=== PATIENT | male | born 1950 | race Caucasian/White ===

== ENCOUNTER 2016-09-29 12:23 | Emergency (ER) | payer MEDICARE, MEDICAID ==
[~2016-09-29 12:23] MED LIST: /ADVA50050 IN; /ESCI20TA OR; /FENO48TA OR; /FENO48TA PO; /IPRAINH INH; /MESA40TAB PO; BABY81CH OR; CARA1TAB2 PO; CLON1TAB PO; FLUT50SP; HYDR25TA8 OR; INSULANT SC; LIPI20TA OR; LISI5TAB OR; LOPR50TA OR; LORA2TAB OR; METF500T PO; NABU500T OR; OMEP20TA7 OR; PROVENTIL INH; TRAM50TA2 OR; TRAZ100T OR; lialda OR; senokot s OR
[2016-09-29] MEDS ORDERED: KETOROLAC 30 MG/ML VIAL (J1885) As Ordered ONE (13:35)
[2016-09-29] MEDS ORDERED: METHOCARBAMOL 1,000 MG/10 ML VIAL (J2800) As Ordered ONE (13:35)
--- NOTE | 2016-09-29 14:46 | EDDOCDS ---
Nurse's Notes [facility] Name: Yayo Rodriguez Age: 66 yrs Sex: Male : 1950 Arrival Date: 09/29/2016 Time: 12:23 Bed TR8 Private MD: Unknown, Family Dr Diagnosis: Low back pain Presentation: 09/29 12:26 Presenting complaint: Patient states: c/o back pain since yesterday. "I twisted my back ead bending over and something snapped.". Acute neurological deficits are not present. Mechanism of Injury: No Mechanism of Injury. Adult Sepsis Screening: The patient does not have new or worsening altered mentation. Patient's respiratory rate is less than 22. Systolic blood pressure is greater than 100. Patient has a qSOFA score of 0- Negative Sepsis Screen. Suicide/Homicide risk assessment- the patient denies having any suicidal and/or homicidal ideations and does not present with any other emotional, behavioral or mental health complaints. 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 Transition of care: patient was not received from another setting of care. 12:26 Acuity: ANGELICA Level 4 ead 12:26 Method Of Arrival: Walkin/Carried/Asstd ead Triage Assessment: 12:30 General: Appears in no apparent distress, uncomfortable, Behavior is appropriate for ead age, cooperative. Pain: Location: back and left leg Pain currently is 10 out of 10 on a pain scale. Respiratory: Airway is patent Respiratory effort is even, unlabored. Derm: Skin is pink, warm & dry. Musculoskeletal: Reports pain in back and left leg. Historical: - Allergies: Albuterol; Nasonex; Sertraline; Paxil; SULFA (SULFONAMIDES) (Rash); Zoloft; - Home Meds: 1. clonazepam 1 mg oral TbDL 2 times per day 2. gabapentin 100 mg Oral cap 3 times per day 3. hydroxyzine HCl 25 mg Oral tab twice a day 4. Lantus Sub-Q 45 u in the am 37 u in the pm 5. mag64 64 mg twice a day 6. meclizine 25 mg Oral tab 2 times per day 7. metformin 1,000 mg Oral tab 2 times per day - PMHx: Colitis; Chronic Back pain; Hypertension; Depression; Chronic kidney problems; Diabetes - IDDM: uncontrolled; Anxiety; COPD; CAD; - PSHx: CABG; Hernia repair- Umbilical; Cholecystectomy; - Social history: Smoking status: Chewing Tobacco No barriers to communication noted, The patient speaks fluent Luxembourgish, Speaks appropriately for age. - Family history: Not pertinent. - : The pt / caregiver states he / she is not on anticoagulants. Home medication list is obtained from the patient, family members, [employer] import data. - Exposure Risk Screening:: None identified. Screenin:50 Screening information is obtained from the patient. Fall risk: No risks identified. ck1 Assistance ADL's: requires no assistance with activities of daily living. Abuse/DV Screen: The patient / caregiver reports he/she is: not in a situation that causes fear, pain or injury. Nutritional screening: No deficits noted. Advance Directives: Currently, there is no health care proxy. home support is adequate. Assessment: 13:51 General: Appears in no apparent distress, comfortable, Behavior is appropriate for age, ck1 cooperative. Pain: Location: low back area Pain currently is 8 out of 10 on a pain scale. Neurological: Level of Consciousness is awake, alert, obeys commands, Oriented to person, place, time. Respiratory: Respiratory effort is unlabored, Respiratory pattern is regular, symmetrical. GI: No deficits noted. Derm: Skin is intact, is healthy with good turgor, Skin is pink, warm & dry. 14:45 General: Appears in no apparent distress, comfortable, Behavior is appropriate for age, ead cooperative. Neurological: Level of Consciousness is awake, alert, Oriented to person, place, time. Respiratory: Airway is patent Respiratory effort is even, unlabored. Derm: Skin is pink, warm & dry. Vital Signs: 12:24 BP 165 / 76; Pulse 87; Resp 16; Temp 97.8(T); Pulse Ox 99% on R/A; [place] 108.86 kg[place] [facility] [place] 5 ft. 11 in. (180.34 cm); Pain 10/10; 14:30 BP 156 / 80; Pulse 80; Resp 16; Temp 99.3(TE); Pulse Ox 97% ; Pain 6/10; jrd 12:24 Body Mass Index 33.47 (108.86 kg, 180.34 cm) [facility] [place] Vitals: 12:24 Log In Time: September 29, 2016 at 12:23. sew ED Course: 12:24 Patient visited by Crista Saucedo. sew 12:24 Unknown, Family is Private Physician. sew 12:24 Patient moved to Waiting sew 12:25 Patient visited by Crista Saucedo. sew 12:25 Patient moved to Pre RCE sew 12:28 Triage Initiated ead 13:16 Patient moved to Triage 2 jrd 13:17 Patient visited by Kisha Vergara,RN. ead 13:18 Po Garces PA is PHCP. btw 13:18 Crista Torres MD is Attending Physician. btw 13:18 Patient visited by Po Garces PA. btw 13:34 Patient moved to PD ead 13:49 Patient visited by Puja Whyte,SHEKHAR. ck1 13:51 The patient / caregiver is instructed regarding the plan of care and ED course. ck1 14:27 Unknown, Family is Referral Physician. btw 14:31 Patient visited by Antione Dominguez PCA. jrd 14:44 Patient moved to TR8 ead 14:45 No IV's were initiated during this patient's visit. No procedures done that require ead assistance. Administered Medications: 13:50 Drug: ketorolac 30 mg [ketorolac 30 mg/mL (1 mL) injection solution (1 mL)] Route: IM; ck1 Site: left gluteus; 13:50 Drug: Robaxin 250 mg [Robaxin 100 mg/mL injection solution (2.5 mL)] Route: IM; Site: ck1 right gluteus; Order Results: There are currently no results for this order. Outcome: 14:27 Discharge ordered by Provider. btw 14:45 Discharge Assessment: Patient awake and alert. obeys commands, Oriented to person, ead place and time. patient administered narcotics - no. The following High Risk Discharge criteria are identified: None. Discharged to home ambulatory, with significant other. Condition: improved. Discharge instructions given to patient, significant other, Instructed on discharge instructions, follow up and referral plans. medication usage, no driving heavy equipment, no drinking with medication, Demonstrated understanding of instructions, medications, Pt was receptive of discharge instructions/ teaching. Prescriptions given X 2. No special radiology studies were completed. Property sent home with patient. 14:46 Patient left the ED. ead Signatures: Puja Whyte,RN RN ck1 Po Garces PA PA btw Wallace, Kisha Trinh,RN RN ead Antinoe Dominguez, ROSI CIRCULAR HEAD SAW OPERATOR jrd MTDD
--- NOTE | 2016-09-29 14:46 | EDDOCDS ---
Physician Documentation [facility] Name: Yayo Rodriguez Age: 66 yrs Sex: Male : 1950 Arrival Date: 09/29/2016 Time: 12:23 Bed TR8 Private MD: Pia, Family De [place] Disposition: 09/29/16 14:27 Discharged to Home/Self Care. Impression: Low back pain. - Condition is Stable. - Discharge Instructions: Back Injury Prevention, [id number], Back Pain, Adult, Dkgm-pi-Iinz. - Prescriptions for Ultram 50 mg Oral Tablet - take 1 tablet by ORAL route every 6 hours As needed MDD: 4 tabs; 20 tablet. Robaxin- 750 750 mg Oral Tablet - take 1 tablet by ORAL route every 6 hours As needed; 40 tablet. - Medication Reconciliation, Local Pharmacy Hours form. - Follow up: Unknown, Family [place]; When: Call to arrange an appointment; Reason: Further diagnostic work-up, Recheck today's complaints, Continuance of care. - Problem is new. - Symptoms are unchanged. Historical: - Allergies: Albuterol; Nasonex; Sertraline; Paxil; SULFA (SULFONAMIDES) (Rash); Zoloft; - Home Meds: 1. clonazepam 1 mg oral TbDL 2 times per day 2. gabapentin 100 mg Oral cap 3 times per day 3. hydroxyzine HCl 25 mg Oral tab twice a day 4. Lantus Sub-Q 45 u in the am 37 u in the pm 5. mag64 64 mg twice a day 6. meclizine 25 mg Oral tab 2 times per day 7. metformin 1,000 mg Oral tab 2 times per day - PMHx: Colitis; Chronic Back pain; Hypertension; Depression; Chronic kidney problems; Diabetes - IDDM: uncontrolled; Anxiety; COPD; CAD; - PSHx: CABG; Hernia repair- Umbilical; Cholecystectomy; - Social history: Smoking status: Chewing Tobacco No barriers to communication noted, The patient speaks fluent Upper Sorbian, Speaks appropriately for age. - Family history: Not pertinent. - : The pt / caregiver states he / she is not on anticoagulants. Home medication list is obtained from the patient, family members, [employer] import data. - Exposure Risk Screening:: None identified. Vital Signs: 09/29 12:24 BP 165 / 76; Pulse 87; Resp 16; Temp 97.8(T); Pulse Ox 99% on R/A; Weight 108.86 kg / sew 240 lbs; Height 5 ft. 11 in. (180.34 cm); Pain 10/10; 14:30 BP 156 / 80; Pulse 80; Resp 16; Temp 99.3(TE); Pulse Ox 97% ; Pain 6/10; jrd 12:24 Body Mass Index 33.47 (108.86 kg, 180.34 cm) sew MDM: 13:32 ketorolac 30 mg IM once ordered. btw 13:32 Robaxin 250 mg IM once ordered. btw Administered Medications: 13:50 Drug: ketorolac 30 mg [ketorolac 30 mg/mL (1 mL) injection solution (1 mL)] Route: IM; ck1 Site: left gluteus; 13:50 Drug: Robaxin 250 mg [Robaxin 100 mg/mL injection solution (2.5 mL)] Route: IM; Site: ck1 right gluteus; Signatures: Puja Whyte RN RN ck1 Po Garces PA PA btw Kisha Vergara,RN RN orlyd MTDD
--- NOTE | 2016-10-01 15:46 | EDDOCDS ---
Physician Documentation [facility] Name: Yayo Rodriguez Age: 66 yrs Sex: Male : 1950 Arrival Date: 09/29/2016 Time: 12:23 Bed TR8 Private MD: Pia, Family De [place] Disposition: 09/29/16 14:27 Discharged to Home/Self Care. Impression: Low back pain. - Condition is Stable. - Discharge Instructions: Back Injury Prevention, Gzpi-zd-Mimo, Back Pain, Adult, Qcdc-jz-Igkl. - Prescriptions for Ultram 50 mg Oral Tablet - take 1 tablet by ORAL route every 6 hours As needed MDD: 4 tabs; 20 tablet. Robaxin- 750 750 mg Oral Tablet - take 1 tablet by ORAL route every 6 hours As needed; 40 tablet. - Medication Reconciliation, Local Pharmacy Hours form. - Follow up: Unknown, Family [place]; When: Call to arrange an appointment; Reason: Further diagnostic work-up, Recheck today's complaints, Continuance of care. - Problem is new. - Symptoms are unchanged. Historical: - Allergies: Albuterol; Nasonex; Sertraline; Paxil; SULFA (SULFONAMIDES) (Rash); Zoloft; - Home Meds: 1. clonazepam 1 mg oral TbDL 2 times per day 2. gabapentin 100 mg Oral cap 3 times per day 3. hydroxyzine HCl 25 mg Oral tab twice a day 4. Lantus Sub-Q 45 u in the am 37 u in the pm 5. mag64 64 mg twice a day 6. meclizine 25 mg Oral tab 2 times per day 7. metformin 1,000 mg Oral tab 2 times per day - PMHx: Colitis; Chronic Back pain; Hypertension; Depression; Chronic kidney problems; Diabetes - IDDM: uncontrolled; Anxiety; COPD; CAD; - PSHx: CABG; Hernia repair- Umbilical; Cholecystectomy; - Social history: Smoking status: Chewing Tobacco No barriers to communication noted, The patient speaks fluent Sami, Speaks appropriately for age. - Family history: Not pertinent. - : The pt / caregiver states he / she is not on anticoagulants. Home medication list is obtained from the patient, family members, [employer] import data. - Exposure Risk Screening:: None identified. Vital Signs: 09/29 12:24 BP 165 / 76; Pulse 87; Resp 16; Temp 97.8(T); Pulse Ox 99% on R/A; Weight 108.86 kg / sew 240 lbs; Height 5 ft. 11 in. (180.34 cm); Pain 10/10; 14:30 BP 156 / 80; Pulse 80; Resp 16; Temp 99.3(TE); Pulse Ox 97% ; Pain 6/10; jrd 12:24 Body Mass Index 33.47 (108.86 kg, 180.34 cm) sew MDM: 13:32 ketorolac 30 mg IM once ordered. btw 13:32 Robaxin 250 mg IM once ordered. btw 15:15 T-Sheet-- Draft Copy was scanned into [employer] and attached to record. gb Administered Medications: 13:50 Drug: ketorolac 30 mg [ketorolac 30 mg/mL (1 mL) injection solution (1 mL)] Route: IM; ck1 Site: left gluteus; 13:50 Drug: Robaxin 250 mg [Robaxin 100 mg/mL injection solution (2.5 mL)] Route: IM; Site: ck1 right gluteus; Signatures: Elaine Mcghee, Reg Reg gb Puja Whyte RN RN ck1 Po Garces PA PA btw Kisha Vergara,RN RN ead The chart was reviewed and I authenticate all verbal orders and agree with the evaluation and treatment provided.Attachments: 15:15 T-Sheet-- Draft Copy gb Chart Complete MTDD
--- NOTE | 2016-10-01 15:46 | EDDOCDS ---
Physician Documentation [facility] Name: Yayo Rodriguez Age: 66 yrs Sex: Male : 1950 Arrival Date: 09/29/2016 Time: 12:23 Bed TR8 Private MD: Pia, Family De Los Santos Disposition: 09/29/16 14:27 Discharged to Home/Self Care. Impression: Low back pain. - Condition is Stable. - Discharge Instructions: Back Injury Prevention, Rgvh-tm-Zzqw, Back Pain, Adult, Tdms-hw-Wute. - Prescriptions for Ultram 50 mg Oral Tablet - take 1 tablet by ORAL route every 6 hours As needed MDD: 4 tabs; 20 tablet. Robaxin- 750 750 mg Oral Tablet - take 1 tablet by ORAL route every 6 hours As needed; 40 tablet. - Medication Reconciliation, Local Pharmacy Hours form. - Follow up: Unknown, Family [place]; When: Call to arrange an appointment; Reason: Further diagnostic work-up, Recheck today's complaints, Continuance of care. - Problem is new. - Symptoms are unchanged. Historical: - Allergies: Albuterol; Nasonex; Sertraline; Paxil; SULFA (SULFONAMIDES) (Rash); Zoloft; - Home Meds: 1. clonazepam 1 mg oral TbDL 2 times per day 2. gabapentin 100 mg Oral cap 3 times per day 3. hydroxyzine HCl 25 mg Oral tab twice a day 4. Lantus Sub-Q 45 u in the am 37 u in the pm 5. mag64 64 mg twice a day 6. meclizine 25 mg Oral tab 2 times per day 7. metformin 1,000 mg Oral tab 2 times per day - PMHx: Colitis; Chronic Back pain; Hypertension; Depression; Chronic kidney problems; Diabetes - IDDM: uncontrolled; Anxiety; COPD; CAD; - PSHx: CABG; Hernia repair- Umbilical; Cholecystectomy; - Social history: Smoking status: Chewing Tobacco No barriers to communication noted, The patient speaks fluent Faroese, Speaks appropriately for age. - Family history: Not pertinent. - : The pt / caregiver states he / she is not on anticoagulants. Home medication list is obtained from the patient, family members, [employer] import data. - Exposure Risk Screening:: None identified. Vital Signs: 09/29 12:24 BP 165 / 76; Pulse 87; Resp 16; Temp 97.8(T); Pulse Ox 99% on R/A; Weight 108.86 kg / sew 240 lbs; Height 5 ft. 11 in. (180.34 cm); Pain 10/10; 14:30 BP 156 / 80; Pulse 80; Resp 16; Temp 99.3(TE); Pulse Ox 97% ; Pain 6/10; jrd 12:24 Body Mass Index 33.47 (108.86 kg, 180.34 cm) sew MDM: 13:32 ketorolac 30 mg IM once ordered. btw 13:32 Robaxin 250 mg IM once ordered. btw 15:15 T-Sheet-- Draft Copy was scanned into [employer] and attached to record. gb Administered Medications: 13:50 Drug: ketorolac 30 mg [ketorolac 30 mg/mL (1 mL) injection solution (1 mL)] Route: IM; ck1 Site: left gluteus; 13:50 Drug: Robaxin 250 mg [Robaxin 100 mg/mL injection solution (2.5 mL)] Route: IM; Site: ck1 right gluteus; Signatures: Elaine Mcghee, Reg Reg gb Puja Whyte RN RN ck1 Po Garces PA PA btw Kisha Vergara,RN RN ead The chart was reviewed and I authenticate all verbal orders and agree with the evaluation and treatment provided.Attachments: 15:15 T-Sheet-- Draft Copy gb Chart Complete MTDD
--- NOTE | 2016-10-01 15:46 | EDDOCDS ---
Nurse's Notes [facility] Name: Yayo Rodriguez Age: 66 yrs Sex: Male : 1950 Arrival Date: 09/29/2016 Time: 12:23 Bed TR8 Private MD: Unknown, Family Dr Diagnosis: Low back pain Presentation: 09/29 12:26 Presenting complaint: Patient states: c/o back pain since yesterday. "I twisted my back ead bending over and something snapped.". Acute neurological deficits are not present. Mechanism of Injury: No Mechanism of Injury. Adult Sepsis Screening: The patient does not have new or worsening altered mentation. Patient's respiratory rate is less than 22. Systolic blood pressure is greater than 100. Patient has a qSOFA score of 0- Negative Sepsis Screen. Suicide/Homicide risk assessment- the patient denies having any suicidal and/or homicidal ideations and does not present with any other emotional, behavioral or mental health complaints. 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 Transition of care: patient was not received from another setting of care. 12:26 Acuity: ANGELICA Level 4 ead 12:26 Method Of Arrival: Walkin/Carried/Asstd ead Triage Assessment: 12:30 General: Appears in no apparent distress, uncomfortable, Behavior is appropriate for ead age, cooperative. Pain: Location: back and left leg Pain currently is 10 out of 10 on a pain scale. Respiratory: Airway is patent Respiratory effort is even, unlabored. Derm: Skin is pink, warm & dry. Musculoskeletal: Reports pain in back and left leg. Historical: - Allergies: Albuterol; Nasonex; Sertraline; Paxil; SULFA (SULFONAMIDES) (Rash); Zoloft; - Home Meds: 1. clonazepam 1 mg oral TbDL 2 times per day 2. gabapentin 100 mg Oral cap 3 times per day 3. hydroxyzine HCl 25 mg Oral tab twice a day 4. Lantus Sub-Q 45 u in the am 37 u in the pm 5. mag64 64 mg twice a day 6. meclizine 25 mg Oral tab 2 times per day 7. metformin 1,000 mg Oral tab 2 times per day - PMHx: Colitis; Chronic Back pain; Hypertension; Depression; Chronic kidney problems; Diabetes - IDDM: uncontrolled; Anxiety; COPD; CAD; - PSHx: CABG; Hernia repair- Umbilical; Cholecystectomy; - Social history: Smoking status: Chewing Tobacco No barriers to communication noted, The patient speaks fluent Occitan, Speaks appropriately for age. - Family history: Not pertinent. - : The pt / caregiver states he / she is not on anticoagulants. Home medication list is obtained from the patient, family members, [employer] import data. - Exposure Risk Screening:: None identified. Screenin:50 Screening information is obtained from the patient. Fall risk: No risks identified. ck1 Assistance ADL's: requires no assistance with activities of daily living. Abuse/DV Screen: The patient / caregiver reports he/she is: not in a situation that causes fear, pain or injury. Nutritional screening: No deficits noted. Advance Directives: Currently, there is no health care proxy. home support is adequate. Assessment: 13:51 General: Appears in no apparent distress, comfortable, Behavior is appropriate for age, ck1 cooperative. Pain: Location: low back area Pain currently is 8 out of 10 on a pain scale. Neurological: Level of Consciousness is awake, alert, obeys commands, Oriented to person, place, time. Respiratory: Respiratory effort is unlabored, Respiratory pattern is regular, symmetrical. GI: No deficits noted. Derm: Skin is intact, is healthy with good turgor, Skin is pink, warm & dry. 14:45 General: Appears in no apparent distress, comfortable, Behavior is appropriate for age, ead cooperative. Neurological: Level of Consciousness is awake, alert, Oriented to person, place, time. Respiratory: Airway is patent Respiratory effort is even, unlabored. Derm: Skin is pink, warm & dry. Vital Signs: 12:24 BP 165 / 76; Pulse 87; Resp 16; Temp 97.8(T); Pulse Ox 99% on R/A; Weight 108.86 kg; [facility] [place] 5 ft. 11 in. (180.34 cm); Pain 10/10; 14:30 BP 156 / 80; Pulse 80; Resp 16; Temp 99.3(TE); Pulse Ox 97% ; Pain 6/10; jrd 12:24 Body Mass Index 33.47 (108.86 kg, 180.34 cm) [facility] [place] Vitals: 12:24 Log In Time: September 29, 2016 at 12:23. sew ED Course: 12:24 Patient visited by Crista Saucedo. sew 12:24 Unknown, Family is Private Physician. sew 12:24 Patient moved to Waiting sew 12:25 Patient visited by Crista Saucedo. sew 12:25 Patient moved to Pre RCE sew 12:28 Triage Initiated ead 13:16 Patient moved to Triage 2 jrd 13:17 Patient visited by Kisha Vergara,RN. ead 13:18 Po Garces PA is PHCP. btw 13:18 Crista Torres MD is Attending Physician. btw 13:18 Patient visited by Po Garces PA. btw 13:34 Patient moved to PD2 ead 13:49 Patient visited by Puja Whyte,SHEKHAR. ck1 13:51 The patient / caregiver is instructed regarding the plan of care and ED course. ck1 14:27 Unknown, Family is Referral Physician. btw 14:31 Patient visited by Antione Dominguez PCA. jrd 14:44 Patient moved to TR8 ead 14:45 No IV's were initiated during this patient's visit. No procedures done that require ead assistance. 15:15 T-Sheet-- Draft Copy was scanned into [employer] and attached to record. gb Administered Medications: 13:50 Drug: ketorolac 30 mg [ketorolac 30 mg/mL (1 mL) injection solution (1 mL)] Route: IM; ck1 Site: left gluteus; 13:50 Drug: Robaxin 250 mg [Robaxin 100 mg/mL injection solution (2.5 mL)] Route: IM; Site: ck1 right gluteus; Order Results: There are currently no results for this order. Outcome: 14:27 Discharge ordered by Provider. btw 14:45 Discharge Assessment: Patient awake and alert. obeys commands, Oriented to person, ead place and time. patient administered narcotics - no. The following High Risk Discharge criteria are identified: None. Discharged to home ambulatory, with significant other. Condition: improved. Discharge instructions given to patient, significant other, Instructed on discharge instructions, follow up and referral plans. medication usage, no driving heavy equipment, no drinking with medication, Demonstrated understanding of instructions, medications, Pt was receptive of discharge instructions/ teaching. Prescriptions given X 2. No special radiology studies were completed. Property sent home with patient. 14:46 Patient left the ED. ead Signatures: Elaine Mcghee, Reg Reg Puja Orosco,RN RN ck1 Po Garces PA PA btw Wallace, Sarah sew Dunaway, Emily,SHEKHAR RN ead Antione Dominguez PCA HAND II BLOCKER jrd Chart Complete MTDD
== END 2016-09-29 14:46 | disposition home or self-care (01) ==
LOC: M ED 12:23
DX: M54.5 Low back pain (principal); K58.9 Irritable bowel syndrome, unspecified; I12.9 Hypertensive chronic kidney disease with stage 1 through stage 4 chronic kidney disease, or unspecified chronic kidney disease; F32.9 Major depressive disorder, single episode, unspecified; N18.9 Chronic kidney disease, unspecified; E11.65 Type 2 diabetes mellitus with hyperglycemia; F41.9 Anxiety disorder, unspecified; J44.9 Chronic obstructive pulmonary disease, unspecified; I25.10 Atherosclerotic heart disease of native coronary artery without angina pectoris; Z95.5 Presence of coronary angioplasty implant and graft; F17.220 Nicotine dependence, chewing tobacco, uncomplicated; Z79.4 Long term (current) use of insulin; Z79.899 Other long term (current) drug therapy; Z79.84 Long term (current) use of oral hypoglycemic drugs; Z88.8 Allergy status to other drugs, medicaments and biological substances; Z88.2 Allergy status to sulfonamides
CPT/HCPCS: 96372; 99283; J1885; J2800

== ENCOUNTER → 2016-10-03 | Outpatient (REF) | payer MEDICARE, MEDICAID | LOC: M SFHCPLAZ 12:30 | PROVIDERS: ATTEND Family Medicine | DX: R30.0 Dysuria (principal) | CPT/HCPCS: 81002; 87088; 87186; G0463 ==

== ENCOUNTER → 2016-12-21 | Day surgery (SDC) | payer MEDICARE ==
[~2016-12-21] VITALS: Ht 180.3 cm; Wt 113.9 kg
[~2016-12-21] MED LIST changes: +ACETAMINOPHEN 325 MG TAB PO PRN; +ACETYLCHOLINE OPHTH SOLN 1% 2ML As Ordered ONE; +ATOR1TAB18 PO; +BACL10TA2 PO; +BALANCED SALT IRRIGATION SOLUTION 500ML BAG (FOR OR EYE MACHINE) As Ordered ONE; +CEFUROXIME 1MG/0.1ML INTRACAMERAL INJ As Ordered ONE; +CYCLOPENTOLATE 2% OPHTH SOLN OS ONE; +HEALON DUET (HEALON 10MG/ML 0.55ML & HEALON ENDOCOAT 30MG/ML 0.85ML) As Ordered ONE; +HYDR25T PO; +INSULADS INJ; +KETOROLAC 0.5% OPHTH SOLN OS ONE; +LIDOCAINE 1% SDV 5 ML VIAL As Ordered ONE; +LIDOCAINE 4% INJ 5 ML AMP OU ONE; +MAGN30TA2 PO; +METF1000 PO; +MIDAZOLAM INJ 2 MG/2 ML VIAL (J2250) As Ordered ONE; +OFLOXACIN 0.3 % (OCUFLOX) OPTH SOL 5ML OS ONE; +PHENYLEPHRINE 2.5% OPHTH SOL 2ML OS ONE; +POVIDONE-IODINE 5% OPHTH PREP SOL 30ML As Ordered ONE; +PROPARACAINE 0.5% OPHTH SOL 15ML OS PRN; +TRIMETHOBENZAMIDE 300 MG CAP PO PRN; +TROPICAMIDE 1% OPHTH SOLN 2 ML OS ONE; +fentaNYL 100 MCG/2 ML INJECTION (J3010) As Ordered ONE
--- NOTE | 2016-12-21 11:03 | RO ---
DATE OF PROCEDURE: 12/21/2016 PREPROCEDURE DIAGNOSIS: Age related nuclear cataract left eye. POSTPROCEDURE DIAGNOSIS: Age related nuclear cataract left eye. PROCEDURE: Phacoemulsification and posterior chamber intraocular lens implantation. The lens used was AU00T0, 17.5 diopter. SURGEON: Cathleen Ramon MD SENSORY SCIENTIST: ANESTHESIA: Topical with sedation. DESCRIPTION OF PROCEDURE: The patient was prepped and draped in the usual fashion. A lid speculum was placed between the lids. The eye was fixated. A stab incision was made to the anterior chamber, and 1% non-preserved lidocaine was instilled. Then, viscoelastic was instilled. The eye was re-fixated. A 2.75 mm sapphire keratome was used to make a clear corneal temporal limbal incision. Capsulorrhexis was begun with a 30-gauge bent needle and then carried out in a circular fashion with capsulorrhexis forceps. The lens was hydrodissected, and then the phacoemulsification unit was used to make a groove in the nucleus in two meridians. The nucleus was then cracked into four quadrants. Each quadrant was removed with the phacoemulsification unit. Any remaining cortex was removed with the irrigation and aspiration (I and A) unit. Capsular bag was refilled with viscoelastic. A posterior chamber intraocular lens was placed in the capsular bag without difficulty. Any remaining viscoelastic was removed with the I and A unit. The wound was hydrated, and Miochol and cefuroxime were instilled into the anterior chamber. The patient tolerated the procedure well and went to the recovery room in stable condition.
[2016-12-21 11:40] VITALS: BP 121/60
== END | disposition home or self-care (01) ==
LOC: M SDC 07:54
PROVIDERS: ATTEND Ophthalmology
DX: H25.12 Age-related nuclear cataract, left eye (principal); E11.9 Type 2 diabetes mellitus without complications; Z79.4 Long term (current) use of insulin; I25.10 Atherosclerotic heart disease of native coronary artery without angina pectoris; Z98.61 Coronary angioplasty status; E78.5 Hyperlipidemia, unspecified; R06.02 Shortness of breath; G47.30 Sleep apnea, unspecified; F17.220 Nicotine dependence, chewing tobacco, uncomplicated; Z88.2 Allergy status to sulfonamides; Z79.899 Other long term (current) drug therapy; Z88.8 Allergy status to other drugs, medicaments and biological substances
CPT/HCPCS: 66984; J2250; J3010; V2632

== ENCOUNTER → 2016-12-28 | Day surgery (SDC) | payer MEDICARE ==
[~2016-12-28] VITALS: Ht 180.3 cm; Wt 113.9 kg
[~2016-12-28] MED LIST changes: +ACUL0.5S OD; +CYCLOPENTOLATE 2% OPHTH SOLN OD ONE; -CYCLOPENTOLATE 2% OPHTH SOLN OS ONE; +D5W/0.2% SODIUM CHLORIDE 250 ML IV SCH; +KETOROLAC 0.5% OPHTH SOLN OD ONE; -KETOROLAC 0.5% OPHTH SOLN OS ONE; +OFLO0.3D57 OD; +OFLOXACIN 0.3 % (OCUFLOX) OPTH SOL 5ML OD ONE; -OFLOXACIN 0.3 % (OCUFLOX) OPTH SOL 5ML OS ONE; +PHENYLEPHRINE 2.5% OPHTH SOL 2ML OD ONE; -PHENYLEPHRINE 2.5% OPHTH SOL 2ML OS ONE; +PRED1SUS OD; +PROPARACAINE 0.5% OPHTH SOL 15ML OD PRN; -PROPARACAINE 0.5% OPHTH SOL 15ML OS PRN; +TROPICAMIDE 1% OPHTH SOLN 2 ML OD ONE; -TROPICAMIDE 1% OPHTH SOLN 2 ML OS ONE
--- NOTE | 2016-12-28 12:57 | RO ---
DATE OF PROCEDURE: 12/28/2016 PREPROCEDURE DIAGNOSIS: Age related nuclear cataract right eye. POSTPROCEDURE DIAGNOSIS: Age related nuclear cataract right eye. PROCEDURE: Phacoemulsification and posterior chamber intraocular lens implantation. The lens used was [id number], 17.0 diopter. SURGEON: Cathleen Ramon MD PILLAR MAN: ANESTHESIA: Topical with sedation. DESCRIPTION OF PROCEDURE: The patient was prepped and draped in the usual fashion. A lid speculum was placed between the lids. The eye was fixated. A stab incision was made to the anterior chamber, and 1% non-preserved lidocaine was instilled. Then, viscoelastic was instilled. The eye was re-fixated. A 2.75 mm sapphire keratome was used to make a clear corneal temporal limbal incision. Capsulorrhexis was begun with a 30-gauge bent needle and then carried out in a circular fashion with capsulorrhexis forceps. The lens was hydrodissected, and then the phacoemulsification unit was used to make a groove in the nucleus in two meridians. The nucleus was then cracked into four quadrants. Each quadrant was removed with the phacoemulsification unit. Any remaining cortex was removed with the irrigation and aspiration (I and A) unit. Capsular bag was refilled with viscoelastic. A posterior chamber intraocular lens was placed in the capsular bag without difficulty. Any remaining viscoelastic was removed with the I and A unit. The wound was hydrated, and Miochol and cefuroxime were instilled into the anterior chamber. The patient tolerated the procedure well and went to the recovery room in stable condition.
[2016-12-28 13:40] VITALS: BP 153/83
== END | disposition home or self-care (01) ==
LOC: M SDC 09:01
PROVIDERS: ATTEND Ophthalmology
DX: H25.11 Age-related nuclear cataract, right eye (principal); I25.10 Atherosclerotic heart disease of native coronary artery without angina pectoris; E78.00 Pure hypercholesterolemia, unspecified; E10.9 Type 1 diabetes mellitus without complications; R29.898 Other symptoms and signs involving the musculoskeletal system; G43.909 Migraine, unspecified, not intractable, without status migrainosus; R06.83 Snoring; R06.02 Shortness of breath; G47.9 Sleep disorder, unspecified; N28.1 Cyst of kidney, acquired; J44.9 Chronic obstructive pulmonary disease, unspecified; K25.9 Gastric ulcer, unspecified as acute or chronic, without hemorrhage or perforation; Z88.2 Allergy status to sulfonamides; Z88.8 Allergy status to other drugs, medicaments and biological substances; Z79.899 Other long term (current) drug therapy; Z95.5 Presence of coronary angioplasty implant and graft
CPT/HCPCS: 66984; J2250; J3010; V2632

== ENCOUNTER 2016-12-31 11:00 | Day surgery (SDC) | payer MEDICARE ==
[~2016-12-31 11:00] MED LIST changes: -ACETYLCHOLINE OPHTH SOLN 1% 2ML As Ordered ONE; -ACUL0.5S OD; -BALANCED SALT IRRIGATION SOLUTION 500ML BAG (FOR OR EYE MACHINE) As Ordered ONE; -CEFUROXIME 1MG/0.1ML INTRACAMERAL INJ As Ordered ONE; -CYCLOPENTOLATE 2% OPHTH SOLN OD ONE; +CYCLOPENTOLATE 2% OPHTH SOLN XX ONE; -D5W/0.2% SODIUM CHLORIDE 250 ML IV SCH; -HEALON DUET (HEALON 10MG/ML 0.55ML & HEALON ENDOCOAT 30MG/ML 0.85ML) As Ordered ONE; -KETOROLAC 0.5% OPHTH SOLN OD ONE; -LIDOCAINE 1% SDV 5 ML VIAL As Ordered ONE; -MIDAZOLAM INJ 2 MG/2 ML VIAL (J2250) As Ordered ONE; -OFLO0.3D57 OD; -OFLOXACIN 0.3 % (OCUFLOX) OPTH SOL 5ML OD ONE; +OFLOXACIN 0.3 % (OCUFLOX) OPTH SOL 5ML XX ONE; -PHENYLEPHRINE 2.5% OPHTH SOL 2ML OD ONE; +PHENYLEPHRINE 2.5% OPHTH SOL 2ML XX ONE; -POVIDONE-IODINE 5% OPHTH PREP SOL 30ML As Ordered ONE; -PRED1SUS OD; -PROPARACAINE 0.5% OPHTH SOL 15ML OD PRN; +PROPARACAINE 0.5% OPHTH SOL 15ML XX PRN; -TRIMETHOBENZAMIDE 300 MG CAP PO PRN; -TROPICAMIDE 1% OPHTH SOLN 2 ML OD ONE; +TROPICAMIDE 1% OPHTH SOLN 2 ML XX ONE; -fentaNYL 100 MCG/2 ML INJECTION (J3010) As Ordered ONE
[2016-12-31] MEDS ORDERED: PHENYLEPHRINE 2.5% OPHTH SOL 2ML ONE (11:01)
[2016-12-31] MEDS ORDERED: LIDOCAINE 4% INJ 5 ML AMP ONE (11:01)
[2016-12-31] MEDS ORDERED: fentaNYL 100 MCG/2 ML INJECTION (J3010) ONE (11:01)
[2016-12-31] MEDS ORDERED: BALANCED SALT IRRIGATION SOL 500ML GLASS BOTTLE (FOR OR EYE COMPOUND) ONE (11:01)
[2016-12-31] MEDS ORDERED: CEFUROXIME 1MG/0.1ML INTRACAMERAL INJ ONE (11:01)
[2016-12-31] MEDS ORDERED: POVIDONE-IODINE 5% OPHTH PREP SOL 30ML ONE (11:01)
[2016-12-31] MEDS ORDERED: TROPICAMIDE 1% OPHTH SOLN 2 ML ONE (11:01)
[2016-12-31] MEDS ORDERED: CYCLOPENTOLATE 2% OPHTH SOLN ONE (11:01)
[2016-12-31] MEDS ORDERED: OFLOXACIN 0.3 % (OCUFLOX) OPTH SOL 5ML ONE (11:01)
[2016-12-31] MEDS ORDERED: MIDAZOLAM INJ 2 MG/2 ML VIAL (J2250) ONE (11:01)
[2016-12-31] MEDS ORDERED: TRIMETHOBENZAMIDE 300 MG CAP PO PRN (11:45)
[2016-12-31] MEDS ORDERED: KETOROLAC 0.5% OPHTH SOLN XX ONE (11:45)
[2016-12-31] MEDS ORDERED: PROPOFOL 200 MG/20 ML VIAL As Ordered ONE (13:32)
[2016-12-31] MEDS ORDERED: PROPARACAINE 0.5% OPHTH SOL 15ML As Ordered ONE (13:52)
[2016-12-31] MEDS ORDERED: KETOROLAC 0.5% OPHTH SOLN As Ordered ONE (13:52)
[2016-12-31] MEDS ORDERED: fentaNYL 100 MCG/2 ML INJECTION (J3010) IV PRN (14:15)
[2016-12-31] MEDS ORDERED: D5W/0.45% SODIUM CHLORIDE 1,000 ML IV SCH (14:15)
--- NOTE | 2016-12-31 14:31 | RO ---
DATE OF PROCEDURE: 12/31/2016 PREPROCEDURE DIAGNOSIS: Retained cortical lens material, right eye. POSTPROCEDURE DIAGNOSIS: Retained cortical lens material, right eye. PROCEDURE: Anterior chamber washout and aspiration of cortex. SURGEON: Dr. Cathleen Ramon APPLICATION DEVELOPMENT TEAM LEAD: ANESTHESIA: Topical sedation. DESCRIPTION OF PROCEDURE: The patient was brought to the operating room (OR), prepped and draped in the usual fashion. Lid speculum was placed in the lids. An irrigation and aspiration (I and A) probe was introduced into the eye through the original incision. It was easily opened. The remaining cortical material was aspirated with no difficulty and the anterior chamber was continued to be washed out for about 10-20 seconds. The I and A probe was removed, the wound was hydrated, the chamber reformed with balanced salt solution and cefuroxime instilled. The patient tolerated the procedure well and went to the recovery room in stable condition.
[2016-12-31 14:45] VITALS: BP 165/84
[2016-12-31] MEDS ORDERED: PRED1SUS OD (14:59)
[2016-12-31] MEDS ORDERED: OFLO0.3D57 OD (14:59)
[2016-12-31] MEDS ORDERED: ACUL0.5S OD (14:59)
== END 2016-12-31 15:15 | disposition home or self-care (01) ==
LOC: M SDC 11:00 → M OPCLI5PR 11:00 → M MS5PR 11:21 → M OR 12:47 → M MS5PR 14:22 → M OPCLI5PR 15:15
PROVIDERS: ATTEND Ophthalmology
DX: H59.021 Cataract (lens) fragments in eye following cataract surgery, right eye (principal); I25.10 Atherosclerotic heart disease of native coronary artery without angina pectoris; E78.5 Hyperlipidemia, unspecified; F17.220 Nicotine dependence, chewing tobacco, uncomplicated; E10.9 Type 1 diabetes mellitus without complications; G47.30 Sleep apnea, unspecified; R51 Headache; I10 Essential (primary) hypertension; J44.9 Chronic obstructive pulmonary disease, unspecified; K25.9 Gastric ulcer, unspecified as acute or chronic, without hemorrhage or perforation; Z88.1 Allergy status to other antibiotic agents; Z88.2 Allergy status to sulfonamides; Z88.8 Allergy status to other drugs, medicaments and biological substances; Z79.899 Other long term (current) drug therapy; Z79.4 Long term (current) use of insulin; Z95.5 Presence of coronary angioplasty implant and graft
CPT/HCPCS: 65235; J2250; J3010

== ENCOUNTER → 2018-03-28 | Outpatient (REF) | payer MEDICARE, MEDICAID ==
[2018-03-28 12:33] LABS: ANION GAP 12 MEQ/L (8-16); BLOOD UREA NITROGEN 15 MG/DL (7-18); CALCIUM LEVEL 10.3 MG/DL (8.8-10.2); CARBON DIOXIDE LEVEL 21 MEQ/L (21-32); CHLORIDE LEVEL 108 MEQ/L (98-107); CHOLESTEROL LEVEL 177 MG/DL (<200); CHOLESTEROL RISK RATIO 3.933 (<5); CREATININE FOR GFR 0.85 MG/DL (0.70-1.30); GLOMERULAR FILTRATION RATE > 60.0 (>49); GLUCOSE, FASTING 147 MG/DL (70-100); HDL CHOLESTEROL 45 MG/DL (>40); LDL CHOLESTEROL 83.2 MG/DL (<100); NON-HDL-C 132 MG/DL; POTASSIUM SERUM 5.1 MEQ/L (3.5-5.1); SODIUM LEVEL 141 MEQ/L (136-145); TRIGLYCERIDES LEVEL 244 MG/DL (<150)
[2018-03-28 12:39] LABS: CREATININE, URINE 77.1 MG/DL; MALB URINE SIEMENS 27.6 MG/L; MAU/CREAT RATIO 35.7 MCG/MG (0.0-30.0)
[2018-03-28 14:32] LABS: ESTIMATED AVERAGE GLUCOSE 163 MG/DL (60-110); HEMOGLOBIN A1c 7.3 %
== END ==
LOC: M SFHCPLAZ 09:47
DX: E11.8 Type 2 diabetes mellitus with unspecified complications (principal); I10 Essential (primary) hypertension; Z23 Encounter for immunization
CPT/HCPCS: 83036

== ENCOUNTER 2018-06-20 19:18 | Emergency (ER) | payer MEDICARE, MEDICAID ==
[2018-06-20 21:31] LABS: INFLUENZA A AMPLIFICATION NEGATIVE (NEGATIVE); INFLUENZA B AMPLIFICATION NEGATIVE (NEGATIVE)
[2018-06-20] MEDS: AZITHROMYCIN 250 MG TAB PO (21:40)
== END 2018-06-20 21:45 | disposition home or self-care (01) ==
LOC: M ED 19:18
DX: J45.901 Unspecified asthma with (acute) exacerbation (principal); J20.9 Acute bronchitis, unspecified; I10 Essential (primary) hypertension; J44.0 Chronic obstructive pulmonary disease with (acute) lower respiratory infection; E11.9 Type 2 diabetes mellitus without complications; I25.10 Atherosclerotic heart disease of native coronary artery without angina pectoris; N19 Unspecified kidney failure; Z95.5 Presence of coronary angioplasty implant and graft
CPT/HCPCS: 87502

== ENCOUNTER → 2018-11-29 | Outpatient (CLI) | payer MEDICARE, MEDICAID ==
[~2018-11-29] MED LIST changes: -ACETAMINOPHEN 325 MG TAB PO PRN; +ACUL0.5S OD; -ATOR1TAB18 PO; +ATOR80TA59 PO; +CLON1TAB8 PO; -CYCLOPENTOLATE 2% OPHTH SOLN XX ONE; +HYDR-3363 PO; -HYDR25T PO; -LIDOCAINE 4% INJ 5 ML AMP OU ONE; -METF1000 PO; +METF10004 PO; +OFLO0.3D57 OD; -OFLOXACIN 0.3 % (OCUFLOX) OPTH SOL 5ML XX ONE; -PHENYLEPHRINE 2.5% OPHTH SOL 2ML XX ONE; +PRED1SUS2 OD; -PROPARACAINE 0.5% OPHTH SOL 15ML XX PRN; -TROPICAMIDE 1% OPHTH SOLN 2 ML XX ONE; +ZITHTAB PO
[2018-11-29 11:09] LABS: BLOOD UREA NITROGEN 15 MG/DL (7-18); CALCIUM LEVEL 10.9 MG/DL (8.8-10.2); CARBON DIOXIDE LEVEL 26 MEQ/L (21-32); CHLORIDE LEVEL 104 MEQ/L (98-107); CHOLESTEROL LEVEL 183 MG/DL (<200); CHOLESTEROL RISK RATIO 4.357 (<5); CK-MB VALUE MASS < 1.0 NG/ML (<3.6); CPK CREATINE PHOSPHOKINASE 108 U/L (39-308); CREATININE FOR GFR 0.87 MG/DL (0.70-1.30); GLOMERULAR FILTRATION RATE > 60.0 (>49); GLUCOSE, FASTING 189 MG/DL (70-100); HDL CHOLESTEROL 42 MG/DL (>40); LDL CHOLESTEROL 98 MG/DL (<100); MB/CK RELATIVE INDEX 0.93 (< OR =4); NON-HDL-C 141 MG/DL; NT-PRO BNP 25 PG/ML (<125); POTASSIUM SERUM 4.7 MEQ/L (3.5-5.1); SODIUM LEVEL 138 MEQ/L (136-145); TRIGLYCERIDES LEVEL 215 MG/DL (<150)
[2018-11-29 11:19] LABS: HEMOGLOBIN A1c 7.5 %
[2018-11-29 11:29] LABS: CREATININE, URINE 61.9 MG/DL; MALB URINE SIEMENS 19.6 MG/L; MAU/CREAT RATIO 31.6 MCG/MG (0.0-30.0)
--- NOTE | 2018-11-30 17:57 | REP ---
Clinical: History of coronary artery disease. Technique: PA and lateral. Comparison: 11/04/2015. Findings: Mediastinum and cardiac silhouette are within normal limits and stable. Lung shah demonstrate chronic bibasilar changes including chronic linear scarring in the medial right lower lobe. No obvious acute consolidation, effusion, or pneumothorax. Skeletal structures intact. Impression: Chronic stable changes. No acute cardiopulmonary process appreciated. Electronically Signed by Chad Villarreal MD 11/30/2018 05:49 P
--- NOTE | 2018-11-30 19:04 | REP ---
Clinical: Abdominal wall pain. Possible ventral hernia. Technique: Real time sepulveda scale ultrasound examination using linear high frequency transducer. Findings: Directed ultrasound examination left inferior to the umbilicus demonstrates a small fat containing hernia measuring 2.2 x 1.2 x 2.0 cm with the peritoneal defect measuring 2.6 mm diameter. Impression: Small left ventral infraumbilical fat-containing hernia Electronically Signed by Chad Villarreal MD 11/30/2018 06:56 P
== END ==
LOC: M RAD 09:30
PROVIDERS: ATTEND Obstetrics & Gynecology
DX: K43.9 Ventral hernia without obstruction or gangrene (principal); I25.10 Atherosclerotic heart disease of native coronary artery without angina pectoris; E78.5 Hyperlipidemia, unspecified; E11.8 Type 2 diabetes mellitus with unspecified complications

== ENCOUNTER → 2019-01-01 | Outpatient (CLI) | payer MEDICARE, MEDICAID ==
[~2019-01-01] MED LIST changes: -/ADVA50050 IN; -/ESCI20TA OR; -/FENO48TA OR; -/FENO48TA PO; -/IPRAINH INH; +ADVA1AER2 IN; +ATRO0.063 INH; +GASTROGRAFIN SOLUTION 30ML (Q9963) As Ordered ONE; +ISOVUE-370 76% 100ML VIAL (Q9967) As Ordered ONE; +LEXA1TAB2 OR; +TRIC1TAB OR; +TRIC1TAB PO
--- NOTE | 2019-01-01 16:47 | REP ---
REASON: Left lower quadrant pain. COMPARISON: Multiple, the latest 02/11/2011. CONTRAST: 100 mL Isovue-370. There is no change in the appearance of the lung bases. Fibrotic and or subsegmental changes are present status quo. There are no pleural or pericardial effusions. There is evidence of mild basilar cylindrical bronchiectasis. The precontrast enhanced portion of the examination shows diffuse low density throughout the hepatic parenchyma. Surgical clips are seen in the gallbladder fossa from previous cholecystectomy which has taken place since the last exam. There is a cyst arising from the inferior pole of the right kidney which is unchanged. A smaller cyst is seen in the interpolar region of the right kidney anteriorly which is also unchanged. Small left renal parapelvic cysts are noted status quo. The contrast enhanced portion of the examination shows no evidence of an enhancing hepatic lesion. The spleen pancreas, right adrenal gland, and kidneys are unchanged. No enhancing renal abnormalities have developed. Bilateral renal cysts are noted. There is a small nodule arising from the left adrenal gland which measures 1.2 cm. This has consistently low noncontrast Hounsfield unit readings consistent with benignity. The abdominal aorta and paraaortic regions are within normal limits. There is no free fluid or free air in the abdomen. There is no intraabdominal mass or adenopathy. The anterior abdominal wall post-op changes status quo. The bowel loops and their mesenteries are within normal limits. There is no free fluid or free air. CT PELVIS: There is no mass or adenopathy. There is no free fluid or free air. There is corpora amylacea. The bowel loops and their mesenteries are within normal limits. Bone window technique throughout the examination shows no change in the osseous structures. Spinal, hip, sacroiliac joint degenerative changes status quo. IMPRESSION: 1. Stable bilateral renal cysts. 2. Fatty infiltration of the liver. 3. Benign left adrenal gland nodule. 4. Chronic osseous changes as described above. 5. Other findings as described above. Electronically Signed by Silvio Mina DO 01/02/2019 11:54 A
== END ==
LOC: M RAD 12:45
PROVIDERS: ATTEND Surgery
DX: R10.32 Left lower quadrant pain (principal); N28.1 Cyst of kidney, acquired; K76.0 Fatty (change of) liver, not elsewhere classified; D35.00 Benign neoplasm of unspecified adrenal gland
CPT/HCPCS: 74178; Q9963; Q9967

== ENCOUNTER → 2019-09-25 | Outpatient (CLI) | payer MEDICARE, MEDICAID ==
[~2019-09-25] MED LIST changes: -GASTROGRAFIN SOLUTION 30ML (Q9963) As Ordered ONE; -ISOVUE-370 76% 100ML VIAL (Q9967) As Ordered ONE
[2019-09-25 12:54] LABS: HEMATOCRIT 46.7 % (42.0-52.0); HEMOGLOBIN 15.9 g/dl (13.5-17.5); MEAN CORPUSCULAR HEMOGLOBIN 32.2 pg (27.0-33.0); MEAN CORPUSCULAR VOLUME 94.5 fl (80.0-96.0); PLATELET COUNT, AUTOMATED 269 10^3/uL (150-450); RED BLOOD COUNT 4.94 10^6/uL (4.30-6.10); WHITE BLOOD COUNT 9.3 10^3/uL (4.0-10.0)
[2019-09-25 13:31] LABS: ALBUMIN 4.5 GM/DL (3.2-5.2); ALT/SGPT 78 U/L (12-78); BILIRUBIN,TOTAL 0.5 MG/DL (0.2-1.0); BLOOD UREA NITROGEN 16 MG/DL (7-18); CALCIUM LEVEL 11.4 MG/DL (8.8-10.2); CARBON DIOXIDE LEVEL 25 MEQ/L (21-32); CHLORIDE LEVEL 106 MEQ/L (98-107); CHOLESTEROL LEVEL 205 MG/DL (<200); CHOLESTEROL RISK RATIO 3.942 (<5); CREATININE FOR GFR 0.87 MG/DL (0.70-1.30); FREE THYROXINE INDEX 2.7 % (1.4-3.8); GLOMERULAR FILTRATION RATE > 60.0 (>49); GLUCOSE, FASTING 149 MG/DL (70-100); HDL CHOLESTEROL 52 MG/DL (>40); LDL CHOLESTEROL 110 MG/DL (<100); NON-HDL-C 153 MG/DL; POTASSIUM SERUM 4.6 MEQ/L (3.5-5.1); SODIUM LEVEL 137 MEQ/L (136-145); T UPTAKE 30 % (33-40); THYROXINE (T4) 8.9 UG/DL (4.5-12.0); TOTAL PROTEIN 7.6 GM/DL (6.4-8.2); TRIGLYCERIDES LEVEL 215 MG/DL (<150)
[2019-09-25 13:49] LABS: TOTAL 25(OH) VITAMIN D 29.1 NG/ML (30.0-100.0)
[2019-09-25 15:01] LABS: HEMOGLOBIN A1c 7.4 %
== END ==
LOC: M LAB 12:23
PROVIDERS: ATTEND Nurse Practitioner Psychiatric/Mental Health
DX: F33.9 Major depressive disorder, recurrent, unspecified (principal)

== ENCOUNTER → 2019-11-12 | Outpatient (CLI) | payer MEDICARE ==
[2019-11-12 13:27] LABS: BLOOD UREA NITROGEN 14 MG/DL (7-18); CALCIUM LEVEL 11.1 MG/DL (8.8-10.2); CARBON DIOXIDE LEVEL 27 MEQ/L (21-32); CHLORIDE LEVEL 104 MEQ/L (98-107); CHOLESTEROL LEVEL 198 MG/DL (<200); CHOLESTEROL RISK RATIO 4.714 (<5); CREATININE FOR GFR 0.77 MG/DL (0.70-1.30); GLOMERULAR FILTRATION RATE > 60.0 (>49); GLUCOSE, FASTING 121 MG/DL (70-100); HDL CHOLESTEROL 42 MG/DL (>40); NON-HDL-C 156 MG/DL; NT-PRO BNP 31 PG/ML (<125); POTASSIUM SERUM 4.7 MEQ/L (3.5-5.1); SODIUM LEVEL 136 MEQ/L (136-145); TRIGLYCERIDES LEVEL 418 MG/DL (<150)
[2019-11-12 16:40] LABS: HEMOGLOBIN A1c 7.9 %
== END ==
LOC: M LAB 11:38
PROVIDERS: ATTEND Obstetrics & Gynecology
DX: E11.40 Type 2 diabetes mellitus with diabetic neuropathy, unspecified (principal); E78.5 Hyperlipidemia, unspecified; I25.10 Atherosclerotic heart disease of native coronary artery without angina pectoris; I10 Essential (primary) hypertension

== ENCOUNTER 2019-12-14 10:56 | Emergency (ER) | payer MEDICARE, MEDICAID ==
[~2019-12-14] VITALS: Ht 180.3 cm; Wt 113.8 kg
[2019-12-14] MEDS ORDERED: NITR0.4S14 (11:08)
[2019-12-14] MEDS ORDERED: HYDR50TA70 (11:08)
[2019-12-14] MEDS ORDERED: METO1TAB32 (11:08)
[2019-12-14] MEDS ORDERED: JARD1TAB3 (11:08)
[2019-12-14 11:56] LABS: HEMATOCRIT 43.1 % (42.0-52.0); HEMOGLOBIN 14.8 g/dl (13.5-17.5); MEAN CORPUSCULAR HEMOGLOBIN 31.9 pg (27.0-33.0); MEAN CORPUSCULAR HGB CONC 34.3 g/dl (32.0-36.5); MEAN CORPUSCULAR VOLUME 92.9 fl (80.0-96.0); PLATELET COUNT, AUTOMATED 311 10^3/uL (150-450); RED BLOOD COUNT 4.64 10^6/uL (4.30-6.10); WHITE BLOOD COUNT 9.5 10^3/uL (4.0-10.0)
[2019-12-14] MEDS ORDERED: KLON0.5T PO (11:56)
[2019-12-14 12:15] LABS: BLOOD UREA NITROGEN 20 MG/DL (7-18); CALCIUM LEVEL 11.4 MG/DL (8.8-10.2); CARBON DIOXIDE LEVEL 24 MEQ/L (21-32); CHLORIDE LEVEL 105 MEQ/L (98-107); CREATININE FOR GFR 0.93 MG/DL (0.70-1.30); GLOMERULAR FILTRATION RATE > 60.0 (>49); GLUCOSE, FASTING 258 MG/DL (70-100); POTASSIUM SERUM 4.6 MEQ/L (3.5-5.1); SODIUM LEVEL 134 MEQ/L (136-145)
[2019-12-14 12:35] VITALS: BP 175/83
--- NOTE | 2019-12-14 18:35 | ECGEPIP ---
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
== END 2019-12-14 12:45 | disposition home or self-care (01) ==
LOC: M ED 10:56
DX: F41.9 Anxiety disorder, unspecified (principal); E83.52 Hypercalcemia; F43.0 Acute stress reaction; G47.00 Insomnia, unspecified; I25.10 Atherosclerotic heart disease of native coronary artery without angina pectoris; E11.9 Type 2 diabetes mellitus without complications; I10 Essential (primary) hypertension; F32.9 Major depressive disorder, single episode, unspecified; G47.33 Obstructive sleep apnea (adult) (pediatric); K52.9 Noninfective gastroenteritis and colitis, unspecified; K25.9 Gastric ulcer, unspecified as acute or chronic, without hemorrhage or perforation; Z87.891 Personal history of nicotine dependence; Z79.4 Long term (current) use of insulin; Z79.899 Other long term (current) drug therapy; Z88.2 Allergy status to sulfonamides; Z88.8 Allergy status to other drugs, medicaments and biological substances

== ENCOUNTER 2020-02-28 15:05 | Emergency (ER) | payer MEDICARE, MEDICAID ==
[~2020-02-28] VITALS: Ht 180.3 cm; Wt 112.8 kg
[~2020-02-28 15:05] MED LIST changes: +HYDR50TA70; +JARD1TAB3; +KLON0.5T PO; +METO1TAB32; +NITR0.4S14
[2020-02-28 15:06] VITALS: BP 154/73
== END 2020-02-28 16:31 | disposition home or self-care (01) ==
LOC: M ED 15:05
DX: T16.1XXA Foreign body in right ear, initial encounter (principal); Y92.9 Unspecified place or not applicable

== ENCOUNTER 2021-03-03 15:33 | Emergency (ER) | payer MEDICARE, MEDICAID ==
[~2021-03-03] VITALS: Ht 182.9 cm; Wt 112.8 kg
[~2021-03-03 15:33] MED LIST changes: -METO1TAB32; +METO1TAB32 PO
--- NOTE | 2021-03-03 16:11 | REP ---
INDICATION: severe headache/blurred vision. COMPARISON: Comparison CT study of the brain February 20, 2015.. TECHNIQUE: Helical scanning is acquired. 5 mm axial images were reformatted. Coronal MPR images were generated. FINDINGS: Bone window settings demonstrate an intact bony calvarium. There is no evidence of skull fracture or incidental bony calvarial lesion. The visualized paranasal sinuses appear clear. No intraorbital abnormality is seen. On soft tissue window setting images; the lateral, third, and fourth ventricles are normal in size and position. Lopez-white differentiation pattern is normal above and below the tentorium. There are is no evidence of intracranial hemorrhage. No mass, edema, infarction, or midline shift is seen. No extra-axial fluid collection is appreciated. There is mild vascular calcification in the distal internal carotid arteries. The previously noted tiny radiolucency in the right inferolateral thalamus is again seen unchanged consistent with a small old lacunar infarct. IMPRESSION: Vascular calcification and tiny old lacunar infarct in the right basal ganglia unchanged. No acute intracranial abnormality.. <Electronically signed by Elio Randall > 03/03/21 0454
[2021-03-03] MEDS ORDERED: MULT1TAB8 PO (16:37)
[2021-03-03] MEDS ORDERED: CLON1TAB8 PO (16:37)
[2021-03-03] MEDS ORDERED: PROA1AER2 INH (16:37)
[2021-03-03] MEDS ORDERED: INCR1INH INH (16:37)
[2021-03-03] MEDS ORDERED: HYDR-3363 PO (16:37)
[2021-03-03] MEDS ORDERED: MAGN64TASA PO (16:37)
[2021-03-03] MEDS ORDERED: METOPROLOL TART 25 MG TABLET PO ONE (16:40)
[2021-03-03 16:48] LABS: BASO # 0.1 10^3/uL (0.0-0.2); BASO % 0.8 % (0.0-1.0); EOS # 0.4 10^3/uL (0.0-0.5); HEMATOCRIT 47.5 % (42.0-52.0); HEMOGLOBIN 16.1 g/dl (13.5-17.5); LYMPH # 2.8 10^3/uL (1.5-5.0); LYMPH % 27.2 % (24.0-44.0); MEAN CORPUSCULAR HEMOGLOBIN 31.8 pg (27.0-33.0); MEAN CORPUSCULAR HGB CONC 33.9 g/dl (32.0-36.5); MEAN CORPUSCULAR VOLUME 93.9 fl (80.0-96.0); MONO # 0.8 10^3/uL (0.0-0.8); MONO % 7.7 % (2.0-8.0); NEUTROPHILS # 6.1 10^3/uL (1.5-8.5); NEUTROPHILS % 59.6 % (36.0-66.0); PLATELET COUNT, AUTOMATED 290 10^3/uL (150-450); RED BLOOD COUNT 5.06 10^6/uL (4.30-6.10); WHITE BLOOD COUNT 10.2 10^3/uL (4.0-10.0)
[2021-03-03] MEDS ORDERED: clonazePAM 0.5 MG TAB PO ONE (16:50)
[2021-03-03 16:54] VITALS: BP 201/91
[2021-03-03 18:15] VITALS: BP 170/87
[2021-03-03] MEDS ORDERED: ACETAMINOPHEN 325 MG TAB PO ONE (18:15)
[2021-03-03] MEDS ORDERED: METO1TAB7 PO (18:43)
--- NOTE | 2021-03-04 07:22 | ECGEPIP ---
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
== END 2021-03-03 19:14 | disposition home or self-care (01) ==
LOC: M ED 15:33
DX: I10 Essential (primary) hypertension (principal); E11.9 Type 2 diabetes mellitus without complications; J44.9 Chronic obstructive pulmonary disease, unspecified; M61.9 Calcification and ossification of muscle, unspecified; Z79.4 Long term (current) use of insulin; Z88.2 Allergy status to sulfonamides; Z88.8 Allergy status to other drugs, medicaments and biological substances

== ENCOUNTER → 2021-05-31 | Outpatient (REF) | payer MEDICARE, MEDICAID ==
[~2021-05-31] MED LIST changes: +ASPI81TA26 PO; +ATOR40TA75 PO; +CEFP200T PO; +CYCL5TAB PO; +INCR1INH INH; +INSUHUMDS; +INSULANT; +JARD1TAB PO; +MAGN64TASA PO; +METO1TAB7 PO; +MULT1TAB8 PO; +PROA1AER2 INH
== END ==
LOC: M SFHCPLAZ 14:10
PROVIDERS: ATTEND Family Medicine
DX: Z53.21 Procedure and treatment not carried out due to patient leaving prior to being seen by health care provider (principal)

== ENCOUNTER → 2021-05-31 | Outpatient (CLI) | payer MEDICARE, MEDICAID ==
[2021-05-31 18:19] LABS: HEMOGLOBIN A1c 9.7 %
[2021-05-31 18:34] LABS: BLOOD UREA NITROGEN 13 MG/DL (7-18); CALCIUM LEVEL 11.1 MG/DL (8.8-10.2); CARBON DIOXIDE LEVEL 29 MEQ/L (21-32); CHLORIDE LEVEL 101 MEQ/L (98-107); CHOLESTEROL LEVEL 195 MG/DL (<200); CHOLESTEROL RISK RATIO 4.431 (<5); CREATININE FOR GFR 0.98 MG/DL (0.70-1.30); GLOMERULAR FILTRATION RATE > 60.0 (>42); GLUCOSE, FASTING 374 MG/DL (70-100); HDL CHOLESTEROL 44 MG/DL (>40); LDL CHOLESTEROL 95 MG/DL (<100); NON-HDL-C 151 MG/DL; POTASSIUM SERUM 5.6 MEQ/L (3.5-5.1); SODIUM LEVEL 135 MEQ/L (136-145); TRIGLYCERIDES LEVEL 278 MG/DL (<150)
[2021-05-31 18:36] LABS: CREATININE, URINE 64.3 MG/DL; MALB URINE SIEMENS 7.3 MG/L; MAU/CREAT RATIO 11.3 MCG/MG (0.0-30.0)
== END ==
LOC: M PLALAB 14:23
PROVIDERS: ATTEND Student in an Organized Health Care Education/Training Program
DX: E11.65 Type 2 diabetes mellitus with hyperglycemia (principal); I10 Essential (primary) hypertension

== ENCOUNTER → 2021-07-09 | Outpatient (CLI) | payer MEDICARE, MEDICAID ==
[~2021-07-09] MED LIST changes: -ASPI81TA26 PO; -ATOR40TA75 PO; -CEFP200T PO; -CYCL5TAB PO; -INSUHUMDS; -INSULANT; -JARD1TAB PO
--- NOTE | 2021-07-09 18:14 | REPVR ---
PROCEDURE INFORMATION: Exam: MR Lumbar Spine Without Contrast Exam date and time: 07/09/2021 3:36 PM Age: 70 years old Clinical indication: Pain; Lumbago; Additional info: Spondyls w/o myelopathy or radiculopathy TECHNIQUE: Imaging protocol: Multiplanar magnetic resonance images of the lumbar spine without intravenous contrast. COMPARISON: CT ABD PELVIS W/O FOL BY WIT 01/01/2019 2:23 PM FINDINGS: Vertebral body heights are maintained. No abnormal marrow signal. No cord compression. No abnormal cord signal. Conus medullaris terminates at the L1 level. Paravertebral soft tissues are unremarkable. L1-L2: No significant canal or foraminal narrowing. L2-L3: No significant canal or foraminal narrowing. L3-L4: Left paracentral disc extrusion superimposed over broad-based disc bulge effacing the left lateral recess and compressing the traversing left L4 nerve root. Along with facet hypertrophy there is mild bilateral foraminal narrowing. L4-L5: Broad-based disc bulge and facet hypertrophy cause moderate canal narrowing with slight crowding of the cauda equina. Mild bilateral foraminal narrowing. L5-S1: Facet hypertrophy causes mild bilateral foraminal narrowing. No significant canal narrowing. IMPRESSION: 1. Left paracentral disc extrusion at L3-L4 compressing the traversing left L4 nerve root. Recommend surgical consultation. 2. Additional spondylotic changes of the lumbar spine, as detailed above. Electronically signed by: Antione Luna On 07/09/2021 18:14:12 PM
== END ==
LOC: M RAD 14:31
PROVIDERS: ATTEND Pain Medicine Interventional Pain Medicine
DX: M47.817 Spondylosis without myelopathy or radiculopathy, lumbosacral region (principal); M54.16 Radiculopathy, lumbar region

== ENCOUNTER → 2021-07-19 | Outpatient (CLI) | payer MEDICARE, MEDICAID ==
[2021-07-19 13:28] LABS: ALBUMIN 4.3 GM/DL (3.2-5.2); ALT/SGPT 95 U/L (12-78); BILIRUBIN,TOTAL 0.4 MG/DL (0.2-1.0); BLOOD UREA NITROGEN 23 MG/DL (7-18); CARBON DIOXIDE LEVEL 28 MEQ/L (21-32); CHLORIDE LEVEL 101 MEQ/L (98-107); CREATININE FOR GFR 1.24 MG/DL (0.70-1.30); GLOMERULAR FILTRATION RATE > 60.0 (>42); GLUCOSE, FASTING 440 MG/DL (70-100); PHOSPHORUS LEVEL 3.7 MG/DL (2.5-4.9); POTASSIUM SERUM 5.8 MEQ/L (3.5-5.1); PTH INTACT 34.6 PG/ML (18.5-88.0); SODIUM LEVEL 133 MEQ/L (136-145); TOTAL PROTEIN 7.8 GM/DL (6.4-8.2)
== END ==
LOC: M LAB 12:13
PROVIDERS: ATTEND Student in an Organized Health Care Education/Training Program
DX: E83.52 Hypercalcemia (principal); Z79.4 Long term (current) use of insulin; M54.2 Cervicalgia

== ENCOUNTER 2021-08-01 02:51 | Emergency (ER) | payer MEDICARE, MEDICAID ==
[~2021-08-01] VITALS: Ht 182.9 cm; Wt 113.2 kg
--- OUTSIDE RECORDS SUMMARY | 2021-08-01 03:00 | CCD ---
Author Author [facility] Organization [facility] Address Unknown Phone Unavailable Care Team Providers Care Graphotype Operator Name Role Phone Sanchez Yanes Unavailable PROBLEMS Type Condition ICD9-CM Code [id number] Code Onset Dates Condition S tatus W/U Status Risk SNOMED Code Notes Problem Coronary artery disease I25.10 Active confirmed 88142981 Problem BPPV (benign paroxysmal positional vertigo) H81.10 Active confirmed 408299386 Problem intermediate current use of insulin Z79.4 Active conf irmed 214631083 Problem ALESSANDRO (obstructive sleep apnea) G47.33 Active confirm ed 63603726 Problem Other chronic pain G89.29 Active confirmed 8 6549051 Problem Essential hypertension I10 Active confirmed 62886620 Problem Type 2 diabetes mellitus with diabetic neuropathy, uns pecified E11.40 Active confirmed 59302267 Problem GERD (gastroesophageal reflux disease) K21.9 A ctive confirmed 047847250 Problem Migraine with aura and without status migrainosu s, not intractable G43.109 Active confirmed 0155435 Problem Angina at rest I20.8 Active confirmed 26628 8000 Problem Hypercalcemia E83.52 Active confirmed 437946 09 Problem Bipolar 1 disorder, manic, moderate F31.12 Acti ve confirmed 62156037 Problem Presence of coronary angioplasty implant and graft Z95.5 Active confirmed 818281630 Problem Stable angina I20.8 Active confirmed 500349 005 Problem Obesity E66.9 Active confirmed 282612712 Problem Atherosclerotic heart diseas e of [place] coronary artery without angina pectoris I25.10 Active confirmed 192945310 Problem Coarse tremors G25.2 Active confirmed 95227 002 Problem COPD (chronic obstructive pulmonary disease) J44.9 Active confirmed 06013141 Problem Dyslipidemia E78.5 Active confirmed 5515818 07 Problem Type 2 diabetes mellitus with hyperglycemia E11.65 Active confirmed 056128549 Problem termination clerk (current) use of insulin Z79.4 Activ e confirmed 187258031 Problem Coronary artery disease of n ative artery of [place] heart with stable angina pectoris I25.118 Active confirmed 487113804 Problem Poorly controlled diabetes mellitus E11.65 Acti ve confirmed 959618540 ALLERGIES Allergen (clinical drug ingredient) Drug/Non Drug Allergy do cumented on EMR Reaction Allergy Type Onset Date Status Sulfasalazine Sulfa Antibiotics hives Drug Allergy Ac tive mometasone Nasonex(ND Code:[address]-38) headache,bloody nose Drug Allergy Active sertraline Zoloft(ND Code:[address]-71) hallucinations Drug Allergy Active paroxetine Paxil(ND Code:[address]-81) nausea, hives Drug Allergy Active sertraline Sertraline HCl(ND Code:[address]-12) hives,nausea Drug A llergy Active albuterol Albuterol Nausea/Vomiting Drug Allergy Active ENCOUNTERS from 1950 to 2021-07-29 Encounter Location Date Provider Diagnosis [address] [phone] [place] [address] Jul, Sanchez Yanes Lumbar radiculopathy M54.16 IMMUNIZATIONS Vaccine Route Administration Date Status Influenza (High Dose 65 & up) IM Intramuscular Jun 20, 2017 A dministered Influenza (High Dose 65 & up) IM Intramuscular Jul 12, 2016 A dministered Pneumococcal Adult 0.5mL Pneumovax 23 IM Intramuscular Aug 26 015 Administered Influenza 6mo & up Fluzone IM Intramuscular Jun 30, 2015 Admi nistered Influenza 6mo & up Fluzone IM Intramuscular Sep 15, 2014 Admi nistered Influenza 6mo & up Fluzone IM Intramuscular Aug 14, 2013 Admi nistered Influenza 6mo & up Fluzone IM Intramuscular May 28, 2012 Admi nistered Influenza 6mo & up Fluzone IM Intramuscular Jul 22, 2011 Admi nistered Hepatitis B Adult 1.0mL Engerix-B IM Intramuscular March 28, 2018 Administered SOCIAL HISTORY Tobacco Use: Social History Observation Description Date Details (start date - stop date) Former Smoker Sex Assigned At : Social History Observation Description Sex Assigned At Unknown Education: Question Answer Notes Level of Education: Finished College Audit Question Answer Notes Total Score: 0 Interpretation: Alcohol Education Language: Question Answer Notes Languages spoken: Kinyarwanda Anabaptist: Question Answer Notes Anabaptist 03 [employer] Sexual Hx: Question Answer Notes Had sex in the last 12 months (vaginal, oral, or anal)? No Have you ever had an STD? No Drug and Alcohol Question Answer Notes Total Score: 0 Interpretation: No problems reported Alcohol Screening: Question Answer Notes Did you have a drink containing alcohol in the past year? Ye s Points 1 Interpretation Negative How often did you have six or more drinks on one occas ion in the past year? Never (0 points) How many drinks did you have on a typica l day when you were drinking in the past year? 1 or 2 (0 points) How often did you have a drink containing alcohol in t he past year? Monthly or less (1 point) BMI Care Goal Follow-Up Question Answer Notes Above Normal BMI Follow-Up Giving encouragement to exercise Tobacco Use: Question Answer Notes Are you a: former smoker How long has it been since you last smoked? > 10 years REASON FOR REFERRAL from 1950 to 2021-07-29 Reason 70yo male w/ L-spine radicul opathy Diagnosis 1 Lumbar radiculopathy (M54.16 ) Referral Organization [facility] GME Resident Referring Provider First Name Sanchez Referring Provider Last Name Joaquín Referring Provider Specialty Internal Medicine Referred Provider Tyler Jean Baptiste Referred Provider Specialty Neurological Surgery Referral Priority Urgent General Notes Sanchez Yanes 07/21/2021 4:42:35 PM > Thank you Anita for your help with this pt's [facility] referral to neurosurgery.Sanchez Yanes 07/21/2021 4:42:57 PM > Tyler Jean Baptiste NPI [id number] [place], [place] [address]fz code: M54.16fax:[phone] hannah it urgent and put Attn: Jeniphone: [phone],Chelsea 07/29/2021 9:19:58 AM > faxed Clinical Notes Sanchez Yanes 07/21/2021 4:48:12 PM > Pt is currently following w/ Pain Mgmt in [place], [place] who are recommending urgent referral to Neurosurgery for eval of Lumbar radiculopathy. Pt has [facility] so as pt's PCP, I am placing this referral.Thank you for your time and efforts in the care of Ya.Attn: Yang Jean Baptiste NPI [id number] [place]rius [address] [place], [place] [address]zf code: M54.16fax:[phone] hannah it urgentphone: [phone] VITAL SIGNS No information MEDICATIONS Medication SIG (Take, Route, Frequency, Duration) Notes Start Da te End Date Status Lancets _ lancets ICD:E11.9 DDM FSBS twice daily for 30 days Active Blood Pressure Cuff _ use blood pressure cuff once daily for home monitoring daily for 99 months Jul, Active Jardiance 10 MG 1 tablet Orally Once a day for 30 day(s) 0 5 Jul, 2021 Active Insulin Syringe 28G X 1/2 short needle: sure comfort 1 ml syringe DX: E11.9 twice daily for 90 days Dec, Active Centrum Silver 1 tab Orally Daily Ac tive Tens Unit Electro Pads - as directed topically Dx: 89 .29 RHAE# [id number] for 30 Days Feb, Active Insulin Lispro 100 UNIT/ML as directed Subcutaneous ti d as needed based on sliding scale from measured blood sugar pre-meal for 30 days Jul, Active Blood Glucose Test - one touch ultra ICD:E11.9 FSBS twice daily for 30 day(s) Jul, Active Tens Unit Electro Pads 715.96 as directed for right knee daily Apr, Active Atorvastatin Calcium 40 MG 1 tablet Orally Once a day for 30 day (s) Jul, Active Glucometer (Verio IQ) as directed for 30 day(s) Nov, Active Aspirin Adult Low Dose 81 MG 1 tablet Orally Once a day Active Albuterol Sulfate 108 (90 Base) MCG/ACT 1 puff as need ed Inhalation every 4 hours as needed for 30 Active One Touch Delica 33 gauge as directed externally tid E11.65 for 30 days Jul, Active metFORMIN HCl ER 500 MG take one tablet by mouth jim ry morning and evening with food Orally bid for 30 days Acti ve Nitroglycerin 0.4 MG as directed Sublingual every 5 minutes as needed for 30 Days Nov, Active Tens Unit - as directed to affected knee and back as needed daily DX: M17.9; M54.5 for 99 days Sep, Active Glucose strip (Verio IQ) as directed externally tid E11.65 for 3 0 day(s) Jul, Active Lantus 100 UNIT/ML 45 units in am and 40 units in the pm Subcutaneous Twice a day, MDD 82 units for 30 days Ac tive clonazePAM 1 MG 1 tablet Orally bid for 28 day(s) NOT TO BE FILLED UNTIL 28 DAYS AFTER LAST SCRIPT Jul, Active UltiCare Insulin Syringe 28G X 1/2" 1 ML DIRECTED TWO TIMES A DA Y for 30 Active Incruse Ellipta 62.5 MCG/INH 1 puff Inhalation Once a day for 90 days January, Active hydrOXYzine HCl 25 MG TAKE ONE TABLET BY MOUTH TWICE A DAY for 30 Active Metoprolol Succinate ER 50 MG TAKE ONE TABLET BY MOUTH EVERY DAY Active Mag64 64 MG TAKE ONE TABLET BY MOUTH Orally Twice a day for 90 days Active PROCEDURES No Information RESULTS No Results REASON FOR VISIT [facility] referral MEDICAL (GENERAL) HISTORY Type Description Date Medical History HTN, goal BP < 140/< 90 Medical History T2DM, on insulin, goal A1c < 8 Medical History chronic back pain Medical History renal cysts (03/2010) Medical History gastric ulcer Medical History colitis Medical History Course bilateral tremors Medical History depression/anxiety, Bipolar D/O Medical History R abdominal hernia Medical History dyslipidemia Medical History echocardiogram (09/2010) with preserved systolic fxn, no valvular disease Medical History obstructive sleep apnea Medical History 10 year cardiovascular risk 21% (calcula mariza 01/2013) Medical History 3 vessel CAD -- status post balloon angioplasty and stenting (2014) Medical History carotid US with minimal placque bilat () Medical History PFTs 11/2015 "suspect some de gree of underlying air trapping" but not truly COPD per pulm Medical History Migraines Surgical History cholecystectomy ([place]) 10/2012 Surgical History umbilical hernia repair ([place]) 0 Surgical History Cardiac cath: severe lesions in distal RCA and mid left circumflex; s/p stenting x2 and balloon 12/11/2014 Hospitalization History atypical chest pain 07/2010 Hospitalization History colitis (ulcerative colitis or Crohn 's?) 07/2006 Hospitalization History depression 12/2003 Hospitalization History depression 11/2003 Hospitalization History depression and SI 12/1999 Hospitalization History per hospital records, to [facility], following attempted overdose 1980 Goals Section No Information Health Concerns No Information MEDICAL EQUIPMENT No Information MENTAL STATUS No Information FUNCTIONAL STATUS No Information ASSESSMENTS Encounter Date Diagnosis Assessment Notes Treatment Notes Treatm ent Clinical Notes Jul, Lumbar radiculopathy (ICD-10 - M54.16) PLAN OF TREATMENT Medication Medication Name Sig Start Date Stop Date Metoprolol Succinate ER 50 MG TAKE ONE TABLET BY MOUTH EVERY DAY Mag64 64 MG TAKE ONE TABLET BY MOUTH Orally Twice a day for 90 days One Touch Delica 33 gauge as directed externally tid E11.65 for 30 days Jul, Glucose strip (Verio IQ) as directed externally tid E11.65 f or 30 day(s) Jul, Insulin Lispro 100 UNIT/ML as directed Subcutaneous ti d as needed based on sliding scale from measured blood sugar pre-meal for 30 days Jul, Jardiance 10 MG 1 tablet Orally Once a day for 30 day(s) Jul, Atorvastatin Calcium 40 MG 1 tablet Orally Once a day for 30 day(s) Jul, clonazePAM 1 MG 1 tablet Orally bid for 28 day(s) Jul, Lantus 100 UNIT/ML 45 units in am and 40 units in the pm Subcutaneous Twice a day, MDD 82 units for 30 days metFORMIN HCl ER 500 MG take one tablet by mouth jim ry morning and evening with food Orally bid for 30 days Referrals Referral Date Details 70yo male w/ L-spine radicul Tyler meredith Insurance Providers Payer Name Payer Address Payer Phone Insured Name Patient Relati onship to Insured Coverage Start Date Coverage End Date [facility] [address] [facility] [id number] YA RODRIGUEZ MEDICAID [id number] [address] [facility] [id number] YA RODRIGUEZ
--- OUTSIDE RECORDS SUMMARY | 2021-08-01 03:00 | CCD ---
Author Author [facility] Organization [facility] Address Unknown Phone Unavailable Care Team Providers Care Mixing And Dispensing Supervisor Name Role Phone JoaquínFranklinSanchez Unavailable PROBLEMS ALLERGIES ENCOUNTERS from 1950 to 2021-07-23 IMMUNIZATIONS SOCIAL HISTORY REASON FOR REFERRAL No Information VITAL SIGNS MEDICATIONS PROCEDURES No Information RESULTS No Results REASON FOR VISIT MEDICAL (GENERAL) HISTORY Goals Section Health Concerns MEDICAL EQUIPMENT No Information MENTAL STATUS FUNCTIONAL STATUS ASSESSMENTS No Information PLAN OF TREATMENT Insurance Providers
--- OUTSIDE RECORDS SUMMARY | 2021-08-01 03:00 | CCD ---
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 Active conf irmed 695963012 Problem ALESSANDRO (obstructive sleep apnea) G47.33 Active confirm ed 79969397 Problem Other chronic pain G89.29 Active confirmed 8 3719188 Problem Essential hypertension I10 Active confirmed 26977455 Problem Type 2 diabetes mellitus with diabetic neuropathy, uns pecified E11.40 Active confirmed 15366237 Problem GERD (gastroesophageal reflux disease) K21.9 A ctive confirmed 670163203 Problem Migraine with aura and without status migrainosu s, not intractable G43.109 Active confirmed 3761130 Problem Angina at rest I20.8 Active confirmed 72641 8000 Problem Hypercalcemia E83.52 Active confirmed 531986 09 Problem Bipolar 1 disorder, manic, moderate F31.12 Acti ve confirmed 32548097 Problem Presence of coronary angioplasty implant and graft Z95.5 Active confirmed 225357504 Problem Stable angina I20.8 Active confirmed 292169 005 Problem Obesity E66.9 Active confirmed 790320034 Problem Atherosclerotic heart diseas e of [place] coronary artery without angina pectoris I25.10 Active confirmed 370903595 Problem Coarse tremors G25.2 Active confirmed 09938 002 Problem COPD (chronic obstructive pulmonary disease) J44.9 Active confirmed 29119679 Problem Dyslipidemia E78.5 Active confirmed 9988894 07 Problem Type 2 diabetes mellitus with hyperglycemia E11.65 Active confirmed 993931782 Problem USP (current) use of insulin Z79.4 Activ e confirmed 517299237 Problem Coronary artery disease of n ative artery of [place] heart with stable angina pectoris I25.118 Active confirmed 098752061 Problem Poorly controlled diabetes mellitus E11.65 Acti ve confirmed 746389559 ALLERGIES Allergen (clinical drug ingredient) Drug/Non Drug Allergy do cumented on EMR Reaction Allergy Type Onset Date Status Sulfasalazine Sulfa Antibiotics hives Drug Allergy Ac tive mometasone Nasonex(ND Code:[address]-21) headache,bloody nose Drug Allergy Active sertraline Zoloft(ND Code:[address]-17) hallucinations Drug Allergy Active paroxetine Paxil(ND Code:[address]-69) nausea, hives Drug Allergy Active sertraline Sertraline HCl(ND Code:[address]-74) hives,nausea Drug A llergy Active albuterol Albuterol Nausea/Vomiting Drug Allergy Active ENCOUNTERS from 1950 to 2021-07-29 Encounter Location Date Provider Diagnosis [address] [facility] [phone] [place] [address] Jul, Sanchez Yanes IMMUNIZATIONS Vaccine Route Administration Date Status Influenza [...] Education Language: Question Answer Notes Languages spoken: Latvian Moravian: Question Answer Notes Moravian 03 Gnosticist Sexual Hx: Question Answer Notes Had sex [...] smoked? > 10 years REASON FOR REFERRAL No Information VITAL SIGNS No information MEDICATIONS Medication SIG [...] - as directed topically Dx: 89 .29 RHEA# [id number] for 30 Days Feb, Active Insulin Lispro [...] IQ) as directed for 30 day(s) Nov, 20 20 Active Aspirin Adult Low Dose 81 MG [...] Information RESULTS No Results REASON FOR VISIT [facility] MEDICAL (GENERAL) HISTORY Type Description Date Medical [...] pulm Medical History Migraines Surgical History cholecystectomy ([place]) 10/2012 Surgical History umbilical hernia repair ([place]) 0 Surgical History Cardiac cath: severe lesions in distal RCA and mid left circumflex; s/p stenting x2 and balloon 12/11/2014 Hospitalization History atypical chest pain 07/2010 Hospitalization History colitis (ulcerative colitis or Crohn 's?) 07/2006 Hospitalization History depression 12/2003 Hospitalization History depression 11/2003 Hospitalization History depression and SI 12/1999 Hospitalization History per hospital records, to [facility], following attempted overdose 1980 Goals Section No Information Health Concerns No Information MEDICAL EQUIPMENT No Information MENTAL STATUS No Information FUNCTIONAL STATUS No Information ASSESSMENTS No Information PLAN OF TREATMENT Medication Medication Name Sig [...] with food Orally bid for 30 days Insurance Providers Payer Name Payer Address Payer Phone Insured Name Patient Relati onship to Insured Coverage Start Date Coverage End Date [facility] [address] [facility] [phone] [id number] [address] [facility] [id number] [place]
--- OUTSIDE RECORDS SUMMARY | 2021-08-01 03:00 | CCD ---
Author Organization Unknown Address [address] [place] [address] Phone [phone] Care Team Providers Care Home Assessment Nurse Name Role Phone [facility] 3 [phone] Allergies Code Code System Name Reaction Severity Status Onset 435 RxNorm Albuterol Active 02/15/2013 381597 RxNorm Nasonex Active 02/15/2013 217549 RxNorm Paxil Active 02/15/2013 Sertraline Hcl Active 02/15/2013 Sulfa (Sulfonamide Antibiotics) Active 02/16/20 13 87059 RxNorm Zoloft Active 02/18/2014 Medications Name Status Start Date Stop Date amoxicillin 500 mg capsule Completed 06/25 aspirin 81 mg tablet,delayed release Take 1 tablet every day by oral route. Active Not available atorvastatin 40 mg tablet Active Not av ailable azithromycin 250 mg tabs Completed 018 baclofen 10 mg tablet Active Not availa ble baclofen 10 mg tabs Completed 08/21/2018 Bydureon BCise 2 mg/0.85 mL subcutaneous auto-injector INJECT 2 MG UNDER THE SKIN EVERY WEEK Active N ot available carisoprodol 350 mg tablet TAKE 1 TABLET BY MOUTH 3 TIMES A DAY NEEDED FOR 5 DAYS MAX DAILY DOSE 3 TABLETS Active Not available clonazepam 0.5 mg tablet TAKE ONE TABLET BY MOUTH TWICE A DAY NEEDED FOR ANXIETY MAXIMUM DAILY DOSE TWO TABLETS Completed 06/25/2020 clonazepam 1 mg tablet Active Not avail able clonazepam 1 mg tabs Completed 12/07/2018 Humalog U-100 Insulin 100 unit/mL subcutaneous solution Active Not available hydroxyzine HCl 25 mg tablet TAKE ONE TABLET BY MOUTH TWICE A DAY Active No t available hydroxyzine hcl 25 mg tabs Completed 12/07 hydroxyzine HCl 50 mg tablet TAKE ONE TABLET BY MOUTH TWICE A DAY NEEDED Completed 06/25/2020 Incruse Ellipta 62.5 mcg/actuation powde r for inhalation INHALE ONE PUFF BY MOUTH EVERY DAY Active Not available insulin syrg mis 1ml/28g Active Not blanca ilable insulin syringe U-100 with needle 1 mL 2 8 gauge x 1/2" DIRECTED TWO TIMES A DAY Active Not availab le Jardiance 10 mg tablet Active Not avail able Jardiance 25 mg tablet TAKE ONE TABLET BY MOUTH EVERY DAY Completed 06/12 lantus 100 unit/ml soln Completed 12/08/19 Lantus U-100 Insulin 100 unit/mL subcutaneous solution Active Not available lisinopril 10 mg tablet TAKE ONE TABLET BY MOUTH EVERY DAY Active Not available Mag 64 64 mg tablet,delayed release TAKE ONE TABLET BY MOUTH TWICE A DAY Active No t available meloxicam 15 mg tabs Completed 08/21/2018 metformin 500 mg tablet Completed 06/25/20 metformin ER 500 mg tablet,extended release 24 hr Active Not available metformin hydrochloride 500 mg tabs Completed 12/07/2018 metoprolol succinate ER 25 mg tablet,ext ended release 24 hr TAKE ONE TABLET BY MOUTH EVERY DAY Active Not available metoprolol succinate er 25 mg tb24 Completed 08/21/2018 metoprolol succinate ER 50 mg tablet,extended release 24 hr Acti ve Not available nitroglycerin 0.[address] 1TAB.UNDER TONGUE DIRECTED EVERY 5 MINUTES NEEDED UP TO 3 DOSES Active Not available onetouch shayne ultra bl Active Not av ailable OneTouch Delica Plus Lancet 33 gauge DIRECTED THREE TIMES A DAY Active Not avail able OneTouch Verio Flex Meter USE DIRECTED Active Not available OneTouch Verio test strips DIRECTED THREE TIMES A DAY Active Not avail able ProAir RespiClick 90 mcg/actuation breat h activated INHALE 1 PUFF BY MOUTH EVERY 4 HOURS NEEDED Active Not available propranolol hcl 40 mg tabs Completed 12/07 quetiapine 25 mg tablet TAKE ONE TABLET BY MOUTH EVERY DAY AT BEDTIME Completed 07/06/2021 rizatriptan benzoate odt 10 mg tbdp Completed 08/21/2018 Trulicity 0.75 mg/0.5 mL subcutaneous pe n injector DIRECTED UNDER SKIN WEEKLY Completed Trulicity 1.5 mg/0.5 mL subcutaneous pen injector USE DIRECTED UNDER THE SKIN WEEKLY Completed Problems Name Status Onset Date Source Hypertensive Disorder Active 03/27/2013 History Spondylosis without Myelopathy Active 03/27/2013 H istory Low Back Pain Unknown 03/27/2013 History Displacement of Lumbar Intervertebral Disc without Myelopath y Unknown 04/30/2013 History Prolapsed Lumbar Intervertebral Disc Active 04/30/2013 History Intervertebral Disc Prolapse Active 04/30/2013 His tory Degeneration of Lumbosacral Intervertebral Disc Unknown 04/30/2013 History Degeneration of Lumbar Intervertebral Disc Active 04/30 History Spinal Stenosis of Lumbar Region Active 04/30/2013 History Pain in Thoracic Spine Active 12/04/2013 History Fibromyalgia Unknown 12/04/2013 History Muscle Pain Active 12/04/2013 History Prolapsed Thoracic Intervertebral Disc Active 4 History Degeneration of Thoracic Intervertebral Disc Active History Sciatic Neuropathy Active 02/23/2016 History Inflammation of Sacroiliac Joint Active 02/27/2018 History Lumbosacral Spondylosis without Myelopathy Active 12/07 Displacement of Lumbar Intervertebral Disc without Myelopathy Ac tive 12/07/2018 Degeneration of Lumbosacral Intervertebral Disc Active 12/07/2018 Intervertebral Disc Disorder Active 12/07/2018 Lumbar Radiculopathy Active 12/07/2018 Procedures Date Name Performed by 07/06/2021 MRI, Lumbar Spine, W/o Contrast [facility] - Radiology [address] [place], [place] [id number] (Work Place) Notes: cholecystectomy in 2012, umbilica l hernia repair 2006, and dental work, eye surgery january, february, march 2017 | cholecystectomy in 2012, umbilical hernia repair 2006, and dental work, eye surgery january, february, march 2017 06/27/2017 Results Lab Results Date Name Specimen Result Interpretation Description Value Range Status Address 07/12/2021 [facility] Pdf Report NOS No observation recorded. [facility]: [address] [facility], [place] 07/12/2021 SARS CoV 2 RNA (COVID-19), QL, photostat operator helper-PCR, Respirat ory Specimen NOS Normal Sars-cov-2 negative negative Final [facility]: [address] [facility] [place] 07/06/2020 [facility] Pdf Report NOS No observation recorded. [facility]: [address] [facility] [place] 07/06/2020 SARS CoV 2 RNA (COVID-19), QL, photostat operator helper-PCR, Respirat ory Specimen NOS Normal Sars-cov-2 negative negative Final [facility]: [address] [facility] [address], [place] 06/22/2020 [facility] Pdf Report NOS No observation recorded. [facility]: [address], [place] 06/22/2020 SARS CoV 2 RNA (COVID-19), QL, photostat operator helper-PCR, Respirat ory Specimen NOS Normal Sars-cov-2 negative negative Final [facility]: [address], [place] Past Encounters 07/30/2021 Degeneration of Lumbar Intervertebral Disc; Degeneration of Lumbosacral Intervertebral Disc; Displacement of Lumbar Intervertebral Disc without Myelopathy; Intervertebral Disc Disorder; Spondylosis without Myelopathy; Lumbosacral Spondylosis without Myelopathy; Lumbar Radiculopathy; Inflammation of Sacroiliac Joint; Muscle Pain Anastasia Worrell, DRY HEAT ROOM ATTENDANT: [id number] [address], [facility] [place] [address], Ph. 07/15/2021 Inflammation of Sacroiliac Joint; Degeneration of Lumbar Intervertebral Disc; Degeneration of Lumbosacral Intervertebral Disc; Displacement of Lumbar Intervertebral Disc without Myelopathy; Intervertebral Disc Disorder; Spondylosis without Myelopathy; Lumbosacral Spondylosis without Myelopathy; Lumbar Radiculopathy; Muscle Pain Henry Shipley MD: [id number] [address], [facility] [place] [address], Ph. 07/12/2021 Pre-surgery Testing; Viral Screening Henry Shipley MD: [id number] [address], [facility] [place] [address], Ph. [phone] 07/06/2021 Degeneration of Lumbar Intervertebral Disc; Degeneration of Lumbosacral Intervertebral Disc; Displacement of Lumbar Intervertebral Disc without Myelopathy; Intervertebral Disc Disorder; Spondylosis without Myelopathy; Lumbosacral Spondylosis without Myelopathy; Lumbar Radiculopathy; Inflammation of Sacroiliac Joint; Muscle Pain Anastasia Worrell, DRY HEAT ROOM ATTENDANT: [id number] [facility] [address], [facility] [place] [address], Ph. 07/09/2020 Lumbosacral Spondylosis without Myelopathy; Spondylosis without Myelopathy; Degeneration of Lumbar Intervertebral Disc; Degeneration of Lumbosacral Intervertebral Disc; Displacement of Lumbar Intervertebral Disc without Myelopathy; Intervertebral Disc Disorder; Lumbar Radiculopathy; Inflammation of Sacroiliac Joint; Muscle Pain Henry Shipley MD: [id number] [address], [place] [address], Ph. 07/06/2020 Pre-surgery Testing; Viral Screening Henry Shipley MD: [id number] [address], Ph. [phone] 06/25/2020 Lumbosacral Spondylosis without Myelopathy; Spondylosis without Myelopathy; Degeneration of Lumbar Intervertebral Disc; Degeneration of Lumbosacral Intervertebral Disc; Displacement of Lumbar Intervertebral Disc without Myelopathy; Intervertebral Disc Disorder; Lumbar Radiculopathy; Inflammation of Sacroiliac Joint; Muscle Pain Henry Shipley MD: [id number] [address], [place] [address], Ph. 06/22/2020 Pre-surgery Testing; Viral Screening Henry Shipley MD: [id number] [address], [place] [address], Ph. [phone] 11/12/2019 Degeneration of Lumbar Intervertebral Disc; Degeneration of Lumbosacral Intervertebral Disc; Displacement of Lumbar Intervertebral Disc without Myelopathy; Intervertebral Disc Disorder; Spondylosis without Myelopathy; Lumbosacral Spondylosis without Myelopathy; Lumbar Radiculopathy; Inflammation of Sacroiliac Joint; Muscle Pain Anastasia Worrell NP: [id number] [address], [place] [address], Ph. 10/24/2019 Lumbosacral Spondylosis without Myelopathy; Spondylosis without Myelopathy; Degeneration of Lumbar Intervertebral Disc; Degeneration of Lumbosacral Intervertebral Disc; Displacement of Lumbar Intervertebral Disc without Myelopathy; Intervertebral Disc Disorder; Lumbar Radiculopathy; Inflammation of Sacroiliac Joint; Muscle Pain Henry Shipley MD: [id number] [address], [place] [address], Ph. 09/30/2019 Degeneration of Lumbar Intervertebral Disc; Degeneration of Lumbosacral Intervertebral Disc; Displacement of Lumbar Intervertebral Disc without Myelopathy; Intervertebral Disc Disorder; Spondylosis without Myelopathy; Lumbosacral Spondylosis without Myelopathy; Lumbar Radiculopathy; Inflammation of Sacroiliac Joint; Muscle Pain Anastasia Worrell DRY HEAT ROOM ATTENDANT: [address] [address], [place] [address], Ph. 06/12/2019 Degeneration of Lumbar Intervertebral Disc; Degeneration of Lumbosacral Intervertebral Disc; Displacement of Lumbar Intervertebral Disc without Myelopathy; Intervertebral Disc Disorder; Spondylosis without Myelopathy; Lumbosacral Spondylosis without Myelopathy; Lumbar Radiculopathy; Inflammation of Sacroiliac Joint; Muscle Pain Anastasia Worrell DRY HEAT ROOM ATTENDANT: [address] [address], Ph. 03/11/2019 Degeneration of Lumbar Intervertebral Disc; Degeneration of Lumbosacral Intervertebral Disc; Displacement of Lumbar Intervertebral Disc without Myelopathy; Intervertebral Disc Disorder; Spondylosis without Myelopathy; Lumbosacral Spondylosis without Myelopathy; Lumbar Radiculopathy; Inflammation of Sacroiliac Joint; Muscle Pain Anastasia Worrell, DRY HEAT ROOM ATTENDANT: [address] [address], Ph. 02/08/2019 Lumbosacral Spondylosis without Myelopathy; Spondylosis without Myelopathy; Degeneration of Lumbar Intervertebral Disc; Degeneration of Lumbosacral Intervertebral Disc; Displacement of Lumbar Intervertebral Disc without Myelopathy; Intervertebral Disc Disorder; Lumbar Radiculopathy; Inflammation of Sacroiliac Joint; Muscle Pain Henry Shipley MD: [id number] [address], [place] [address], Ph. 01/25/2019 Lumbosacral Spondylosis without Myelopathy; Spondylosis without Myelopathy; Degeneration of Lumbar Intervertebral Disc; Degeneration of Lumbosacral Intervertebral Disc; Displacement of Lumbar Intervertebral Disc without Myelopathy; Intervertebral Disc Disorder; Lumbar Radiculopathy; Inflammation of Sacroiliac Joint; Muscle Pain Henry Shipley MD: [id number] [address], Ph. 01/08/2019 Degeneration of Lumbar Intervertebral Disc; Degeneration of Lumbosacral Intervertebral Disc; Displacement of Lumbar Intervertebral Disc without Myelopathy; Intervertebral Disc Disorder; Spondylosis without Myelopathy; Lumbosacral Spondylosis without Myelopathy; Lumbar Radiculopathy; Inflammation of Sacroiliac Joint; Muscle Pain Anastasia Worrell, DRY HEAT ROOM ATTENDANT: [address] [address], Ph. 12/20/2018 Lumbosacral Spondylosis without Myelopathy; Spondylosis without Myelopathy; Degeneration of Lumbar Intervertebral Disc; Degeneration of Lumbosacral Intervertebral Disc; Displacement of Lumbar Intervertebral Disc without Myelopathy; Intervertebral Disc Disorder; Lumbar Radiculopathy; Inflammation of Sacroiliac Joint; Muscle Pain Henry Shipley MD: [address] [address], Ph. 12/07/2018 Degeneration of Lumbar Intervertebral Disc; Degeneration of Lumbosacral Intervertebral Disc; Displacement of Lumbar Intervertebral Disc without Myelopathy; Intervertebral Disc Disorder; Spondylosis without Myelopathy; Lumbosacral Spondylosis without Myelopathy; Lumbar Radiculopathy; Inflammation of Sacroiliac Joint; Muscle Pain Anastasia Worrell, DRY HEAT ROOM ATTENDANT: [address] [address], Ph. 08/21/2018 Degeneration of Lumbar Intervertebral Disc; Degeneration of Lumbosacral Intervertebral Disc; Displacement of Lumbar Intervertebral Disc without Myelopathy; Intervertebral Disc Disorder; Spondylosis without Myelopathy; Lumbosacral Spondylosis without Myelopathy; Lumbar Radiculopathy; Inflammation of Sacroiliac Joint; Muscle Pain Anastasia Worrell, DRY HEAT ROOM ATTENDANT: [id number] [address], Ph. Social History None recorded. Vaccine List Vaccine Type COVID-19, mRNA, LNP-S, PF, 100 mcg/0.5 m L dose (Moderna) 11/21/2020 12/23/2020 Plan of Care Reminders Provider Appointments None recorded. Lab None recorded. Referral None recorded. Procedures None recorded. Surgeries None recorded. Imaging None recorded. Vitals 07/30/2021 09:45AM FOLLOW-UP Height Weight BMI Blood Pressure 5 ft 11 in 250 lbs 34.9 kg/m2 138/84 mm[Hg] 07/06/2021 04:00PM FOLLOW-UP Blood Pressure 144/72 mm[Hg] 11/12/2019 10:15AM FOLLOW-UP Height Blood Pressure 5 ft 11 in 143/76 mm[Hg] 10/24/2019 02:30PM Lumbar medial branch blocks Height 5 ft 11 in 09/30/2019 04:15PM FOLLOW-UP Height Weight BMI Blood Pressure 5 ft 11 in 250 lbs 34.9 kg/m2 153/80 mm[Hg] 06/12/2019 08:00AM FOLLOW-UP Height Weight BMI Blood Pressure 5 ft 11 in 250 lbs 34.9 kg/m2 166/84 mm[Hg] 03/11/2019 10:30AM FOLLOW-UP Height Blood Pressure 5 ft 11 in 138/85 mm[Hg] 01/08/2019 03:15PM FOLLOW-UP Height Blood Pressure 5 ft 11 in 140/80 mm[Hg] 12/07/2018 08:30AM FOLLOW-UP Height Weight BMI Blood Pressure 5 ft 11 in 250 lbs 34.9 kg/m2 150/77 mm[Hg] 08/21/2018 09:30AM FOLLOW-UP Blood Pressure 180/92 mm[Hg] 04/20/2018 Blood Pressure 149/91 mm[Hg] 03/28/2018 Blood Pressure 194/95 mm[Hg] 02/27/2018 Weight BMI Blood Pressure 256 lbs 35.83 kg/m2 147/83 mm[Hg] 02/06/2018 Blood Pressure 138/86 mm[Hg] 01/18/2018 Weight BMI Blood Pressure 240 lbs 33.59 kg/m2 145/80 mm[Hg] 09/13/2017 Blood Pressure 147/86 mm[Hg] 08/16/2017 Weight BMI Blood Pressure 240 lbs 33.59 kg/m2 155/93 mm[Hg] 07/13/2017 Blood Pressure 153/94 mm[Hg] 06/27/2017 Weight BMI Blood Pressure 239 lbs 33.45 kg/m2 148/84 mm[Hg] 03/07/2017 Blood Pressure 135/82 mm[Hg] 01/02/2017 Blood Pressure 148/98 mm[Hg] 11/18/2016 Blood Pressure 151/87 mm[Hg] 11/09/2016 Blood Pressure 149/84 mm[Hg] 11/02/2016 Blood Pressure 154/83 mm[Hg] 10/12/2016 Blood Pressure 128/76 mm[Hg] 09/19/2016 Blood Pressure 166/91 mm[Hg] 08/25/2016 Blood Pressure 160/92 mm[Hg] 08/10/2016 Blood Pressure 153/77 mm[Hg] 04/14/2016 Blood Pressure 141/77 mm[Hg] 03/18/2016 Blood Pressure 130/76 mm[Hg] 03/01/2016 Blood Pressure 143/74 mm[Hg] 02/23/2016 Blood Pressure 124/71 mm[Hg] 07/15/2015 Blood Pressure 148/82 mm[Hg] 06/24/2015 Blood Pressure 139/79 mm[Hg] 05/19/2015 Blood Pressure 149/77 mm[Hg] 01/13/2015 Blood Pressure 144/77 mm[Hg] 12/16/2014 Weight BMI Blood Pressure 256.6 lbs 35.92 kg/m2 156/88 mm[Hg] 11/24/2014 Blood Pressure 183/91 mm[Hg] 11/07/2014 Blood Pressure 134/77 mm[Hg] 10/17/2014 Blood Pressure 149/87 mm[Hg] 08/20/2014 Blood Pressure 127/81 mm[Hg] 06/02/2014 Blood Pressure 136/84 mm[Hg] 02/18/2014 Blood Pressure 117/77 mm[Hg] 01/08/2014 Blood Pressure 142/93 mm[Hg] 12/04/2013 Blood Pressure 126/80 mm[Hg] 10/24/2013 Blood Pressure 149/82 mm[Hg] 09/30/2013 Blood Pressure 112/65 mm[Hg] 07/16/2013 Blood Pressure 127/75 mm[Hg] 04/30/2013 Weight BMI Blood Pressure 255 lbs 35.69 kg/m2 111/71 mm[Hg] 03/27/2013 Height Weight BMI Blood Pressure 5 ft 11 in 255 lbs 35.69 kg/m2 130/79 mm[Hg]
--- OUTSIDE RECORDS SUMMARY | 2021-08-01 03:00 | CCD ---
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 Z79.4 Active conf irmed 099721213 Problem ALESSANDRO (obstructive sleep apnea) G47.33 Active confirm ed 65087757 Problem Other chronic pain G89.29 Active confirmed 8 8111048 Problem Essential hypertension I10 Active confirmed 45537492 Problem Type 2 diabetes mellitus with diabetic neuropathy, uns pecified E11.40 Active confirmed 45924318 Problem GERD (gastroesophageal reflux disease) K21.9 A ctive confirmed 005429037 Problem Migraine with aura and without status migrainosu s, not intractable G43.109 Active confirmed 2114923 Problem Angina at rest I20.8 Active confirmed 63312 8000 Problem Hypercalcemia E83.52 Active confirmed 750391 09 Problem Bipolar 1 disorder, manic, moderate F31.12 Acti ve confirmed 65372494 Problem Presence of coronary angioplasty implant and graft Z95.5 Active confirmed 039554897 Problem Stable angina I20.8 Active confirmed 416969 005 Problem Obesity E66.9 Active confirmed 138448858 Problem Atherosclerotic heart diseas e of [place] coronary artery without angina pectoris I25.10 Active confirmed 378458562 Problem Coarse tremors G25.2 Active confirmed 84643 002 Problem COPD (chronic obstructive pulmonary disease) J44.9 Active confirmed 10265287 Problem Dyslipidemia E78.5 Active confirmed 4811175 07 Problem Type 2 diabetes mellitus with hyperglycemia E11.65 Active confirmed 272398176 Problem nursing home (current) use of insulin Z79.4 Activ e confirmed 660204575 Problem Coronary artery disease of n ative artery of sy[place] heart with stable angina pectoris I25.118 Active confirmed 991534759 Problem Poorly controlled diabetes mellitus E11.65 Acti ve confirmed 745502174 ALLERGIES Allergen (clinical drug ingredient) Drug/Non Drug Allergy do cumented on EMR Reaction Allergy Type Onset Date Status Sulfasalazine Sulfa Antibiotics hives Drug Allergy Ac tive mometasone Nasonex(ND Code:[address]-12) headache,bloody nose Drug Allergy Active sertraline Zoloft(ND Code:[address]-60) hallucinations Drug Allergy Active paroxetine Paxil(ND Code:[address]-73) nausea, hives Drug Allergy Active sertraline Sertraline HCl(ND Code:[address]-18) hives,nausea Drug A llergy Active albuterol Albuterol Nausea/Vomiting Drug Allergy Active ENCOUNTERS from 1950 to 2021-07-31 Encounter Location Date Provider Diagnosis [address] [phone] [place] [address] Jul, Sanchez Yanes IMMUNIZATIONS Vaccine Route Administration [...] Education Language: Question Answer Notes Languages spoken: Georgian Jewish: Question Answer Notes Jewish 03 Jew Sexual Hx: Question Answer Notes Had sex [...] as directed topically Dx: 89 .29 RHEA# [id number] for 30 Days Feb, Active Insulin Lispro [...] day for 30 day (s) Jul, Active UltiCare Insulin Syringe 28G X 1/2" 1 ML DIRECTED TWO TIMES A DA Y for 30 Active Aspirin Adult Low Dose 81 MG 1 tablet Orally Once a day Active Albuterol Sulfate 108 (90 Base) MCG/ACT 1 puff as need ed Inhalation every 4 hours as needed for 30 Active Glucose strip (Verio IQ) as directed externally tid E11.65 for 3 0 day(s) Jul, Active metFORMIN HCl ER 500 MG take one tablet by mouth jim ry morning and evening with food Orally bid for 30 days Acti ve Nitroglycerin 0.4 MG as directed Sublingual every 5 minutes as needed for 30 Days Nov, Active Tens Unit - as directed to affected knee and back as needed daily DX: M17.9; M54.5 for 99 days Sep, Active Glucometer (Verio IQ) as directed for 30 day(s) Nov, Active Lantus 100 UNIT/ML 45 units in am and 40 units in the pm Subcutaneous Twice a day, MDD 82 units for 30 days Ac tive clonazePAM 1 MG 1 tablet Orally bid for 28 day(s) NOT TO BE FILLED UNTIL 28 DAYS AFTER LAST SCRIPT Jul, Active hydrOXYzine HCl 25 MG TAKE ONE TABLET BY MOUTH TWICE A DAY for 30 Active Metoprolol Succinate ER 50 MG TAKE ONE TABLET BY MOUTH EVERY DAY Active Incruse Ellipta 62.5 MCG/INH 1 puff Inhalation Once a day for 90 days January, Active One Touch Delica 33 gauge as directed externally tid E11.65 for 30 days Jul, Active Mag64 64 MG TAKE ONE TABLET BY MOUTH Orally Twice a day for 90 days Active PROCEDURES No Information RESULTS No Results REASON FOR VISIT refill MEDICAL (GENERAL) HISTORY Type Description Date Medical [...] pulm Medical History Migraines Surgical History cholecystectomy ([facility]) 10/2012 Surgical History umbilical hernia repair ([place]) 0 Surgical History Cardiac cath: severe lesions in distal RCA and mid left circumflex; s/p stenting x2 and balloon 12/11/2014 Hospitalization History atypical chest pain 07/2010 Hospitalization History colitis (ulcerative colitis or Crohn 's?) 07/2006 Hospitalization History depression 12/2003 Hospitalization History depression 11/2003 Hospitalization History depression and SI 12/1999 Hospitalization History per hospital records, to [facility], following attempted overdose 1980 Goals Section No Information Health Concerns No Information MEDICAL EQUIPMENT No Information MENTAL STATUS No Information FUNCTIONAL STATUS No Information ASSESSMENTS No Information PLAN OF TREATMENT Medication Medication Name Sig Start Date Stop Date One Touch Delica 33 gauge as directed externally tid E11.65 for 30 days Jul, Mag64 64 MG TAKE ONE TABLET BY MOUTH Orally Twice a day for 90 days Glucose strip (Verio IQ) as directed externally tid E11.65 f or 30 day(s) Jul, Metoprolol Succinate ER 50 MG TAKE ONE TABLET BY MOUTH EVERY DAY Insulin Lispro 100 UNIT/ML as directed Subcutaneous [...] Insured Coverage Start Date Coverage End Date MEDICAID [employer] [address] [facility] [id number] [facility] [address] [facility] [id number] [place]
--- OUTSIDE RECORDS SUMMARY | 2021-08-01 03:00 | CCD ---
Author Organization Unknown Address [address] [place] [address] Phone [phone] Care Team Providers Care Project Technician Name Role Phone Portillo Shipleyupinder Uri Unavailable Unavailable Allergies Code Code System Name Reaction Severity Status Onset 435 RxNorm Albuterol Active 02/15/2013 691253 RxNorm Nasonex Active 02/15/2013 981438 RxNorm Paxil Active 02/15/2013 Sertraline Hcl Active 02/15/2013 Sulfa (Sulfonamide Antibiotics) Active 02/16/20 13 41721 RxNorm Zoloft Active 02/18/2014 Medications Name Status Start Date Stop Date amoxicillin 500 mg capsule Completed 06/25 aspirin 81 mg tablet,delayed release Take 1 tablet every day by oral route. Active Not available azithromycin 250 mg tabs Completed 018 baclofen [...] TABLETS Completed 06/25/2020 clonazepam 1 mg tablet TAKE ONE TABLET BY MOUTH TWICE A DAY MAXIMUM DAILY DOSE 2 TABLETS Active Not available clonazepam 1 mg tabs Completed 12/07/2018 hydroxyzine HCl 25 mg tablet TAKE ONE [...] A DAY Active Not availab le Jardiance 25 mg tablet TAKE ONE TABLET BY MOUTH EVERY DAY Completed 06/12 lantus 100 unit/ml soln Completed 12/08/19 Lantus U-100 Insulin 100 unit/mL subcuta neous solution INJECT 45 UNITS UNDER THE SKIN IN THE MORNING 37 UNITS IN THE EVENING TWICE A DAY MAXIMUM DAILY DOSE 82 UNITS Active Not av ailable lisinopril 10 mg tablet TAKE ONE TABLET BY MOUTH EVERY DAY Active Not available Mag 64 64 mg tablet,delayed release TAKE ONE TABLET BY MOUTH TWICE A DAY Active No t available meloxicam 15 mg tabs Completed 08/21/2018 metformin 500 mg tablet Completed 06/25/20 metformin ER 500 mg tablet,extended rele ase 24 hr TAKE ONE TABLET BY MOUTH EVERY EVENING WITH FOOD Active Not available metformin hydrochloride 500 mg tabs Completed 12/07/2018 metoprolol succinate ER 25 mg tablet,ext ended release 24 hr TAKE ONE TABLET BY MOUTH EVERY DAY Active Not available metoprolol succinate er 25 mg tb24 Completed 08/21/2018 metoprolol succinate ER 50 mg tablet,ext ended release 24 hr TAKE ONE TABLET BY MOUTH EVERY DAY Active Not available nitroglycerin 0.[address] 1TAB.UNDER TONGUE DIRECTED EVERY 5 MINUTES NEEDED UP TO 3 DOSES Active Not available onetouch shayne ultra bl Active Not av ailable OneTouch Delica Plus Lancet 33 gauge USE DIRECTED TWO TIMES A DAY Active Not blanca ilable OneTouch Verio Flex Meter USE DIRECTED Active Not available OneTouch Verio test strips USE TO TEST BLOOD SUGAR TWICE DAILY Active Not available ProAir RespiClick 90 mcg/actuation breat h activated [...] by 07/06/2021 MRI, Lumbar Spine, W/o Contrast [facility] - Radiology [address] [place] [phone] ( (Work Place) Notes: cholecystectomy in 2012, umbilica l hernia repair 2006, and dental work, eye surgery january, february, march 2017 | cholecystectomy in 2012, umbilical hernia repair 2006, and dental work, eye surgery january, february, march 2017 06/27/2017 Results Lab Results Date Name Specimen Result Interpretation Description Value Range Status Address 07/12/2021 [facility] Pdf Report NOS No observation recorded. [facility]: [address] [facility] 07/12/2021 SARS CoV 2 RNA (COVID-19), QL, events assistant-PCR, Respirat ory Specimen NOS Normal Sars-cov-2 negative negative Final [facility]: [address] [facility] [place] 07/06/2020 [facility] Pdf Report NOS No observation recorded. [facility]: [address] [facility] [place] 07/06/2020 SARS CoV 2 RNA (COVID-19), QL, events assistant-PCR, Respirat ory Specimen NOS Normal Sars-cov-2 negative negative Final [facility]: [address], [place] 06/22/2020 [facility] Pdf Report NOS No observation recorded. [facility]: [address], [place] 06/22/2020 SARS CoV 2 RNA (COVID-19), QL, events assistant-PCR, Respirat ory Specimen NOS Normal Sars-cov-2 negative negative Final [facility]: [address], [place] Past Encounters 07/15/2021 Inflammation of Sacroiliac Joint; Degeneration of Lumbar Intervertebral Disc; Degeneration of Lumbosacral Intervertebral Disc; Displacement of Lumbar Intervertebral Disc without Myelopathy; Intervertebral Disc Disorder; Spondylosis without Myelopathy; Lumbosacral Spondylosis without Myelopathy; Lumbar Radiculopathy; Muscle Pain Henry Shipley MD: [id number] [facility], [place] [address], Ph. 07/12/2021 Pre-surgery Testing; Viral Screening Henry Shipley MD: [id number] [facility] [address], [place] [address], Ph. [phone] 07/06/2021 Degeneration of Lumbar Intervertebral Disc; Degeneration of Lumbosacral Intervertebral Disc; Displacement of Lumbar Intervertebral Disc without Myelopathy; Intervertebral Disc Disorder; Spondylosis without Myelopathy; Lumbosacral Spondylosis without Myelopathy; Lumbar Radiculopathy; Inflammation of Sacroiliac Joint; Muscle Pain Anastasia Worrell NP: [id number] [facility] [address], [place] [address], Ph. 07/09/2020 Lumbosacral Spondylosis without Myelopathy; Spondylosis without Myelopathy; Degeneration of Lumbar Intervertebral Disc; Degeneration of Lumbosacral Intervertebral Disc; Displacement of Lumbar Intervertebral Disc without Myelopathy; Intervertebral Disc Disorder; Lumbar Radiculopathy; Inflammation of Sacroiliac Joint; Muscle Pain Henry Shipley MD: [id number] [facility] [address], [place] [address], Ph. 07/06/2020 Pre-surgery Testing; Viral Screening Henry Shipley MD: [id number] [address], [place] [address], Ph. [phone] 06/25/2020 Lumbosacral Spondylosis without Myelopathy; Spondylosis without Myelopathy; Degeneration of Lumbar Intervertebral Disc; Degeneration of Lumbosacral Intervertebral Disc; Displacement of Lumbar Intervertebral Disc without Myelopathy; Intervertebral Disc Disorder; Lumbar Radiculopathy; Inflammation of Sacroiliac Joint; Muscle Pain Henry Shipley MD: [id number] [address], Ph. 06/22/2020 Pre-surgery Testing; Viral Screening Henry Shipley MD: [id number] [address], Ph. [phone] 11/12/2019 Degeneration of Lumbar Intervertebral Disc; Degeneration of Lumbosacral Intervertebral Disc; Displacement of Lumbar Intervertebral Disc without Myelopathy; Intervertebral Disc Disorder; Spondylosis without Myelopathy; Lumbosacral Spondylosis without Myelopathy; Lumbar Radiculopathy; Inflammation of Sacroiliac Joint; Muscle Pain Anastasia Worrell, COFFIN MAKER: [id number] [address], Ph. 10/24/2019 Lumbosacral Spondylosis without Myelopathy; Spondylosis without Myelopathy; Degeneration of Lumbar Intervertebral Disc; Degeneration of Lumbosacral Intervertebral Disc; Displacement of Lumbar Intervertebral Disc without Myelopathy; Intervertebral Disc Disorder; Lumbar Radiculopathy; Inflammation of Sacroiliac Joint; Muscle Pain Henry Shipley MD: [id number] [address], [place] [address], Ph. 09/30/2019 Degeneration of Lumbar Intervertebral Disc; Degeneration of Lumbosacral Intervertebral Disc; Displacement of Lumbar Intervertebral Disc without Myelopathy; Intervertebral Disc Disorder; Spondylosis without Myelopathy; Lumbosacral Spondylosis without Myelopathy; Lumbar Radiculopathy; Inflammation of Sacroiliac Joint; Muscle Pain Anastasia Worrell, COFFIN MAKER: [id number] [address], [place] [address], Ph. 06/12/2019 Degeneration of Lumbar Intervertebral Disc; Degeneration of Lumbosacral Intervertebral Disc; Displacement of Lumbar Intervertebral Disc without Myelopathy; Intervertebral Disc Disorder; Spondylosis without Myelopathy; Lumbosacral Spondylosis without Myelopathy; Lumbar Radiculopathy; Inflammation of Sacroiliac Joint; Muscle Pain Anastasia Worrell, COFFIN MAKER: [id number] [address], Ph. 03/11/2019 Degeneration of Lumbar Intervertebral Disc; Degeneration of Lumbosacral Intervertebral Disc; Displacement of Lumbar Intervertebral Disc without Myelopathy; Intervertebral Disc Disorder; Spondylosis without Myelopathy; Lumbosacral Spondylosis without Myelopathy; Lumbar Radiculopathy; Inflammation of Sacroiliac Joint; Muscle Pain Anastasia Worrell [employer]FFIN MAKER: [id number] [address], Ph. 02/08/2019 Lumbosacral Spondylosis without Myelopathy; Spondylosis without Myelopathy; Degeneration of Lumbar Intervertebral Disc; Degeneration of Lumbosacral Intervertebral Disc; Displacement of Lumbar Intervertebral Disc without Myelopathy; Intervertebral Disc Disorder; Lumbar Radiculopathy; Inflammation of Sacroiliac Joint; Muscle Pain Henry Shipley MD: [id number] [address], Ph. 01/25/2019 Lumbosacral Spondylosis without Myelopathy; Spondylosis without Myelopathy; Degeneration of Lumbar Intervertebral Disc; Degeneration of Lumbosacral Intervertebral Disc; Displacement of Lumbar Intervertebral Disc without Myelopathy; Intervertebral Disc Disorder; Lumbar Radiculopathy; Inflammation of Sacroiliac Joint; Muscle Pain Henry Shipley MD: [id number] [address], Ph. 01/08/2019 Degeneration of Lumbar Intervertebral Disc; Degeneration of Lumbosacral Intervertebral Disc; Displacement of Lumbar Intervertebral Disc without Myelopathy; Intervertebral Disc Disorder; Spondylosis without Myelopathy; Lumbosacral Spondylosis without Myelopathy; Lumbar Radiculopathy; Inflammation of Sacroiliac Joint; Muscle Pain Anastasia Manongsong Jumalon, COFFIN MAKER: [address] [address], [place] [address], Ph. 12/20/2018 Lumbosacral Spondylosis without Myelopathy; Spondylosis without Myelopathy; Degeneration of Lumbar Intervertebral Disc; Degeneration of Lumbosacral Intervertebral Disc; Displacement of Lumbar Intervertebral Disc without Myelopathy; Intervertebral Disc Disorder; Lumbar Radiculopathy; Inflammation of Sacroiliac Joint; Muscle Pain Henry Shipley MD: [id number] [address], [place] [address], Ph. 12/07/2018 Degeneration of Lumbar Intervertebral Disc; Degeneration of Lumbosacral Intervertebral Disc; Displacement of Lumbar Intervertebral Disc without Myelopathy; Intervertebral Disc Disorder; Spondylosis without Myelopathy; Lumbosacral Spondylosis without Myelopathy; Lumbar Radiculopathy; Inflammation of Sacroiliac Joint; Muscle Pain Anastasia Worrell, COFFIN MAKER: [address] [address], [place] [address], Ph. 08/21/2018 Degeneration of Lumbar Intervertebral Disc; Degeneration of Lumbosacral Intervertebral Disc; Displacement of Lumbar Intervertebral Disc without Myelopathy; Intervertebral Disc Disorder; Spondylosis without Myelopathy; Lumbosacral Spondylosis without Myelopathy; Lumbar Radiculopathy; Inflammation of Sacroiliac Joint; Muscle Pain Anastasia Worrell COFFIN MAKER: [address] [address], Ph. Social History None recorded. Vaccine List Vaccine Type COVID-19, mRNA, LNP-S, PF, 100 mcg/0.5 m L dose 11/21/2020 12/23/2020 Plan of Care Reminders Provider Appointments None recorded. Lab None recorded. Referral None recorded. Procedures None recorded. Surgeries None recorded. Imaging None recorded. Vitals 07/06/2021 04:00PM FOLLOW-UP Blood Pressure 144/72 mm[Hg] [...]
--- OUTSIDE RECORDS SUMMARY | 2021-08-01 03:00 | CCD ---
Author Author [facility] Organization 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.4 Active conf irmed 250916316 Problem ALESSANDRO (obstructive sleep apnea) G47.33 Active confirm ed 00448575 Problem Other chronic pain G89.29 Active confirmed 8 3822536 Problem Essential hypertension I10 Active confirmed 05909690 Problem Type 2 diabetes mellitus with diabetic neuropathy, uns pecified E11.40 Active confirmed 87143134 Problem GERD (gastroesophageal reflux disease) K21.9 A ctive confirmed 103458484 Problem Migraine with aura and without status migrainosu s, not intractable G43.109 Active confirmed 1460103 Problem Angina at rest I20.8 Active confirmed 13257 8000 Problem Hypercalcemia E83.52 Active confirmed 528026 09 Problem Bipolar 1 disorder, manic, moderate F31.12 Acti ve confirmed 39471879 Problem Presence of coronary angioplasty implant and graft Z95.5 Active confirmed 244507200 Problem Stable angina I20.8 Active confirmed 702735 005 Problem Obesity E66.9 Active confirmed 354735812 Problem Atherosclerotic heart diseas e of [place] coronary artery without angina pectoris I25.10 Active confirmed 477106908 Problem Coarse tremors G25.2 Active confirmed 00928 002 Problem COPD (chronic obstructive pulmonary disease) J44.9 Active confirmed 38229681 Problem Dyslipidemia E78.5 Active confirmed 7948111 07 Problem Type 2 diabetes mellitus with hyperglycemia E11.65 Active confirmed 561696127 Problem alf (current) use of insulin Z79.4 Activ e confirmed 274926178 Problem Coronary artery disease of n ative artery of [place] heart with stable angina pectoris I25.118 Active confirmed 982780072 Problem Poorly controlled diabetes mellitus E11.65 Acti ve confirmed 509691834 ALLERGIES Allergen (clinical drug ingredient) Drug/Non Drug Allergy do cumented on EMR Reaction Allergy Type Onset Date Status Sulfasalazine Sulfa Antibiotics hives Drug Allergy Ac tive mometasone Nasonex(ND Code:[address]-07) headache,bloody nose Drug Allergy Active sertraline Zoloft(ND Code:[address]-89) hallucinations Drug Allergy Active paroxetine Paxil(ND Code:[address]-89) nausea, hives Drug Allergy Active sertraline Sertraline HCl(ND Code:[address]-15) hives,nausea Drug A llergy Active albuterol Albuterol Nausea/Vomiting Drug Allergy Active ENCOUNTERS from 1950 to 2021-07-20 Encounter Location Date Provider Diagnosis [address] [facility] [phone] [place] [address] 08 Jul, 2021 Sanchez Joaquín Poorly controlled diabetes m ellitus E11.65 IMMUNIZATIONS Vaccine Route Administration Date Status Influenza [...] Education Language: Question Answer Notes Languages spoken: [place] Citizen Anglican: Question Answer Notes Anglican 03 Orthodox Sexual Hx: Question Answer Notes Had sex [...] Notes Start Da te End Date Status Blood Glucose Test - one touch ultra ICD:E11.9 FSBS twice daily for 30 day(s) Jul, Active UltiCare Insulin Syringe 28G X 1/2" 1 ML DIRECTED TWO TIMES A DA Y for 30 Active Insulin Lispro 100 UNIT/ML as directed Subcutaneous ti d as needed based on sliding scale from measured blood sugar pre-meal for 30 days Jul, Active Glucometer (Verio IQ) as directed for 30 day(s) Nov, 20 Active Jardiance 10 MG 1 tablet Orally Once a day for 30 day(s) 0 5 Jul, 2021 Active Nitroglycerin 0.4 MG as directed Sublingual every 5 minutes as needed for 30 Days Nov, Active metFORMIN HCl ER 500 MG take one tablet by mouth jim ry morning and evening with food Orally bid for 30 days Acti ve Albuterol Sulfate 108 (90 Base) MCG/ACT 1 puff as need ed Inhalation every 4 hours as needed for 30 Active Mag64 64 MG TAKE ONE TABLET BY MOUTH TWICE A DAY for 90 Active Metoprolol Succinate ER 50 MG TAKE ONE TABLET BY MOUTH EVERY DAY Active Tens Unit Electro Pads 715.96 as directed for right knee daily Apr, Active hydrOXYzine HCl 25 MG TAKE ONE TABLET BY MOUTH TWICE A DAY for 30 Active Lancets _ lancets ICD:E11.9 DDM FSBS twice daily for 30 days Active Aspirin Adult Low Dose 81 MG 1 tablet Orally Once a day Active clonazePAM 1 MG 1 tablet Orally bid for 28 day(s) NOT TO BE FILLED UNTIL 28 DAYS AFTER LAST SCRIPT Jun, Active Insulin Syringe 28G X 1/2 short needle: sure comfort 1 ml syringe DX: E11.9 twice daily for 90 days Dec, Active Lantus 100 UNIT/ML 45 units in am and 40 units in the pm Subcutaneous Twice a day, MDD 82 units for 30 days Ac tive Tens Unit Electro Pads - as directed topically Dx: 89 .29 [facility]# [id number] for 30 Days Feb, Active Tens Unit - as directed to affected knee and back as needed daily DX: M17.9; M54.5 for 99 days Sep, Active Blood Pressure Cuff _ use blood pressure cuff once daily for home monitoring daily for 99 months Jul, Active Atorvastatin Calcium 40 MG 1 tablet Orally Once a day for 30 day (s) Jul, Active Incruse Ellipta 62.5 MCG/INH 1 puff Inhalation Once a day for 90 days January, Active Centrum Silver 1 tab Orally Daily Ac tive PROCEDURES No Information RESULTS No Results REASON FOR VISIT Critical Glucose MEDICAL (GENERAL) HISTORY Type Description Date Medical [...] pulm Medical History Migraines Surgical History cholecystectomy ([place]) 10/2012 Surgical History umbilical hernia repair ([place]) 0 Surgical History Cardiac cath: severe lesions in distal RCA and mid left circumflex; s/p stenting x2 and balloon 12/11/2014 Hospitalization History atypical chest pain 07/2010 Hospitalization History colitis (ulcerative colitis or Crohn 's?) 07/2006 Hospitalization History depression 12/2003 Hospitalization History depression 11/2003 Hospitalization History depression and SI 12/1999 Hospitalization History per hospital records, to [facility], following attempted overdose 1980 Goals Section No Information Health Concerns No Information MEDICAL EQUIPMENT No Information MENTAL STATUS No Information FUNCTIONAL STATUS No Information ASSESSMENTS Encounter Date Diagnosis Assessment Notes Treatment Notes Treatm ent Clinical Notes Jul, Poorly controlled diabetes mellitus (ICD-10 - E1 1.65) PLAN OF TREATMENT Medication Medication Name Sig Start Date Stop Date Metoprolol Succinate ER 50 MG TAKE ONE TABLET BY MOUTH EVERY DAY Atorvastatin Calcium 40 MG 1 tablet Orally Once a day for 30 day(s) Jul, Lantus 100 UNIT/ML 45 units in am and 40 units in the pm Subcutaneous Twice a day, MDD 82 units for 30 days metFORMIN HCl ER 500 MG take one tablet by mouth jim ry morning and evening with food Orally bid for 30 days Insulin Lispro 100 UNIT/ML as directed Subcutaneous ti d as needed based on sliding scale from measured blood sugar pre-meal for 30 days Jul, Jardiance 10 MG 1 tablet Orally Once a day for 30 day(s) Jul, Insurance Providers Payer Name Payer Address Payer Phone Insured Name Patient Relati onship to Insured Coverage Start Date Coverage End Date [facility] [address] [facility] [id number] [place] [employer] [address] [facility] [id number] [place]
--- OUTSIDE RECORDS SUMMARY | 2021-08-01 03:01 | CCD ---
Author Organization Unknown Address [address] [place] [address] Phone [phone] Care Team Providers Care Machine Wiper Name Role Phone Portillo Shipleyupinder Uri Unavailable Unavailable Allergies Code Code System Name Reaction Severity Status Onset 435 RxNorm Albuterol Active 02/15/2013 176719 RxNorm Nasonex Active 02/15/2013 317414 RxNorm Paxil Active 02/15/2013 Sertraline Hcl Active 02/15 Sulfa (Sulfonamide Antibiotics) Active 02/15/2013 70328 RxNorm Zoloft Active 02/18/2014 Medications Name Status [...] SKIN EVERY WEEK Active N ot available clonazepam 0.5 mg tablet TAKE ONE [...] benzoate odt 10 mg tbdp Completed 08/21/2018 Soma 350 mg tablet Take 1 tablet 3 times a day by oral route as needed for 5 days. Active Not available Trulicity 0.75 mg/0.5 mL subcutaneous pe n [...] by 07/06/2021 MRI, Lumbar Spine, W/o Contrast Informat ion not available Notes: cholecystectomy in 2012, umbilica l hernia repair 2006, and dental work, eye surgery january, february, march 2017 | cholecystectomy in 2012, umbilical hernia repair 2006, and dental work, eye surgery january, february, march 2017 06/27/2017 Results Lab Results Date Name Specimen Result Interpretation Description Value Range Status Address 07/06/2020 [facility] Pdf Report NOS No observation recorded. [facility]: [address] [facility] 07/06/2020 SARS CoV 2 RNA (COVID-19), QL, legal services manager-PCR, Respirat ory Specimen NOS Normal Sars-cov-2 negative negative Final [facility]: [address] [facility] 06/22/2020 [facility] Pdf Report NOS No observation recorded. [facility]: [address] [facility] 06/22/2020 SARS CoV 2 RNA (COVID-19), QL, legal services manager-PCR, Respirat ory Specimen NOS Normal Sars-cov-2 negative negative Final [facility]: [address] [facility] Past Encounters 07/06/2021 Degeneration of Lumbar Intervertebral Disc; Degeneration of Lumbosacral Intervertebral Disc; Displacement of Lumbar Intervertebral Disc without Myelopathy; Intervertebral Disc Disorder; Spondylosis without Myelopathy; Lumbosacral Spondylosis without Myelopathy; Lumbar Radiculopathy; Inflammation of Sacroiliac Joint; Muscle Pain Anastasia Worrell, PRODUCT COORDINATOR: [id number] [address], [place] [address], Ph. 07/09/2020 Lumbosacral Spondylosis without Myelopathy; Spondylosis without Myelopathy; Degeneration of Lumbar Intervertebral Disc; Degeneration of Lumbosacral Intervertebral Disc; Displacement of Lumbar Intervertebral Disc without Myelopathy; Intervertebral Disc Disorder; Lumbar Radiculopathy; Inflammation of Sacroiliac Joint; Muscle Pain Henry Shipley MD: [id number] [address], Ph. 07/06/2020 Pre-surgery Testing; Viral Screening Henry Shipley MD: [id number] [address], [place] [address], Ph. [phone] 06/25/2020 Lumbosacral Spondylosis without Myelopathy; Spondylosis without Myelopathy; Degeneration of Lumbar Intervertebral Disc; Degeneration of Lumbosacral Intervertebral Disc; Displacement of Lumbar Intervertebral Disc without Myelopathy; Intervertebral Disc Disorder; Lumbar Radiculopathy; Inflammation of Sacroiliac Joint; Muscle Pain Henry Shipley MD: [id number] [address], Ph. 06/22/2020 Pre-surgery Testing; Viral Screening Henry Shipley MD: [id number] [address], Ph. [phone] 11/12/2019 Degeneration of Lumbar Intervertebral Disc; Degeneration of Lumbosacral Intervertebral Disc; Displacement of Lumbar Intervertebral Disc without Myelopathy; Intervertebral Disc Disorder; Spondylosis without Myelopathy; Lumbosacral Spondylosis without Myelopathy; Lumbar Radiculopathy; Inflammation of Sacroiliac Joint; Muscle Pain Anastasia Worrell, PRODUCT COORDINATOR: [address] [address], Ph. 10/24/2019 Lumbosacral Spondylosis without Myelopathy; Spondylosis without Myelopathy; Degeneration of Lumbar Intervertebral Disc; Degeneration of Lumbosacral Intervertebral Disc; Displacement of Lumbar Intervertebral Disc without Myelopathy; Intervertebral Disc Disorder; Lumbar Radiculopathy; Inflammation of Sacroiliac Joint; Muscle Pain Henry Shipley MD: [id number] [address], Ph. 09/30/2019 Degeneration of Lumbar Intervertebral Disc; Degeneration of Lumbosacral Intervertebral Disc; Displacement of Lumbar Intervertebral Disc without Myelopathy; Intervertebral Disc Disorder; Spondylosis without Myelopathy; Lumbosacral Spondylosis without Myelopathy; Lumbar Radiculopathy; Inflammation of Sacroiliac Joint; Muscle Pain Anastasia Worrell PRODUCT COORDINATOR: [id number] [address], Ph. 06/12/2019 Degeneration of Lumbar Intervertebral Disc; Degeneration of Lumbosacral Intervertebral Disc; Displacement of Lumbar Intervertebral Disc without Myelopathy; Intervertebral Disc Disorder; Spondylosis without Myelopathy; Lumbosacral Spondylosis without Myelopathy; Lumbar Radiculopathy; Inflammation of Sacroiliac Joint; Muscle Pain Anastasia Worrell PRODUCT COORDINATOR: [id number] [address], Ph. 03/11/2019 Degeneration of Lumbar Intervertebral Disc; Degeneration of Lumbosacral Intervertebral Disc; Displacement of Lumbar Intervertebral Disc without Myelopathy; Intervertebral Disc Disorder; Spondylosis without Myelopathy; Lumbosacral Spondylosis without Myelopathy; Lumbar Radiculopathy; Inflammation of Sacroiliac Joint; Muscle Pain Anastasia Worrell PRODUCT COORDINATOR: [id number] [address], Ph. 02/08/2019 Lumbosacral Spondylosis without Myelopathy; Spondylosis without Myelopathy; Degeneration of Lumbar Intervertebral Disc; Degeneration of Lumbosacral Intervertebral Disc; Displacement of Lumbar Intervertebral Disc without Myelopathy; Intervertebral Disc Disorder; Lumbar Radiculopathy; Inflammation of Sacroiliac Joint; Muscle Pain Henry Shipley MD: [id number] [address], [place] [address], Ph. 01/25/2019 Lumbosacral Spondylosis without Myelopathy; Spondylosis without Myelopathy; Degeneration of Lumbar Intervertebral Disc; Degeneration of Lumbosacral Intervertebral Disc; Displacement of Lumbar Intervertebral Disc without Myelopathy; Intervertebral Disc Disorder; Lumbar Radiculopathy; Inflammation of Sacroiliac Joint; Muscle Pain Henry Shipley MD: [id number] [address], Ph. 01/08/2019 Degeneration of Lumbar Intervertebral Disc; Degeneration of Lumbosacral Intervertebral Disc; Displacement of Lumbar Intervertebral Disc without Myelopathy; Intervertebral Disc Disorder; Spondylosis without Myelopathy; Lumbosacral Spondylosis without Myelopathy; Lumbar Radiculopathy; Inflammation of Sacroiliac Joint; Muscle Pain Anastasia Worrell, PRODUCT COORDINATOR: [address] [address], Ph. 12/20/2018 Lumbosacral Spondylosis without Myelopathy; Spondylosis without Myelopathy; Degeneration of Lumbar Intervertebral Disc; Degeneration of Lumbosacral Intervertebral Disc; Displacement of Lumbar Intervertebral Disc without Myelopathy; Intervertebral Disc Disorder; Lumbar Radiculopathy; Inflammation of Sacroiliac Joint; Muscle Pain Henry Shipley MD: [address] [address], Ph. 12/07/2018 Degeneration of Lumbar Intervertebral Disc; Degeneration of Lumbosacral Intervertebral Disc; Displacement of Lumbar Intervertebral Disc without Myelopathy; Intervertebral Disc Disorder; Spondylosis without Myelopathy; Lumbosacral Spondylosis without Myelopathy; Lumbar Radiculopathy; Inflammation of Sacroiliac Joint; Muscle Pain Anastasia Worrell, PRODUCT COORDINATOR: [id number] [address], [place] [address], Ph. 08/21/2018 Degeneration of Lumbar Intervertebral Disc; Degeneration of Lumbosacral Intervertebral Disc; Displacement of Lumbar Intervertebral Disc without Myelopathy; Intervertebral Disc Disorder; Spondylosis without Myelopathy; Lumbosacral Spondylosis without Myelopathy; Lumbar Radiculopathy; Inflammation of Sacroiliac Joint; Muscle Pain Anastasia Worrell, PRODUCT COORDINATOR: [address], [place] [address], Ph. Social History None recorded. Vaccine List [...]
--- OUTSIDE RECORDS SUMMARY | 2021-08-01 03:01 | CCD ---
Author Author [facility] Organization [facility] Address Unknown Phone Unavailable Care Team Providers Care Tare Worker Name Role Phone Sanchez Yanes Unavailable PROBLEMS Type Condition ICD9-CM Code INF50-OK Code Onset Dates Condition S tatus W/U Status Risk SNOMED Code Notes Problem COPD (chronic obstructive pulmonary disease) J44.9 Active confirmed 64655864 Problem GERD (gastroesophageal reflux disease) K21.9 A ctive confirmed 318939469 Problem Dyslipidemia E78.5 Active confirmed 3235345 07 Problem Obesity E66.9 Active confirmed 035924684 Problem Coronary artery disease I25.10 Active confirmed 88164745 Problem BPPV (benign paroxysmal positional vertigo) H81.10 Active confirmed 412783581 Problem assisted current use of insulin Z79.4 Active conf irmed 469745912 Problem ALESSANDRO (obstructive sleep apnea) G47.33 Active confirm ed 98710123 Problem Migraine with aura and without status migrainosu s, not intractable G43.109 Active confirmed 6709495 Problem Type 2 diabetes mellitus with diabetic neuropathy, uns pecified E11.40 Active confirmed 17699865 Problem Coarse tremors G25.2 Active confirmed 90868 002 Problem Type 2 diabetes mellitus with hyperglycemia E11.65 Active confirmed 463977092 Problem Other chronic pain G89.29 Active confirmed 8 0124899 Problem assisted (current) use of insulin Z79.4 Activ e confirmed 796122744 Problem Essential hypertension I10 Active confirmed 49318520 Problem Angina at rest I20.8 Active confirmed 31835 8000 Problem Stable angina I20.8 Active confirmed 520619 005 Problem Hypercalcemia E83.52 Active confirmed 956836 09 Problem Bipolar 1 disorder, manic, moderate F31.12 Acti ve confirmed 21703243 ALLERGIES Allergen (clinical drug ingredient) Drug/Non Drug Allergy do cumented on EMR Reaction Allergy Type Onset Date Status mometasone Nasonex([facility] Code:[address]-40) headache,bloody nose Drug Allergy Active Sulfa (for allergy use only) hives Drug Allergy Active sertraline Zoloft([facility] Code:[address]-18) hallucinations Drug Allergy Active paroxetine Paxil([facility] Code:[address]-62) nausea, hives Drug Allergy Active sertraline Sertraline HCl([facility] Code:[address]-59) hives,nausea Drug A llergy Active albuterol Albuterol Nausea/Vomiting Drug Allergy Active ENCOUNTERS from 1950 to 2021-06-23 Encounter Location Date Provider Diagnosis [facility] [address] [facility] [phone] [place] [address] Jun, 2021 Sanchez Yanes Essential hypertension I10 IMMUNIZATIONS Vaccine Route Administration Date Status Influenza [...] Education Language: Question Answer Notes Languages spoken: Sudanese Roman Catholic: Question Answer Notes Roman Catholic 03 Spiritism Sexual Hx: Question Answer Notes Had sex [...] Notes Start Da te End Date Status metFORMIN HCl ER 500 MG 1 tablet with evening meal O rally Once a day for 30 days Active Blood Pressure Cuff _ use blood pressure cuff once daily for home monitoring daily for 99 months Jul, Active hydrOXYzine HCl 25 MG TAKE ONE TABLET BY MOUTH TWICE A DAY for 30 Active Lancets _ lancets ICD:E11.9 DDM FSBS twice daily for 30 days Active Tens Unit Electro Pads 715.96 as directed for right knee daily Apr, Active Incruse Ellipta 62.5 MCG/INH 1 puff Inhalation Once a day for 90 days January, Active clonazePAM 1 MG 1 tablet Orally bid for 28 day(s) NOT TO BE FILLED UNTIL 28 DAYS AFTER LAST SCRIPT Jun, Active Nitroglycerin 0.4 MG as directed Sublingual every 5 minutes as needed for 30 Days Nov, Active Tens Unit Electro Pads - as directed topically Dx: 89 .29 [facility]# [id number] for 30 Days Feb, Active Glucometer (Verio IQ) as directed for 30 day(s) Nov, Active Lantus 100 UNIT/ML 45 units in am and 37 units in the pm Subcutaneous Twice a day, MDD 82 units for 36 Active Centrum Silver 1 tab Orally Daily Ac tive Tens Unit - as directed to affected knee and back as needed daily DX: M17.9; M54.5 for 99 days Sep, Active Metoprolol Succinate ER 50 MG 1 tablet Orally Once a day for 30 Days Active Albuterol Sulfate 108 (90 Base) MCG/ACT 1 puff as need ed Inhalation every 4 hours as needed for 30 Active Mag64 64 MG TAKE ONE TABLET BY MOUTH TWICE A DAY for 90 Active Lisinopril 10 MG 1 tablet Orally Once a day for 30 day(s) Apr, Active UltiCare Insulin Syringe 28G X 1/2" 1 ML DIRECTED TWO TIMES A DA Y for 30 Active Insulin Syringe 28G X 1/2 short needle: sure comfort 1 ml syringe DX: E11.9 twice daily for 90 days Dec, Active Blood Glucose Test - one touch ultra ICD:E11.9 FSBS twice daily for 30 day(s) Jul, Active Aspirin Adult Low Dose 81 MG 1 tablet Orally Once a day Active PROCEDURES No Information RESULTS No Results REASON FOR VISIT refill request MEDICAL (GENERAL) HISTORY Type Description Date Medical [...] ([place]) 10/2012 Surgical History umbilical hernia repair ([place]) 0 Surgical History Cardiac cath: severe lesions in distal RCA and mid left circumflex; s/p stenting x2 and balloon 12/11/2014 Hospitalization History atypical chest pain 07/2010 Hospitalization History colitis (ulcerative colitis or Crohn 's?) 07/2006 Hospitalization History depression 12/2003 Hospitalization History depression 11/2003 Hospitalization History depression and SI 12/1999 Hospitalization History per hospital records, to [facility], following attempted overdose 1980 Goals Section No Information Health Concerns No Information MEDICAL EQUIPMENT No Information MENTAL STATUS No Information FUNCTIONAL STATUS No Information ASSESSMENTS Encounter Date Diagnosis Assessment Notes Treatment Notes Treatm ent Clinical Notes Jun, Essential hypertension (ICD-10 - I10) PLAN OF TREATMENT Medication Medication Name Sig Start Date Stop Date Metoprolol Succinate ER 50 MG 1 tablet Orally Once a day for 30 Days Lisinopril 10 MG 1 tablet Orally Once a day for 30 day(s) Apr clonazePAM 1 MG 1 tablet Orally bid for 28 day(s) Jun, hydrOXYzine HCl 25 MG TAKE ONE TABLET BY MOUTH TWICE A DAY for 3 0 UltiCare Insulin Syringe 28G X 1/2" 1 ML DIRECTED TWO TIMES A DAY for 30 Next Appt Details Provider Name:Sanchez Yanes, 2020-11-0 5 03:00:00 PM, [address] [facility], , [place], [address], Insurance Providers Payer Name Payer Address Payer Phone Insured Name Patient Relati onship to Insured Coverage Start Date Coverage End Date [facility] [address] [facility] [id number] [place] self [place] [employer] [address] [facility] [id number] [place]
--- OUTSIDE RECORDS SUMMARY | 2021-08-01 03:01 | CCD ---
Author Organization Unknown Address [address] [place] [address] Phone [phone] Care Team Providers Care Drop Wire Operator Name Role Phone Portillo Shipleyupinder Uri Unavailable Unavailable Allergies Code Code System Name Reaction Severity Status Onset 435 RxNorm Albuterol Active 02/15/2013 762572 RxNorm Nasonex Active 02/15/2013 757092 RxNorm Paxil Active 02/15/2013 Sertraline Hcl Active 02/15/2013 Sulfa (Sulfonamide Antibiotics) Active 02/16/20 13 77059 RxNorm Zoloft Active 02/18/2014 Medications Name Status [...] Not available nitroglycerin 0.4 mg sublingual tablet Active Not available onetouch shayne ultra bl [...] by 07/06/2021 MRI, Lumbar Spine, W/o Contrast [facility] - Radiology [address] [place] [address] [phone] (Work Place) Notes: cholecystectomy in 2012, umbilica l hernia repair 2006, and dental work, eye surgery january, february, march 2017 | cholecystectomy in 2012, umbilical hernia repair 2006, and dental work, eye surgery january, february, march 2017 06/27/2017 Results Lab Results Date Name Specimen Result Interpretation Description Value Range Status Address 07/06/2020 [facility] Pdf Report NOS No observation recorded. [facility] Cov[facility]: [address] [facility] 07/06/2020 SARS CoV 2 RNA (COVID-19), QL, equipment processer storage-PCR, Respirat ory Specimen NOS Normal Sars-cov-2 negative negative Final [facility]: [address] [facility] 06/22/2020 [facility] Pdf Report NOS No observation recorded. [facility]: [address] [facility] 06/22/2020 SARS CoV 2 RNA (COVID-19), QL, equipment processer storage-PCR, Respirat ory Specimen NOS Normal Sars-cov-2 negative negative Final [facility]: [address] [facility] Past Encounters 07/12/2021 Pre-surgery Testing; Viral Screening Henry Shipley MD: [address] [place] [address], Ph. [phone] 07/06/2021 Degeneration of Lumbar Intervertebral Disc; Degeneration of Lumbosacral Intervertebral Disc; Displacement of Lumbar Intervertebral Disc without Myelopathy; Intervertebral Disc Disorder; Spondylosis without Myelopathy; Lumbosacral Spondylosis without Myelopathy; Lumbar Radiculopathy; Inflammation of Sacroiliac Joint; Muscle Pain Anastasia Worrell NP: [id number] [facility] [address], [place] [address], Ph. 07/09/2020 Lumbosacral Spondylosis without Myelopathy; Spondylosis without Myelopathy; Degeneration of Lumbar Intervertebral Disc; Degeneration of Lumbosacral Intervertebral Disc; Displacement of Lumbar Intervertebral Disc without Myelopathy; Intervertebral Disc Disorder; Lumbar Radiculopathy; Inflammation of Sacroiliac Joint; Muscle Pain Henry Shipley MD: [address], [place] [address], Ph. 07/06/2020 Pre-surgery Testing; Viral Screening Henry Shipley MD: [id number] [facility], [place] [address], Ph. [phone] 06/25/2020 Lumbosacral Spondylosis without Myelopathy; Spondylosis without Myelopathy; Degeneration of Lumbar Intervertebral Disc; Degeneration of Lumbosacral Intervertebral Disc; Displacement of Lumbar Intervertebral Disc without Myelopathy; Intervertebral Disc Disorder; Lumbar Radiculopathy; Inflammation of Sacroiliac Joint; Muscle Pain Henry Shipley MD: [address] [facility] [address], [place] [address], Ph. 06/22/2020 Pre-surgery Testing; Viral Screening Henry Shipley MD: [id number] [facility], [place] [address], Ph. [phone] 11/12/2019 Degeneration of Lumbar Intervertebral Disc; Degeneration of Lumbosacral Intervertebral Disc; Displacement of Lumbar Intervertebral Disc without Myelopathy; Intervertebral Disc Disorder; Spondylosis without Myelopathy; Lumbosacral Spondylosis without Myelopathy; Lumbar Radiculopathy; Inflammation of Sacroiliac Joint; Muscle Pain Anastasia Worrell, CHARACTER IMPERSONATOR: [id number] [address], Ph. 10/24/2019 Lumbosacral Spondylosis without Myelopathy; Spondylosis without Myelopathy; Degeneration of Lumbar Intervertebral Disc; Degeneration of Lumbosacral Intervertebral Disc; Displacement of Lumbar Intervertebral Disc without Myelopathy; Intervertebral Disc Disorder; Lumbar Radiculopathy; Inflammation of Sacroiliac Joint; Muscle Pain Henry Shipley MD: [id number] [address], Ph. 09/30/2019 Degeneration of Lumbar Intervertebral Disc; Degeneration of Lumbosacral Intervertebral Disc; Displacement of Lumbar Intervertebral Disc without Myelopathy; Intervertebral Disc Disorder; Spondylosis without Myelopathy; Lumbosacral Spondylosis without Myelopathy; Lumbar Radiculopathy; Inflammation of Sacroiliac Joint; Muscle Pain Anastasia Worrell, CHARACTER IMPERSONATOR: [id number] [address], Ph. 06/12/2019 Degeneration of Lumbar Intervertebral Disc; Degeneration of Lumbosacral Intervertebral Disc; Displacement of Lumbar Intervertebral Disc without Myelopathy; Intervertebral Disc Disorder; Spondylosis without Myelopathy; Lumbosacral Spondylosis without Myelopathy; Lumbar Radiculopathy; Inflammation of Sacroiliac Joint; Muscle Pain Anastasia Worrell CHARACTER IMPERSONATOR: [id number] [address], Ph. 03/11/2019 Degeneration of Lumbar Intervertebral Disc; Degeneration of Lumbosacral Intervertebral Disc; Displacement of Lumbar Intervertebral Disc without Myelopathy; Intervertebral Disc Disorder; Spondylosis without Myelopathy; Lumbosacral Spondylosis without Myelopathy; Lumbar Radiculopathy; Inflammation of Sacroiliac Joint; Muscle Pain Anastasia Worrell CHARACTER IMPERSONATOR: [address] [address], [place] [address], Ph. 02/08/2019 Lumbosacral Spondylosis without Myelopathy; Spondylosis without Myelopathy; Degeneration of Lumbar Intervertebral Disc; Degeneration of Lumbosacral Intervertebral Disc; Displacement of Lumbar Intervertebral Disc without Myelopathy; Intervertebral Disc Disorder; Lumbar Radiculopathy; Inflammation of Sacroiliac Joint; Muscle Pain Henry Shipley MD: [address] [facility], [place] [address], Ph. 01/25/2019 Lumbosacral Spondylosis without Myelopathy; Spondylosis without Myelopathy; Degeneration of Lumbar Intervertebral Disc; Degeneration of Lumbosacral Intervertebral Disc; Displacement of Lumbar Intervertebral Disc without Myelopathy; Intervertebral Disc Disorder; Lumbar Radiculopathy; Inflammation of Sacroiliac Joint; Muscle Pain Henry Shipley MD: [id number] [address], [place] [address], Ph. 01/08/2019 Degeneration of Lumbar Intervertebral Disc; Degeneration of Lumbosacral Intervertebral Disc; Displacement of Lumbar Intervertebral Disc without Myelopathy; Intervertebral Disc Disorder; Spondylosis without Myelopathy; Lumbosacral Spondylosis without Myelopathy; Lumbar Radiculopathy; Inflammation of Sacroiliac Joint; Muscle Pain Anastasia Worrell NP: [address] [address], [place] [address], Ph. 12/20/2018 Lumbosacral Spondylosis without Myelopathy; Spondylosis without Myelopathy; Degeneration of Lumbar Intervertebral Disc; Degeneration of Lumbosacral Intervertebral Disc; Displacement of Lumbar Intervertebral Disc without Myelopathy; Intervertebral Disc Disorder; Lumbar Radiculopathy; Inflammation of Sacroiliac Joint; Muscle Pain Henry Shipley MD: [address] [address], [place] [address], Ph. 12/07/2018 Degeneration of Lumbar Intervertebral Disc; Degeneration of Lumbosacral Intervertebral Disc; Displacement of Lumbar Intervertebral Disc without Myelopathy; Intervertebral Disc Disorder; Spondylosis without Myelopathy; Lumbosacral Spondylosis without Myelopathy; Lumbar Radiculopathy; Inflammation of Sacroiliac Joint; Muscle Pain Anastasia Worrell, CHARACTER IMPERSONATOR: [address], [place] [address], Ph. 08/21/2018 Degeneration of Lumbar Intervertebral Disc; Degeneration of Lumbosacral Intervertebral Disc; Displacement of Lumbar Intervertebral Disc without Myelopathy; Intervertebral Disc Disorder; Spondylosis without Myelopathy; Lumbosacral Spondylosis without Myelopathy; Lumbar Radiculopathy; Inflammation of Sacroiliac Joint; Muscle Pain Anastasia Worrell, CHARACTER IMPERSONATOR: [address], [place] [address], Ph. Social History None recorded. Vaccine List [...]
--- OUTSIDE RECORDS SUMMARY | 2021-08-01 03:01 | CCD ---
Author Author [facility] Organization [facility] Address Unknown Phone Unavailable Care Team Providers Care Inspector Assemblies And Installations Name Role Phone Sanchez Yanes Unavailable PROBLEMS Type Condition ICD9-CM Code KXB84-MS Code Onset Dates Condition S tatus W/U Status Risk SNOMED Code Notes Problem COPD (chronic obstructive pulmonary disease) J44.9 Active confirmed 24700764 Problem GERD (gastroesophageal reflux disease) K21.9 A ctive confirmed 984294379 Problem Dyslipidemia E78.5 Active confirmed 2084200 07 Problem Obesity E66.9 Active confirmed 464879801 Problem Coronary artery disease I25.10 Active confirmed 44182884 Problem BPPV (benign paroxysmal positional vertigo) H81.10 Active confirmed 762957788 Problem intermediate current use of insulin Z79.4 Active conf irmed 314703013 Problem ALESSANDRO (obstructive sleep apnea) G47.33 Active confirm ed 00787857 Problem Migraine with aura and without status migrainosu s, not intractable G43.109 Active confirmed 7791308 Problem Type 2 diabetes mellitus with diabetic neuropathy, uns pecified E11.40 Active confirmed 82462692 Problem Coarse tremors G25.2 Active confirmed 53226 002 Problem Type 2 diabetes mellitus with hyperglycemia E11.65 Active confirmed 022309013 Problem Other chronic pain G89.29 Active confirmed 8 4582857 Problem intermediate (current) use of insulin Z79.4 Activ e confirmed 398760868 Problem Essential hypertension I10 Active confirmed 34716222 Problem Angina at rest I20.8 Active confirmed 16103 8000 Problem Stable angina I20.8 Active confirmed 751970 005 Problem Hypercalcemia E83.52 Active confirmed 531990 09 Problem Bipolar 1 disorder, manic, moderate F31.12 Acti ve confirmed 10687829 ALLERGIES Allergen (clinical drug ingredient) Drug/Non Drug Allergy do cumented on EMR Reaction Allergy Type Onset Date Status mometasone Nasonex([facility] Code:[address]-47) headache,bloody nose Drug Allergy Active Sulfa (for allergy use only) hives Drug Allergy Active sertraline Zoloft([facility] Code:[address]-86) hallucinations Drug Allergy Active paroxetine Paxil([facility] Code:[address]-78) nausea, hives Drug Allergy Active sertraline Sertraline HCl([facility] Code:[address]-33) hives,nausea Drug A llergy Active albuterol Albuterol Nausea/Vomiting Drug Allergy Active ENCOUNTERS from 1950 to 2021-05-28 Encounter Location Date Provider Diagnosis [facility] [address] [facility] [phone] [place] [address] 17 May, 2021 Sanchez Yanes IMMUNIZATIONS Vaccine Route Administration Date [...] Education Language: Question Answer Notes Languages spoken: Jordanian Pentecostal: Question Answer Notes Pentecostal 03 Protestant Sexual Hx: Question Answer Notes Had sex [...] Start Da te End Date Status Blood Pressure Cuff _ use blood pressure cuff once daily for home monitoring daily for 99 months Jul, Active Metoprolol Succinate ER 50 MG 1 tablet Orally Once a day for 30 Days Active Tens Unit Electro Pads 715.96 as directed for right knee daily Apr, Active clonazePAM 1 MG 1 tablet Orally bid for 28 days May, 20 Not-Taking Glucometer (Verio IQ) as directed for 30 day(s) Nov, Active hydrOXYzine HCl 25 MG TAKE ONE TABLET BY MOUTH TWICE A DAY for 30 Active metFORMIN HCl ER 500 MG 1 tablet with evening meal O rally Once a day for 30 days Active Lantus 100 UNIT/ML 45 units in am and 37 units in the pm Subcutaneous Twice a day, MDD 82 units for 36 Active Incruse Ellipta 62.5 MCG/INH 1 puff Inhalation Once a day for 90 days January, Active Lancets _ lancets ICD:E11.9 DDM FSBS twice daily for 30 days Active Aspirin Adult Low Dose 81 MG 1 tablet Orally Once a day Active clonazePAM 1 MG 1 tablet Orally bid for 28 day(s) NOT TO BE FILLED UNTIL 28 DAYS AFTER LAST SCRIPT May, Active Nitroglycerin 0.4 MG as directed Sublingual every 5 minutes as needed for 30 Days Nov, Active Tens Unit Electro Pads - as directed topically Dx: 89 .29 RHEA# [id number] for 30 Days Feb, Active Blood Glucose Test - one touch ultra ICD:E11.9 FSBS twice daily for 30 day(s) Jul, Active Albuterol Sulfate 108 (90 Base) MCG/ACT 1 puff as need ed Inhalation every 4 hours as needed for 30 Active Insulin Syringe 28G X 1/2 short needle: sure comfort 1 ml syringe DX: E11.9 twice daily for 90 days Dec, Active Trulicity 0.75 MG/0.5ML as directed Subcutaneous weekly Feb, Not-Taking Mag64 64 MG TAKE ONE TABLET BY MOUTH TWICE A DAY for 90 Active Lisinopril 10 MG 1 tablet Orally Once a day for 30 day(s) Apr, Active Centrum Silver 1 tab Orally Daily Ac tive Tens Unit - as directed to affected knee and back as needed daily DX: M17.9; M54.5 for 99 days Sep, Active Sure Comfort Insulin Syringe 28G X 1/2" 1 ML USE TWO TIMES A DAY for 30 Active Slow Magnesium/Calcium 64-106 MG 1 tab(s) Orally bid for 90 days Not-Taking Glucometer dx 250.0 - fingerstick 3 times day for 30 days Dec, Not-Taking PROCEDURES No Information RESULTS No Results REASON FOR VISIT clonazepam MEDICAL (GENERAL) HISTORY Type Description Date Medical [...] (Joseph) 10/2012 Surgical History umbilical hernia repair ([place]) 0 Surgical History Cardiac cath: severe lesions in distal RCA and mid left circumflex; s/p stenting x2 and balloon 12/11/2014 Hospitalization History atypical chest pain 07/2010 Hospitalization History colitis (ulcerative colitis or Crohn 's?) 07/2006 Hospitalization History depression 12/2003 Hospitalization History depression 11/2003 Hospitalization History depression and SI 12/1999 Hospitalization History per hospital records, to [facility], following attempted overdose 1980 Goals Section No Information Health Concerns No Information MEDICAL EQUIPMENT No Information MENTAL STATUS No Information FUNCTIONAL STATUS No Information ASSESSMENTS No Information PLAN OF TREATMENT Medication Medication Name Sig Start Date Stop Date Incruse Ellipta 62.5 MCG/INH 1 puff Inhalation Once a day fo r 90 days January, Lisinopril 10 MG 1 tablet Orally Once a day for 30 day(s) Apr Mag64 64 MG TAKE ONE TABLET BY MOUTH TWICE A DAY for 90 clonazePAM 1 MG 1 tablet Orally bid for 28 day(s) May, hydrOXYzine HCl 25 MG TAKE ONE TABLET BY MOUTH TWICE A DAY for 3 0 Next Appt Details Provider Name:Sanchez Yanes, 2020-09-2 0 01:30:00 PM, [address] [facility], , [place], [address], Insurance Providers Payer Name Payer Address Payer Phone Insured Name Patient Relati onship to Insured Coverage Start Date Coverage End Date MEDICAID [place] [address] [facility] [address] [address] [facility] [address] [facility] [id number] [place]
--- OUTSIDE RECORDS SUMMARY | 2021-08-01 03:02 | CCD ---
Author Author [facility] Organization [facility] Address Unknown Phone Unavailable Care Team Providers Care Import Specialist Name Role Phone Heather Shipley MD Unavailable Unavailable Heather Shipley MD Unavailable Unavailable Heather Shipley MD Unavailable Unavailable Heather Shipley MD Unavailable Unavailable Heather Shipley MD Unavailable Unavailable Heather Shipley MD Unavailable Unavailable Heather Shipley MD Unavailable Unavailable Heatehr Shipley MD Unavailable Unavailable Heather Shipley MD Unavailable Unavailable Heather Shipley MD Unavailable Unavailable Heather Shipley MD Unavailable Unavailable Heather Shipley MD Unavailable Unavailable Heather Shipley MD Unavailable Unavailable Heather Shipley MD Unavailable Unavailable Heather Shipley MD Unavailable Unavailable Heather Shipley MD Unavailable Unavailable Heather Shipley MD Unavailable Unavailable Heather Shipley MD Unavailable Unavailable Heather Shipley MD Unavailable Unavailable Heather Shipley MD Unavailable Unavailable Heather Shipley MD Unavailable Unavailable Heather Shipley MD Unavailable Unavailable Heather Shipley MD Unavailable Unavailable Heather Shipley MD Unavailable Unavailable Heather Shipley MD Unavailable Unavailable Heather Shipley MD Unavailable Unavailable Heather Shipley MD Unavailable Unavailable Heather Shipley MD Unavailable Unavailable eHather Shipley MD Unavailable Unavailable Heather Shipley MD Unavailable Unavailable Heather Shipley MD Unavailable Unavailable Heather Shipley MD Unavailable Unavailable Heather Shipley MD Unavailable Unavailable Heather Shipley MD Unavailable Unavailable BolHeather calderón MD Unavailable Unavailable Heather Shipley MD Unavailable Unavailable Heather Shipley MD Unavailable Unavailable Heather Shipley MD Unavailable Unavailable Heather Shipley MD Unavailable Unavailable Heather Shiplye MD Unavailable Unavailable Heather Shipley MD Unavailable Unavailable Heather Shipley MD Unavailable Unavailable Heather Shipley MD Unavailable Unavailable Heather Shipley MD Unavailable Unavailable Heather Shipley MD Unavailable Unavailable Heather Shipley MD Unavailable Unavailable Heather Shipley MD Unavailable Unavailable Heather Shipley MD Unavailable Unavailable Heather Shipley MD Unavailable Unavailable Jumalon, M Anastasia MANAGER AVIATION Unavailable Unavailable Jumalon, M Anastasia MANAGER AVIATION Unavailable Unavailable Jumalon, M Anastasia MANAGER AVIATION Unavailable Unavailable Jumalon, M Anastasia MANAGER AVIATION Unavailable Unavailable Jumalon, M Anastasia MANAGER AVIATION Unavailable Unavailable Jumalon, M Anastasia MANAGER AVIATION Unavailable Unavailable Jumalon, M Anastasia MANAGER AVIATION Unavailable Unavailable Jumalon, M Anastasia MANAGER AVIATION Unavailable Unavailable Jumalon, M Anastasia MANAGER AVIATION Unavailable Unavailable Jumalon, M Anastasia MANAGER AVIATION Unavailable Unavailable Jumalon, M Anastasia MANAGER AVIATION Unavailable Unavailable Jumalon, M Anastasia MANAGER AVIATION Unavailable Unavailable Jumalon, M Anastasia MANAGER AVIATION Unavailable Unavailable Jumalon, M Anastasia MANAGER AVIATION Unavailable Unavailable Jumalon, M Anastasia MANAGER AVIATION Unavailable Unavailable Jumalon, M Anastasia MANAGER AVIATION Unavailable Unavailable Jumalon, M Anastasia MANAGER AVIATION Unavailable Unavailable Jumalon, M Anastasia MANAGER AVIATION Unavailable Unavailable Jumalon, M Anastasia MANAGER AVIATION Unavailable Unavailable Jumalon, M Anastasia MANAGER AVIATION Unavailable Unavailable Jumalon, M Anastasia MANAGER AVIATION Unavailable Unavailable Jumalon, M Anastasia MANAGER AVIATION Unavailable Unavailable Jumalon, M Anastasia MANAGER AVIATION Unavailable Unavailable Jumalon, M Anastasia MANAGER AVIATION Unavailable Unavailable Jumalon, M Anastasia MANAGER AVIATION Unavailable Unavailable Jumalon, M Anastasia MANAGER AVIATION Unavailable Unavailable Jumalon, M Anastasia MANAGER AVIATION Unavailable Unavailable Jumalon, M Anastasia MANAGER AVIATION Unavailable Unavailable Jumalon, M Anastasia MANAGER AVIATION Unavailable Unavailable Jumalon, M Anastasia MANAGER AVIATION Unavailable Unavailable CHANLIECCO, C JESSICA MD Unavailable Unavailable CHANLIECCO, C JESSICA MD Unavailable Unavailable CHANLIECCO, C JESSICA MD Unavailable Unavailable CHANLIECCO, C JESSICA MD Unavailable Unavailable CHANLIECCO, C JESSICA MD Unavailable Unavailable CHANLIECCO, C JESSICA MD Unavailable Unavailable CHANLIECCO, C JESSICA MD Unavailable Unavailable CHANLIECCO, C JESSICA MD Unavailable Unavailable CHANLIECCO, C JESSICA MD Unavailable Unavailable CHANLIECCO, C JESSICA MD Unavailable Unavailable CHANLIECCO, C JESSICA MD Unavailable Unavailable NON, PHYSICIAN STAFF Unavailable Unavailable Re-disclosure Warning The records that you are about to access may contain information from federally-assisted alcohol or drug abuse programs. If such information is present, then the following federally mandated warning applies: This information has been disclosed to you from records protected by federal confidentiality rules (42 CFR part 2). The federal rules prohibit you from making any further disclosure of this information unless further disclosure is expressly permitted by the written consent of the person to whom it pertains or as otherwise permitted by 42 CFR part 2. A general authorization for the release of medical or other information is NOT sufficient for this purpose. The Federal rules restrict any use of the information to criminally investigate or prosecute any alcohol or drug abuse patient.The records that you are about to access may contain highly sensitive health information, the redisclosure of which is protected by Article 27-F of the [facility] Public Health law. If you continue you may have access to information: Regarding HIV / AIDS; Provided by facilities licensed or operated by the [facility] Office of Mental Health; or Provided by the [facility] Office for People With Developmental Disabilities. If such information is present, then the following [facility] mandated warning applies: This information has been disclosed to you from confidential records which are protected by state law. State law prohibits you from making any further disclosure of this information without the specific written consent of the person to whom it pertains, or as otherwise permitted by law. Any unauthorized further disclosure in violation of state law may result in a fine or fci sentence or both. A general authorization for the release of medical or other information is NOT sufficient authorization for further disc losure. Family History Family Member Name Family Member Gender Family Member Status Date o f Status Description Data Source(s) Unknown Unknown Problem MEDENT ([facility], ) Unknown Unknown Problem MEDENT ([facility]) Encounters Encounter Providers Location Date Indications Data Source(s ) Unknown [address] [facility], [place] [address] 07/30/2021 12:00:00 AM EST eCW1 ([facility]) Anastasia Worrell, NEGOTIATOR: [id number], [place] [address], Ph. Attender: Anastasia Worrell MANAGER AVIATION [place] - [facility] - Main Office 07/30/2021 12:00:00 AM EST ATHE NA ([facility]) Unknown [address] [facility] [place] [address] 07/28/2021 12:00:00 AM EST eCW1 ([facility]) Unknown [address] [facility] [place] [address] 07/23/2021 12:00:00 AM EST eCW1 ([facility]) Unknown [address] [facility] [place] [address] 07/21/2021 12:00:00 AM EST eCW1 ([facility]) Unknown [address] [facility] [place] [address] 07/21/2021 12:00:00 AM EST eCW1 ([facility]) Henry Shipley MD: [id number] [facility] [address], [place] [address], Ph. Attender: Henry KNIGHT - [facility] - [facility] Office 07/15/2021 12:00:00 AM EDT ADAIR ([facility]) Henry Shipley MD: [id number] [facility] [address], [place] [address], Ph. Attender: Henry Shipley MD [place] - [facility] 07/15/2021 12:00:00 AM EDT ADAIR ([facility]) Henry Shipley MD: [address], [place] [address], Ph. [phone] Attender: Henry Shipley MD [place] - [facility] 07/12/2021 12:00:00 AM EDT ADAIR ([facility]) Henry Shipley MD: [address], [address], [place] [address], Ph. [phone] Attender: Henry Shipley MD [place] - [facility] 07/12/2021 12:00:00 AM EDT ADAIR ([facility]) Henry Shipley MD: [address], [place] [address], Ph. [phone] Attender: Henry Shipley MD [place] - [facility] 07/12/2021 12:00:00 AM EDT ADAIR ([facility]) Anastasia Worrell, NEGOTIATOR: [address], [place] [address], Ph. Attender: Anastasia Worrell [facility] - [facility] 07/06/2021 12:00:00 AM EDT ATHEmmanuelle AGUILERA ([facility]) Anastasia Worrell, NEGOTIATOR: [address], [place] [address], Ph. Attender: Anastasia Worrell [facility] - [facility] 07/06/2021 12:00:00 AM EDT SAUL AGUILERA ([facility]) Anastasia Worrell, NEGOTIATOR: [address], [place] [address], Ph. Attender: Anastasia Worrell [facility] - [facility] - Main Office 07/06/2021 12:00:00 AM EDT ATHEmmanuelle AGUILERA ([facility]) Anastasia Worrell, NEGOTIATOR: [address], [address], [place] [address], Ph. Attender: Anastasia Worrell [facility] - [facility] - [facility] Office 07/06/2021 12:00:00 AM EDT ATHEmmanuelle AGUILERA ([facility]) Unknown [address] [facility], [place] [address] 06/17/2021 12:00:00 AM EDT eCW1 ([facility]) Unknown [address] [place] [address] N [place] [address] 05/28/2021 12:00:00 AM EDT eCW1 ([facility]) Unknown [address] [facility] [place] [address] 04/28/2021 12:00:00 AM EDT eCW1 ([facility]) Unknown [address] [facility] N Y [address] 04/26/2021 12:00:00 AM EDT eCW1 ([facility]) Unknown [address] [facility], [place] [address] 04/23/2021 12:00:00 AM EDT eCW1 ([facility]) Unknown [address] [facility] [place] [address] 03/25/2021 12:00:00 AM EDT eCW1 ([facility]) Unknown [address] [facility] N Y [address] 02/23/2021 12:00:00 AM EDT eCW1 ([facility]) Unknown [address] [place] [address] N [place] [address] 02/01/2021 12:00:00 AM EDT eCW1 ([facility]) Unknown [address] [place] [address] N [place] [address] 01/26/2021 12:00:00 AM EDT eCW1 ([facility]) Unknown [address] [facility], [place] [address] 01/20/2021 12:00:00 AM EDT eCW1 ([facility]) Emergency Attender: JESSICA DORSEY MDConsultant: STAF F NON 12/07/2020 06:09:00 AM EDT - 12/07/2020 07:50:00 AM EDT [facility] Patient discharged. Unknown [address] [facility], [place] [address] 11/26/2020 12:00:00 AM EDT eCW1 ([facility]) Unknown [address] [facility], [place] [address] 11/26/2020 12:00:00 AM EDT eCW1 ([facility]) Unknown [address] [facility] [place] [address] 10/29/2020 12:00:00 AM EST eCW1 ([facility]) Unknown [address] [facility], [place] [address] 10/01/2020 12:00:00 AM EST eCW1 ([facility]) Unknown [address] [facility], [place] [address] 09/23/2020 12:00:00 AM EST eCW1 ([facility]) Unknown [address] [facility], [place] [address] 09/23/2020 12:00:00 AM EST eCW1 ([facility]) Unknown [address] [facility], [place] [address] 08/31/2020 12:00:00 AM EST eCW1 ([facility]) Unknown [address] [facility], [place] [address] 08/03/2020 12:00:00 AM EST eCW1 ([facility]) Unknown [address] [facility] [place] [address] 07/21/2020 12:00:00 AM EST eCW1 ([facility]) Henry Shipley MD: [address], [place] [address], Ph. Attender: Henry Shipley MD [place] - [facility] 07/09/2020 12:00:00 AM EDT ADAIR ([facility]) Henry Shipley MD: [address], [address], [place] [address], Ph. Attender: Henry KNIGHT - [facility] 07/09/2020 12:00:00 AM EDT ADAIR ([facility]) Henry Shipley MD: [address], [address], [place] [address], Ph. Attender: Henry KNIGHT - [facility] 07/09/2020 12:00:00 AM EDT ADAIR ([facility]) Henry Shipley MD: [address], [address], [place] [address], Ph. Attender: Henry Shipley MD [place] - [facility] 07/09/2020 12:00:00 AM EDT ADAIR ([facility]) Henry Shipley MD: [address], [address], [place] [address], Ph. Attender: Henry KNIGHT - [facility] 07/09/2020 12:00:00 AM EDT ADAIR ([facility]) Henry Shipley MD: [address], [address], [place] [address], Ph. [phone] Attender: Henry KNIGHT - [facility] 07/06/2020 12:00:00 AM EDT ADAIR ([facility]) Henry hSipley MD: [address], [address], [place] [address], Ph. [phone] Attender: Henry Shipley MD [place] - [facility] - [facility] Office 07/06/2020 12:00:00 AM EDT ADAIR ([facility]) Unknown [address] [facility], [facility] [address] 07/06/2020 12:00:00 AM EDT eC ([facility]) Henry Shipley MD: [address], [address], [place] [address], Ph. [phone] Attender: Henry Shipley MD [place] - [facility] - [facility] 07/06/2020 12:00:00 AM EDT ADAIR ([facility]) Henry Shipley MD: [address], [address], [place] [address], Ph. [phone] Attender: Henry Shipley MD [place] - [facility] - [facility] 07/06/2020 12:00:00 AM EDT ADAIR ([facility]) Henry Shipley MD: [address], [address], [place] [address], Ph. [phone] Attender: Henry Shipley MD [place] - [facility] 07/06/2020 12:00:00 AM EDT ADAIR ([facility]) Henry Shipley MD: [address], [address], [place] [address], Ph. [phone] Attender: Henry KNIGHT - [facility] Office 07/06/2020 12:00:00 AM EDT ADAIR ([facility]) Henry Shipley MD: [address], [address], [place] [address], Ph. Attender: Henry KNIGHT - [facility] Office 06/25/2020 12:00:00 AM EDT ADAIR ([facility]) Henry Shipley MD: [address], [address], [place] [address], Ph. Attender: Henry Shipley MD [place] - [facility] 06/25/2020 12:00:00 AM EDT ADAIR ([facility]) Henry Shipley MD: [address], [address], [place] [address], Ph. Attender: Henry KNIGHT - [facility] 06/25/2020 12:00:00 AM EDT ADAIR ([facility]) Henry Shipley MD: [address], [address], [place] [address], Ph. Attender: Henry KNIGHT - [facility] 06/25/2020 12:00:00 AM EDT ADAIR ([facility]) Henry Shipley MD: [address], [address], [place] [address], Ph. Attender: Henry KNIGHT - [facility] 06/25/2020 12:00:00 AM EDT ADAIR ([facility]) Henry Shipley MD: [address], [address], [place] [address], Ph. Attender: Henry KNIGHT - [facility] 06/25/2020 12:00:00 AM EDT ADAIR ([facility]) Henry Shipley MD: [address], [address], [place] [address], Ph. Attender: Henry KNIGHT - [facility] 06/25/2020 12:00:00 AM EDT ADAIR ([facility]) Henry Shipley MD: [address], [address], [place] [address], Ph. [phone] Attender: Henry Shipley MD [place] - [facility] - [facility] 06/22/2020 12:00:00 AM EDT ADAIR ([facility]) Henry Shipley MD: [address], [address], [place] [address], Ph. [phone] Attender: Henry Shipley MD [place] - [facility] - [facility] 06/22/2020 12:00:00 AM EDT ADAIR ([facility]) Henry Shipley MD: [address], [address], [place] [address], Ph. [phone] Attender: Henry KNIGHT - [facility] - [facility] Office 06/22/2020 12:00:00 AM EDT ADAIR ([facility]) Henry Shipley MD: [address], [address], [place] [address], Ph. [phone] Attender: Henry hSipley MD [place] - [facility] - [facility] Office 06/22/2020 12:00:00 AM EDT ADAIR ([facility]) Henry Shipley MD: [address], [address], [place] [address], Ph. [phone] Attender: Henry KNIGHT - [facility] - [facility] Office 06/22/2020 12:00:00 AM EDT ADAIR ([facility]) Henry Shipley MD: [address], [address], [place] [address], Ph. [phone] Attender: Henry KNIGHT - [facility] - [facility] Office 06/22/2020 12:00:00 AM EDT ADAIR ([facility]) Henry Shipley MD: [address], [address], [place] [address], Ph. [phone] Attender: Henry Shipley MD [place] - [facility] - Main Office 06/22/2020 12:00:00 AM EDT ADAIR ([facility]) Henry Shipley MD: [address] [facility] [address], [address], [place] [address], Ph. [phone] Attender: Henry KNIGHT - [facility] - Main Office 06/22/2020 12:00:00 AM EDT ADAIR ([facility]) Unknown [address] [facility], [place] [address] 06/10/2020 12:00:00 AM EDT [facility] ([facility]) Immunizations Vaccine Date Status Description Data Source(s) COVID-19, mRNA, LNP-S, PF, 100 mcg/0.5 mL dose (Modern a) 12/23/2020 12:00:00 AM EDT completed 12/23/2020 ADAIR ([facility] COVID-19, mRNA, LNP-S, PF, 100 mcg/0.5 mL dose 12/23/2020 12 :00:00 AM EDT completed 12/23/2020 [facility] ([facility] [place] COVID-19, mRNA, LNP-S, PF, 100 mcg/0.5 mL dose 12/23/2020 12 :00:00 AM EDT completed 12/23/2020 ADAIR ([facility] [place] [facility] [place] COVID-19, mRNA, LNP-S, PF, 100 mcg/0.5 mL dose 12/23/2020 12 :00:00 AM EDT completed 12/23/2020 ADAIR ([facility] [place]) COVID-19 VACCINE Moderna 12/23/2020 12:00:00 AM EDT completed [facility] Vacc[facility] Complete: YESThis Data wa s Submitted to [facility] Via [employer]. COVID-19, mRNA, LNP-S, PF, 100 mcg/0.5 mL dose (Modern a) 11/21/2020 12:00:00 AM EST completed 11/21/2020 ADAIR ([facility]) COVID-19, mRNA, LNP-S, PF, 100 mcg/0.5 mL dose 11/21/2020 12 :00:00 AM EST completed 11/21/2020 ADAIR ([facility] [place] [place] COVID-19, mRNA, LNP-S, PF, 100 mcg/0.5 mL dose 11/21/2020 12 :00:00 AM EST completed 11/21/2020 ADAIR ([facility] [place] [facility] [place] COVID-19, mRNA, LNP-S, PF, 100 mcg/0.5 mL dose 11/21/2020 12 :00:00 AM EST completed 11/21/2020 ADAIR ([facility] [place]) COVID-19 VACCINE Moderna 11/21/2020 12:00:00 AM EST completed [facility] Vaccine Series Complete: NOThis Data was Submitted to [facility] Via [employer]. Medications Medication Brand Name Start Date Product Form Dose Route Admi nistrative Instructions Pharmacy Instructions Status Indications Reaction Description Data Source(s) 1 mg 07/26/2021 12:00:00 AM EST tablet 56 TAKE ONE TABLET BY MOUTH TWICE A DAY MAXIMUM DAILY DOSE = 2 TABLETS TAKE ONE TABLET BY MOUTH TWICE A DAY MAX IMUM DAILY DOSE = 2 TABLETS SOLD: 07/28/2021 [facility] Clonazepam 1 MG Oral Tablet clonazePAM 1 MG clonazePAM 1 MG 07/23/2021 12:00:00 AM EST 1.0 {tablet} active clonazePAM 1 MG [facility] Clonazepam 1 MG Oral Tablet clonazePAM 1 MG clonazePAM 1 MG 07/23/2021 12:00:00 AM EST 1.0 {tablet} active clonazePAM 1 MG eCW1 [facility]) Clonazepam 1 MG Oral Tablet clonazePAM 1 MG clonazePAM 1 MG 07/23/2021 12:00:00 AM EST 1.0 {tablet} active clonazePAM 1 MG eCW1 ([facility]) Clonazepam 1 MG Oral Tablet clonazePAM 1 MG clonazePAM 1 MG 07/23/2021 12:00:00 AM EST 1.0 {tablet} active eCW1 [facility]) BLOOD SUGAR DIAGNOSTIC 07/22/2021 12:00:00 AM EST strip 100 DIRECTED THREE TIMES A DAY DIRECTED THREE TIMES A DAY SOLD: 07/24/2021 [facility] 33 gauge 07/22/2021 12:00:00 AM EST misc 100 D IRECTED THREE TIMES A DAY DIRECTED THREE TIMES A DAY SOLD: 07/24/2021 [facility] Glucose strip (Verio IQ) UNK 07/21/2021 12:00:00 AM EST active Glucose strip (Verio IQ) eCW1 [facility]) One Touch Delica 33 gauge UNK 07/21/2021 12:00:00 AM EST active One Touch Delica 33 gauge eCW1 ([facility]) Glucose strip (Verio IQ) UNK 07/21/2021 12:00:00 AM EST active eCW1 ([facility]) One Touch Delica 33 gauge UNK 07/21/2021 12:00:00 AM EST active One Touch Delica 33 gauge eCW1 ([facility]) One Touch Delica 33 gauge UNK 07/21/2021 12:00:00 AM EST active eCW1 ([facility]) One Touch Delica 33 gauge UNK 07/21/2021 12:00:00 AM EST active One Touch Delica 33 gauge eCW1 ([facility]) Glucose strip (Verio IQ) UNK 07/21/2021 12:00:00 AM EST active Glucose strip (Verio IQ) eCW1 ([facility]) One Touch Delica 33 gauge UNK 07/21/2021 12:00:00 AM EST active eCW1 ([facility]) 100 unit/mL 07/21/2021 12:00:00 AM EST solution 10 INJECT UNDER SKIN 3X/DAY NEEDED BASED ON SLIDING SCALE MAX 42 UNITS/DAY INJECT UNDER SKIN 3X/DAY NEEDED BASED ON SLIDING SCALE MAX 42 UNITS/DAY SOLD: 07/22/2021 [facility] Glucose strip (Verio IQ) UNK 07/21/2021 12:00:00 AM EST active Glucose strip (Verio IQ) eCW1 ([facility] [facility] Glucose strip ([employer]) UNK 07/21/2021 12:00:00 AM EST active eCW1 ([facility]) Insulin Lispro 100 UNT/ML Injectable Solution Insulin Lispro 100 UNIT/ML Insulin Lispro 100 UNIT/ML 07/19/2021 12:00:00 AM EST active Insulin Lispro 100 UNIT/ML eCW1 ([facility]) Insulin Lispro 100 UNT/ML Injectable Solution Insulin Lispro 100 UNIT/ML Insulin Lispro 100 UNIT/ML 07/19/2021 12:00:00 AM EST acti ve eCW1 ([facility]) Insulin Lispro 100 UNT/ML Injectable Solution Insulin Lispro 100 UNIT/ML Insulin Lispro 100 UNIT/ML 07/19/2021 12:00:00 AM EST active Insulin Lispro 100 UNIT/ML eCW1 ([facility]) Insulin Lispro 100 UNT/ML Injectable Solution Insulin Lispro 100 UNIT/ML Insulin Lispro 100 UNIT/ML 07/19/2021 12:00:00 AM EST acti ve eCW1 ([facility]) Insulin Lispro 100 UNT/ML Injectable Solution Insulin Lispro 100 UNIT/ML Insulin Lispro 100 UNIT/ML 07/19/2021 12:00:00 AM EST active Insulin Lispro 100 UNIT/ML eCW1 ([facility]) 10 mg 07/17/2021 12:00:00 AM EDT tablet 30 TAKE ONE TABLET BY MOUTH EVERY DAY TAKE ONE TABLET BY MOUTH EVERY DAY SOLD: 07/17/2021 [facility] 24 HR Metformin hydrochloride 500 MG Extended Release Oral T ablet METFORMIN HCL 07/17/2021 12:00:00 AM EDT tablet extended release 24 hr 60 TAKE ONE TABLET BY MOUTH TWICE A DAY EVERY MORNING AND EVENING TAKE ONE TABLET BY MOUTH TWICE A DAY EVERY MORNING AND EVENING SOLD: 07/17/2021 [facility] 40 mg 07/17/2021 12:00:00 AM EDT tablet 30 TAKE ONE TABLET BY MOUTH EVERY DAY TAKE ONE TABLET BY MOUTH EVERY DAY SOLD: 07/17/2021 [facility] atorvastatin 40 MG Oral Tablet Atorvastatin Calcium 40 MG Atorvastatin Calcium 40 MG 07/16/2021 12:00:00 AM EDT 1.0 {tablet} activ e Atorvastatin Calcium 40 MG eCW1 ([facility] empagliflozin 10 MG Oral Tablet [Jardiance] Jardiance 10 MG Jardiance 10 MG 07/16/2021 12:00:00 AM EDT 1.0 {tablet} active Jardiance 10 MG eCW1 ([facility]) empagliflozin 10 MG Oral Tablet [Jardiance] Jardiance 10 MG Jardiance 10 MG 07/16/2021 12:00:00 AM EDT 1.0 {tablet} active Jardiance 10 MG eCW1 ([facility]) atorvastatin 40 MG Oral Tablet Atorvastatin Calcium 40 MG Atorvastatin Calcium 40 MG 07/16/2021 12:00:00 AM EDT 1.0 {tablet} active eCW1 ([facility]) empagliflozin 10 MG Oral Tablet [Jardiance] Jardiance 10 MG Jardiance 10 MG 07/16/2021 12:00:00 AM EDT 1.0 {tablet} active Jardiance 10 MG eCW1 ([facility] atorvastatin 40 MG Oral Tablet Atorvastatin Calcium 40 MG Atorvastatin Calcium 40 MG 07/16/2021 12:00:00 AM EDT 1.0 {tablet} activ e Atorvastatin Calcium 40 MG eCW1 ([facility]) atorvastatin 40 MG Oral Tablet Atorvastatin Calcium 40 MG Atorvastatin Calcium 40 MG 07/16/2021 12:00:00 AM EDT 1.0 {tablet} active eCW1 ([facility]) atorvastatin 40 MG Oral Tablet Atorvastatin Calcium 40 MG Atorvastatin Calcium 40 MG 07/16/2021 12:00:00 AM EDT 1.0 {tablet} activ e Atorvastatin Calcium 40 MG eCW1 ([facility]) empagliflozin 10 MG Oral Tablet [Jardiance] Jardiance 10 MG Jardiance 10 MG 07/16/2021 12:00:00 AM EDT 1.0 {tablet} active eCW1 ([facility]) empagliflozin 10 MG Oral Tablet [Jardiance] Jardiance 10 MG Jardiance 10 MG 07/16/2021 12:00:00 AM EDT 1.0 {tablet} active eCW1 ([facility]) 350 mg 07/06/2021 12:00:00 AM EDT tablet 15 TAKE 1 TABLET BY MOUTH 3 TIMES A DAY NEEDED FOR 5 DAYS MAX DAILY DOSE = 3 TABLETS TAKE 1 TABLET BY MOUTH 3 TIMES A DAY NEEDED FOR 5 DAYS MAX DAILY DOSE = 3 TABLETS SOLD: 07/06/2021 [facility] 240 mcg/0.7 mL 06/28/2021 12:00:00 AM EDT syringe 0 INJECT DIRECTED INJECT DIRECTED SOLD: 06/28/2021 [facility] 1 mg 06/26/2021 12:00:00 AM EDT tablet 56 TAKE ONE TABLET BY MOUTH TWICE A DAY MAXIMUM DAILY DOSE = 2 TABLETS TAKE ONE TABLET BY MOUTH TWICE A DAY MAX IMUM DAILY DOSE = 2 TABLETS SOLD: 06/28/2021 [facility] 25 mg 06/24/2021 12:00:00 AM EDT tablet 60 TAKE ONE TABLET BY MOUTH TWICE A DAY TAKE ONE TABLET BY MOUTH TWICE A DAY SOLD: 07/24/2021 [facility] 24 HR Metformin hydrochloride 500 MG Extended Release Oral T ablet METFORMIN HCL 06/24/2021 12:00:00 AM EDT tablet extended release 24 hr 30 TAKE ONE TABLET BY MOUTH EVERY EVENING WITH FOOD TAKE ONE TABLET BY MOUTH EVERY EVENING WITH FOOD SOLD: 06/25/2021 [facility] 25 mg 06/24/2021 12:00:00 AM EDT tablet 60 TAKE ONE TABLET BY MOUTH TWICE A DAY TAKE ONE TABLET BY MOUTH TWICE A DAY SOLD: 06/25/2021 [facility] 50 mg 06/23/2021 12:00:00 AM EDT tablet extended release 24 hr 30 TAKE ONE TABLET BY MOUTH EVERY DAY TAKE ONE TABLET BY MOUTH EVERY DAY SOLD: 06/25/2021 [facility] 50 mg 06/23/2021 12:00:00 AM EDT tablet extended release 24 hr 30 TAKE ONE TABLET BY MOUTH EVERY DAY TAKE ONE TABLET BY MOUTH EVERY DAY SOLD: 07/17/2021 [facility] 10 mg 06/23/2021 12:00:00 AM EDT tablet 30 TAKE ONE TABLET BY MOUTH EVERY DAY TAKE ONE TABLET BY MOUTH EVERY DAY SOLD: 06/25/2021 [facility] 10 mg 06/23/2021 12:00:00 AM EDT tablet 30 TAKE ONE TABLET BY MOUTH EVERY DAY TAKE ONE TABLET BY MOUTH EVERY DAY SOLD: 07/24/2021 [facility] Clonazepam 1 MG Oral Tablet clonazePAM 1 MG clonazePAM 1 MG 06/22/2021 12:00:00 AM EDT 1.0 {tablet} active eCW1 ([facility] Clonazepam 1 MG Oral Tablet clonazePAM 1 MG clonazePAM 1 MG 06/22/2021 12:00:00 AM EDT 1.0 {tablet} active clonazePAM 1 MG eCW1 ([facility]) 1 mL 28 gauge x 1/2" 06/09/2021 12:00:00 AM EDT syringe 60 DIRECTED TWO TIMES A DAY DIRECTED TWO TIMES A DAY SOLD: 07/22/2021 [facility] 1 mL 28 gauge x 1/2" 06/09/2021 12:00:00 AM EDT syringe 60 DIRECTED TWO TIMES A DAY DIRECTED TWO TIMES A DAY SOLD: 06/25/2021 [facility] 1 mg 05/29/2021 12:00:00 AM EDT tablet 56 TAKE ONE TABLET BY MOUTH TWICE A DAY MAXIMUM DAILY DOSE = 2 TAKE ONE TABLET BY MOUTH TWICE A DAY MAX IMUM DAILY DOSE = 2 SOLD: 05/29/2021 [facility] Clonazepam 1 MG Oral Tablet clonazePAM 1 MG clonazePAM 1 MG 05/28/2021 12:00:00 AM EDT 1.0 {tablet} active clonazePAM 1 MG eCW1 ([facility]) 62.5 mcg/actuation 04/29/2021 12:00:00 AM EDT blister with d evice 90 INHALE ONE PUFF BY MOUTH EVERY DAY INHALE ONE PUFF BY MOUTH EVERY DAY SOLD: 05/13/2021 [facility] Clonazepam 1 MG Oral Tablet clonazePAM 1 MG clonazePAM 1 MG 04/26/2021 12:00:00 AM EDT 1.0 {tablet} active clonazePAM 1 MG eCW1 ([facility] 1 mg 04/26/2021 12:00:00 AM EDT tablet 56 TAKE ONE TABLET BY MOUTH TWICE A DAY MAXIMUM DAILY DOSE = 2 TABLETS TAKE ONE TABLET BY MOUTH TWICE A DAY MAX IMUM DAILY DOSE = 2 TABLETS SOLD: 04/28/2021 [facility] Clonazepam 1 MG Oral Tablet clonazePAM 1 MG clonazePAM 1 MG 04/26/2021 12:00:00 AM EDT 1.0 {tablet} active clonazePAM 1 MG eCW1 ([facility] Clonazepam 1 MG Oral Tablet clonazePAM 1 MG clonazePAM 1 MG 04/26/2021 12:00:00 AM EDT 1.0 {tablet} active clonazePAM 1 MG eCW1 ([facility] 25 mg 04/24/2021 12:00:00 AM EDT tablet 60 TAKE ONE TABLET BY MOUTH TWICE A DAY TAKE ONE TABLET BY MOUTH TWICE A DAY SOLD: 05/27/2021 [facility] 64 mg 04/24/2021 12:00:00 AM EDT tablet,delayed release (DR/EC) 180 TAKE ONE TABLET BY MOUTH TWICE A DAY TAKE ONE TABLET BY MOUTH TWICE A DAY SOLD: 04/25/2021 [facility] 25 mg 04/24/2021 12:00:00 AM EDT tablet 60 TAKE ONE TABLET BY MOUTH TWICE A DAY TAKE ONE TABLET BY MOUTH TWICE A DAY SOLD: 04/25/2021 [facility] Lisinopril 10 MG Oral Tablet Lisinopril 10 MG 04/13/2021 12:00:00 A M EDT 1.0 {tablet} active Lisinopril 10 MG eCW1 ( [facility] 10 mg 04/13/2021 12:00:00 AM EDT tablet 30 TAKE ONE TABLET BY MOUTH EVERY DAY TAKE ONE TABLET BY MOUTH EVERY DAY SOLD: 04/13/2021 [facility] 10 mg 04/13/2021 12:00:00 AM EDT tablet 30 TAKE ONE TABLET BY MOUTH EVERY DAY TAKE ONE TABLET BY MOUTH EVERY DAY SOLD: 05/13/2021 [facility] Lisinopril 10 MG Oral Tablet Lisinopril 10 MG 04/13/2021 12:00:00 A M EDT 1.0 {tablet} active Lisinopril 10 MG eCW1 ( [facility] Lisinopril 10 MG Oral Tablet Lisinopril 10 MG 04/13/2021 12:00:00 A M EDT 1.0 {tablet} active Lisinopril 10 MG eCW1 ( [facility]) Lisinopril 10 MG Oral Tablet Lisinopril 10 MG 04/13/2021 12:00:00 A M EDT 1.0 {tablet} active Lisinopril 10 MG eCW1 ( [facility]) Lisinopril 10 MG Oral Tablet Lisinopril 10 MG 04/13/2021 12:00:00 A M EDT 1.0 {tablet} active Lisinopril 10 MG eCW1 ( [facility]) Insulin Glargine 100 UNT/ML Injectable Solution [Lantu s] INSULIN GLARGINE,[email or web address] 04/05/2021 12:00:00 AM EDT solution 30 INJECT 45 UNITS UNDER THE SKIN IN THE MORNING & 37 UNITS IN THE EVENING TWICE A DAY MAXIMUM DAILY DOSE = 82 UNITS INJECT 45 UNITS UNDER THE SKIN IN THE MO RNING & 37 UNITS IN THE EVENING TWICE A DAY MAXIMUM DAILY DOSE = 82 UNITS SOLD: 05/21/2021 [facility] Insulin Glargine 100 UNT/ML Injectable Solution [Lantu s] INSULIN GLARGINE,[email or web address] 04/05/2021 12:00:00 AM EDT solution 30 INJECT 45 UNITS UNDER THE SKIN IN THE MORNING & 37 UNITS IN THE EVENING TWICE A DAY MAXIMUM DAILY DOSE = 82 UNITS INJECT 45 UNITS UNDER THE SKIN IN THE MO RNING & 37 UNITS IN THE EVENING TWICE A DAY MAXIMUM DAILY DOSE = 82 UNITS SOLD: 04/09/2021 [facility] Insulin Glargine 100 UNT/ML Injectable Solution [Lantu s] INSULIN GLARGINE,[email or web address] 04/05/2021 12:00:00 AM EDT solution 30 INJECT 45 UNITS UNDER THE SKIN IN THE MORNING & 37 UNITS IN THE EVENING TWICE A DAY MAXIMUM DAILY DOSE = 82 UNITS INJECT 45 UNITS UNDER THE SKIN IN THE MO RNING & 37 UNITS IN THE EVENING TWICE A DAY MAXIMUM DAILY DOSE = 82 UNITS SOLD: 06/25/2021 [facility] 90 mcg/actuation 04/01/2021 12:00:00 AM EDT aerosol powdr breath activated 1 INHALE 1 PUFF BY MOUTH EVERY 4 HOURS NEEDED INHALE 1 PUFF BY MOUTH EVERY 4 HOURS NEEDED SOLD: 04/09/2021 [facility] 50 mg 03/29/2021 12:00:00 AM EDT tablet extended release 24 hr 30 TAKE ONE TABLET BY MOUTH EVERY DAY TAKE ONE TABLET BY MOUTH EVERY DAY SOLD: 04/28/2021 [facility] 50 mg 03/29/2021 12:00:00 AM EDT tablet extended release 24 hr 30 TAKE ONE TABLET BY MOUTH EVERY DAY TAKE ONE TABLET BY MOUTH EVERY DAY SOLD: 05/27/2021 [facility] 50 mg 03/29/2021 12:00:00 AM EDT tablet extended release 24 hr 30 TAKE ONE TABLET BY MOUTH EVERY DAY TAKE ONE TABLET BY MOUTH EVERY DAY SOLD: 03/29/2021 [facility] 1 mg 03/29/2021 12:00:00 AM EDT tablet 56 TAKE ONE TABLET BY MOUTH TWICE A DAY MAXIMUM DAILY DOSE = 2 TABLETS TAKE ONE TABLET BY MOUTH TWICE A DAY MAX IMUM DAILY DOSE = 2 TABLETS SOLD: 03/29/2021 [facility] 50 mg 03/04/2021 12:00:00 AM EDT tablet extended release 24 hr 30 TAKE ONE TABLET BY MOUTH EVERY DAY TAKE ONE TABLET BY MOUTH EVERY DAY SOLD: 03/11/2021 [facility] 25 mg 02/24/2021 12:00:00 AM EDT tablet 60 TAKE ONE TABLET BY MOUTH TWICE A DAY TAKE ONE TABLET BY MOUTH TWICE A DAY SOLD: 02/24/2021 [facility] 1 mg 02/24/2021 12:00:00 AM EDT tablet 56 TAKE ONE TABLET BY MOUTH TWICE A DAY MAXIMUM DAILY DOSE = 2MG TAKE ONE TABLET BY MOUTH TWICE A DAY MAX IMUM DAILY DOSE = 2MG SOLD: 02/27/2021 [facility] 25 mg 02/24/2021 12:00:00 AM EDT tablet 60 TAKE ONE TABLET BY MOUTH TWICE A DAY TAKE ONE TABLET BY MOUTH TWICE A DAY SOLD: 03/29/2021 [facility] 24 HR Metformin hydrochloride 500 MG Extended Release Oral T ablet METFORMIN HCL 02/17/2021 12:00:00 AM EDT tablet extended release 24 hr 30 TAKE ONE TABLET BY MOUTH EVERY EVENING WITH FOOD TAKE ONE TABLET BY MOUTH EVERY EVENING WITH FOOD SOLD: 03/29/2021 [facility] 24 HR Metformin hydrochloride 500 MG Extended Release Oral T ablet METFORMIN HCL 02/17/2021 12:00:00 AM EDT tablet extended release 24 hr 30 TAKE ONE TABLET BY MOUTH EVERY EVENING WITH FOOD TAKE ONE TABLET BY MOUTH EVERY EVENING WITH FOOD SOLD: 02/24/2021 [facility] 24 HR Metformin hydrochloride 500 MG Extended Release Oral T ablet METFORMIN HCL 02/17/2021 12:00:00 AM EDT tablet extended release 24 hr 30 TAKE ONE TABLET BY MOUTH EVERY EVENING WITH FOOD TAKE ONE TABLET BY MOUTH EVERY EVENING WITH FOOD SOLD: 05/27/2021 [facility] 24 HR Metformin hydrochloride 500 MG Extended Release Oral T ablet METFORMIN HCL 02/17/2021 12:00:00 AM EDT tablet extended release 24 hr 30 TAKE ONE TABLET BY MOUTH EVERY EVENING WITH FOOD TAKE ONE TABLET BY MOUTH EVERY EVENING WITH FOOD SOLD: 04/25/2021 [facility] 1 mL 28 gauge x 1/2" 02/03/2021 12:00:00 AM EDT syringe 60 DIRECTED TWO TIMES A DAY DIRECTED TWO TIMES A DAY SOLD: 02/09/2021 [facility] 1 mL 28 gauge x 1/2" 02/03/2021 12:00:00 AM EDT syringe 60 DIRECTED TWO TIMES A DAY DIRECTED TWO TIMES A DAY SOLD: 03/11/2021 [facility] 1 mL 28 gauge x 1/2" 02/03/2021 12:00:00 AM EDT syringe 60 DIRECTED TWO TIMES A DAY DIRECTED TWO TIMES A DAY SOLD: 04/09/2021 [facility] 1 mL 28 gauge x 1/2" 02/03/2021 12:00:00 AM EDT syringe 60 DIRECTED TWO TIMES A DAY DIRECTED TWO TIMES A DAY SOLD: 05/13/2021 [facility] 0.4 mg 02/02/2021 12:00:00 AM EDT tablet, sublingual [address] 1TAB.UNDER TONGUE DIRECTED EVERY 5 MINUTES NEEDED UP TO [address] 1TAB.UNDER TONGUE DIRECTED EVERY 5 MINUTES NEEDED UP TO 3 DOSES SOLD: 02/02/2021 [facility] 0.4 mg 02/02/2021 12:00:00 AM EDT tablet, sublingual [address] 1TAB.UNDER TONGUE DIRECTED EVERY 5 MINUTES NEEDED UP TO [address] 1TAB.UNDER TONGUE DIRECTED EVERY 5 MINUTES NEEDED UP TO 3 DOSES SOLD: 03/04/2021 [facility] 0.4 mg 02/02/2021 12:00:00 AM EDT tablet, sublingual [address] 1TAB.UNDER TONGUE DIRECTED EVERY 5 MINUTES NEEDED UP TO [address] 1TAB.UNDER TONGUE DIRECTED EVERY 5 MINUTES NEEDED UP TO 3 DOSES SOLD: 04/09/2021 [facility] 0.4 mg 02/02/2021 12:00:00 AM EDT tablet, sublingual [address] 1TAB.UNDER TONGUE DIRECTED EVERY 5 MINUTES NEEDED UP TO [address] 1TAB.UNDER TONGUE DIRECTED EVERY 5 MINUTES NEEDED UP TO 3 DOSES SOLD: 07/09/2021 [facility] 0.4 mg 02/02/2021 12:00:00 AM EDT tablet, sublingual [address] 1TAB.UNDER TONGUE DIRECTED EVERY 5 MINUTES NEEDED UP TO [address] 1TAB.UNDER TONGUE DIRECTED EVERY 5 MINUTES NEEDED UP TO 3 DOSES SOLD: 05/13/2021 [facility] 0.4 mg 02/02/2021 12:00:00 AM EDT tablet, sublingual [address] 1TAB.UNDER TONGUE DIRECTED EVERY 5 MINUTES NEEDED UP TO [address] 1TAB.UNDER TONGUE DIRECTED EVERY 5 MINUTES NEEDED UP TO 3 DOSES SOLD: 06/11/2021 [facility] 90 mcg/actuation 02/02/2021 12:00:00 AM EDT aerosol powdr breath activated 1 INHALE 1 PUFF BY MOUTH NEEDED EVERY 4 HOURS DIRE CTED INHALE 1 PUFF BY MOUTH NEEDED EVERY 4 HOURS DIRECTED SOLD: 02/02/2021 [facility] 90 mcg/actuation 02/02/2021 12:00:00 AM EDT aerosol powdr breath activated 1 INHALE 1 PUFF BY MOUTH NEEDED EVERY 4 [address]ED INHALE 1 PUFF BY MOUTH NEEDED EVERY 4 HOURS DIRECTED SOLD: 03/04/2021 [facility] 25 mg 02/02/2021 12:00:00 AM EDT tablet extended release 24 hr 30 TAKE ONE TABLET BY MOUTH EVERY DAY TAKE ONE TABLET BY MOUTH EVERY DAY SOLD: 02/02/2021 [facility] 25 mg 02/02/2021 12:00:00 AM EDT tablet extended release 24 hr 30 TAKE ONE TABLET BY MOUTH EVERY DAY TAKE ONE TABLET BY MOUTH EVERY DAY SOLD: 03/04/2021 [facility] 1 mg 01/27/2021 12:00:00 AM EDT tablet 56 TAKE 1 TABLET BY MOUTH 2 TIMES A DAY MAX DAILY DOSE = 2 TABLETS TAKE 1 TABLET BY MOUTH 2 TIMES A DAY MAX DAILY DOSE = 2 TABLETS SOLD: 01/29/2021 [facility] 64 mg 01/21/2021 12:00:00 AM EDT tablet,delayed release (DR/EC) 180 TAKE ONE TABLET BY MOUTH TWICE A DAY TAKE ONE TABLET BY MOUTH TWICE A DAY SOLD: 01/21/2021 [facility] 1 mg 12/30/2020 12:00:00 AM EDT tablet 56 TAKE ONE TABLET BY MOUTH TWICE A DAY MAXIMUM DAILY DOSE = 2TABLETS TAKE ONE TABLET BY MOUTH TWICE A DAY MAX IMUM DAILY DOSE = 2TABLETS SOLD: 12/31/2020 [facility] 1 mg 11/29/2020 12:00:00 AM EDT tablet 56 TAKE ONE TABLET BY MOUTH TWICE A DAY MAXIMUM DAILY DOSE = 2 TABLETS TAKE ONE TABLET BY MOUTH TWICE A DAY MAX IMUM DAILY DOSE = 2 TABLETS SOLD: 11/30/2020 [facility] 25 mg 11/18/2020 12:00:00 AM EST tablet 60 TAKE ONE TABLET BY MOUTH TWICE A DAY TAKE ONE TABLET BY MOUTH TWICE A DAY SOLD: 01/21/2021 [facility] 25 mg 11/18/2020 12:00:00 AM EST tablet 60 TAKE ONE TABLET BY MOUTH TWICE A DAY TAKE ONE TABLET BY MOUTH TWICE A DAY SOLD: 12/22/2020 [facility] 25 mg 11/18/2020 12:00:00 AM EST tablet 60 TAKE ONE TABLET BY MOUTH TWICE A DAY TAKE ONE TABLET BY MOUTH TWICE A DAY SOLD: 11/20/2020 [facility] 1 mg 10/31/2020 12:00:00 AM EST tablet 56 TAKE ONE TABLET BY MOUTH TWICE A DAY MAXIMUM DAILY DOSE = 2 TABLETS TAKE ONE TABLET BY MOUTH TWICE A DAY MAX IMUM DAILY DOSE = 2 TABLETS SOLD: 11/01/2020 [facility] 25 mg 10/30/2020 12:00:00 AM EST tablet extended release 24 hr 30 TAKE ONE TABLET BY MOUTH EVERY DAY TAKE ONE TABLET BY MOUTH EVERY DAY SOLD: 11/01/2020 [facility] 25 mg 10/30/2020 12:00:00 AM EST tablet extended release 24 hr 30 TAKE ONE TABLET BY MOUTH EVERY DAY TAKE ONE TABLET BY MOUTH EVERY DAY SOLD: 12/07/2020 [facility] 1 mg 10/04/2020 12:00:00 AM EST tablet 56 TAKE ONE TABLET BY MOUTH TWO TIMES A DAY MAXIMUM DAILY DOSE = 2 TABLETS TAKE ONE TABLET BY MOUTH TWO TIMES A DAY MAXIMUM DAILY DOSE = 2 TABLETS SOLD: 10/05/2020 [facility] Insulin Glargine 100 UNT/ML Injectable Solution [Lantu s] INSULIN GLARGINE,[email or web address] 09/23/2020 12:00:00 AM EST solution 30 INJECT 45 UNITS EVERY MORNING AND 37 UNITS EVERY EVENING, MAXIMUM DAILY DOSE = 82 UNITS INJECT 45 UNITS EVERY MORNING AND 37 UNITS EVERY EVENING, MAXIMUM DAILY DOSE = 82 UNITS SOLD: 01/13/2021 [facility] Insulin Glargine 100 UNT/ML Injectable Solution [Lantu s] INSULIN GLARGINE,[email or web address] 09/23/2020 12:00:00 AM EST solution 30 INJECT 45 UNITS EVERY MORNING AND 37 UNITS EVERY EVENING, MAXIMUM DAILY DOSE = 82 UNITS INJECT 45 UNITS EVERY MORNING AND 37 UNITS EVERY EVENING, MAXIMUM DAILY DOSE = 82 UNITS SOLD: 02/24/2021 [facility] 100 unit/mL 09/23/2020 12:00:00 AM EST solution 30 INJECT 45 UNITS EVERY MORNING AND 37 UNITS EVERY EVENING, MAXIMUM DAILY DOSE = 82 UNITS INJECT 45 UNITS EVERY MORNING AND 37 UNITS EVERY EVENING, MAXIMUM DAILY DOSE = 82 UNITS SOLD: 09/24/2020 [facility] 100 unit/mL 09/23/2020 12:00:00 AM EST solution 30 INJECT 45 UNITS EVERY MORNING AND 37 UNITS EVERY EVENING, MAXIMUM DAILY DOSE = 82 UNITS INJECT 45 UNITS EVERY MORNING AND 37 UNITS EVERY EVENING, MAXIMUM DAILY DOSE = 82 UNITS SOLD: 12/09/2020 [facility] 100 unit/mL 09/23/2020 12:00:00 AM EST solution 30 INJECT 45 UNITS EVERY MORNING AND 37 UNITS EVERY EVENING, MAXIMUM DAILY DOSE = 82 UNITS INJECT 45 UNITS EVERY MORNING AND 37 UNITS EVERY EVENING, MAXIMUM DAILY DOSE = 82 UNITS SOLD: 10/28/2020 [facility] 1 mg 09/02/2020 12:00:00 AM EST tablet 56 TAKE ONE TABLET BY MOUTH TWICE A DAY MAXIMUM DAILY DOSE = TWO TABLETS TAKE ONE TABLET BY MOUTH TWICE A DAY MAXIMUM DAILY DOSE = TWO TABLETS SOLD: 09/07/2020 [facility] 24 HR Metformin hydrochloride 500 MG Extended Release Oral T ablet METFORMIN HCL 08/07/2020 12:00:00 AM EST tablet extended release 24 hr 30 TAKE 1 TABLET BY MOUTH ONCE A DAY WITH EVENING MEAL TAKE 1 TABLET BY MOUTH ONCE A DAY WITH EVENING MEAL SOLD: 01/21/2021 [facility] 500 mg 08/07/2020 12:00:00 AM EST tablet extended release 24 hr 30 TAKE 1 TABLET BY MOUTH ONCE A DAY WITH EVENING MEAL TAKE 1 TABLET BY MOUTH ONCE A DAY WITH EVENING MEAL SOLD: 10/21/2020 [facility] 500 mg 08/07/2020 12:00:00 AM EST tablet extended release 24 hr 30 TAKE 1 TABLET BY MOUTH ONCE A DAY WITH EVENING MEAL TAKE 1 TABLET BY MOUTH ONCE A DAY WITH EVENING MEAL SOLD: 11/18/2020 [facility] 500 mg 08/07/2020 12:00:00 AM EST tablet extended release 24 hr 30 TAKE 1 TABLET BY MOUTH ONCE A DAY WITH EVENING MEAL TAKE 1 TABLET BY MOUTH ONCE A DAY WITH EVENING MEAL SOLD: 12/22/2020 [facility] 500 mg 08/07/2020 12:00:00 AM EST tablet extended release 24 hr 30 TAKE 1 TABLET BY MOUTH ONCE A DAY WITH EVENING MEAL TAKE 1 TABLET BY MOUTH ONCE A DAY WITH EVENING MEAL SOLD: 08/07/2020 [facility] 1 mg 08/05/2020 12:00:00 AM EST tablet 56 TAKE ONE TABLET BY MOUTH TWICE A DAY MAXIMUM DAILY DOSE = 2 TABLETS TAKE ONE TABLET BY MOUTH TWICE A DAY MAX IMUM DAILY DOSE = 2 TABLETS SOLD: 08/07/2020 [facility] 25 mg 07/21/2020 12:00:00 AM EST tablet 60 TAKE ONE TABLET BY MOUTH TWICE A DAY TAKE ONE TABLET BY MOUTH TWICE A DAY SOLD: 07/21/2020 [facility] 64 mg 07/21/2020 12:00:00 AM EST tablet,delayed release (DR/EC) 180 TAKE ONE TABLET BY MOUTH TWICE A DAY TAKE ONE TABLET BY MOUTH TWICE A DAY SOLD: 10/21/2020 [facility] 62.5 mcg/actuation 07/21/2020 12:00:00 AM EST blister with d evice 90 INHALE ONE PUFF BY MOUTH EVERY DAY INHALE ONE PUFF BY MOUTH EVERY DAY SOLD: 10/10/2020 [facility] 62.5 mcg/actuation 07/21/2020 12:00:00 AM EST blister with d evice 90 INHALE ONE PUFF BY MOUTH EVERY DAY INHALE ONE PUFF BY MOUTH EVERY DAY SOLD: 01/21/2021 [facility] 62.5 mcg/actuation 07/21/2020 12:00:00 AM EST blister with d evice 90 INHALE ONE PUFF BY MOUTH EVERY DAY INHALE ONE PUFF BY MOUTH EVERY DAY SOLD: 07/21/2020 [facility] 64 mg 07/21/2020 12:00:00 AM EST tablet,delayed release (DR/EC) 180 TAKE ONE TABLET BY MOUTH TWICE A DAY TAKE ONE TABLET BY MOUTH TWICE A DAY SOLD: 07/21/2020 [facility] 25 mg 07/21/2020 12:00:00 AM EST tablet 60 TAKE ONE TABLET BY MOUTH TWICE A DAY TAKE ONE TABLET BY MOUTH TWICE A DAY SOLD: 08/21/2020 [facility] 25 mg 07/21/2020 12:00:00 AM EST tablet 60 TAKE ONE TABLET BY MOUTH TWICE A DAY TAKE ONE TABLET BY MOUTH TWICE A DAY SOLD: 10/23/2020 [facility] 25 mg 07/21/2020 12:00:00 AM EST tablet 60 TAKE ONE TABLET BY MOUTH TWICE A DAY TAKE ONE TABLET BY MOUTH TWICE A DAY SOLD: 09/17/2020 [facility] 1 mg 07/07/2020 12:00:00 AM EDT tablet 56 TAKE ONE TABLET BY MOUTH TWICE A DAY MAXIMUM DAILY DOSE = 2 TABLETS TAKE ONE TABLET BY MOUTH TWICE A DAY MAX IMUM DAILY DOSE = 2 TABLETS SOLD: 07/10/2020 [facility] 25 mg 06/27/2020 12:00:00 AM EDT tablet extended release 24 hr 30 TAKE ONE TABLET BY MOUTH EVERY DAY TAKE ONE TABLET BY MOUTH EVERY DAY SOLD: 09/07/2020 [facility] 25 mg 06/27/2020 12:00:00 AM EDT tablet extended release 24 hr 30 TAKE ONE TABLET BY MOUTH EVERY DAY TAKE ONE TABLET BY MOUTH EVERY DAY SOLD: 10/02/2020 [facility] 25 mg 06/27/2020 12:00:00 AM EDT tablet extended release 24 hr 30 TAKE ONE TABLET BY MOUTH EVERY DAY TAKE ONE TABLET BY MOUTH EVERY DAY SOLD: 08/07/2020 [facility] 25 mg 06/27/2020 12:00:00 AM EDT tablet extended release 24 hr 30 TAKE ONE TABLET BY MOUTH EVERY DAY TAKE ONE TABLET BY MOUTH EVERY DAY SOLD: 07/10/2020 [facility] 1 mg 06/11/2020 12:00:00 AM EDT tablet 56 TAKE ONE TABLET BY MOUTH TWO TIMES A DAY TAKE ONE TABLET BY MOUTH TWO TIMES A DAY SOLD: 06/11/2020 [facility] Clonazepam 1 MG Oral Tablet Clonazepam 1 MG 06/10/2020 12:00:00 AM EDT 1.0 {tablet} active Clonazepam 1 MG eCW1 ([facility]) Clonazepam 1 MG Oral Tablet Clonazepam 1 MG 06/10/2020 12:00:00 AM EDT 1.0 {tablet} active Clonazepam 1 MG eCW1 ([facility]) Clonazepam 1 MG Oral Tablet Clonazepam 1 MG 06/10/2020 12:00:00 AM EDT 1.0 {tablet} active Clonazepam 1 MG eCW1 ([facility]) Clonazepam 1 MG Oral Tablet Clonazepam 1 MG 06/10/2020 12:00:00 AM EDT 1.0 {tablet} active Clonazepam 1 MG eCW1 ([facility]) Clonazepam 1 MG Oral Tablet Clonazepam 1 MG 06/10/2020 12:00:00 AM EDT 1.0 {tablet} active Clonazepam 1 MG eCW1 ([facility]) Clonazepam 1 MG Oral Tablet clonazePAM 1 MG clonazePAM 1 MG 06/10/2020 12:00:00 AM EDT 1.0 {tablet} suspended clonazeP AM 1 MG [facility] ([facility] Clonazepam 1 MG Oral Tablet Clonazepam 1 MG 06/10/2020 12:00:00 AM EDT 1.0 {tablet} active Clonazepam 1 MG eCW1 ([facility]) Clonazepam 1 MG Oral Tablet clonazePAM 1 MG clonazePAM 1 MG 06/10/2020 12:00:00 AM EDT 1.0 {tablet} suspended clonazeP AM 1 MG eCW1 ([facility]) Clonazepam 1 MG Oral Tablet Clonazepam 1 MG 06/10/2020 12:00:00 AM EDT 1.0 {tablet} active Clonazepam 1 MG eCW1 ([facility]) Clonazepam 1 MG Oral Tablet Clonazepam 1 MG 06/10/2020 12:00:00 AM EDT 1.0 {tablet} active Clonazepam 1 MG eCW1 ([facility]) Clonazepam 1 MG Oral Tablet Clonazepam 1 MG 06/10/2020 12:00:00 AM EDT 1.0 {tablet} active Clonazepam 1 MG eCW1 ([facility]) Clonazepam 1 MG Oral Tablet Clonazepam 1 MG 06/10/2020 12:00:00 AM EDT 1.0 {tablet} active Clonazepam 1 MG eCW1 ([facility]) Clonazepam 1 MG Oral Tablet Clonazepam 1 MG 06/10/2020 12:00:00 AM EDT 1.0 {tablet} active Clonazepam 1 MG eCW1 ([facility]) Clonazepam 1 MG Oral Tablet clonazePAM 1 MG clonazePAM 1 MG 06/10/2020 12:00:00 AM EDT 1.0 {tablet} suspended clonazeP AM 1 MG [facility] Clonazepam 1 MG Oral Tablet clonazePAM 1 MG clonazePAM 1 MG 06/10/2020 12:00:00 AM EDT 1.0 {tablet} active clonazePAM 1 MG [facility]CW1 [facility] Clonazepam 1 MG Oral Tablet clonazePAM 1 MG clonazePAM 1 MG 06/10/2020 12:00:00 AM EDT 1.0 {tablet} suspended clonazeP AM 1 MG eCW1 [facility]) Clonazepam 1 MG Oral Tablet Clonazepam 1 MG 06/10/2020 12:00:00 AM EDT 1.0 {tablet} active Clonazepam 1 MG eCW1 ([facility]) Clonazepam 1 MG Oral Tablet Clonazepam 1 MG 06/10/2020 12:00:00 AM EDT 1.0 {tablet} active Clonazepam 1 MG eCW1 ([facility]) Clonazepam 1 MG Oral Tablet Clonazepam 1 MG 06/10/2020 12:00:00 AM EDT 1.0 {tablet} active Clonazepam 1 MG eCW1 ([facility]) Clonazepam 1 MG Oral Tablet clonazePAM 1 MG clonazePAM 1 MG 06/10/2020 12:00:00 AM EDT 1.0 {tablet} active clonazePAM 1 MG [facility]CW1 [facility] 64 mg 04/10/2020 12:00:00 AM EDT tablet,delayed release (DR/EC) 60 TAKE ONE TABLET BY MOUTH TWICE A DAY TAKE ONE TABLET BY MOUTH TWICE A DAY SOLD: 06/12/2020 [facility] 25 mg 03/13/2020 12:00:00 AM EDT tablet 60 TAKE ONE TABLET BY MOUTH TWICE A DAY TAKE ONE TABLET BY MOUTH TWICE A DAY SOLD: 06/17/2020 [facility] 500 mg 03/05/2020 12:00:00 AM EDT tablet extended release 24 hr 30 TAKE ONE TABLET BY MOUTH EVERY EVENING WITH A MEAL TAKE ONE TABLET BY MOUTH EVERY EVENING WITH A MEAL SOLD: 06/12/2020 [facility] 500 mg 03/05/2020 12:00:00 AM EDT tablet extended release 24 hr 30 TAKE ONE TABLET BY MOUTH EVERY EVENING WITH A MEAL TAKE ONE TABLET BY MOUTH EVERY EVENING WITH A MEAL SOLD: 07/10/2020 [facility] 100 unit/mL 02/10/2020 12:00:00 AM EDT solution 30 INJECT 45 UNITS UNDER THE SKIN IN THE MORNING AND 37 UNITS IN THE EVENING INJECT 45 UNITS UNDER THE SKIN IN THE MORNING AND 37 UNITS IN THE EVENING SOLD: 06/12/2020 [facility] 100 unit/mL 02/10/2020 12:00:00 AM EDT solution 30 INJECT 45 UNITS UNDER THE SKIN IN THE MORNING AND 37 UNITS IN THE EVENING INJECT 45 UNITS UNDER THE SKIN IN THE MORNING AND 37 UNITS IN THE EVENING SOLD: 08/07/2020 [facility] 33 gauge 02/06/2020 12:00:00 AM EDT misc 60 USE DIRECTED TWO TIMES A DAY USE DIRECTED TWO TIMES A DAY SOLD: 06/12/2020 [facility] 62.5 mcg/actuation 01/11/2020 12:00:00 AM EDT blister with d evice 30 INHALE ONE PUFF BY MOUTH EVERY DAY INHALE ONE PUFF BY MOUTH EVERY DAY SOLD: 06/12/2020 [facility] 90 mcg/actuation 12/19/2019 12:00:00 AM EDT aerosol powdr breath activated 1 INHALE 1 PUFF BY MOUTH EVERY 4 HOURS NEEDED INHALE 1 PUFF BY MOUTH EVERY 4 HOURS NEEDED SOLD: 06/12/2020 [facility] BLOOD SUGAR DIAGNOSTIC 12/13/2019 12:00:00 AM EDT strip 100 USE TO TEST BLOOD SUGAR TWICE DAILY USE TO TEST BLOOD SUGAR TWICE DAILY SOLD: 06/12/2020 [facility] 0.5 ML dulaglutide 3 MG/ML Auto-Injector [Trulicity] Trulicity 1.5 mg/0.5 mL subcutaneous pen injector USE DIRECTED UNDER THE SKIN WEEKLY Trulicity 1.5 mg/0.5 mL subcutaneous pen injector USE DIRECTED UNDER THE SKIN WEEKLY completed 0.5 ML dulaglutide 3 MG/ML Auto-Injector [Trulicity] ADAIR ([facility]) Clonazepam 0.5 MG Oral Tablet clonazepam 0.5 mg tablet TAKE ONE TABLET BY MOUTH TWICE A DAY NEEDED FOR ANXIETY MAXIMUM DAILY DOSE TWO TABLETS clonazepam 0.5 mg tablet TAKE ONE TABLET BY MOUTH TWICE A DAY NEEDED FOR ANXIETY MAXIMUM DAILY DOSE TWO TABLETS completed clonazepam 0.5 MG Oral Tablet ADAIR ([facility]) Clonazepam 0.5 MG Oral Tablet clonazepam 0.5 mg tablet TAKE ONE TABLET BY MOUTH TWICE A DAY NEEDED FOR ANXIETY MAXIMUM DAILY DOSE TWO TABLETS clonazepam 0.5 mg tablet TAKE ONE TABLET BY MOUTH TWICE A DAY NEEDED FOR ANXIETY MAXIMUM DAILY DOSE TWO TABLETS completed clonazepam 0.5 MG Oral Tablet ADAIR ([facility]) 0.5 ML dulaglutide 1.5 MG/ML Auto-Inject or [Trulicity] Trulicity 0.75 mg/0.5 mL subcutaneous pen injector DIRECTED UNDER SKIN WEEKLY Trulicity 0.75 mg/0.5 mL subcutaneous pen injector DIRECTED UNDER SKIN WEEKLY completed 0.5 ML dulaglutide 1.5 MG/ML Auto-Inject or [Trulicity] ADAIR ([facility]) Clonazepam 0.5 MG Oral Tablet clonazepam 0.5 mg tablet TAKE ONE TABLET BY MOUTH TWICE A DAY NEEDED FOR ANXIETY MAXIMUM DAILY DOSE TWO TABLETS clonazepam 0.5 mg tablet TAKE ONE TABLET BY MOUTH TWICE A DAY NEEDED FOR ANXIETY MAXIMUM DAILY DOSE TWO TABLETS completed clonazepam 0.5 MG Oral Tablet ADAIR ([facility]) empagliflozin 25 MG Oral Tablet [Jardian ce] Jardiance 25 mg tablet TAKE ONE TABLET BY MOUTH EVERY DAY Jardiance 25 mg tablet TAKE ONE TABLET B Y MOUTH EVERY DAY completed empagliflozin 25 MG Oral Tablet [Jardiance] ADAIR ([facility]) 0.5 ML dulaglutide 3 MG/ML Auto-Injector [Trulicity] Trulicity 1.5 mg/0.5 mL subcutaneous pen injector USE DIRECTED UNDER THE SKIN WEEKLY Trulicity 1.5 mg/0.5 mL subcutaneous pen injector USE DIRECTED UNDER THE SKIN WEEKLY completed 0.5 ML dulaglutide 3 MG/ML Auto-Injector [Trulicity] ADAIR ([facility]) Hydroxyzine Hydrochloride 50 MG Oral Tab let hydroxyzine HCl 50 mg tablet TAKE ONE TABLET BY MOUTH TWICE A DAY NEEDED hydroxyzine HCl 50 mg tablet TAKE ONE TABLET BY MOUTH TWICE A DAY NEEDED completed hydroxyzine hydrochloride 50 MG Oral Tablet ADAIR ([facility]) Amoxicillin 500 MG Oral Capsule amoxicillin 500 mg cap nancy amoxicillin 500 mg capsule completed amoxicillin 50 0 MG Oral Capsule ADAIR ([facility]) Hydroxyzine Hydrochloride 50 MG Oral Tab let hydroxyzine HCl 50 mg tablet TAKE ONE TABLET BY MOUTH TWICE A DAY NEEDED hydroxyzine HCl 50 mg tablet TAKE ONE TABLET BY MOUTH TWICE A DAY NEEDED completed hydroxyzine hydrochloride 50 MG Oral Tablet ADAIR ([facility]) quetiapine 25 MG Oral Tablet quetiapine 25 mg tablet TAKE ONE TABLET BY MOUTH EVERY DAY AT BEDTIME quetiapine 25 mg tablet TAKE ONE TABLET BY MOUTH EVERY DAY AT BEDTIME completed quetiapine 25 MG Oral Tablet ADAIR ([facility]) Amoxicillin 500 MG Oral Capsule amoxicillin 500 mg cap nancy amoxicillin 500 mg capsule completed amoxicillin 50 0 MG Oral Capsule ADAIR ([facility]) Metformin hydrochloride 500 MG Oral Tablet metformin 5 00 mg tablet metformin 500 mg tablet completed metformin h ydrochloride 500 MG Oral Tablet ADAIR ([facility]) Metformin hydrochloride 500 MG Oral Tablet metformin 5 00 mg tablet metformin 500 mg tablet completed metformin h ydrochloride 500 MG Oral Tablet ADAIR ([facility]) 0.5 ML dulaglutide 1.5 MG/ML Auto-Inject or [Trulicity] Trulicity 0.75 mg/0.5 mL subcutaneous pen injector DIRECTED UNDER SKIN WEEKLY Trulicity 0.75 mg/0.5 mL subcutaneous pen injector DIRECTED UNDER SKIN WEEKLY completed 0.5 ML dulaglutide 1.5 MG/ML Auto-Inject or [Trulicity] ADAIR ([facility]) Hydroxyzine Hydrochloride 50 MG Oral Tab let hydroxyzine HCl 50 mg tablet TAKE ONE TABLET BY MOUTH TWICE A DAY NEEDED hydroxyzine HCl 50 mg tablet TAKE ONE TABLET BY MOUTH TWICE A DAY NEEDED completed hydroxyzine hydrochloride 50 MG Oral Tablet ADAIR ([facility]) Metformin hydrochloride 500 MG Oral Tablet metformin 5 00 mg tablet metformin 500 mg tablet completed metformin h ydrochloride 500 MG Oral Tablet ADAIR ([facility]) 0.5 ML dulaglutide 1.5 MG/ML Auto-Inject or [Trulicity] Trulicity 0.75 mg/0.5 mL subcutaneous pen injector DIRECTED UNDER SKIN WEEKLY Trulicity 0.75 mg/0.5 mL subcutaneous pen injector DIRECTED UNDER SKIN WEEKLY completed 0.5 ML dulaglutide 1.5 MG/ML Auto-Inject or [Trulicity] ADAIR ([facility]) Hydroxyzine Hydrochloride 50 MG Oral Tab let hydroxyzine HCl 50 mg tablet TAKE ONE TABLET BY MOUTH TWICE A DAY NEEDED hydroxyzine HCl 50 mg tablet TAKE ONE TABLET BY MOUTH TWICE A DAY NEEDED completed hydroxyzine hydrochloride 50 MG Oral Tablet ADAIR ([facility]) Hydroxyzine Hydrochloride 50 MG Oral Tab let hydroxyzine HCl 50 mg tablet TAKE ONE TABLET BY MOUTH TWICE A DAY NEEDED hydroxyzine HCl 50 mg tablet TAKE ONE TABLET BY MOUTH TWICE A DAY NEEDED completed hydroxyzine hydrochloride 50 MG Oral Tablet ADAIR ([facility]) Amoxicillin 500 MG Oral Capsule amoxicillin 500 mg cap nancy amoxicillin 500 mg capsule completed amoxicillin 50 0 MG Oral Capsule ADAIR ([facility]) Clonazepam 0.5 MG Oral Tablet clonazepam 0.5 mg tablet TAKE ONE TABLET BY MOUTH TWICE A DAY NEEDED FOR ANXIETY MAXIMUM DAILY DOSE TWO TABLETS clonazepam 0.5 mg tablet TAKE ONE TABLET BY MOUTH TWICE A DAY NEEDED FOR ANXIETY MAXIMUM DAILY DOSE TWO TABLETS completed clonazepam 0.5 MG Oral Tablet ADAIR ([facility]) 0.5 ML dulaglutide 1.5 MG/ML Auto-Inject or [Trulicity] Trulicity 0.75 mg/0.5 mL subcutaneous pen injector DIRECTED UNDER SKIN WEEKLY Trulicity 0.75 mg/0.5 mL subcutaneous pen injector DIRECTED UNDER SKIN WEEKLY completed 0.5 ML dulaglutide 1.5 MG/ML Auto-Inject or [Trulicity] ADAIR ([facility]) Metformin hydrochloride 500 MG Oral Tablet metformin 5 00 mg tablet metformin 500 mg tablet completed metformin h ydrochloride 500 MG Oral Tablet ADAIR ([facility]) empagliflozin 25 MG Oral Tablet [Jardian ce] Jardiance 25 mg tablet TAKE ONE TABLET BY MOUTH EVERY DAY Jardiance 25 mg tablet TAKE ONE TABLET B Y MOUTH EVERY DAY completed empagliflozin 25 MG Oral Tablet [Jardiance] ADAIR ([facility]) Hydroxyzine Hydrochloride 50 MG Oral Tab let hydroxyzine HCl 50 mg tablet TAKE ONE TABLET BY MOUTH TWICE A DAY NEEDED hydroxyzine HCl 50 mg tablet TAKE ONE TABLET BY MOUTH TWICE A DAY NEEDED completed hydroxyzine hydrochloride 50 MG Oral Tablet ADAIR ([facility]) 0.5 ML dulaglutide 3 MG/ML Auto-Injector [Trulicity] Trulicity 1.5 mg/0.5 mL subcutaneous pen injector USE DIRECTED UNDER THE SKIN WEEKLY Trulicity 1.5 mg/0.5 mL subcutaneous pen injector USE DIRECTED UNDER THE SKIN WEEKLY completed 0.5 ML dulaglutide 3 MG/ML Auto-Injector [Trulicity] ADAIR ([facility]) empagliflozin 25 MG Oral Tablet [Jardian ce] Jardiance 25 mg tablet TAKE ONE TABLET BY MOUTH EVERY DAY Jardiance 25 mg tablet TAKE ONE TABLET B Y MOUTH EVERY DAY completed empagliflozin 25 MG Oral Tablet [Jardiance] ADAIR ([facility]) Clonazepam 0.5 MG Oral Tablet clonazepam 0.5 mg tablet TAKE ONE TABLET BY MOUTH TWICE A DAY NEEDED FOR ANXIETY MAXIMUM DAILY DOSE TWO TABLETS clonazepam 0.5 mg tablet TAKE ONE TABLET BY MOUTH TWICE A DAY NEEDED FOR ANXIETY MAXIMUM DAILY DOSE TWO TABLETS completed clonazepam 0.5 MG Oral Tablet ADAIR ([facility]) Metformin hydrochloride 500 MG Oral Tablet metformin 5 00 mg tablet metformin 500 mg tablet completed metformin h ydrochloride 500 MG Oral Tablet ADAIR ([facility]) Amoxicillin 500 MG Oral Capsule amoxicillin 500 mg cap nancy amoxicillin 500 mg capsule completed amoxicillin 50 0 MG Oral Capsule ADAIR ([facility]) Clonazepam 0.5 MG Oral Tablet clonazepam 0.5 mg tablet TAKE ONE TABLET BY MOUTH TWICE A DAY NEEDED FOR ANXIETY MAXIMUM DAILY DOSE TWO TABLETS clonazepam 0.5 mg tablet TAKE ONE TABLET BY MOUTH TWICE A DAY NEEDED FOR ANXIETY MAXIMUM DAILY DOSE TWO TABLETS completed clonazepam 0.5 MG Oral Tablet ADAIR ([facility]) quetiapine 25 MG Oral Tablet quetiapine 25 mg tablet TAKE ONE TABLET BY MOUTH EVERY DAY AT BEDTIME quetiapine 25 mg tablet TAKE ONE TABLET BY MOUTH EVERY DAY AT BEDTIME completed quetiapine 25 MG Oral Tablet ADAIR ([facility]) quetiapine 25 MG Oral Tablet quetiapine 25 mg tablet TAKE ONE TABLET BY MOUTH EVERY DAY AT BEDTIME quetiapine 25 mg tablet TAKE ONE TABLET BY MOUTH EVERY DAY AT BEDTIME completed quetiapine 25 MG Oral Tablet ADAIR ([facility]) empagliflozin 25 MG Oral Tablet [Jardian ce] Jardiance 25 mg tablet TAKE ONE TABLET BY MOUTH EVERY DAY Jardiance 25 mg tablet TAKE ONE TABLET B Y MOUTH EVERY DAY completed empagliflozin 25 MG Oral Tablet [Jardiance] ADAIR ([facility]) 0.5 ML dulaglutide 3 MG/ML Auto-Injector [Trulicity] Trulicity 1.5 mg/0.5 mL subcutaneous pen injector USE DIRECTED UNDER THE SKIN WEEKLY Trulicity 1.5 mg/0.5 mL subcutaneous pen injector USE DIRECTED UNDER THE SKIN WEEKLY completed 0.5 ML dulaglutide 3 MG/ML Auto-Injector [Trulicity] ADAIR ([facility]) Metformin hydrochloride 500 MG Oral Tablet metformin 5 00 mg tablet metformin 500 mg tablet completed metformin h ydrochloride 500 MG Oral Tablet ADAIR ([facility]) Hydroxyzine Hydrochloride 50 MG Oral Tab let hydroxyzine HCl 50 mg tablet TAKE ONE TABLET BY MOUTH TWICE A DAY NEEDED hydroxyzine HCl 50 mg tablet TAKE ONE TABLET BY MOUTH TWICE A DAY NEEDED completed hydroxyzine hydrochloride 50 MG Oral Tablet ADAIR ([facility]) quetiapine 25 MG Oral Tablet quetiapine 25 mg tablet TAKE ONE TABLET BY MOUTH EVERY DAY AT BEDTIME quetiapine 25 mg tablet TAKE ONE TABLET BY MOUTH EVERY DAY AT BEDTIME completed quetiapine 25 MG Oral Tablet ADAIR ([facility]) Clonazepam 0.5 MG Oral Tablet clonazepam 0.5 mg tablet TAKE ONE TABLET BY MOUTH TWICE A DAY NEEDED FOR ANXIETY MAXIMUM DAILY DOSE TWO TABLETS clonazepam 0.5 mg tablet TAKE ONE TABLET BY MOUTH TWICE A DAY NEEDED FOR ANXIETY MAXIMUM DAILY DOSE TWO TABLETS completed clonazepam 0.5 MG Oral Tablet ADAIR ([facility]) Amoxicillin 500 MG Oral Capsule amoxicillin 500 mg cap nancy amoxicillin 500 mg capsule completed amoxicillin 50 0 MG Oral Capsule ADAIR ([facility]) Amoxicillin 500 MG Oral Capsule amoxicillin 500 mg cap nancy amoxicillin 500 mg capsule completed amoxicillin 50 0 MG Oral Capsule ADAIR ([facility]) Amoxicillin 500 MG Oral Capsule amoxicillin 500 mg cap nancy amoxicillin 500 mg capsule completed amoxicillin 50 0 MG Oral Capsule ADAIR ([facility]) Metformin hydrochloride 500 MG Oral Tablet metformin 5 00 mg tablet metformin 500 mg tablet completed metformin h ydrochloride 500 MG Oral Tablet ADAIR ([facility]) Insurance Providers Payer name Policy type / Coverage type Policy ID Covered green party ID Covered green party's relationship to moe Policy Moe Plan Information [facility] MED[facility] [id number] Luna [id number] [facility] MEDICA[facility] [id number] Luna [id number] 74 Medicare [facility] Medicare Primary [id number] Self [id number] Medicare [facility] Medicare Primary [id number] Self [id number] MEDICARE [id number] SP [id number] M [facility] [id number] SP [id number] [facility] [id number] SP [id number] MEDICAID [id number] SP [id number] MEDICARE PART A -O/P [id number] MEDICARE COMPLETE [id number] SP [id number] ANSI-Medicare Part B [id number] ANSI-Not a Secondary Insurance [id number] ANSI-Medicaid [id number] ANSI-Not a Secondary Insurance [id number] ANSI-Medicare Part B [id number] ANSI-Medicaid [id number] Medicaid [facility] Part B [id number] Self [id number] Dual Complete Commercial [id number] [facility] [id number] [facility] [id number] Self [id number] [facility] [id number] Self [id number] Medicaid [facility] Part B [id number] Self [id number] Dual Complete Commercial [id number] Self [id number] ANSI-Medicaid [id number] ANSI-Not a Secondary Insurance [id number] ANSI-Medicare Part B [id number] ANSI-Medicaid [id number] ANSI-Not a Secondary Insurance [id number] ANSI-Medicare Part B [id number] ANSI-Medicaid [id number] ANSI-Not a Secondary Insurance [id number] ANSI-Medicare Part B [id number] ANSI-Medicaid [id number] ANSI-Not a Secondary Insurance [id number] ANSI-Medicare Part B [id number] ANSI-Medicare Part B [id number] ANSI-Not a Secondary Insurance [id number] ANSI-Medicaid [id number] [employer] COMMUNITY PLAN XIX [id number] 18 [id number] MEDICARE [id number] SP [id number] M [facility] Plan Hen[place] Commercial [id number] Self Medicaid Medigap Part B [id number] Self Medicare (Part B) Medicare Primary [id number] Self SELF PAY UNAVAILABLE SP UNAVAILA BLE FORMERLY [facility] COMMUNITY PLAN [facility] [id number] SP [id number] MEDICARE [id number] SP [id number] A [facility] O [id number] S [id number] [facility] [id number] SP [id number] [facility] MEDICAID [id number] SP [id number] S [id number] [facility] [id number] SP [id number] [facility] [id number] SP [id number] [facility] FAC[facility] [id number] 18 [id number] [place] [id number] SP [id number] MEDICAID [id number] SP [id number] MEDICAID -O/P EMERGENCY ROOM [id number] MEDICARE PART A -O/P [id number] Problems, Conditions, and Diagnoses Code Display Name Description Problem Type Effective Dates Data Source(s) Z6834 Body mass index [BMI] 34.0-34.9, adult B esmer mass index [BMI] 34.0-34.9, adult Diagnosis 12/07/2020 06:09:00 AM [facility] Z5320 Procedure and treatment not carried out because of patient's decision for unspecified reasons Procedure and treatment not carried out because of patient's decision for unspecified reasons Diagnosis 12/07/2020 06:09:00 AM [facility] [id number] Personal history of nicotine dependence Personal history of nicotine dependence Diagnosis 12/07/2020 06:09:00 AM [facility] Z7982 penitentiary (current) use of aspirin penitentiary (cu rrent) use of aspirin Diagnosis 12/07/2020 06:09:00 AM [facility] Z794 penitentiary (current) use of insulin 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 Diagnosis 12/07/2020 06:09:00 AM EDT [facility] Z955 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 coronary angioplasty implant and graft Diagnosis 12/07/2020 06:09:00 AM EDT [facility] M549 Dorsalgia, unspecified Dorsalgia, unspecified Diagnosi s 12/07/2020 06:09:00 AM EDT [facility] E669 Obesity, unspecified Obesity, unspecified Diagnosis 12/07/2020 06:09:00 AM EDT [facility] I10 Essential (primary) hypertension Essential (primary) h ypertension Diagnosis 12/07/2020 06:09:00 AM EDT [facility] J449 Chronic obstructive pulmonary disease, u nspecified Chronic obstructive pulmonary disease, unspecified Diagnosis 12/07/2020 06:09:00 AM EDT [facility] E119 Type 2 diabetes mellitus without complic ations Type 2 diabetes mellitus without complications Diagnosis 12/07/2020 06:09:00 AM EDT [facility] 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 Atherosclerotic heart disease of [place]hes coronary artery with unstable angina pectoris Diagnosis 12/07/2020 06:09:00 AM EDT [facility] R0789 Other chest pain Other chest pain Diagnosis 12/07/2020 06 :09:00 AM EDT [facility] E11.65 [id number] Poorly controlled diabetes mellitus Probl em 07/16/2021 12:00:00 AM EDT [facility] I25.118 [id number] 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) Z95.5 [id number] Presence of coronary angioplasty implant and graft Problem 07/16/2021 12:00:00 AM EDT eCW1 [facility]) Z79.4 [id number] penitentiary (current) use of insulin Proble m 05/22/2021 12:00:00 AM EDT [facility] E11.65 [id number] Type 2 diabetes mellitus with hyperglycem ia Problem 05/22/2021 12:00:00 AM EDT [facility] ([facility]) Surgeries/Procedures Procedure Description Date Indications Data Source(s) MRI, lumbar spine, w/o contrast 07/06/2021 12:00:00 AM EDT [facility] ([facility]) Results ID Date Data Source [id number] 07/12/2021 12:00:00 AM EDT [facility] ([facility]) Name Value Range Interpretation Code Description Data Vicki rce(s) Supporting Document(s) SARS-CoV-2 (COVID-19) RNA [Presence] in Respiratory specimen by CHRISTEN with probe detection negative negative Sars-cov-2 [facility] ([facility]) ID Date Data Source [id number] 07/12/2021 12:00:00 AM EDT [facility] ([facility]) Name Value Range Interpretation Code Description Data Vicki rce(s) Supporting Document(s) ID Date Data Source [id number] 07/12/2021 12:00:00 AM EDT [facility] Name Value Range Interpretation Code Description Data Vicki rce(s) Supporting Document(s) SARS-CoV-2 NEGATIVE [facility] This lab was ordered by [employer] [facility]-COVID19 and reported by [employer]. ID Date Data Source [id number] 07/12/2021 12:00:00 AM EDT ROLLA ([facility]) Name Value Range Interpretation Code Description Data Vicki rce(s) Supporting Document(s) SARS-CoV-2 (COVID-19) RNA [Presence] in Respiratory specimen by CHRISTEN with probe detection negative negative Sars-cov-2 ROLLA ([facility]) ID Date Data Source [id number] 07/12/2021 12:00:00 AM EDT ADAIR ([facility]) Name Value Range Interpretation Code Description Data Vicki rce(s) Supporting Document(s) ID Date Data Source [id number] 12/08/2020 12:02:00 PM EDT [facility] [address] [place] [address] PHONE: [phone] FAX: [phone] Name .................. : CAROLIN PANDYA Hanna Acct Number.................. : [id number] ROOM. ................. : TR-07 Number ................... : [id number] Stay type ............. : E/R Discharge Date......... ... : 12/07/20 Admit Date ......... : 12/07/20 Admit Phys .................... : EVONMI Date of ....... : 1950 Family Phys ................... : NON STAFF Phone .................. : [phone] Age ................................ : 70 Film# .................. .:[id number] Sex ................................. : M Unsigned transcriptions are preliminary reports and do not represent a medical or legal document CHEST PORTABLE [id number] COMPLETE:12/07/20 06:43 LEON 7351 Reason(s): Chest Pain PORTABLE CHEST X-RAY: INDICATION: Chest pain. FINDINGS: Lung shah are clear. No focal infiltrate or consolidation is identified. The cardiac appears unremarkable. The osseous structures show degenerative changes. IMPRESSION: No acute pulmonary findings. Examination dictated by SHYANN Baird. Examination was reviewed with La Loja MD, radiologist at the time of this dictation. Electronically Reviewed and Signed By La Loja MD , 12/08/20 12:02, KGG Transcribe Initials: DZ , Transcribe Date: 12/07/20 16:42, Dictation Date: Copy for: [facility] REC DISCHARGED Page 1 of 1 Name Value Range Interpretation Code Description Data Vicki rce(s) Supporting Document(s) ID Date Data Source [id number] 12/07/2020 06:09:00 AM EDT [facility] 1 OrderSheet [facility] Emergency Department [address] [place] [address] Phone #: ext- [phone] 12/07/2020 06:08 Patient: YA COE Sex: M : 1950 Age: 70yWEIGHT:111.1 kg (S) HEIGHT:71 inches (S) BMI:34.2ALLERGIES: Sulfa AntibioticsCHIEF COMPLAINT: chest pain, discomfort, SOB, chest pain, discomfort, SOBDIAGNOSIS: Preinfarction syndrome, Chest painLAB ORDERSOrder Description Priority Entered Acknowledged InitialedCBC w Diff STAT 06:13 12/07/2020 06:41 Willian Hope Victoria Laura R.N. ;CMP STAT 06:13 12/07/2020 06:41 Willian Hope Victoria Laura R.N. ;Lipase STAT 06:13 12/07/2020 06:41 Willian Hope Victoria Laura R.N. ;PT/PTT STAT 06:13 12/07/2020 06:41 Willian Hope Victoria Laura RNateN. ;Troponin-T STAT 06:13 12/07/2020 06:41 Willian Hope Victoria Laura R.N. ;BNP STAT 06:13 12/07/2020 06:41 Willian Hope Victoria Laura R.N. ;DIAGNOSTIC STUDY ORDERSOrder Description Priority Entered Acknowledged Initiale dChest Portable 1 STAT 06:13 12/07/2020 06:41 JayyView Jessica Dorsey RNateNNate(Oxygen?(No)) ; Reason for Study: Chest PainMEDICATION/IV/DRIP/FLUID ORDERSOrder Description Priority Entered Acknowledged InitialedAspirin PO 06:13 12/07/2020 06:41 JayyChewable 81 mg Jessica Dorsey RNateNNate324 mg (NOW) ; 2 OrderSheet [facility] Emergency Department [address] [place] [address] Phone #: ext- [phone] 12/07/2020 06:08 Patient: YA COE Sex: M : 1950 Age: 70yNitroGLYCERIN 07:11 12/07/2020 07:18 Jayy,Topical Ointment Sarika Hope RNateN.1 in. R.N.; Verbal order per; Jessica DorseyTylenol PO 1000 07:29 12/07/2020 07:29 Terrymg (NOW x1) Sabino Augustin RN; Demetria RN Verbal order per; Jamar Parrish M.D.GENERAL ORDERSOrder Description Priority Entered Acknowledged InitialedBlood Pressure 06:13 12/07/2020 06:19 Lanaaragno,Monitor Willian, Jessica Sarika R.N. ;Market Relationship Manager 06:13 12/07/2020 06:19 Jayy,(continuous) Jessica Dorsey Sarika R.N. ;EKG 06:13 12/07/2020 06:19 Jayy, Willian, Jessica Sarika R.N. ;NPO 06:13 12/07/2020 06:19 Jayy, Willian, Jessica Sarika R.N. ;Obtain Old EKG 06:12/07/2020 06:19 Saloo, Cathleenecco, Miguel ulises Sarika R.N. ;Obtain Old Records 06:12/07/2020 06:19 Jayy, Willian, Jessica Sarika R.N. ;Oxygen titrate to 06:13 12/07/2020 06:19 Jayy,92% Cathleenecsarita, Jessica Sarika R.N. ;Pulse oximeter 06:13 12/07/2020 06:19 Jayy,(Continuous) Willian, Jessica Sarika R.N. ;Saline Lock 06:13 12/07/2020 06:19 Jayy, Willian, Jessica Sarika R.N. ;Vitals 06:13 12/07/2020 06:19 Jayy, Willian, Jessica Sarika R.N. ; 3 OrderSheet [facility] Emergency Department [address] [place] [address] Phone #: ext- [phone] 12/07/2020 06:08 [id number] Sex: M : 1950 Age: 70y[Electronically signed by Jamar Parrish M.D. (08:52 12/07/2020)][Electronically signed by Sabino Augustin RN (12:17 12/07/2020)][Electronically signed by Jessica Dorsey (09:11 12/08/2020)][Electronically locked by Sabino Augustin RN (12:17 12/07/2020)] Name Value Range Interpretation Code Description Data Vicki rce(s) Supporting Document(s) ID Date Data Source [id number] 12/07/2020 06:09:00 AM EDT [facility] 1 Medication Reconciliation Report [facility] Emergency Department [address] [place] [address] Phone #: ext- [phone] 12/07/2020 06:08 Patient: YA COE Sex: M : 1950 Age: 70yWeight: 111.1 kgHeight/Length: 71 in.BMI: 34.2ALLERGIES: Sulfa AntibioticsThe patient's Home Medications are listed below:CONTINUE TAKING THE FOLLOWING MEDICATIONS: Aspirin 81 Oral (81 mg) 1 tablet, daily Centrum Silver Oral 1 tablet, daily clonazePAM Oral (1 mg) 1 tablet, 2x a day hydrOXYzine HCl Oral (25 mg) 1 tablet, 2x a day Incruse Ellipta Inhalation (62.5 mcg/inh) 1 puff, daily Lantus Subcutaneous, 2x a day, 45units in morning and 37 in evening Mag64 Oral (64 mg) 1 tablet, 2x a day metFORMIN HCl Oral (500 mg) 1 tablet, daily Metoprolol Succinate ER Oral (25 mg) 1 tablet, daily ProAir HFA Inhalation 1 puff, dailyThe source(s) of the original Home Medication information:Not obtained.The following Medications were given to the patient in the Emergency Department:ASPIRIN CHEWABLE 81 MG [PO] PO 324 mg, administered: 06:41 12/07/2020NITROGLYCERIN [TOPICAL OINTMENT] Topical 0.5 in., administered: 07:18 12/07/2020 2 Medication Reconciliation Report [facility] Emergency Department [address] [place] [address] Phone #: ext- [phone] 12/07/2020 06:08 Patient: YA COE Sex: M : 1950 Age: 70yTylenol [PO] PO 1000 mg, administered: 07:12/07/2020The following Medications were prescribed to the patient:None. Name Value Range Interpretation Code Description Data Vicki rce(s) Supporting Document(s) ID Date Data Source [id number] 12/07/2020 06:09:00 AM EDT [facility] 1 Medication Administration Record [facility] Emergency Department [address] [place] [address] Phone #: ext- [phone] 12/07/2020 06:08 Patient: YA COE Sex: M : 1950 Age: 70yWeight: 111.1 kgHeight/Length: 71 inBMI: 34.2ALLERGIES: Sulfa Antibiotics Date/Time Medication Administered Medication OrderedGiven ASPIRIN CHEWABLE 81 MG [PO] Aspirin PO Chewable 81 mg 14239:41 12/07/2020 Dose: 324 mg PO mg (NOW)Sarika Hope, R.N.Given NITROGLYCERIN [TOPICAL OINTMENT] NitroGLYCERIN Pqcledd04:18 12/07/2020 Dose: 0.5 in. Topical Ointment 1 in.Sarika Hope, R.N.Given TYLENOL [PO] (APAP) Tylenol PO 1000 mg (NOW x1)07:29 12/07/2020 Dose: 1000 mg Tablets Iza Augustin RN Name Value Range Interpretation Code Description Data Vicki rce(s) Supporting Document(s) ID Date Data Source [id number] 12/07/2020 06:09:00 AM EDT [facility] 1 General Instructions [facility] Emergency Department [address] [place] [address] Phone #: ext- [phone] 12/07/2020 06:08 [id number] Sex: M : 1950 Age: 70yUnstable angina.(Electronically signed by Jessica Dorsey 12/08/2020 09:11)Precordial chest pain characterized as "discomfort".Leaving Against Medical Advice.INSTRUCTIONSNo strenuous activity until released.Avoid stimulants (such as cigarettes, coffee, cold medicines, sinus medicines, street drugs). Follow a lowsalt diet and low cholesterol diet. Do not smoke. No alcohol.Warnings: Further evaluation is necessary in order to conduct further tests. It is very important to follow upwith a healthcare provider.GENERAL WARNINGS: Return or contact your physician immediately if your condition worsens orchanges unexpectedly, if not improving as expected, or if o ther problems arise. SPECIFICALLY, return ifyou develop chest, neck, jaw, shoulder, arm, or back pain, difficulty breathing, a fluttering sensation in yourchest, lightheadedness, fainting, excessive fatigue, or sudden sweating.Your Current Medications: Your current home medications have been reviewed.CONTINUE TAKING THE FOLLOWING MEDICATIONS:Aspirin 81 Oral : Tablet Delayed Release 81 mg, 1 tablet daily.Centrum Silver Oral : 1 tablet daily.clonazePAM Oral : Tablet 1 mg, 1 tablet 2x a day.hydrOXYzine HCl Oral : Tablet 25 mg, 1 tablet 2x a day. 2 General Instructions [facility] Emergency Department [address] [place] [address] Phone #: ext- [phone] 12/07/2020 06:08 Patient: YA COE Located [facility]#: [id number] Sex: M : 1950 Age: 70yIncruse Ellipta Inhalation : Aerosol Powder Breath Activated 62.5 mcg/inh, 1 puff daily.Lantus Subcutaneous : 2x a day, 45units in morning and 37 in evening.Mag64 Oral : Tablet Delayed Release 64 mg, 1 tablet 2x a day.metFORMIN HCl Oral : Tablet 500 mg, 1 tablet daily.Metoprolol Succinate ER Oral : Tablet Extended Release 24 Hour 25 mg, 1 tablet daily.ProAir HFA Inhalation : 1 puff daily.Follow-up:Return to the emergency department as needed. Follow up with your healthcare provider in two dayseven if well. Call for an appointment. Reason for referral: evaluation and treatment. Summary of careprovided to patient and family via paper.AMA warnings: Oriented to person, place, and time. Gives appropriate answers and rational explanationof refusal of care. No indication for involuntary commitment is present, signs of psychosis, auditoryhallucinations, delusional thinking or suicidal ideations. No slurred speech, tangential thinking, visualhallucinations or homicidal ideations. Speaks coherently. Abstract thinking intact.Clinical Impression: the patient has the capacity to make decisions regarding the medical care offered.Relevant issues reviewed and discussed with the patient and family. Acknowledges understanding of thereasons for recommendations regarding medical treatment, medical tests and admission to facility. Therecommended medical care being refused is admitted overnight for observation and to r/o GA and has beendiscussed with the patient and family. The risks of refusing recommended care that were disclosed andackno wledged are . Risks of refusing recommended care- worsening symptoms, heart attack,cardiac arrest, . Discharge instructions were provided to the patient and responsible green party.REFUSAL OF CARE STATEMENT (patient to review and sign in discharge instructions):I have read this paragraph. I understand that a doctor at this [facility] wants to give me certain medicalcare. The doctor explained that care to me, and I understand what that care is. The doctor also explainedto me what could happen to me if I leave here without having that care, and I understand what he said. Iwant to leave this hospital without receiving the recommended care. I know that I am welcome to return [facility] at any time to receive the recommended care or any other care that I may need at any time,regardless of my ability to pay for such care.No strenuous activity until released.(Electronically signed by Jamar Parrish M.D. 12/07/2020 08:52) 3 General Instructions [facility] Emergency Department [address] [place] [address] Phone #: ext- [phone] 12/07/2020 06:08 Patient: YA COE Sex: M : 1950 Age: 70y Name Value Range Interpretation Code Description Data Vicki rce(s) Supporting Document(s) ID Date Data Source [id number] 12/07/2020 06:09:00 AM EDT [facility] 1 Clinical Report - Nurses [facility] Emergency Department [address] [place] [address] Phone #: ext- [phone] 12/07/2020 06:08 Patient: YA COE Sex: M : 1950 Age: 70yTRIAGE Arrived by private vehicle. Historian: patient. ( pATIENT STATES STARTING LAST NIGHT HE DEVELOPED A HEADACHE, CP AND SOB.). Acuity: LEVEL 3. Chief Complaint: CHEST PAIN and SHORTNESS OF BREATH. Alert. No acute distress. This started last night. The patient has had difficulty breathing and nausea. 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 SEPSIS SCREEN: SIRS SCREEN NEGATIVE. SEPSIS SCREEN NEGATIVE. No suspected or confirmed signs of infection present. --06:11 12/07/20 Braden Lui 06:09 12/07/20. BP: 164/73 taken on the left arm, via an automated monitor, while sitting. MAP: 103. HR: 96 (regular, normal rate and strong). RR: 16 (regular, unlabored and normal). O2 saturation: 100% on jake m air. Temp: 97.3 F (oral). Pain level now: 02/18. --06:11 12/07/20 Braden Lui. Weight: 111.1 kg stated. Height/Length: 71 inches Per Patient. BMI: 34.2. --06:11 12/07/20 Braden Lui. Medications metFORMIN HCl Oral (Tablet 500 mg) 1 tablet, daily. --06:13 12/07/20 Braden Lui Aspirin 81 Oral (Tablet Delayed Release 81 mg) 1 tablet, daily. --06:14 12/07/20 Braden Lui Mag64 Oral (Tablet Delayed Release 64 mg) 1 tablet, 2x a day. --06:14 12/07/20 Braden Lui Metoprolol Succinate ER Oral (Tablet Extended Release 24 Hour 25 mg) 1 tablet, daily. --06:15 12/07/20 Braden Lui hydrOXYzine HCl Oral (Tablet 25 mg) 1 tablet, 2x a day. --06:15 12/07/20 Braden Lui clonazePAM Oral (Tablet 1 mg) 1 tablet, 2x a day. --06:15 12/07/20 Braden Lui Centrum Silver Oral 1 tablet, daily. --06:16 12/07/20 Braden Lui Incruse Ellipta Inhalation (Aerosol Powder Breath Activated 62.5 mcg/inh) 1 puff, daily. --06:16 12/07/20 Braden Lui ProAir HFA Inhalation 1 puff, daily. 2 Clinical Report - Nurses [facility] Emergency Department [address] [place] [address] Phone #: ext- [phone] 12/07/2020 06:08 Patient: YA COE Sex: M : 1950 Age: 70y --06:17 12/07/20 Dana Lui Subcutaneous, 2x a day (45units in morning and 37 in evening ). --06:18 12/07/20 Braden LuiThe following entry was struck by Braden Lui, 06:20 (12/07/20) Reason - other(duplicates). ProAir HFA Inhalation 1 puff, daily. --06:17 12/07/20 Braden LuiThe following entry was struck by Braden Lui, 06:20 (12/07/20) Reason - other(duplicates). Metoprolol Succinate ER Oral (Tablet Extended Release 24 Hour 25 mg) 1 tablet, daily. --06:153 Braden LuiThe following entry was struck by Braden Lui, 06:20 (12/07/20) Reason - other(duplicates). metFORMIN HCl Oral (Tablet 500 mg) 1 tablet, daily. --06:13 12/07/20 Braden LuiThe following entry was struck by Braden Lui, 06:20 (12/07/20) Reason - other(duplicates). Mag64 Oral (Tablet Delayed Release 64 mg) 1 tablet, 2x a day. --06:14 12/07/20 Braden LuiThe following entry was struck by Braden Lui, 06:20 (12/07/20) Reason - other(duplicates). Incruse Ellipta Inhalation (Aerosol Powder Breath Activated 62.5 mcg/inh) 1 puff, daily. --06:16 12/07/20Braden LuiThe following entry was struck by Braden Lui, 06:20 (12/07/20) Reason - other(duplicates). hydrOXYzine HCl Oral (Tablet 25 mg) 1 tablet, 2x a day. --06:15 12/07/20 Braden LuiThe following entry was struck by Braden Lui, 06:19 (12/07/20) Reason - other(duplicates). clonazePAM Oral (Tablet 1 mg) 1 tablet, 2x a day. --06:15 12/07/20 Braden LuiThe following entry was struck by Braden Lui, 06:19 (12/07/20) Reason - other(duplicates). Centrum Silver Oral 1 tablet, daily. --06:16 12/07/20 Braden LuiThe following entry was struck by Braden Lui, 06:19 (12/07/20) Reason - other(duplicates). Aspirin 81 Oral (Tablet Delayed Release 81 mg) 1 tablet, daily. --06:14 12/07/20 Braden Lui .AllergiesSulfa Antibiotics. --06:09 12/07/20 Braden Lui.HistorySOCIAL HX: Never smoker. No alcohol use or drug use. The patient was offered HIV testing butdeclined and hepatitis C testing but declined. The patient has not traveled outside the [place]Infectious disease exposure: No infectious disease exposure.SELF HARM ASSESSMENT: Self harm assessment was performed. The patient answered "no" to thequestion(s) "Have you recently felt down, depressed, or hopeless?", "Do you have thoughts of harming orkilling yourself?", "Do you have a plan for harming or killing yourself?", "Have you recently had thoughtsabout harming or killing others?", "Do you have any dangerous items in your possession?", "Have younoticed less interest or pleasure in doing things?", "Are you here because you tried to hurt yourself?" and"Have you ever tried to hurt yourself before today?".ABUSE ASSESSMENT: Abuse assessment. Abuse denied. No report of abuse.NUTRITIONAL RISK ASSESSMENT: The nutritional risk assessment revealed no deficiencies. 3 Clinical Report - Nurses [facility] Emergency Department [address] [place] [address] Phone #: ext- [phone] 12/07/2020 06:08 Patient: YA COE Located Within [facility]#: [id number] Sex: M : 1950 Age: 70y FUNCTIONAL ASSESSMENT: Functional assessment: no impairments noted. LEARNING NEEDS ASSESSMENT: The learning needs assessment revealed no barriers. FALL RISK ASSESSMENT: Fall risk assessment completed. No risk factors identified. SKIN INTEGRITY ASSESSMENT: Skin integrity risk assessment completed. No skin integrity risk identified. --06:11 12/07/20 Braden Lui. Interventions Identification band on patient. --06:11 12/07/20 Braden Lui.PHYSICAL ASSESSMENT GENERAL / NEURO / PSYCH: Alert. Oriented X 4. Appears in no acute distress. HEENT: Mucous membranes are pink. RESPIRATORY: Respirations not labored. Chest nontender. Breath sounds within normal limits. CVS: Normal sinus rhythm noted. Cardiac rhythm: normal sinus rhythm. Heart sounds within normal limits. Pulses within normal limits. Capillary refill less than 2 seconds. GI / : Abdomen soft and nontender. EXTREMITIES: No lower extremity edema. SKIN: Skin is warm and dry. Normal skin turgor. Skin is non- tender. --06:20 12/07/20 Braden Lui.NURSING PROGRESS NOTES The plan of care for this patient has been created. monitoring tech, NIBP monitor and pulse oximeter placed on patient. EKG was performed by a nurse and shown to the ED physician. Patient gowned. Reassurance given. Call light placed in reach. Side rails up x 1. Bed placed in lowest position. Brakes of bed on. --06:21 12/07/20 Braden Lui 06:41 12/07/2020 ASPIRIN CHEWABLE 81 MG PO 324 mg given. Allergies verified and confirmed 5 rights. Information reviewed with patient. Verbalizes understanding. --06:41 12/07/20 Sarika Hope R.N. 06:41 12/07/2020 Site #1 started via IV in the left antecubital space with an 20g angiocath, with aseptic technique; two attempts. Blood drawn: rainbow set. Sent to the lab. Saline lock flushed with 10 mL saline. --06:41 12/07/20 Sarika Hope R.N. 07:18 12/07/2020 NITROGLYCERIN Topical 0.5 inch given. Applied to the left chest. Allergies verified and confirmed 5 rights. Information reviewed with patient. Verbalizes understanding. --07:18 12/07/20 Sarika Hope R.N. 07:18 12/07/20. BP: 135/69. MAP: 91. HR: 81. RR: 20. O2 saturation: 100% on room air. Pain level now: 12/19. --07:19 12/07/20 Sarika Hope R.N. The patient is calm and resting quietly. --07:19 12/07/20 Sarika Hope R.N. 4 Clinical Report - Nurses [facility] Emergency Department [address] [place] [address] Phone #: ext- [phone] 12/07/2020 06:08 [id number] Sex[facility] M : 1950 Age: 70y 07:29 12/07/2020 Tylenol (APAP) PO Tablets 1000 mg given. Allergies verified and confirmed 5 rights. Information reviewed with patient. --07:29 12/07/20 Sabino Augustin RN.DISPOSITION / DISCHARGE 07:50 12/07/20. Departure time: 07:50 12/07/2020. Condition at departure: improved. No learning barriers present. The patient left the Emergency Department without completion of treatment; (refused admission). The patient appears to be alert, oriented x4, coherent and in no acute distress. He stated is leaving (refused admission). Notified the ED physician of patient departure. Prior to leaving, he was advised to stay for completion of treatment and return if needed. He was informed of the risks of leaving. Patient signed form prior to leaving. He left the Emergency Department ambulatory and via private vehicle. --07:59 12/07/20 Sbaino Augustin RN 07:49 12/07/20. BP: 139/76. MAP: 97. HR: 78. RR: 18. O2 saturation: 99% on room air. Temp: 97.3 F (oral). Pain level now: 09/20. --07:59 12/07/20 Sabino Augustin RN 07:50 12/07/2020 Site #1 removed upon discharge. Catheter intact. Bandaid applied. --08:00 12/07/20 Sabino Augustin RN.Locked/Released at 12/07/2020 12:17 by Sabino Augustin RN Name Value Range Interpretation Code Description Data Vicki rce(s) Supporting Document(s) ID Date Data Source [id number] 12/07/2020 06:09:00 AM EDT [facility] 1 Clinical Report - Physicians/Mid Levels [facility] Emergency Department [address] [place] [address] Phone #: ext- [phone] 12/07/2020 06:08 Patient: YA COE Sex: M : 1950 Age: 70y Time Seen: 06:10 12/07/2020. Arrived- By private vehicle. Historian- patient.HISTORY OF PRESENT ILLNESS Chief Complaint: CHEST PAIN and DISCOMFORT. SHORTNESS OF BREATH. It is described as pressure and tightness and it is described as located in the left chest area. No radiation. This started last night at 10 pm and is still present but is improving. At its maximum, severity described as 10 / 10. When seen in the E.D., severity described as 6 / 10. Modifying factors- relieved by nitroglycerin (two, from patients own supply). Not worsened by anything. Relief was transient. No nausea or vomiting. He has had difficulty breathing and has experienced diaphoresis. (Patient had an RCA sten placed in 2014 in [place]. 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 he has been having intermittent ches tpain for the last several years however last night while in bed developed left sided chest pain associated with shortness of breath. Max took his NTG which offered transient relief only for the ches tpain to come back at 4 am. he took another NTG with transient relief of Chest pain. chest pain came back again at 5 am so he came to the ER).REVIEW OF SYSTEMSNo fever, chills, cough, pedal edema or calf pain. No fainting episodes, sore throat, blurred vision,abdominal pain or black stools. No difficulty with urination, skin rash, enlarged lymph nodes, joint pain orbloody stools.PAST HISTORYSee nurses notes. Problems: Diabetes Mellitus. COPD - Chronic Obstructive Pulmonary Disease. Heart Disease. Kidney problems. Hypertension. Additional Surgeries: Cardiac stents. Cholecystectomy. Eye surgery. Hernia Repair. Medications: Lantus Subcutaneous, 2x a day (45units in morning and 37 in evening ). ProAir HFA Inhalation 1 puff, daily. 2 Clinical Report - Physicians/Mid Levels [facility] Emergency Department [address] [place] [address] Phone #: ext- [phone] 12/07/2020 06:08 [id number] Sex: M : 1950 Age: 70y Incruse Ellipta Inhalation (Aerosol Powder Breath Activated 62.5 mcg/inh) 1 puff, daily. Centrum Silver Oral 1 tablet, daily. clonazePAM Oral (Tablet 1 mg) 1 tablet, 2x a day. hydrOXYzine HCl Oral (Tablet 25 mg) 1 tablet, 2x a day. Metoprolol Succinate ER Oral (Tablet Extended Release 24 Hour 25 mg) 1 tablet, daily. Mag64 Oral (Tablet Delayed Release 64 mg) 1 tablet, 2x a day. Aspirin 81 Oral (Tablet Delayed Release 81 mg) 1 tablet, daily. metFORMIN HCl Oral (Tablet 500 mg) 1 tablet, daily. Allergies: Sulfa Antibiotics.SOCIAL HISTORYFormer smoker, end date `50 years ago (chews tobacco currently). No alcohol use or drug use.ADDITIONAL NOTESThe nursing notes have been reviewed.PHYSICAL EXAMVital Signs: 12/07/2020 06:09 BP: sitting 164/73. MAP: 103. HR: 96. RR: 16. O2 saturation: 100% onroom air. Temp: 97.3 F. Pain level now: 02/18. Have been reviewed. Oxygen saturation normal.Appearance: Alert. Oriented X3. No acute distress.Eyes: Pupils equal, round and reactive to light. Eyes normal inspection.ENT: (poor dentition).Neck: Normal inspection. Neck supple. No JVD, carotid bruit, lymphadenopathy or thyromegaly.CVS: Normal heart rate and rhythm. Heart sounds normal. Pulses normal.Respiratory: No respiratory distress. Chest pain reproducible with palpation of the anterior chest wall.Painless inspiration. Breath sounds normal.Abdomen: Soft and nontender. [place] el sounds normal. No organomegaly. No mass. Obese.Back: CVA tenderness. Normal external inspection.Skin: Skin warm and dry. Normal skin color. No rash. Normal skin turgor.Extremities: Extremities exhibit normal ROM. No lower extremity edema.Neuro: Oriented X 3. No motor deficit.LABS, X-RAYS, AND EKGEKG: EKG time: 06:10 12/07/2020. No acute process. No acute ischemia. Normal sinus rhythm.Rate: 94. Normal P waves. Normal QRS complex. Non-specific ST segment / T wave abnormalities.EKG unchanged when compared with prior EKG. (02/18/17). The study has been interpretedcontemporaneously by me. The study has been independently viewed by me. The EKG appears to be agood tracing. Interpretation time: 06:13 12/07/2020.PROGRESS AND PROCEDURESCourse of Care: 06:38 12/07/20. aspirin given . patient states that the pain is gone when 1 was about toorder NTG. FSG 215. ED care transferred. Case discussed with DR Parrish. Brief hx: 70 y/o male with hxof CAD, DM, HTN presents with intermittent chest pain since 10 pm. Pending items: lab and xray results. 3 Clinical Report - Physicians/Mid Levels [facility] Emergency Department [address] [place] [address] Phone #: ext- [phone] 12/07/2020 06:08 Patient: YA COE Sex: M : 1950 Age: 70y Tentative impression: unstable angina. Expected disposition: admit.CLINICAL IMPRESSION Unstable angina.(Electronically signed by Jessica Dorsey 12/08/2020 09:11) Time Seen: 06:10 12/07/2020. Arrived- By private vehicle. Historian- patient. Disposition decision: 07:37 12/07/2020.HISTORY OF PRESENT ILLNESS Chief Complaint: CHEST PAIN and DISCOMFORT. SHORTNESS OF BREATH. It is described as pressure and tightness and it is described as located in the left chest area. No radiation. This started last night at 10 pm and is still present but is improving. At its maximum, severity described as 10 / 10. When seen in th e E.D., severity described as 6 / 10. Modifying factors- relieved by nitroglycerin (two, from patients own supply). Not worsened by anything. Relief was transient. No nausea or vomiting. He has had difficulty breathing and has experienced diaphoresis. (Patient had an RCA stent placed in 2014 in [place]. 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 he has been having intermittent chest pain for the last several years however last night while in bed developed left sided chest pain associated with shortness of breath. He took his NTG which offered transient relief only for the chest pain to come back at 4 am. he took another NTG with transient relief of Chest pain. chest pain came back again at 5 am so he came to the ER).REVIEW OF SYSTEMSNo fever, chills, cough, pedal edema or calf pain. No fainting episodes, sore throat, blurred vision,abdominal pain or black stools. No difficulty with urination, skin rash, enlarged lymph nodes, joint pain orbloody stools. All other systems reviewed and are negative.PAST HISTORYSee nurses notes. Problems: Diabetes Mellitus. COPD - Chronic Obstructive Pulmonary Disease. Heart Disease. 4 Clinical Report - Physicians/Mid Levels [facility] Emergency Department [address] [place] [address] Phone #: ext- [phone] 12/07/2020 06:08 Patient: YA COE Sex: M : 1950 Age: 70y Kidney problems. Hypertension. Additional Surgeries: Cardiac stents. Cholecystectomy. Eye surgery. Hernia Repair. Medications: Lantus Subcutaneous, 2x a day (45units in morning and 37 in evening ). ProAir HFA Inhalation 1 puff, daily. Incruse Ellipta Inhalation (Aerosol Powder Breath Activated 62.5 mcg/in h) 1 puff, daily. Centrum Silver Oral 1 tablet, daily. clonazePAM Oral (Tablet 1 mg) 1 tablet, 2x a day. hydrOXYzine HCl Oral (Tablet 25 mg) 1 tablet, 2x a day. Metoprolol Succinate ER Oral (Tablet Extended Release 24 Hour 25 mg) 1 tablet, daily. Mag64 Oral (Tablet Delayed Release 64 mg) 1 tablet, 2x a day. Aspirin 81 Oral (Tablet Delayed Release 81 mg) 1 tablet, daily. metFORMIN HCl Oral (Tablet 500 mg) 1 tablet, daily. Allergies: Sulfa Antibiotics.SOCIAL HISTORYFormer smoker, end date `50 years ago (chews tobacco currently). No alcohol use or drug use.ADDITIONAL NOTESThe nursing notes have been reviewed.PHYSICAL EXAMVital Signs: 12/07/2020 06:09 BP: sitting 164/73. MAP: 103. HR: 96. RR: 16. O2 saturation: 100% onroom air. Temp: 97.3 F. Pain level now: 6/10. Have been reviewed. Oxygen saturation normal.Appearance: Alert. Oriented X3. No acute distress.Eyes: Pupils equal, round and reactive to light. Eyes normal inspection.ENT: Nose normal. Pharynx normal. (poor dentition).Neck: Normal inspection. Neck supple. No JVD, carotid bruit, lymphadenopathy or thyromegaly.CVS: Normal heart rate and rhythm. Heart sounds normal. Pulses normal.Respiratory: No respiratory distress. Chest pain reproducible with palpation of the anterior chest wall.Painless inspiration. Breath sounds normal.Abdomen: Soft and nontender. Bowel sounds normal. No organomegaly. No mass. Femoral pulsesequal. Obese.Back: CVA tenderness. Normal external inspection.Skin: Skin warm and dry. Normal skin color. No rash. Normal skin turgor.Extremities: Extremities exhibit normal ROM. No lower extremity edema. 5 Clinical Report - Physicians/[facility] Emergency Department [address] [place] [address] Phone #: ext- [phone] 12/07/2020 06:08 Patient: YA COE Sex: M : 1950 Age: 70y Neuro: Oriented X 3. No motor deficit.LABS, X-RAYS, AND EKGEKG: EKG time: 06:10 12/07/2020. No acute process. No acute ischemia. Normal sinus rhythm.Rate: 94. Normal P waves. Normal QRS complex. Non-specific ST segment / T wave abnormalities.EKG unchanged when compared with prior EKG. (02/18/17). The study has been interpretedcontemporaneously by me. The study has been independently viewed by me. The EKG appears to be agood tracing. Interpretation time: 06:13 12/07/2020.Chest X-ray: No acute disease. Views: AP (portable). Technique: good. The X-rays were interpretedby the radiologist and contemporaneously by me. Interpretation time: 07:23 12/07/2020.Laboratory Tests: Laboratory tests have been ordered, with results reviewed and considered in themedical decision making process. CBC w Diff: (HELENA: 12/07/2020 06:36) ( MsgRcvd 12/07/2020 07:14) Final results Test Result Flag Units (Reference) CBC W/AUTOMATED DIFF COMPLETE BLOOD COUNT WBC 9.1 10/uL (4.2 - 11.0) RBC 4.88 10/uL (4.50 - 6.30) HEMOGLOBIN 16.0 g/dL (14.0 - 16.0) HEMATOCRIT 44.9 % (41.0 - 51.0) MCV 92.0 fL (80.0 - 94.0) MCH 32.8 pg (27.0 - 34.0) MCHC 35.6 g/dL (31.0 - 36.0) RDW 12.1 % (11.5 - 14.8) PLATELETS 285 10/uL (150 - 450) MPV 11.0 H fL (7.4 - 10.4) NEUT 56.9 % (37.0 - 80.0) LYMPH 26.7 % (25.0 - 40.0) MONO 8.2 H % (3.0 - 8.0) EOS 6.4 % (0.0 - 7.0) BASO 1.1 % (0.0 - 2.0) %IG 0.7 H % (0.0 - 0.0) %NRBC 0.0 % (0.0 - 0.0) #NEUT 5.15 10/uL (2.00 - 6.90) #LYMPH 2.42 10/uL (0.60 - 3.40) #MONO 0.74 10/uL (0.00 - 0.90) #EOS 0.58 10/uL (0.00 - 0.70) #BASO 0.10 10/uL (0.00 - 0.20) #IG 0.06 10/uL (0.00 - 0.10) #NRBC 0.00 10/uL (0.00 - 0.00) MANUAL DIFF NOT INDICATED RBC MORPH NOT INDICATED CMP: (HELENA: 12/07/2020 06:36) ( [facility] 12/07/2020 07:19) Final results Test Result Flag Units (Reference) COMPREHENSIVE METABOLIC PANEL COMPREHENSIVE METABOLIC PANEL SODIUM 134 mEq/L (134 - 153) POTASSIUM 3.9 mEq/L (3.6 - 5.0) CHLORIDE 102 mEq/L (98 - 107) CO2 23 MEQ/L (22 - 30) GLUCOSE 227 H MG/DL (70 - 99) BUN 13 MG/DL (7 - 21) 6 Clinical Report - Physicians/Mid Levels [facility] Emergency Department [address] [place] [address] Phone #: ext- [phone] 12/07/2020 06:08 Patient: YA COE Sex: M : 1950 Age: 70y CREATININE 0.7 MG/DL (0.7 - 1.5) BUN/CREAT 19 (8 - 27) TOTAL PROTEIN 6.5 G/DL (6.3 - 8.2) ALBUMIN 4.0 G/DL (3.9 - 5.0) GLOBULIN 2.5 GM/DL (2.4 - 3.2) A/G RATIO 1.6 (0.8 - 2.0) CALCIUM 10.4 H MG/DL (8.4 - 10.2) TOTAL BILI <0.7 MG/DL (0.2 - 1.3) ALKALINE PHOS 118 U/L (38 - 126) SGOT/AST 26 U/L (5 - 40) SGPT/ALT 47 U/L (7 - 56) ANION GAP 9.0 mmol/L (8.0 - 16.0) AGE 70 yrs NON-AA GFR >60 mL/min AFR AMER GFR >60 mL/min Male GFR Interprentation 20-49 yrs >60 mL/min Normal 50-59 yrs >56 mL/min Normal 60-69 yrs >49 mL/min Normal 70-79yrs >42 mL/min Normal 80 and above >35 mL/min Normal Female GFR Interpretation 20-39 yrs >60 mL/min Normal 40-49 yrs >58 mL/min Normal 50-59 yrs >51 mL/min Normal 60-69 yrs >45 mL/min Normal 70-79 yrs >39 mL/min Normal 80 and above >32 mL/min Normal Lipase: (HELENA: 12/07/2020 06:36) ( [facility] 12/07/2020 07:19) Final results Test Result Flag Units (Reference) LIPASE 76 H U/L (13 - 60) PT/PTT: (HELENA: 12/07/2020 06:36) ( [facility] 12/07/2020 07:13) Final results Test Result Flag Units (Reference) PROTIME 13.0 SECONDS (11.0 - 15.5) INR 0.94 (0.93 - 1.23) PTT 24.3 L SECONDS (24.8 - 36.7) \\BLDo\\INR INTERPRETATION\\BLDx\\ Therapeutic range for Coumadin and related oral anticoagulants. -International Normalized Ratio (INR): 2.0 - 3.0 for Venous Thrombosis, Pulmonary Embolus, Tissue heart valves, Acute [place] Atrial Fibrillation, Valvular heart disease and recurrent Systemic Embolism. -International Normalized Ratio (INR): 2.5 - 3.5 for Mechanical Prosthetic valve. Troponin-T: (HELENA: 12/07/2020 06:36) ( [facility] 12/07/2020 07:13) Final results Test Result Flag Units (Reference) TROPONIN T <0.01 NG/ML (0.00 - 0.10) TROPONIN T0.1 ng/ml Recommended as the clinical threshold value forTroponin T. BNP: (HELENA: 12/07/2020 06:36) ( [facility] 12/07/2020 07:18) Final results Test Result Flag Units (Reference) BNP 28 PG/ML (0 - 125) Chest Portable 1 View: (HELENA: 12/07/2020 06:16) ( [facility] 12/07/2020 06:43) In Progress CHEST PORTABLE Reason(s): Chest Pain TRANSPORTATION: P IV? O2? Oxygen?(No) Room: ED. 7 Clinical R eport - Physicians/Mid Levels [facility] Emergency Department [address] [place] [address] Phone #: ext- [phone] 12/07/2020 06:08 Patient: YA COE Located Within [facility]#: [id number] Sex: M : 1950 Age: 70yPROGRESS AND PROCEDURESCourse of Care: 06:38 12/07/20. aspirin given . patient states that the pain is gone when 1 was about toorder NTG. FSG 215 07:24 12/07/20. care assumed at shift change, 7 am, Hreviewed, waiting for workup, pt stable hemodynamically and pain free 07:32 12/07/20. workup all in and reviewed and nml; pt has been pain free since he got here; pt should get admitted overnight for observation because of high risk factors and s/p stents; pt refuses admission after numerous times convincing him; pt understands risks in leaving AMA w spouse at his side, agrees to sign paperwork; pt advised to f/u w [facility] in [place] within 2 days and to return to ER as needed. ED care transferred. Case discussed with DR Parrish. Brief hx: 70 y/o male with hx of CAD, DM, HTN presents with intermittent chest pain since 10 pm. Pending items: lab and xray results. Tentative impression: unstable angina. Critical care performed (60 minutes). Time is exclusive of separately billable procedures. Time includes: direct patient care, patient reassessment, coordination of patient care, interpretation of data (laboratory data, chest xrays and prior electrocardiograms), medical consultation and documentation of patient care- see progress notes. Patient and spouse counseled in person regarding the patient's stable condition, test results, diagnosis and need for admission. Disposition: Condition: good and stable.CLINICAL IMPRESSION Precordial chest pain characterized as "discomfort". Leaving Against Medical Advice.INSTRUCTIONS No strenuous activity until released. Avoid stimulants (such as cigarettes, coffee, cold medicines, sinus medicines, street drugs). Follow a low salt diet and low cholesterol diet. Do not smoke. No alcohol. Warnings: Further evaluation is necessary in order to conduct further tests. It is very important to follow up with a healthcare provider. GENERAL WARNINGS: Return or contact your physician immediately if your condition worsens or changes unexpectedly, if not improving as expected, or if other problems arise. SPECIFICALLY, return if you develop chest, neck, jaw, shoulder, arm, or back pain, difficulty breathing, a fluttering sensation in your 8 Clinical Report - Physicians/Mid Levels [facility] Emergency Department [address] [place] [address] Phone #: ext- [phone] 12/07/2020 06:08 Patient: YA COE Sex: M : 1950 Age: 70y chest, lightheadedness, fainting, excessive fatigue, or sudden sweating. Your Current Medications: Your current home medications have been reviewed. CONTINUE TAKING THE FOLLOWING MEDICATIONS: Aspirin 81 Oral : Tablet Delayed Release 81 mg, 1 tablet daily. Centrum Silver Oral : 1 tablet daily. clonazePAM Oral : Tablet 1 mg, 1 tablet 2x a day. hydrOXYzine HCl Oral : Tablet 25 mg, 1 tablet 2x a day. Incruse Ellipta Inhalation : Aerosol Powder Breath Activated 62.5 mcg/inh, 1 puff daily. Lantus Subcutaneous : 2x a day, 45units in morning and 37 in evening. Mag64 Oral : Tablet Delayed Release 64 mg, 1 tablet 2x a day. metFORMIN HCl Oral : Tablet 500 mg, 1 tablet daily. Metoprolol Succinate ER Oral : Tablet Extended Release 24 Hour 25 mg, 1 tablet daily. ProAir HFA Inhalation : 1 puff daily. Follow-up: Return to the emergency department as needed. Follow up with your healthcare provider in two days even if well. Call for an appointment. Reason for referral: evaluation and treatment. Summary of care provided to patient and family via paper. AMA warnings: Oriented to person, place, and time. Gives appropriate answers and rational explanation of refusal of care. No indication for involuntary commitment is present, signs of psychosis, auditory hallucinations, delusional thinking or suicidal ideations. No slurred speech, tangential thinking, visual hallucinations or homicidal ideations. Speaks coherently. Abstract thinking intact. Clinical Impression: the patient has the capacity to make decisions regarding the medical care offered. Relevant issues reviewed and discussed with the patient and family. Acknowledges understanding of the reasons for recommendations regarding medical treatment, medical tests and admission to facility. The recommended medical care being refused is admitted overnight for observation and to r/o GA and has been discussed with the patient and family. The risks of refusing recommended care that were disclosed and acknowledged are . Risks of refusing recommended care- worsening symptoms, heart attack, cardiac arrest, . Discharge instructions were provided to the patient and responsible green party. REFUSAL OF CARE STATEMENT (patient to review and sign in discharge instructions): I have read this paragraph. I understand that a doctor at this hospital wants to give me certain medical care. The doctor explained that care to me, and I understand what that care is. The doctor also explained to me what could happen to me if I leave here without having that care, and I understand what he said. I want to leave this hospital without receiving the recommended care. I know that I am welcome to return to this hospital at any time to receive the recommended care or any other care that I may need at any time, regardless of my ability to pay for such care.(Electronically signed by Jamar Parrish M.D. 12/07/2020 08:52) 9Clinical Report - Physicians/Mid Levels [facility] Emergency Department [address] [place] [address] Phone #: [phone] 12/07/2020 06:08 Patient: YA COE Sex: M : 1950 Age: 70y Name Value Range Interpretation Code Description Data Vicki rce(s) Supporting Document(s) ID Date Data Source [id number] 12/07/2020 09:53:00 AM EDT [facility] [address] [place] [address] RESPIRATORY CARE REPORT ==== ---------NAME------- NUMBER SEX AGE ADMIT DISC. XRAY# F/C TYPEMERRIMALISSA Ferreira [id number] M 70 12/07/20 12/07/20 [id number] MBZ E/R DATE OF : 1950 M/R# [id number] PH#: [phone] TR-07 LOCATION: EKG [id number] COMPLETE:12/07/20 0 7:51 ED [id number] PHYSICIAN: WILLIAN Name Value Range Interpretation Code Description Data Vicki rce(s) Supporting Document(s) ID Date Data Source [id number] 12/07/2020 07:19:00 AM EDT [facility] Name Value Range Interpretation Code Description Data Vicki rce(s) Supporting Document(s) Lipase [Enzymatic activity/volume] in Serum or Plasma 76 U/L 13 - 60 H [facility] ID Date Data Source [id number] 12/07/2020 07:18:00 AM EDT [facility] Name Value Range Interpretation Code Description Data Vicki rce(s) Supporting Document(s) COMPREHENSIVE METABOLIC PANEL [facility] COMPREHENSIVE METABOLIC PANEL Sodium [Moles/volume] in Serum or Plasma 134 mEq/L 134 - 153 [facility] Potassium [Moles/volume] in Serum or Plasma 3.9 mEq/L 3.6 - 5.0 [facility] Chloride [Moles/volume] in Serum or Plasma 102 mEq/L 98 - 107 [facility] Carbon dioxide, total [Moles/volume] in Serum or Plasma 23 MEQ/L 22 - 30 [facility] Glucose [Mass/volume] in Serum or Plasma 227 MG/DL 70 - 99 H [facility] BUN 13 MG/DL 7 - 21 [facility] Creatinine [Mass/volume] in Serum or Plasma 0.7 MG/DL 0.7 - 1.5 [facility] BUN/CREAT 19 8 - 27 [facility] Protein [Mass/volume] in Serum or Plasma 6.5 G/DL 6.3 - 8.2 [facility] Albumin [Mass/volume] in Serum or Plasma 4.0 G/DL 3.9 - 5.0 [facility] Globulin [Mass/volume] in Serum by calculation 2.5 GM/DL 2.4 - 3.2 [facility] A/G RATIO 1.6 0.8 - 2.0 [facility] Calcium [Mass/volume] in Serum or Plasma 10.4 MG/DL 8.4 - 10.2 H [facility] Bilirubin.total [Mass/volume] in Serum or Plasma <0.7 MG/DL 0.2 - 1.3 [facility] Alkaline phosphatase [Enzymatic activity/volume] in Serum or Plasma 118 U/L 38 - 126 [facility] Aspartate aminotransferase [Enzymatic activity/volume] in Serum or Plasma 26 U/L 5 - 40 [facility] Alanine aminotransferase [Enzymatic activity/volume] in Seru m or Plasma 47 U/L 7 - 56 [facility] Anion gap 3 in Serum or Plasma 9.0 mmol/L 8.0 - 16.0 [facility] AGE 70 yrs [facility] NON-AA GFR >60 mL/min [facility] ital AFR AMER GFR >60 mL/min [facility] Male GFR In terprentation 20-49 yrs >60 mL/min Normal 50-59 yrs >56 mL/min Normal 60-69 yrs >49 mL/min Normal 70-79yrs >42 mL/min Normal 80 and above >35 mL/min Normal Female GFR Interpretation 20-39 yrs >60 mL/min Normal 40-49 yrs >58 mL/min Normal 50-59 yrs >51 mL/min Normal 60-69 yrs >45 mL/min Normal 70-79 yrs >39 mL/min Normal 80 and above >32 mL/min Normal ID Date Data Source [id number] 12/07/2020 07:18:00 AM EDT [facility] Name Value Range Interpretation Code Description Data Vicki rce(s) Supporting Document(s) BNP 28 PG/ML 0 - 125 [facility] ID Date Data Source [id number] 12/07/2020 07:14:00 AM EDT [facility] Name Value Range Interpretation Code Description Data Vicki rce(s) Supporting Document(s) CBC W/AUTOMATED DIFF [facility] COMPLETE BLOOD COUNT Leukocytes [#/volume] in Blood by Automated count 9.1 10^3/uL 4.2 - 1 1.0 [facility] Erythrocytes [#/volume] in Blood by Automated count 4.88 10^6/uL 4. 50 - 6.30 [facility] Hemoglobin [Mass/volume] in Blood 16.0 g/dL 14.0 - 16.0 [facility] Hematocrit [Volume Fraction] of Blood by Automated count 44.9 % 4 1.0 - 51.0 [facility] Erythrocyte mean corpuscular volume [Entitic volume] by Auto mated count 92.0 fL 80.0 - 94.0 [facility] Erythrocyte mean corpuscular hemoglobin [Entitic mass] by Automated count 32.8 pg 27.0 - 34.0 [facility] Erythrocyte mean corpuscular hemoglobin concentration [Mass/volume] by Automated count 35.6 g/dL 31.0 - 36.0 [facility] Erythrocyte distribution width [Ratio] by Automated count 12.1 % 11.5 - 14.8 [facility] Platelets [#/volume] in Blood by Automated count 285 10^3/uL 150 - 45 0 [facility] Platelet mean volume [Entitic volume] in Blood by Automated count 11.0 fL 7.4 - 10.4 H [facility] Neutrophils/100 leukocytes in Blood by Automated count 56.9 % 37. 0 - 80.0 [facility] Lymphocytes/100 leukocytes in Blood by Manual count 26.7 % 25.0 - 40.0 [facility] Monocytes/100 leukocytes in Blood by Automated count 8.2 % 3.0 - 8.0 H [facility] Eosinophils/100 leukocytes in Blood by Automated count 6.4 % 0.0 - 7.0 [facility] Basophils/100 leukocytes in Blood by Automated count 1.1 % 0.0 - 2.0 [facility] %IG 0.7 % 0.0 - 0.0 H [facility] al %NRBC 0.0 % 0.0 - 0.0 [facility] al Neutrophils [#/volume] in Blood by Automated count 5.15 10^3/uL 2.00 - 6.90 [facility] Lymphocytes [#/volume] in Blood by Automated count 2.42 10^3/uL 0.60 - 3.40 [facility] Monocytes [#/volume] in Blood by Automated count 0.74 10^3/uL 0.00 - 0.90 [facility] Eosinophils [#/volume] in Blood by Automated count 0.58 10^3/uL 0.00 - 0.70 [facility] Basophils [#/volume] in Blood by Automated count 0.10 10^3/uL 0.00 - 0.20 [facility] #IG 0.06 10^3/uL 0.00 - 0.10 [facility] ospital #NRBC 0.00 10^3/uL 0.00 - 0.00 [facility] ospital MANUAL DIFF NOT INDICATED [facility] RBC MORPH NOT INDICATED [facility] spital ID Date Data Source [id number] 12/07/2020 07:12:00 AM EDT [facility] Name Value Range Interpretation Code Description Data Vicki rce(s) Supporting Document(s) Prothrombin time (PT) 13.0 SECONDS 11.0 - 15.5 [facility] INR in Platelet poor plasma by Coagulation assay 0.94 0.93 - 1. 23 [facility] aPTT in Blood by Coagulation assay 24.3 SECONDS 24.8 - 36.7 L [facility] \\BLDo\\INR INTERPRETATION\\BLDx\\ Therapeutic range for Coumadin and related oral anticoagulants. - International Normalized Ratio (INR): 2.0 - 3.0 for Venous Thrombosis, Pulmonary Embolus, Tissue heart valves, Acute [place] Atrial Fibrillation, Valvular heart disease and recurrent Systemic Embolism. - International Normalized Ratio (INR): 2.5 - 3.5 for Mechanical Prosthetic valve. ID Date Data Source [id number] 12/07/2020 07:12:00 AM EDT [facility] [facility] Name Value Range Interpretation Code Description Data Vicki rce(s) Supporting Document(s) TROPONIN T <0.01 NG/ML 0.00 - 0.10 [facility] TROPONIN T0.1 ng/ml Recommended as the c linical threshold value forTroponin T. ID Date Data Source [id number] 07/06/2020 12:00:00 AM [facility]T [facility] Name Value Range Interpretation Code Description Data Vicki rce(s) Supporting Document(s) SARS-CoV-2 (COVID-19) RNA [Presence] in Respiratory specimen by CHRISETN with probe detection negative negative Sars-cov-2 [facility]) ID Date Data Source [id number] 07/06/2020 12:00:00 AM EDT [facility] Name Value Range Interpretation Code Description Data Vicki rce(s) Supporting Document(s) ID Date Data Source [id number] 07/06/2020 12:00:00 AM EDT [facility] Name Value Range Interpretation Code Description Data Vicki rce(s) Supporting Document(s) SARS-CoV-2 (COVID-19) RNA [Presence] in Respiratory specimen by CHRISTEN with probe detection negative negative [facility] ID Date Data Source [id number] 07/06/2020 12:00:00 AM EDT [facility]) Name Value Range Interpretation Code Description Data Vicki rce(s) Supporting Document(s) ID Date Data Source [id number] 07/06/2020 12:00:00 AM EDT [facility]) Name Value Range Interpretation Code Description Data Vicki rce(s) Supporting Document(s) SARS-CoV-2 (COVID-19) RNA [Presence] in Respiratory specimen by CHRISTEN with probe detection negative negative Sars-cov-2 [facility] ([facility]) ID Date Data Source [id number] 07/06/2020 12:00:00 AM EDT [facility] ([facility]) Name Value Range Interpretation Code Description Data Vicki rce(s) Supporting Document(s) ID Date Data Source [id number] 07/06/2020 12:00:00 AM EDT [facility] ([facility]) Name Value Range Interpretation Code Description Data Vicki rce(s) Supporting Document(s) SARS-CoV-2 (COVID-19) RNA [Presence] in Respiratory specimen by CHRISTEN with probe detection negative negative Sars-cov-2 [facility] ([facility]) ID Date Data Source [id number] 07/06/2020 12:00:00 AM EDT [facility] ([facility]) Name Value Range Interpretation Code Description Data Vicki rce(s) Supporting Document(s) ID Date Data Source [id number] 07/06/2020 12:00:00 AM EDT [facility] ([facility]) Name Value Range Interpretation Code Description Data Vicki rce(s) Supporting Document(s) SARS coronavirus 2 RNA [Presence] in Res piratory specimen by CHRISTEN with probe detection negative negative Sars-cov-2 [facility] ([facility]) ID Date Data Source [id number] 07/06/2020 12:00:00 AM EDT [facility] ([facility]) Name Value Range Interpretation Code Description Data Vicki rce(s) Supporting Document(s) ID Date Data Source [id number] 07/06/2020 12:00:00 AM EDT [facility] Name Value Range Interpretation Code Description Data Vicki rce(s) Supporting Document(s) [facility]2 [facility] This lab was ordered by [facility] and reported by [employer]. ID Date Data Source [id number] 06/22/2020 12:00:00 AM EDT [facility] ([facility]) Name Value Range Interpretation Code Description Data Vicki rce(s) Supporting Document(s) SARS-CoV-2 (COVID-19) RNA [Presence] in Respiratory specimen by CHRISTEN with probe detection negative negative Sars-cov-2 [facility] ([facility]) ID Date Data Source [id number] 06/22/2020 12:00:00 AM EDT [facility] ([facility]) Name Value Range Interpretation Code Description Data Vicki rce(s) Supporting Document(s) ID Date Data Source [id number] 06/22/2020 12:00:00 AM EDT [facility] ([facility]) Name Value Range Interpretation Code Description Data Vicki rce(s) Supporting Document(s) SARS-CoV-2 (COVID-19) RNA [Presence] in Respiratory specimen by CHRISTEN with probe detection negative negative Sars-cov-2 [facility] ([facility]) ID Date Data Source [id number] 06/22/2020 12:00:00 AM EDT [facility] ([facility]) Name Value Range Interpretation Code Description Data Vicki rce(s) Supporting Document(s) ID Date Data Source [id number] 06/22/2020 12:00:00 AM EDT [facility] ([facility]) Name Value Range Interpretation Code Description Data Vicki rce(s) Supporting Document(s) SARS-CoV-2 (COVID-19) RNA [Presence] in Respiratory specimen by CHRISTEN with probe detection negative negative Sars-cov-2 [facility] ([facility]) ID Date Data Source [id number] 06/22/2020 12:00:00 AM EDT [facility] ([facility]) Name Value Range Interpretation Code Description Data Vicki rce(s) Supporting Document(s) ID Date Data Source [id number] 06/22/2020 12:00:00 AM EDT [facility] ([facility]) Name Value Range Interpretation Code Description Data Vicki rce(s) Supporting Document(s) SARS-CoV-2 (COVID-19) RNA [Presence] in Respiratory specimen by CHRISTEN with probe detection negative negative Sars-cov-2 [facility] ([facility]) ID Date Data Source [id number] 06/22/2020 12:00:00 AM EDT [facility] ([facility]) Name Value Range Interpretation Code Description Data Vicki rce(s) Supporting Document(s) ID Date Data Source [id number] 06/22/2020 12:00:00 AM EDT [facility] ([facility]) Name Value Range Interpretation Code Description Data Vicki rce(s) Supporting Document(s) SARS coronavirus 2 RNA [Presence] in Res piratory specimen by CRHISTEN with probe detection negative negative Sars-cov-2 [facility] ([facility]) ID Date Data Source [id number] 06/22/2020 12:00:00 AM EDT [facility] ([facility]) Name Value Range Interpretation Code Description Data Vicki rce(s) Supporting Document(s) ID Date Data Source [id number] 06/22/2020 12:00:00 AM EDT [facility] ([facility]) Name Value Range Interpretation Code Description Data Vicki rce(s) Supporting Document(s) SARS coronavirus 2 RNA [Presence] in Res piratory specimen by CHRISTEN with probe detection negative negative Sars-cov-2 [facility] ([facility]) ID Date Data Source [id number] 06/22/2020 12:00:00 AM EDT [facility] ([facility]) Name Value Range Interpretation Code Description Data Vicki rce(s) Supporting Document(s) ID Date Data Source [id number] 06/22/2020 12:00:00 AM EDT [facility] Name Value Range Interpretation Code Description Data Vicki rce(s) Supporting Document(s) SARS-CoV-2 [facility] This lab was ordered by [facility] and reported by [employer]. ID Date Data Source [id number] 06/22/2020 12:00:00 AM EDT [facility] ([facility]) Name Value Range Interpretation Code Description Data Vicki rce(s) Supporting Document(s) SARS coronavirus 2 RNA [Presence] in Res piratory specimen by CHRISTEN with probe detection negative negative Sars-cov-2 [facility] ([facility]) Procedure Social History Code Duration Value Status Description Data Source(s ) Smoking 07/16/2021 12:00:00 AM EDT Former Smoker completed [facility] Smoking 07/16/2021 12:00:00 AM EDT Former Smoker completed Former Smoker [facility]) Smoking 07/16/2021 12:00:00 AM EDT Former Smoker completed Former Smoker [facility]) Smoking 07/16/2021 12:00:00 AM EDT Former Smoker completed Former Smoker [facility]) Smoking 07/16/2021 12:00:00 AM EDT Former Smoker completed Former Smoker [facility]) Smoking 05/31/2021 12:00:00 AM EDT Former Smoker completed Former Smoker [facility]) Smoking 04/13/2021 12:00:00 AM EDT Former Smoker completed Former Smoker [facility]) Smoking 04/13/2021 12:00:00 AM EDT Former Smoker completed Former Smoker [facility]) Smoking 04/13/2021 12:00:00 AM EDT Former Smoker completed Former Smoker [facility]) Smoking 04/13/2021 12:00:00 AM EDT Former Smoker completed Former Smoker [facility]) Smoking 02/05/2021 12:00:00 AM EDT Former Smoker completed Former Smoker [facility]) Smoking 02/05/2021 12:00:00 AM EDT Former Smoker completed Former Smoker [facility]) Vital Signs ID Date Data Source [id number] Name Value Range Interpretation Code Description Data Source(s) Diastolic blood pressure 84 mm[Hg] 84 mm[Hg] [facility] ([facility]) Body height 71 [in_i] 71 [in_i] [facility] ([facility]) Body mass index (BMI) [Ratio] 34.9 kg/m2 34.9 k g/m2 [facility] ([facility]) Systolic blood pressure 138 mm[Hg] 138 mm[Hg] A [facility] ([facility]) Body weight 250 [lb_av] 250 [lb_av] [facility] ([facility]) Diastolic blood pressure 72 mm[Hg] 72 mm[Hg] [facility] ([facility]) Systolic blood pressure 144 mm[Hg] 144 mm[Hg] A [facility] ([facility]) Diastolic blood pressure 72 mm[Hg] 72 mm[Hg] [facility] ([facility]) Systolic blood pressure 144 mm[Hg] 144 mm[Hg] A [facility] ([facility]) Diastolic blood pressure 72 mm[Hg] 72 mm[Hg] [facility] ([facility]) Systolic blood pressure 144 mm[Hg] 144 mm[Hg] A [facility] ([facility]) Diastolic blood pressure 72 mm[Hg] 72 mm[Hg] [facility] ([facility]) Systolic blood pressure 144 mm[Hg] 144 mm[Hg] A [facility] ([facility]) Patient Treatment Plan of Care Planned Activity Planned Date Details Description Data Source (s) Clonazepam 1 MG Oral Tablet 07/23/2021 12:00:00 AM EST [facility] Clonazepam 1 MG Oral Tablet 07/23/2021 12:00:00 AM EST [facility] ([facility]) Clonazepam 1 MG Oral Tablet 07/23/2021 12:00:00 AM EST [facility]) Clonazepam 1 MG Oral Tablet 07/23/2021 12:00:00 AM EST [facility]) One Touch Delica 33 gauge 07/21/2021 12:00:00 AM EST [facility]) Glucose strip (Verio IQ) 07/21/2021 12:00:00 AM EST [facility]CW[facility] ([facility]) Glucose strip (Verio IQ) 07/21/2021 12:00:00 AM EST [facility]) One Touch Delica 33 gauge 07/21/2021 12:00:00 AM EST [facility]CW[facility] ([facility]) Glucose strip (Verio IQ) 07/21/2021 12:00:00 AM EST [facility]) One Touch Delica 33 gauge 07/21/2021 12:00:00 AM EST [facility]CW[facility] ([facility]) Glucose strip (Verio IQ) 07/21/2021 12:00:00 AM EST [facility]) One Touch Delica 33 gauge 07/21/2021 12:00:00 AM EST [facility]) One Touch Delica 33 gauge 07/21/2021 12:00:00 AM EST [facility]) Glucose strip (Verio IQ) 07/21/2021 12:00:00 AM EST [facility]) Insulin Lispro 100 UNT/ML Injectable Solution 07/19/2021 12:00:00 A M EST [facility]) Insulin Lispro 100 UNT/ML Injectable Solution 07/19/2021 12:00:00 A M EST [facility]) Insulin Lispro 100 UNT/ML Injectable Solution 07/19/2021 12:00:00 A M EST [facility]) Insulin Lispro 100 UNT/ML Injectable Solution 07/19/2021 12:00:00 A M EST [facility]) Insulin Lispro 100 UNT/ML Injectable Solution 07/19/2021 12:00:00 A M EST [facility]) atorvastatin 40 MG Oral Tablet 07/16/2021 12:00:00 AM EDT [facility] ([facility]) empagliflozin 10 MG Oral Tablet [Jardiance] 07/16/2021 12:00:00 AM EDT [facility] ([facility]) atorvastatin 40 MG Oral Tablet 07/16/2021 12:00:00 AM EDT [facility] ([facility]) empagliflozin 10 MG Oral Tablet [Jardiance] 07/16/2021 12:00:00 AM EDT [facility] ([facility]) atorvastatin 40 MG Oral Tablet 07/16/2021 12:00:00 AM EDT [facility] ([facility]) empagliflozin 10 MG Oral Tablet [Jardiance] 07/16/2021 12:00:00 AM EDT [facility] ([facility]) atorvastatin 40 MG Oral Tablet 07/16/2021 12:00:00 AM EDT [facility] ([facility]) empagliflozin 10 MG Oral Tablet [Jardiance] 07/16/2021 12:00:00 AM EDT [facility]1 ([facility]) atorvastatin 40 MG Oral Tablet 07/16/2021 12:00:00 AM EDT [facility] ([facility]) empagliflozin 10 MG Oral Tablet [Jardiance] 07/16/2021 12:00:00 AM EDT [facility] ([facility]) Clonazepam 1 MG Oral Tablet 06/22/2021 12:00:00 AM EDT [facility] ([facility]) Clonazepam 1 MG Oral Tablet 05/28/2021 12:00:00 AM EDT [facility] ([facility]) Clonazepam 1 MG Oral Tablet 04/26/2021 12:00:00 AM EDT eCW1 ([facility]) Clonazepam 1 MG Oral Tablet 04/26/2021 12:00:00 AM EDT eCW1 ([facility]) Clonazepam 1 MG Oral Tablet 04/26/2021 12:00:00 AM EDT [facility]CW1 ([facility]) Lisinopril 10 MG Oral Tablet 04/13/2021 12:00:00 AM EDT eCW1 ([facility]) Lisinopril 10 MG Oral Tablet 04/13/2021 12:00:00 AM EDT eCW1 ([facility]) Lisinopril 10 MG Oral Tablet 04/13/2021 12:00:00 AM EDT eCW1 ([facility]) Lisinopril 10 MG Oral Tablet 04/13/2021 12:00:00 AM EDT eCW1 ([facility]) Lisinopril 10 MG Oral Tablet 04/13/2021 12:00:00 AM EDT eCW1 ([facility]) Clonazepam 1 MG Oral Tablet 06/10/2020 12:00:00 AM EDT eCW1 ([facility]) Clonazepam 1 MG Oral Tablet 06/10/2020 12:00:00 AM EDT eCW1 ([facility]) Clonazepam 1 MG Oral Tablet 06/10/2020 12:00:00 AM EDT eCW1 ([facility]) Clonazepam 1 MG Oral Tablet 06/10/2020 12:00:00 AM EDT eCW1 ([facility]) Clonazepam 1 MG Oral Tablet 06/10/2020 12:00:00 AM EDT eCW1 ([facility]) Clonazepam 1 MG Oral Tablet 06/10/2020 12:00:00 AM EDT eCW1 ([facility]) Clonazepam 1 MG Oral Tablet 06/10/2020 12:00:00 AM EDT eCW1 ([facility]) Clonazepam 1 MG Oral Tablet 06/10/2020 12:00:00 AM EDT eCW1 ([facility]) Clonazepam 1 MG Oral Tablet 06/10/2020 12:00:00 AM EDT eCW1 ([facility]) Clonazepam 1 MG Oral Tablet 06/10/2020 12:00:00 AM EDT eCW1 ([facility]) Clonazepam 1 MG Oral Tablet 06/10/2020 12:00:00 AM EDT eCW1 ([facility]) Clonazepam 1 MG Oral Tablet 06/10/2020 12:00:00 AM EDT eCW1 ([facility]) Clonazepam 1 MG Oral Tablet 06/10/2020 12:00:00 AM EDT eCW1 ([facility]) Clonazepam 1 MG Oral Tablet 06/10/2020 12:00:00 AM EDT eCW1 ([facility]) Clonazepam 1 MG Oral Tablet 06/10/2020 12:00:00 AM EDT eCW1 ([facility]) Clonazepam 1 MG Oral Tablet 06/10/2020 12:00:00 AM EDT [facility] ([facility]) 0.5 ML dulaglutide 3 MG/ML Auto-Injector [Trulicity] [facility] ([facility]) 0.5 ML dulaglutide 1.5 MG/ML Auto-Injector [Trulicity] [facility] ([facility]) quetiapine 25 MG Oral Tablet [facility] ([facility]) Metformin hydrochloride 500 MG Oral Tablet [facility] ([facility]) empagliflozin 25 MG Oral Tablet [Jardiance] [facility] ([facility]) Hydroxyzine Hydrochloride 50 MG Oral Tablet [facility] ([facility]) Clonazepam 0.5 MG Oral Tablet [facility] ([facility]) Amoxicillin 500 MG Oral Capsule [facility] ([facility]) empagliflozin 25 MG Oral Tablet [Jardiance] [facility] ([facility]) Hydroxyzine Hydrochloride 50 MG Oral Tablet [facility] ([facility]) Clonazepam 0.5 MG Oral Tablet [facility] ([facility]) Amoxicillin 500 MG Oral Capsule [facility] ([facility]) 0.5 ML dulaglutide 3 MG/ML Auto-Injector [Trulicity] [facility] ([facility]) 0.5 ML dulaglutide 1.5 MG/ML Auto-Injector [Trulicity] [facility] ([facility]) quetiapine 25 MG Oral Tablet [facility] ([facility]) Metformin hydrochloride 500 MG Oral Tablet [facility] ([facility]) empagliflozin 25 MG Oral Tablet [Jardiance] [facility] ([facility]) Hydroxyzine Hydrochloride 50 MG Oral Tablet [facility] ([facility]) Clonazepam 0.5 MG Oral Tablet [facility] ([facility]) Amoxicillin 500 MG Oral Capsule [facility] ([facility]) 0.5 ML dulaglutide 3 MG/ML Auto-Injector [Trulicity] [facility] ([facility]) 0.5 ML dulaglutide 1.5 MG/ML Auto-Injector [Trulicity] [facility] ([facility]) quetiapine 25 MG Oral Tablet [facility] ([facility]) Metformin hydrochloride 500 MG Oral Tablet [facility] ([facility]) empagliflozin 25 MG Oral Tablet [Jardiance] [facility] ([facility]) Hydroxyzine Hydrochloride 50 MG Oral Tablet [facility] ([facility]) Clonazepam 0.5 MG Oral Tablet [facility] ([facility]) Amoxicillin 500 MG Oral Capsule [facility] ([facility]) 0.5 ML dulaglutide 3 MG/ML Auto-Injector [Trulicity] [facility] ([facility]) 0.5 ML dulaglutide 1.5 MG/ML Auto-Injector [Trulicity] [facility] ([facility]) quetiapine 25 MG Oral Tablet [facility] ([facility]) Metformin hydrochloride 500 MG Oral Tablet [facility] ([facility]) Metformin hydrochloride 500 MG Oral Tablet [facility] ([facility]) Hydroxyzine Hydrochloride 50 MG Oral Tablet [facility] ([facility]) Clonazepam 0.5 MG Oral Tablet [facility] ([facility]) Amoxicillin 500 MG Oral Capsule [facility] ([facility]) Metformin hydrochloride 500 MG Oral Tablet [facility] ([facility]) Hydroxyzine Hydrochloride 50 MG Oral Tablet [facility] ([facility]) Clonazepam 0.5 MG Oral Tablet [facility] ([facility]) Amoxicillin 500 MG Oral Capsule [facility] ([facility]) Metformin hydrochloride 500 MG Oral Tablet [facility] ([facility]) Hydroxyzine Hydrochloride 50 MG Oral Tablet [facility] ([facility]) Clonazepam 0.5 MG Oral Tablet [facility] ([facility]) Amoxicillin 500 MG Oral Capsule [facility] ([facility])
[2021-08-01] MEDS ORDERED: ATOR40TA75 PO (03:29)
[2021-08-01] MEDS ORDERED: JARD1TAB PO (03:29)
[2021-08-01] MEDS ORDERED: ASPI81TA26 PO (03:30)
[2021-08-01] MEDS ORDERED: INSULANT (03:30)
[2021-08-01] MEDS ORDERED: INSUHUMDS (03:30)
[2021-08-01 03:55] LABS: BASO # 0.1 10^3/uL (0.0-0.2); BASO % 0.5 % (0.0-1.0); EOS # 0.5 10^3/uL (0.0-0.5); EOS % 3.1 % (0.0-3.0); HEMATOCRIT 46.9 % (42.0-52.0); HEMOGLOBIN 16.1 g/dl (13.5-17.5); LYMPH % 17.4 % (24.0-44.0); MEAN CORPUSCULAR HEMOGLOBIN 32.7 pg (27.0-33.0); MEAN CORPUSCULAR HGB CONC 34.3 g/dl (32.0-36.5); MEAN CORPUSCULAR VOLUME 95.1 fl (80.0-96.0); MONO # 1.5 10^3/uL (0.0-0.8); MONO % 8.8 % (2.0-8.0); NEUTROPHILS # 11.8 10^3/uL (1.5-8.5); NEUTROPHILS % 69.1 % (36.0-66.0); PLATELET COUNT, AUTOMATED 352 10^3/uL (150-450); RED BLOOD COUNT 4.93 10^6/uL (4.30-6.10)
[2021-08-01 03:59] LABS: INR 0.88; PROTHROMBIN TIME 12.4 SECONDS (12.7-14.5)
--- NOTE | 2021-08-01 04:07 | REPVR ---
PROCEDURE INFORMATION: Exam: XR Chest Exam date and time: 08/01/21 (3:18am) Age: 70 years old Clinical indication: Chest pain TECHNIQUE: Imaging protocol: Portable CXR Views: 1 view COMPARISON: Chest films of 11/29/18 FINDINGS: Lungs: Unremarkable. No consolidation. Minimal chronic linear scarring at the right lung base. Pleural spaces: Unremarkable. No pleural effusions. No pneumothorax. Heart/Mediastinum: Unremarkable. No cardiomegaly. Bones/joints: Unremarkable. IMPRESSION: No acute findings. Old scarring at the right lung base. Electronically signed by: Nathalia Lorenzana On 08/01/2021 04:06:20 AM
[2021-08-01 04:11] LABS: ALBUMIN 3.9 GM/DL (3.2-5.2); ALT/SGPT 49 U/L (12-78); BILIRUBIN,DIRECT < 0.1 MG/DL (0.0-0.2); BILIRUBIN,TOTAL 0.3 MG/DL (0.2-1.0); CK-MB VALUE MASS < 1.0 NG/ML (<3.6); CPK CREATINE PHOSPHOKINASE 79 U/L (39-308); LIPASE 91 U/L (73-393); MB/CK RELATIVE INDEX 1.27 (< OR =4); TOTAL PROTEIN 7.7 GM/DL (6.4-8.2); TROPONIN I 0.02 NG/ML (< 0.10)
[2021-08-01 04:35] LABS: RSV AMPLIFICATION NEGATIVE (NEGATIVE)
[2021-08-01] MEDS ORDERED: ISOVUE-370 76% 100ML VIAL As Ordered ONE (04:59)
[2021-08-01] MEDS ORDERED: KETOROLAC 30 MG/ML 1ML VIAL IV ONE (05:00)
[2021-08-01 05:26] LABS: ERYTHROCYTE SEDIMENTATION RATE 10 mm/hr (0-20)
[2021-08-01 05:27] LABS: C REACTIVE PROTEIN QUANTITATIV 4.04 MG/DL (0.00-0.30)
--- NOTE | 2021-08-01 06:07 | REPVR ---
PROCEDURE INFORMATION: Exam: CT Neck With Contrast Exam date and time: 08/01/2021 5:10 AM Age: 70 years old Clinical indication: Neck pain; Additional info: Pain from base of the neck to the temporal region TECHNIQUE: Imaging protocol: Computed tomography images of the neck with contrast. Radiation optimization: All CT scans at this facility use at least one of these dose optimization techniques: automated exposure control; mA and/or kV adjustment per patient size (includes targeted exams where dose is matched to clinical indication); or iterative reconstruction. Contrast material: ISOVUE 370; Contrast volume: 75 ml; Contrast route: INTRAVENOUS (IV); COMPARISON: 1. CT Head without contrast 2021-03-03 15:52 2. US Duplex,carotid (complete) 2015-11-30 11:01 FINDINGS: Paranasal sinuses: Moderate paranasal sinus disease is a me Nasopharynx: Unremarkable. Dental: Dental caries and periodontal disease. Oropharynx: Unremarkable. No significant tonsillar enlargement. Hypopharynx: Unremarkable. Larynx: Unremarkable. Normal epiglottis. Retropharyngeal space: Unremarkable. Submandibular/Parotid glands: Normal. Glands are normal in size. Thyroid: Normal. No enlarged or calcified nodules. Lymph nodes: Unremarkable. No lymphadenopathy. Trachea: Visualized trachea is unremarkable. Lungs: Unremarkable as visualized. Bones/joints: Excessive sclerosis of the anterior mandible. Multilevel moderate spinal and severe foraminal stenosis. Vasculature: Mild carotid calcification and stenosis. Soft tissues: Unremarkable. No significant soft tissue swelling. IMPRESSION: No acute findings. Electronically signed by: Yung Edwards On 08/01/2021 06:07:14 AM
--- OUTSIDE RECORDS SUMMARY | 2021-08-01 06:13 | CCD ---
Author Author [facility] Organization [facility] Address Unknown Phone Unavailable Care Team Providers Care Wine Sales Representative Name Role Phone Heather Shipley MD Unavailable [...] Shipley MD Unavailable Unavailable Jumalon, M Anastasia TANK CLEANER Unavailable Unavailable Jumalon, M Anastasia TANK CLEANER Unavailable Unavailable Jumalon, M Anastasia TANK CLEANER Unavailable Unavailable Jumalon, M Anastasia TANK CLEANER Unavailable Unavailable Jumalon, M Anastasia TANK CLEANER Unavailable Unavailable Jumalon, M Anastasia TANK CLEANER Unavailable Unavailable Jumalon, M Anastasia TANK CLEANER Unavailable Unavailable Jumalon, M Anastasia TANK CLEANER Unavailable Unavailable Jumalon, M Anastasia TANK CLEANER Unavailable Unavailable Jumalon, M Anastasia TANK CLEANER Unavailable Unavailable Jumalon, M Anastasia TANK CLEANER Unavailable Unavailable Jumalon, M Anastasia TANK CLEANER Unavailable Unavailable Jumalon, M Anastasia TANK CLEANER Unavailable Unavailable Jumalon, M Anastasia TANK CLEANER Unavailable Unavailable Jumalon, M Anastasia TANK CLEANER Unavailable Unavailable Jumalon, M Anastasia TANK CLEANER Unavailable Unavailable Jumalon, M Anastasia TANK CLEANER Unavailable Unavailable Jumalon, M Anastasia TANK CLEANER Unavailable Unavailable Jumalon, M Anastasia TANK CLEANER Unavailable Unavailable Jumalon, M Anastasia TANK CLEANER Unavailable Unavailable Jumalon, M Anastasia TANK CLEANER Unavailable Unavailable Jumalon, M Anastasia TANK CLEANER Unavailable Unavailable Jumalon, M Anastasia TANK CLEANER Unavailable Unavailable Jumalon, M Anastasia TANK CLEANER Unavailable Unavailable Jumalon, M Anastasia TANK CLEANER Unavailable Unavailable Jumalon, M Anastasia TANK CLEANER Unavailable Unavailable Jumalon, M Anastasia TANK CLEANER Unavailable Unavailable Jumalon, M Anastasia TANK CLEANER Unavailable Unavailable Jumalon, M Anastasia TANK CLEANER Unavailable Unavailable Jumalon, M Anastasia TANK CLEANER Unavailable Unavailable CHANLIECCO, C JESSICA MD Unavailable [...] is protected by Article 27-F of the [facility] Public Health law. If you continue you may have access to information: Regarding HIV / AIDS; Provided by facilities licensed or operated by the [facility] Office of Mental Health; or Provided by the [facility] Office for People With Developmental Disabilities. If such information is present, then the following [facility] mandated warning applies: This information has been [...] law may result in a fine or senior care sentence or both. A general authorization for the release of medical or other information is NOT sufficient authorization for further disc losure. Family History Family Member Name Family Member Gender Family Member Status Date o f Status Description Data Source(s) Unknown Unknown Problem MEDENT ([facility], ) Unknown Unknown Problem MEDENT ([facility]) Encounters Encounter Providers Location Date Indications Data Source(s ) Unknown [address] [facility], [place] [address] 07/30/2021 12:00:00 AM EST eCW1 ([facility]) Anastasia Worrell, AIR AND MISSILE DEFENSE CREWMEMBER: [id number], [place] [address], Ph. Attender: Anastasia Worrell TANK CLEANER [place] - [facility] - Main Office 07/30/2021 12:00:00 AM EST ATHE NA ([facility]) Unknown [address] [facility] [place] [address] 07/28/2021 12:00:00 AM EST eCW1 ([facility]) Unknown [address] [facility] [place] [address] 07/23/2021 12:00:00 AM EST eCW1 ([facility]) Unknown [address] [facility] [place] [address] 07/21/2021 12:00:00 AM EST eCW1 ([facility]) Unknown [address] [facility] [place] [address] 07/21/2021 12:00:00 AM EST [facility]CW1 [facility] Henry Shipley MD: [address] [facility] [address], [place] [address], Ph. Attender: Henry KNIGHT - [facility] - [facility] Office 07/15/2021 12:00:00 AM EDT ADAIR ([facility]) Henry Shipley MD: [address] [facility] [address], [place] [address], Ph. Attender: Henry Shipley MD [place] [facility] 07/15/2021 12:00:00 AM EDT ADAIR ([facility]) Henry Shipley MD: [address], [place] [address], Ph. [phone] Attender: [place] Shipley MD [place] [facility] 07/12/2021 12:00:00 AM EDT ADAIR ([facility]) eHnry Shipley MD: [address], [address], [place] [address], Ph. [phone] Attender: Henry Shipley MD [place] [facility] 07/12/2021 12:00:00 AM EDT ADAIR ([facility]) Henry Shipley MD: [address], [place] [address], Ph. [phone] Attender: Henry Shipley MD [place] - [facility] 07/12/2021 12:00:00 AM EDT ADAIR ([facility]) Anastasia Worrell, AIR AND MISSILE DEFENSE CREWMEMBER: [address], [place] [address], Ph. Attender: Anastasia Worrell [facility] - [facility] 07/06/2021 12:00:00 AM EDT ATHEmmanuelle AGUILERA ([facility]) Anastasia Worrell, AIR AND MISSILE DEFENSE CREWMEMBER: [address], [place] [address], Ph. Attender: Anastasia Worrell [facility] - [facility] 07/06/2021 12:00:00 AM EDT SAUL AGUILERA ([facility]) Anastasia Worrell, AIR AND MISSILE DEFENSE CREWMEMBER: [address], [place] [address], Ph. Attender: Anastasia Worrell [facility] - [facility] - Main Office 07/06/2021 12:00:00 AM EDT ATHEmmanuelle AGUILERA ([facility]) Anastasia Worrell, AIR AND MISSILE DEFENSE CREWMEMBER: [address], [address], [place] [address], Ph. Attender: Anastasia Worrell [facility] - [facility] - [facility] Office 07/06/2021 12:00:00 AM EDT ATHEmmanuelle AGUILERA ([facility]) Unknown [address] [facility] [place] [address] 06/17/2021 12:00:00 AM EDT eCW1 ([facility]) Unknown [address] [place] [address] [place] [address] 05/28/2021 12:00:00 AM EDT eCW1 ([facility]) Unknown [address] [facility] [place] [address] 04/28/2021 12:00:00 AM EDT eCW1 ([facility]) Unknown [address] [facility] [place] [address] 04/26/2021 12:00:00 AM EDT eCW1 ([facility]) Unknown [address] [facility] [place] [address] 04/23/2021 12:00:00 AM EDT eCW1 ([facility]) Unknown [address] [facility] [place] [address] 03/25/2021 12:00:00 AM EDT eCW1 ([facility]) Unknown [address] [facility] [place] [address] 02/23/2021 12:00:00 AM EDT eCW1 ([facility]) Unknown [address] [place] [address] [place] [address] 02/01/2021 12:00:00 AM EDT eCW1 ([facility]) Unknown [address] [place] [address] [place] [address] 01/26/2021 12:00:00 AM EDT eCW1 ([facility]) Unknown [address] [facility] [place] [address] 01/20/2021 12:00:00 AM EDT eCW1 ([facility]) Emergency Attender: JESSICA DORSEY MDConsultant: STAF F NON 12/07/2020 06:09:00 AM EDT - 12/07/2020 07:50:00 AM EDT [facility] Patient discharged. Unknown [address] [facility] [place] [address] 11/26/2020 12:00:00 AM EDT eCW1 ([facility]) Unknown [address] [facility], [place] [address] 11/26/2020 12:00:00 AM EDT eCW1 ([facility]) Unknown [address] [facility] [place] [address] 10/29/2020 12:00:00 AM EST eCW1 ([facility]) Unknown [address] [facility], [place] [address] 10/01/2020 12:00:00 AM EST eCW1 ([facility]) Unknown [address] [facility], [place] [address] 09/23/2020 12:00:00 AM EST eCW1 ([facility]) Unknown [address] [facility] [place] [address] 09/23/2020 12:00:00 AM EST eCW1 ([facility]) Unknown [address] [facility], [place] [address] 08/31/2020 12:00:00 AM EST eCW1 ([facility]) Unknown [address] [facility] [place] [address] 08/03/2020 12:00:00 AM EST eCW1 ([facility]) Unknown [address] [facility] [address] [place] [address] 07/21/2020 12:00:00 AM EST eCW1 ([facility]) Henry Shipley MD: [address], [address], [place] [address], Ph. Attender: Henry Shipley MD [place] - [facility] 07/09/2020 12:00:00 AM EDT ADAIR ([facility]) Henry Shipley MD: [address], [address], [place] [address], Ph. Attender: Henry KNIGHT - [facility] 07/09/2020 12:00:00 AM EDT ADAIR ([facility]) Henry Shipley MD: [address], [address], [place] [address], Ph. Attender: Henry KNIGHT - [facility] 07/09/2020 12:00:00 AM EDT ADAIR ([facility]) Henry Shipley MD: [address], [address], [place] [address], Ph. Attender: [place] Ship[place] - [facility] 07/09/2020 12:00:00 AM EDT ADAIR ([facility]) Henry Shipley MD: [address], [address], [place] [address], Ph. Attender: Henry KNIGHT - [facility] 07/09/2020 12:00:00 AM EDT ADAIR ([facility]) Henry Shipley MD: [address], [address], [place] [address], Ph. [phone] Attender: Henry KNIGHT - [facility] 07/06/2020 12:00:00 AM EDT ADAIR ([facility]) Henry Shipley MD: [address], [address], [place] [address], Ph. [phone] Attender: [place] Shipley [place] - [facility] - [facility] Office 07/06/2020 12:00:00 AM EDT ADAIR ([facility]) Unknown [address] [facility], [facility] [address] 07/06/2020 12:00:00 AM EDT eC ([facility]) Henry Shipley MD: [address], [address], [place] [address], Ph. [phone] Attender: [place] Shipley MD [place] - [facility] - [facility] 07/06/2020 12:00:00 AM EDT ADAIR ([facility]) Henry Shipley MD: [address], [address], [place] [address], Ph. [phone] Attender: Henry Shipley MD [place] - [facility] - [facility] 07/06/2020 12:00:00 AM EDT ADAIR ([facility]) Henry Shipley MD: [address], [address], [place] [address], Ph. [phone] Attender: Henry Shipley MD [place] - [facility] 07/06/2020 12:00:00 AM EDT ADAIR ([facility]) Henry Shipley MD: [address], [address], [place] [address], Ph. [phone] Attender: Henry KNIGHT - [facility] Office 07/06/2020 12:00:00 AM EDT ADAIR ([facility]) Henry Shipley MD: [address], [address], [place] [address], Ph. Attender: Henry KNIGHT - [facility] Office 06/25/2020 12:00:00 AM EDT ADAIR ([facility]) Henry Shipley MD: [address], [address], [place] [address], Ph. Attender: Henry Shipley MD [place] - [facility] 06/25/2020 12:00:00 AM EDT ADAIR ([facility]) Henry Shipley MD: [address], [address], [place] [address], Ph. Attender: Henry KNIGHT - [facility] 06/25/2020 12:00:00 AM EDT ADAIR ([facility]) Henry Shipley MD: [address], [address], [place] [address], Ph. Attender: Henry KNIGHT - [facility] 06/25/2020 12:00:00 AM EDT ADAIR ([facility]) Henry Shipley MD: [address], [address], [place] [address], Ph. Attender: Henry KNIGHT - [facility] 06/25/2020 12:00:00 AM EDT ADAIR ([facility]) Henry Shipley MD: [address], [address], [place] [address], Ph. Attender: Henry KNIGHT - [facility] 06/25/2020 12:00:00 AM EDT ADAIR ([facility]) Henry Shipley MD: [address], [address], [place] [address], Ph. Attender: Henry KNIGHT - [facility] 06/25/2020 12:00:00 AM EDT ADAIR ([facility]) Henry Shipley MD: [address], [address], [place] [address], Ph. [phone] Attender: Henry Shipley MD [place] - [facility] - [facility] 06/22/2020 12:00:00 AM EDT ADAIR ([facility]) Henry Shipley MD: [address], [address], [place] [address], Ph. [phone] Attender: Henry Shipley MD [place] - [facility] - [facility] 06/22/2020 12:00:00 AM EDT ADAIR ([facility]) Henry Shipley MD: [address], [address], [place] [address], Ph. [phone] Attender: Henry KNIGHT - [facility] - [facility] Office 06/22/2020 12:00:00 AM EDT ADAIR ([facility]) Henry Shipley MD: [address], [address], [place] [address], Ph. [phone] Attender: Henry Shipley MD [place] - [facility] - [facility] Office 06/22/2020 12:00:00 AM EDT ADAIR ([facility]) Henry Shipley MD: [address], [address], [place] [address], Ph. [phone] Attender: Henry KNIGHT - [facility] - [facility] Office 06/22/2020 12:00:00 AM EDT ADAIR ([facility]) Henry Shipley MD: [address], [address], [place] [address], Ph. [phone] Attender: Henry KNIGHT - [facility] - [facility] Office 06/22/2020 12:00:00 AM EDT ADAIR ([facility]) Henry Shipley MD: [address], [address], [place] [address], Ph. [phone] Attender: Henry Shipley MD [place] - [facility] - Main Office 06/22/2020 12:00:00 AM EDT ADAIR ([facility]) Henry Shipley MD: [address] [facility] [address], [address], [place] [address], Ph. [phone] Attender: Henry KNIGHT - [facility] - Main Office 06/22/2020 12:00:00 AM EDT ADAIR ([facility]) Unknown [address] [facility], [place] [address] 06/10/2020 12:00:00 AM EDT [facility] ([facility]) Immunizations Vaccine Date Status Description Data Source(s) COVID-19, mRNA, LNP-S, PF, 100 mcg/0.5 mL dose (Modern a) 12/23/2020 12:00:00 AM EDT completed 12/23/2020 ADAIR ([facility] COVID-19, mRNA, LNP-S, PF, 100 mcg/0.5 mL [...] VACCINE Moderna 12/23/2020 12:00:00 AM EDT completed [facility] Complete: YESThis Data wa s Submitted to [facility] Via [employer]. COVID-19, mRNA, LNP-S, PF, 100 mcg/0.5 mL dose (Modern a) 11/21/2020 12:00:00 AM EST completed 11/21/2020 ADAIR ([facility]) COVID-19, mRNA, LNP-S, PF, 100 mcg/0.5 mL [...] VACCINE Moderna 11/21/2020 12:00:00 AM EST completed [facility] Vaccine Series Complete: NOThis Data was Submitted to [facility] Via [employer] [facility]. Medications Medication Brand Name Start Date Product Form Dose Route Admi nistrative Instructions Pharmacy Instructions Status Indications Reaction Description Data Source(s) 64 mg 07/29/2021 12:00:00 AM EST tablet,delayed release (DR/EC) 180 TAKE ONE TABLET BY MOUTH TWICE A DAY TAKE ONE TABLET BY MOUTH TWICE A DAY SOLD: 07/30/2021 [facility] 1 mg 07/26/2021 12:00:00 AM EST tablet 56 TAKE ONE TABLET BY MOUTH TWICE A DAY MAXIMUM DAILY DOSE = 2 TABLETS TAKE ONE TABLET BY MOUTH TWICE A DAY MAX IMUM DAILY DOSE = 2 TABLETS SOLD: 07/28/2021 [facility] Clonazepam 1 MG Oral Tablet clonazePAM 1 MG clonazePAM 1 MG 07/23/2021 12:00:00 AM EST 1.0 {tablet} active clonazePAM 1 MG eCW1 ([facility]) Clonazepam 1 MG Oral Tablet clonazePAM 1 MG clonazePAM 1 MG 07/23/2021 12:00:00 AM EST 1.0 {tablet} active clonazePAM 1 MG eCW1 ([facility]) Clonazepam 1 MG Oral Tablet clonazePAM 1 MG clonazePAM 1 MG 07/23/2021 12:00:00 AM EST 1.0 {tablet} active clonazePAM 1 MG eCW1 ([facility]) Clonazepam 1 MG Oral Tablet clonazePAM 1 MG clonazePAM 1 MG 07/23/2021 12:00:00 AM EST 1.0 {tablet} active eCW1 ([facility]) BLOOD SUGAR DIAGNOSTIC 07/22/2021 12:00:00 AM EST strip 100 DIRECTED THREE TIMES A DAY DIRECTED THREE TIMES A DAY SOLD: 07/24/2021 [facility] 33 gauge 07/22/2021 12:00:00 AM EST misc 100 D IRECTED THREE TIMES A DAY DIRECTED THREE TIMES A DAY SOLD: 07/24/2021 [facility] Glucose strip (Verio IQ) UNK 07/21/2021 12:00:00 AM EST active Glucose strip (Verio IQ) eCW1 ([facility]) One Touch Delica 33 gauge UNK 07/21/2021 12:00:00 AM EST active One Touch Delica 33 gauge eCW1 ([facility]) Glucose strip (Verio IQ) UNK 07/21/2021 12:00:00 AM EST active eCW1 ([facility]) One Touch Delica 33 gauge UNK 07/21/2021 12:00:00 AM EST active One Touch Delica 33 gauge eCW1 ([facility]) One Touch Delica 33 gauge UNK 07/21/2021 12:00:00 AM EST active eCW1 ([facility]) One Touch Delica 33 gauge UNK 07/21/2021 12:00:00 AM EST active One Touch Delica 33 gauge eCW1 ([facility]) Glucose strip (Verio IQ) UNK 07/21/2021 12:00:00 AM EST active Glucose strip (Verio IQ) eCW1 ([facility]) One Touch Delica 33 gauge UNK 07/21/2021 12:00:00 AM EST active eCW1 ([facility]) 100 unit/mL 07/21/2021 12:00:00 AM EST solution 10 INJECT UNDER SKIN 3X/DAY NEEDED BASED ON SLIDING SCALE MAX 42 UNITS/DAY INJECT UNDER SKIN 3X/DAY NEEDED BASED ON SLIDING SCALE MAX 42 UNITS/DAY SOLD: 07/22/2021 [facility] Glucose strip (Verio IQ) UNK 07/21/2021 12:00:00 AM EST active Glucose strip (Verio IQ) eCW1 ([facility]) Glucose strip (Verio IQ) UNK 07/21/2021 12:00:00 AM EST active eCW1 ([facility]) Insulin Lispro 100 UNT/ML Injectable Solution Insulin Lispro 100 UNIT/ML Insulin Lispro 100 UNIT/ML 07/19/2021 12:00:00 AM EST active Insulin Lispro 100 UNIT/ML eCW1 ([facility]) Insulin Lispro 100 UNT/ML Injectable Solution Insulin Lispro 100 UNIT/ML Insulin Lispro 100 UNIT/ML 07/19/2021 12:00:00 AM EST acti ve eCW1 ([facility]) Insulin Lispro 100 UNT/ML Injectable Solution Insulin Lispro 100 UNIT/ML Insulin Lispro 100 UNIT/ML 07/19/2021 12:00:00 AM EST active Insulin Lispro 100 UNIT/ML eCW1 ([facility]) Insulin Lispro 100 UNT/ML Injectable Solution Insulin Lispro 100 UNIT/ML Insulin Lispro 100 UNIT/ML 07/19/2021 12:00:00 AM EST acti ve eCW1 ([facility]) Insulin Lispro 100 UNT/ML Injectable Solution Insulin Lispro 100 UNIT/ML Insulin Lispro 100 UNIT/ML 07/19/2021 12:00:00 AM EST active Insulin Lispro 100 UNIT/ML eCW1 ([facility]) 10 mg 07/17/2021 12:00:00 AM EDT tablet [...] activ e Atorvastatin Calcium 40 MG eCW1 ([facility]) empagliflozin 10 MG Oral Tablet [Jardiance] Jardiance 10 MG Jardiance 10 MG 07/16/2021 12:00:00 AM EDT 1.0 {tablet} active Jardiance 10 MG eCW1 ([facility]) empagliflozin 10 MG Oral Tablet [Jardiance] Jardiance 10 MG Jardiance 10 MG 07/16/2021 12:00:00 AM EDT 1.0 {tablet} active Jardiance 10 MG eCW1 ([facility]) atorvastatin 40 MG Oral Tablet Atorvastatin Calcium 40 MG Atorvastatin Calcium 40 MG 07/16/2021 12:00:00 AM EDT 1.0 {tablet} active eCW1 ([facility]) empagliflozin 10 MG Oral Tablet [Jardiance] Jardiance 10 MG Jardiance 10 MG 07/16/2021 12:00:00 AM EDT 1.0 {tablet} active Jardiance 10 MG eCW1 ([facility]) atorvastatin 40 MG Oral Tablet Atorvastatin Calcium 40 MG Atorvastatin Calcium 40 MG 07/16/2021 12:00:00 AM EDT 1.0 {tablet} activ e Atorvastatin Calcium 40 MG eCW1 ([facility]) atorvastatin 40 MG Oral Tablet Atorvastatin Calcium 40 MG Atorvastatin Calcium 40 MG 07/16/2021 12:00:00 AM EDT 1.0 {tablet} active eCW1 ([facility]) atorvastatin 40 MG Oral Tablet Atorvastatin Calcium 40 MG Atorvastatin Calcium 40 MG 07/16/2021 12:00:00 AM EDT 1.0 {tablet} activ e Atorvastatin Calcium 40 MG eCW1 ([facility]) empagliflozin 10 MG Oral Tablet [Jardiance] Jardiance 10 MG Jardiance 10 MG 07/16/2021 12:00:00 AM EDT 1.0 {tablet} active eCW1 ([facility]) empagliflozin 10 MG Oral Tablet [Jardiance] Jardiance 10 MG Jardiance 10 MG 07/16/2021 12:00:00 AM EDT 1.0 {tablet} active eCW1 ([facility]) 350 mg 07/06/2021 12:00:00 AM EDT tablet [...] 12:00:00 AM EDT 1.0 {tablet} active eCW1 ([facility]) Clonazepam 1 MG Oral Tablet clonazePAM 1 MG clonazePAM 1 MG 06/22/2021 12:00:00 AM EDT 1.0 {tablet} active clonazePAM 1 MG eCW1 ([facility]) 1 mL 28 gauge x 1/2" 06/09/2021 [...] 1.0 {tablet} active clonazePAM 1 MG eCW1 ([facility]) 62.5 mcg/actuation 04/29/2021 12:00:00 AM EDT blister with d evice 90 INHALE ONE PUFF BY MOUTH EVERY DAY INHALE ONE PUFF BY MOUTH EVERY DAY SOLD: 05/13/2021 [facility] Clonazepam 1 MG Oral Tablet clonazePAM 1 MG clonazePAM 1 MG 04/26/2021 12:00:00 AM EDT 1.0 {tablet} active clonazePAM 1 MG eCW1 ([facility]) 1 mg 04/26/2021 12:00:00 AM EDT tablet [...] 1.0 {tablet} active clonazePAM 1 MG eCW1 ([facility]) Clonazepam 1 MG Oral Tablet clonazePAM 1 MG clonazePAM 1 MG 04/26/2021 12:00:00 AM EDT 1.0 {tablet} active clonazePAM 1 MG eCW1 ([facility]) 25 mg 04/24/2021 12:00:00 AM EDT tablet [...] {tablet} active Lisinopril 10 MG eCW1 ( [facility]) 10 mg 04/13/2021 12:00:00 AM EDT tablet [...] {tablet} active Lisinopril 10 MG eCW1 ( [facility]) Lisinopril 10 MG Oral Tablet Lisinopril 10 MG 04/13/2021 12:00:00 A M EDT 1.0 {tablet} active Lisinopril 10 MG eCW1 ( [facility]) Lisinopril 10 MG Oral Tablet Lisinopril 10 MG 04/13/2021 12:00:00 A M EDT 1.0 {tablet} active Lisinopril 10 MG eCW1 ( [facility]) Lisinopril 10 MG Oral Tablet Lisinopril 10 MG 04/13/2021 12:00:00 A M EDT 1.0 {tablet} active Lisinopril 10 MG eCW1 ( [facility]) Insulin Glargine 100 UNT/ML Injectable Solution [Lantu [...] DAILY DOSE = 82 UNITS SOLD: 05/21/2021 [facility] Insulin Glargine 100 UNT/ML Injectable [...] DAILY DOSE = 82 UNITS SOLD: 04/09/2021 [facility] Insulin Glargine 100 UNT/ML Injectable [...] = 82 UNITS SOLD: 06/25/2021 [facility] Insulin Glargine 100 UNT/ML Injectable [...] MAXIMUM DAILY DOSE = 82 UNITS SOLD: 07/30/2021 [facility] 90 mcg/actuation 04/01/2021 12:00:00 AM EDT aerosol powdr breath activated 1 INHALE 1 PUFF BY MOUTH EVERY 4 HOURS NEEDED INHALE 1 PUFF BY MOUTH EVERY 4 HOURS NEEDED SOLD: 04/09/2021 [facility] 50 mg 03/29/2021 12:00:00 AM [...] IMUM DAILY DOSE = 2TABLETS SOLD: 12/31/2020 [facility] 1 mg 11/29/2020 12:00:00 AM EDT tablet 56 TAKE ONE TABLET BY MOUTH TWICE A DAY MAXIMUM DAILY DOSE = 2 TABLETS TAKE ONE TABLET BY MOUTH TWICE A DAY MAX IMUM DAILY DOSE = 2 TABLETS SOLD: 11/30/2020 [facility] 25 mg 11/18/2020 12:00:00 AM EST tablet 60 TAKE ONE TABLET BY MOUTH TWICE A DAY TAKE ONE TABLET BY MOUTH TWICE A DAY SOLD: 01/21/2021 [facility] 25 mg 11/18/2020 12:00:00 AM EST tablet 60 TAKE ONE TABLET BY MOUTH TWICE A DAY TAKE ONE TABLET BY MOUTH TWICE A DAY SOLD: 12/22/2020 [facility] 25 mg 11/18/2020 12:00:00 AM EST [...] 1.0 {tablet} active Clonazepam 1 MG eCW1 ([facility]) Clonazepam 1 MG Oral Tablet Clonazepam 1 MG 06/10/2020 12:00:00 AM EDT 1.0 {tablet} active Clonazepam 1 MG eCW1 ([facility]) Clonazepam 1 MG Oral Tablet Clonazepam 1 MG 06/10/2020 12:00:00 AM EDT 1.0 {tablet} active Clonazepam 1 MG eCW1 ([facility]) Clonazepam 1 MG Oral Tablet Clonazepam 1 MG 06/10/2020 12:00:00 AM EDT 1.0 {tablet} active Clonazepam 1 MG eCW1 ([facility]) Clonazepam 1 MG Oral Tablet Clonazepam 1 MG 06/10/2020 12:00:00 AM EDT 1.0 {tablet} active Clonazepam 1 MG eCW1 ([facility]) Clonazepam 1 MG Oral Tablet clonazePAM 1 MG clonazePAM 1 MG 06/10/2020 12:00:00 AM EDT 1.0 {tablet} suspended clonazeP AM 1 MG eCW1 ([facility]) Clonazepam 1 MG Oral Tablet Clonazepam 1 MG 06/10/2020 12:00:00 AM EDT 1.0 {tablet} active Clonazepam 1 MG eCW1 ([facility]) Clonazepam 1 MG Oral Tablet clonazePAM 1 MG clonazePAM 1 MG 06/10/2020 12:00:00 AM EDT 1.0 {tablet} suspended clonazeP AM 1 MG eCW1 ([facility]) Clonazepam 1 MG Oral Tablet Clonazepam 1 MG 06/10/2020 12:00:00 AM EDT 1.0 {tablet} active Clonazepam 1 MG eCW1 ([facility]) Clonazepam 1 MG Oral Tablet Clonazepam 1 MG 06/10/2020 12:00:00 AM EDT 1.0 {tablet} active Clonazepam 1 MG eCW1 ([facility]) Clonazepam 1 MG Oral Tablet Clonazepam 1 MG 06/10/2020 12:00:00 AM EDT 1.0 {tablet} active Clonazepam 1 MG eCW1 ([facility]) Clonazepam 1 MG Oral Tablet Clonazepam 1 MG 06/10/2020 12:00:00 AM EDT 1.0 {tablet} active Clonazepam 1 MG eCW1 ([facility]) Clonazepam 1 MG Oral Tablet Clonazepam 1 MG 06/10/2020 12:00:00 AM EDT 1.0 {tablet} active Clonazepam 1 MG eCW1 ([facility]) Clonazepam 1 MG Oral Tablet clonazePAM 1 MG clonazePAM 1 MG 06/10/2020 12:00:00 AM EDT 1.0 {tablet} suspended clonazeP AM 1 MG eCW1 ([facility]) Clonazepam 1 MG Oral Tablet clonazePAM 1 MG clonazePAM 1 MG 06/10/2020 12:00:00 AM EDT 1.0 {tablet} active clonazePAM 1 MG eCW1 ([facility]) Clonazepam 1 MG Oral Tablet clonazePAM 1 MG clonazePAM 1 MG 06/10/2020 12:00:00 AM EDT 1.0 {tablet} suspended clonazeP AM 1 MG eCW1 ([facility]) Clonazepam 1 MG Oral Tablet Clonazepam 1 MG 06/10/2020 12:00:00 AM EDT 1.0 {tablet} active Clonazepam 1 MG eCW1 ([facility]) Clonazepam 1 MG Oral Tablet Clonazepam 1 MG 06/10/2020 12:00:00 AM EDT 1.0 {tablet} active Clonazepam 1 MG eCW1 ([facility]) Clonazepam 1 MG Oral Tablet Clonazepam 1 MG 06/10/2020 12:00:00 AM EDT 1.0 {tablet} active Clonazepam 1 MG eCW1 ([facility]) Clonazepam 1 MG Oral Tablet clonazePAM 1 MG clonazePAM 1 MG 06/10/2020 12:00:00 AM EDT 1.0 {tablet} active clonazePAM 1 MG eCW1 ([facility]) 64 mg 04/10/2020 12:00:00 AM EDT tablet,delayed release (DR/EC) 60 TAKE ONE TABLET BY MOUTH TWICE A DAY TAKE ONE TABLET BY MOUTH TWICE A DAY SOLD: 06/12/2020 [facility] 25 mg 03/13/2020 12:00:00 AM EDT [...] 3 MG/ML Auto-Injector [Trulicity] ADAIR ([facility]) Clonazepam 0.5 MG Oral Tablet clonazepam 0.5 mg tablet TAKE ONE TABLET BY MOUTH TWICE A DAY NEEDED FOR ANXIETY MAXIMUM DAILY DOSE TWO TABLETS clonazepam 0.5 mg tablet TAKE ONE TABLET BY MOUTH TWICE A DAY NEEDED FOR ANXIETY MAXIMUM DAILY DOSE TWO TABLETS completed clonazepam 0.5 MG Oral Tablet ADAIR ([facility]) Clonazepam 0.5 MG Oral Tablet clonazepam 0.5 mg tablet TAKE ONE TABLET BY MOUTH TWICE A DAY NEEDED FOR ANXIETY MAXIMUM DAILY DOSE TWO TABLETS clonazepam 0.5 mg tablet TAKE ONE TABLET BY MOUTH TWICE A DAY NEEDED FOR ANXIETY MAXIMUM DAILY DOSE TWO TABLETS completed clonazepam 0.5 MG Oral Tablet ADAIR ([facility]) 0.5 ML dulaglutide 1.5 MG/ML Auto-Inject or [Trulicity] Trulicity 0.75 mg/0.5 mL subcutaneous pen injector DIRECTED UNDER SKIN WEEKLY Trulicity 0.75 mg/0.5 mL subcutaneous pen injector DIRECTED UNDER SKIN WEEKLY completed 0.5 ML dulaglutide 1.5 MG/ML Auto-Inject or [Trulicity] ADAIR ([facility]) Clonazepam 0.5 MG Oral Tablet clonazepam 0.5 mg tablet TAKE ONE TABLET BY MOUTH TWICE A DAY NEEDED FOR ANXIETY MAXIMUM DAILY DOSE TWO TABLETS clonazepam 0.5 mg tablet TAKE ONE TABLET BY MOUTH TWICE A DAY NEEDED FOR ANXIETY MAXIMUM DAILY DOSE TWO TABLETS completed clonazepam 0.5 MG Oral Tablet ADAIR ([facility]) empagliflozin 25 MG Oral Tablet [Jardian ce] Jardiance 25 mg tablet TAKE ONE TABLET BY MOUTH EVERY DAY Jardiance 25 mg tablet TAKE ONE TABLET B Y MOUTH EVERY DAY completed empagliflozin 25 MG Oral Tablet [Jardiance] ADAIR ([facility]) 0.5 ML dulaglutide 3 MG/ML Auto-Injector [Trulicity] Trulicity 1.5 mg/0.5 mL subcutaneous pen injector USE DIRECTED UNDER THE SKIN WEEKLY Trulicity 1.5 mg/0.5 mL subcutaneous pen injector USE DIRECTED UNDER THE SKIN WEEKLY completed 0.5 ML dulaglutide 3 MG/ML Auto-Injector [Trulicity] ADAIR ([facility]) Hydroxyzine Hydrochloride 50 MG Oral Tab let hydroxyzine HCl 50 mg tablet TAKE ONE TABLET BY MOUTH TWICE A DAY NEEDED hydroxyzine HCl 50 mg tablet TAKE ONE TABLET BY MOUTH TWICE A DAY NEEDED completed hydroxyzine hydrochloride 50 MG Oral Tablet ADAIR ([facility]) Amoxicillin 500 MG Oral Capsule amoxicillin 500 mg cap nancy amoxicillin 500 mg capsule completed amoxicillin 50 0 MG Oral Capsule ADAIR ([facility]) Hydroxyzine Hydrochloride 50 MG Oral Tab let hydroxyzine HCl 50 mg tablet TAKE ONE TABLET BY MOUTH TWICE A DAY NEEDED hydroxyzine HCl 50 mg tablet TAKE ONE TABLET BY MOUTH TWICE A DAY NEEDED completed hydroxyzine hydrochloride 50 MG Oral Tablet ADAIR ([facility]) quetiapine 25 MG Oral Tablet quetiapine 25 mg tablet TAKE ONE TABLET BY MOUTH EVERY DAY AT BEDTIME quetiapine 25 mg tablet TAKE ONE TABLET BY MOUTH EVERY DAY AT BEDTIME completed quetiapine 25 MG Oral Tablet ADAIR ([facility]) Amoxicillin 500 MG Oral Capsule amoxicillin 500 mg cap nancy amoxicillin 500 mg capsule completed amoxicillin 50 0 MG Oral Capsule ADAIR ([facility]) Metformin hydrochloride 500 MG Oral Tablet metformin 5 00 mg tablet metformin 500 mg tablet completed metformin h ydrochloride 500 MG Oral Tablet ADAIR ([facility]) Metformin hydrochloride 500 MG Oral Tablet metformin 5 00 mg tablet metformin 500 mg tablet completed metformin h ydrochloride 500 MG Oral Tablet ADAIR ([facility]) 0.5 ML dulaglutide 1.5 MG/ML Auto-Inject or [Trulicity] Trulicity 0.75 mg/0.5 mL subcutaneous pen injector DIRECTED UNDER SKIN WEEKLY Trulicity 0.75 mg/0.5 mL subcutaneous pen injector DIRECTED UNDER SKIN WEEKLY completed 0.5 ML dulaglutide 1.5 MG/ML Auto-Inject or [Trulicity] ADAIR ([facility]) Hydroxyzine Hydrochloride 50 MG Oral Tab let hydroxyzine HCl 50 mg tablet TAKE ONE TABLET BY MOUTH TWICE A DAY NEEDED hydroxyzine HCl 50 mg tablet TAKE ONE TABLET BY MOUTH TWICE A DAY NEEDED completed hydroxyzine hydrochloride 50 MG Oral Tablet ADAIR ([facility]) Metformin hydrochloride 500 MG Oral Tablet metformin 5 00 mg tablet metformin 500 mg tablet completed metformin h ydrochloride 500 MG Oral Tablet ADAIR ([facility]) 0.5 ML dulaglutide 1.5 MG/ML Auto-Inject or [Trulicity] Trulicity 0.75 mg/0.5 mL subcutaneous pen injector DIRECTED UNDER SKIN WEEKLY Trulicity 0.75 mg/0.5 mL subcutaneous pen injector DIRECTED UNDER SKIN WEEKLY completed 0.5 ML dulaglutide 1.5 MG/ML Auto-Inject or [Trulicity] ADAIR ([facility]) Hydroxyzine Hydrochloride 50 MG Oral Tab let hydroxyzine HCl 50 mg tablet TAKE ONE TABLET BY MOUTH TWICE A DAY NEEDED hydroxyzine HCl 50 mg tablet TAKE ONE TABLET BY MOUTH TWICE A DAY NEEDED completed hydroxyzine hydrochloride 50 MG Oral Tablet ADAIR ([facility]) Hydroxyzine Hydrochloride 50 MG Oral Tab let hydroxyzine HCl 50 mg tablet TAKE ONE TABLET BY MOUTH TWICE A DAY NEEDED hydroxyzine HCl 50 mg tablet TAKE ONE TABLET BY MOUTH TWICE A DAY NEEDED completed hydroxyzine hydrochloride 50 MG Oral Tablet ADAIR ([facility]) Amoxicillin 500 MG Oral Capsule amoxicillin 500 mg cap nancy amoxicillin 500 mg capsule completed amoxicillin 50 0 MG Oral Capsule ADAIR ([facility]) Clonazepam 0.5 MG Oral Tablet clonazepam 0.5 mg tablet TAKE ONE TABLET BY MOUTH TWICE A DAY NEEDED FOR ANXIETY MAXIMUM DAILY DOSE TWO TABLETS clonazepam 0.5 mg tablet TAKE ONE TABLET BY MOUTH TWICE A DAY NEEDED FOR ANXIETY MAXIMUM DAILY DOSE TWO TABLETS completed clonazepam 0.5 MG Oral Tablet ADAIR ([facility]) 0.5 ML dulaglutide 1.5 MG/ML Auto-Inject or [Trulicity] Trulicity 0.75 mg/0.5 mL subcutaneous pen injector DIRECTED UNDER SKIN WEEKLY Trulicity 0.75 mg/0.5 mL subcutaneous pen injector DIRECTED UNDER SKIN WEEKLY completed 0.5 ML dulaglutide 1.5 MG/ML Auto-Inject or [Trulicity] ADAIR ([facility]) Metformin hydrochloride 500 MG Oral Tablet metformin 5 00 mg tablet metformin 500 mg tablet completed metformin h ydrochloride 500 MG Oral Tablet ADAIR ([facility]) empagliflozin 25 MG Oral Tablet [Jardian ce] Jardiance 25 mg tablet TAKE ONE TABLET BY MOUTH EVERY DAY Jardiance 25 mg tablet TAKE ONE TABLET B Y MOUTH EVERY DAY completed empagliflozin 25 MG Oral Tablet [Jardiance] ADAIR ([facility]) Hydroxyzine Hydrochloride 50 MG Oral Tab let hydroxyzine HCl 50 mg tablet TAKE ONE TABLET BY MOUTH TWICE A DAY NEEDED hydroxyzine HCl 50 mg tablet TAKE ONE TABLET BY MOUTH TWICE A DAY NEEDED completed hydroxyzine hydrochloride 50 MG Oral Tablet ADAIR ([facility]) 0.5 ML dulaglutide 3 MG/ML Auto-Injector [Trulicity] Trulicity 1.5 mg/0.5 mL subcutaneous pen injector USE DIRECTED UNDER THE SKIN WEEKLY Trulicity 1.5 mg/0.5 mL subcutaneous pen injector USE DIRECTED UNDER THE SKIN WEEKLY completed 0.5 ML dulaglutide 3 MG/ML Auto-Injector [Trulicity] ADAIR ([facility]) empagliflozin 25 MG Oral Tablet [Jardian ce] Jardiance 25 mg tablet TAKE ONE TABLET BY MOUTH EVERY DAY Jardiance 25 mg tablet TAKE ONE TABLET B Y MOUTH EVERY DAY completed empagliflozin 25 MG Oral Tablet [Jardiance] ADAIR ([facility]) Clonazepam 0.5 MG Oral Tablet clonazepam 0.5 mg tablet TAKE ONE TABLET BY MOUTH TWICE A DAY NEEDED FOR ANXIETY MAXIMUM DAILY DOSE TWO TABLETS clonazepam 0.5 mg tablet TAKE ONE TABLET BY MOUTH TWICE A DAY NEEDED FOR ANXIETY MAXIMUM DAILY DOSE TWO TABLETS completed clonazepam 0.5 MG Oral Tablet ADAIR ([facility]) Metformin hydrochloride 500 MG Oral Tablet metformin 5 00 mg tablet metformin 500 mg tablet completed metformin h ydrochloride 500 MG Oral Tablet ADAIR ([facility]) Amoxicillin 500 MG Oral Capsule amoxicillin 500 mg cap nancy amoxicillin 500 mg capsule completed amoxicillin 50 0 MG Oral Capsule ADAIR ([facility]) Clonazepam 0.5 MG Oral Tablet clonazepam 0.5 mg tablet TAKE ONE TABLET BY MOUTH TWICE A DAY NEEDED FOR ANXIETY MAXIMUM DAILY DOSE TWO TABLETS clonazepam 0.5 mg tablet TAKE ONE TABLET BY MOUTH TWICE A DAY NEEDED FOR ANXIETY MAXIMUM DAILY DOSE TWO TABLETS completed clonazepam 0.5 MG Oral Tablet ADAIR ([facility]) quetiapine 25 MG Oral Tablet quetiapine 25 mg tablet TAKE ONE TABLET BY MOUTH EVERY DAY AT BEDTIME quetiapine 25 mg tablet TAKE ONE TABLET BY MOUTH EVERY DAY AT BEDTIME completed quetiapine 25 MG Oral Tablet ADAIR ([facility]) quetiapine 25 MG Oral Tablet quetiapine 25 mg tablet TAKE ONE TABLET BY MOUTH EVERY DAY AT BEDTIME quetiapine 25 mg tablet TAKE ONE TABLET BY MOUTH EVERY DAY AT BEDTIME completed quetiapine 25 MG Oral Tablet ADAIR ([facility]) empagliflozin 25 MG Oral Tablet [Jardian ce] Jardiance 25 mg tablet TAKE ONE TABLET BY MOUTH EVERY DAY Jardiance 25 mg tablet TAKE ONE TABLET B Y MOUTH EVERY DAY completed empagliflozin 25 MG Oral Tablet [Jardiance] ADIAR ([facility]) 0.5 ML dulaglutide 3 MG/ML Auto-Injector [Trulicity] Trulicity 1.5 mg/0.5 mL subcutaneous pen injector USE DIRECTED UNDER THE SKIN WEEKLY Trulicity 1.5 mg/0.5 mL subcutaneous pen injector USE DIRECTED UNDER THE SKIN WEEKLY completed 0.5 ML dulaglutide 3 MG/ML Auto-Injector [Trulicity] ADAIR ([facility]) Metformin hydrochloride 500 MG Oral Tablet metformin 5 00 mg tablet metformin 500 mg tablet completed metformin h ydrochloride 500 MG Oral Tablet ADAIR ([facility]) Hydroxyzine Hydrochloride 50 MG Oral Tab let hydroxyzine HCl 50 mg tablet TAKE ONE TABLET BY MOUTH TWICE A DAY NEEDED hydroxyzine HCl 50 mg tablet TAKE ONE TABLET BY MOUTH TWICE A DAY NEEDED completed hydroxyzine hydrochloride 50 MG Oral Tablet ADAIR ([facility]) quetiapine 25 MG Oral Tablet quetiapine 25 mg tablet TAKE ONE TABLET BY MOUTH EVERY DAY AT BEDTIME quetiapine 25 mg tablet TAKE ONE TABLET BY MOUTH EVERY DAY AT BEDTIME completed quetiapine 25 MG Oral Tablet ADAIR ([facility]) Clonazepam 0.5 MG Oral Tablet clonazepam 0.5 mg tablet TAKE ONE TABLET BY MOUTH TWICE A DAY NEEDED FOR ANXIETY MAXIMUM DAILY DOSE TWO TABLETS clonazepam 0.5 mg tablet TAKE ONE TABLET BY MOUTH TWICE A DAY NEEDED FOR ANXIETY MAXIMUM DAILY DOSE TWO TABLETS completed clonazepam 0.5 MG Oral Tablet ADAIR ([facility]) Amoxicillin 500 MG Oral Capsule amoxicillin 500 mg cap nancy amoxicillin 500 mg capsule completed amoxicillin 50 0 MG Oral Capsule ADAIR ([facility]) Amoxicillin 500 MG Oral Capsule amoxicillin 500 mg cap nancy amoxicillin 500 mg capsule completed amoxicillin 50 0 MG Oral Capsule ADAIR ([facility]) Amoxicillin 500 MG Oral Capsule amoxicillin 500 mg cap nancy amoxicillin 500 mg capsule completed amoxicillin 50 0 MG Oral Capsule ADAIR ([facility]) Metformin hydrochloride 500 MG Oral Tablet metformin 5 00 mg tablet metformin 500 mg tablet completed metformin h ydrochloride 500 MG Oral Tablet ADAIR ([facility]) Insurance Providers Payer name Policy type / Coverage type Policy ID Covered green party ID Covered green party's relationship to moe Policy Moe Plan Information [facility] MEDICARE [id number] Luna [id number] [facility] MEDICAID [id number] [facility] [id number] [place] Medicare Primary [id number] Self [id number] Medicare [facility] Medicare Primary [id number] Self [id number] MEDICARE [id number] SP [id number] M [facility] [id number] SP [id number] [facility] [id number] SP [id number] MEDICAID [id number] SP [id number] MEDICARE PART A -O/P [id number] 18 [id number] MEDICARE COMPLETE [id number] SP [id number] ANSI-Medicare Part B [id number] ANSI-Not a Secondary Insurance [id number] ANSI-Medicaid [id number] ANSI-Not a Secondary Insurance [id number] ANSI-Medicare Part B [id number] ANSI-Medicaid [id number] Medicaid [facility] Part B [id number] Self [id number] Dual Complete Commercial [id number] [facility] [id number] [facility] [id number] Self [id number] [facility] [id number] Self [id number] Medicaid [facility] Part B [id number] Self [id number] Dual Complete Commercial [id number] Self [id number] ANSI-Medicaid [id number] ANSI-Not a Secondary Insurance [id number] ANSI-Medicare Part B [id number] ANSI-Medicaid [id number] ANSI-Not a Secondary Insurance [id number] ANSI-Medicare Part B [id number] ANSI-Medicaid [id number] ANSI-Not a Secondary Insurance [id number] ANSI-Medicare Part B [id number] ANSI-Medicaid [id number] ANSI-Not a Secondary Insurance [id number] ANSI-Medicare Part B [id number] ANSI-Medicare Part B [id number] ANSI-Not a Secondary Insurance [id number] ANSI-Medicaid [id number] [facility] PL[facility] XIX [id number] 18 [id number] MEDICARE [id number] SP [id number] M [facility] [id number] Self Medicaid Medigap Part B [id number] Self Medicare (Part B) Medicare Primary [id number] Self SELF PAY UNAVAILABLE SP UNAVAILA BLE [facility] PLAN [facility] [id number] SP [id number] MEDICARE [id number] SP [id number] A [facility]) O [id number] S [id number] [facility] [id number] SP [id number] [place] [id number] SP [id number] S [id number] [facility] [id number] SP [id number] [facility] [id number] SP [id number] [facility] DUAL COMP - FACILITY [id number] 18 [id number] [facility] [id number] SP [id number] MEDICAID [id number] SP [id number] MEDICAID -O/P EMERGENCY ROOM [id number] 18 [id number] MEDICARE PART A -O/P [id number] 18 [id number] Problems, Conditions, and Diagnoses Code Display Name Description Problem Type Effective Dates Data Source(s) Z6834 Body mass index [BMI] 34.0-34.9, adult B esmer mass index [BMI] 34.0-34.9, adult Diagnosis 12/07/2020 06:09:[address] [facility] Z5320 Procedure and treatment not carried out because of patient's decision for unspecified reasons Procedure and treatment not carried out because of patient's decision for unspecified reasons Diagnosis 12/07/2020 06:09:[address] [facility] A12311 Personal history of nicotine dependence Personal history of nicotine dependence Diagnosis 12/07/2020 06:09:[address] 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 E669 Obesity, unspecified Obesity, unspecified Diagnosis 12/07/2020 06:09:[address] [facility] I10 Essential (primary) hypertension Essential (primary) h ypertension Diagnosis 12/07/2020 06:09:[address] 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 R0789 Other chest pain Other chest pain Diagnosis 12/07/2020 06 :09:[address] 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 Problem 07/16/2021 12:00:00 AM EDT eCW1 ([facility]) I25.10 [id number] Atherosclerotic hear t disease of [place] coronary artery without angina pectoris Problem 07/16/2021 12:00:00 AM EDT eCW1 ([facility]) Z95.5 [id number] Presence of coronary angioplasty implant and graft Problem 07/16/2021 12:00:00 AM EDT eCW1 ([facility]) Z79.4 [id number] alf (current) use of insulin Proble m 05/22/2021 12:00:00 AM EDT eCW1 ([facility]) E11.65 [id number] Type 2 diabetes mellitus with hyperglycem ia Problem 05/22/2021 12:00:00 AM EDT eCW1 ([facility]) Surgeries/Procedures Procedure Description Date Indications Data Source(s) MRI, lumbar spine, w/o contrast 07/06/2021 12:00:00 AM EDT INDI[facility] ([facility]) Results ID Date Data Source [id number] 07/12/2021 12:00:00 AM EDT [facility] ([facility]) Name Value Range Interpretation Code Description Data Vicki rce(s) Supporting Document(s) SARS-CoV-2 (COVID-19) RNA [Presence] in Respiratory specimen by CHRISTEN with probe detection negative negative Sars-cov-2 [facility] ([facility]) ID Date Data Source [id number] 07/12/2021 12:00:00 AM EDT ADAIR ([facility]) Name Value Range Interpretation Code Description Data Vicki rce(s) Supporting Document(s) ID Date Data Source [id number] 07/12/2021 12:00:00 AM EDT [facility] Name Value Range Interpretation Code Description Data Vicki rce(s) Supporting Document(s) SARS-CoV-2 [facility] This lab was ordered by [facility]-COVID19 and reported by [employer]. ID Date Data Source [id number] 07/12/2021 12:00:00 AM EDT ADAIR ([facility]) Name Value Range Interpretation Code Description Data Vicki rce(s) Supporting Document(s) SARS-CoV-2 (COVID-19) RNA [Presence] in Respiratory specimen by CHRISTEN with probe detection negative negative Sars-cov-2 INDIANOLA ([facility]) ID Date Data Source [id number] 07/12/2021 12:00:00 AM EDT INDI[place]A ([facility]) Name Value Range Interpretation Code Description Data Vicki rce(s) Supporting Document(s) ID Date Data Source [id number] 12/08/2020 12:02:00 [place] [address] PHONE: [phone] FAX: [phone] Name .................. : CAROLIN Ferreira Acct Number.................. : [id number] ROOM. ................. : TR-07 Number ................... : [id number] Stay type ............. : E/R Discharge Date......... ... : 12/07/20 Admit Date ......... : 12/07/20 [facility] ................[facility] Date of ....... : 1950 Family Phys ................... : NON STAFF Phone .................. : [phone] Age ................................ : 70 Film# .................. .:[id number] Sex ................................. : M Unsigned transcriptions are preliminary reports and do not represent a medical or legal document CHEST PORTABLE [id number] COMPLETE:12/07/20 06:43 LEON 7333 Reason(s): Chest Pain PORTABLE CHEST X-RAY: INDICATION: [...] MD , 12/08/20 12:02, KGG Transcribe Initials: FRANCA , Transcribe Date: 12/07/20 16:42, Dictation Date: Copy for: 710 MED REC DISCHARGED Page 1 of 1 Name Value Range Interpretation Code Description Data Vicki rce(s) Supporting Document(s) ID Date Data Source [id number] 12/07/2020 06:09:00 AM EDT [facility] 1 OrderSheet [facility] Emergency Department [address] [place] [address] Phone #: ext- [phone] 12/07/2020 06:08 Patient: YA COE Sex: M : 1950 Age: 70yWEIGHT:111.1 kg (S) HEIGHT:71 inches (S) BMI:34.2ALLERGIES: Sulfa AntibioticsCHIEF COMPLAINT: chest pain, discomfort, SOB, chest pain, discomfort, SOBDIAGNOSIS: Preinfarction syndrome, Chest painLAB ORDERSOrder Description Priority Entered Acknowledged InitialedCBC w Diff STAT 06:12/07/2020 06:41 Willian Hope Victoria Laura R.N. ;CMP STAT 06:12/07/2020 06:41 Willian Hope, Jessica Baum R.N. ;Lipase STAT 06:12/07/2020 06:41 Willian Hope Victoria Laura R.N. ;PT/PTT STAT 06:12/07/2020 06:41 Willian Hope Victoria Laura R.N. ;Troponin-T STAT 06:12/07/2020 06:41 Willian Hope Victoria Laura R.N. ;BNP STAT 06:12/07/2020 06:41 Willian Hope Victoria Laura R.N. ;DIAGNOSTIC STUDY ORDERSOrder Description Priority Entered Acknowledged Initiale dChest Portable 1 STAT 06:12/07/2020 06:41 JayyView Jessica Dorsey R.N.(Oxygen?(No)) ; Reason for Study: Chest PainMEDICATION/IV/DRIP/FLUID ORDERSOrder Description Priority Entered Acknowledged InitialedAspirin PO 06:13 12/07/2020 06:41 Jayy,Chewable 81 mg Jessica Dorsey R.NNate324 mg (NOW) ; 2 OrderSheet [facility] Emergency Department [address] [place] [address] Phone #: ext- [phone] 12/07/2020 06:08 Patient: YA COE [facility]#: [id number] Sex: M : 1950 Age: 70yNitroGLYCERIN 07:11 12/07/2020 07:18 Jayy,Topical Ointment Sarika Hope R.N.1 in. R.N.; Verbal order per; Jessica DorseyTylenol PO 1000 07:29 12/07/2020 07:29 Terrymg (NOW x1) Sabino Augustin RN; Demetria RN Verbal order per; Jamar Parrish M.D.GENERAL ORDERSOrder Description Priority Entered Acknowledged InitialedBlood Pressure 06:13 12/07/2020 06:19 Jayy,Monitor Jessica DorseyN. ;Certified Athletic Trainer 06:13 12/07/2020 06:19 Jayy,(continuous) Jessica Dorsey R.N. ;EKG 06:13 12/07/2020 06:19 Willian Hope Victoria Laura R.N. ;NPO 06:13 12/07/2020 06:19 Willian Hope Victoria Laura R.N. ;Obtain Old EKG 06:13 12/07/2020 06:19 Willian Hope Vic toria Laura R.N. ;Obtain Old Records 06:13 12/07/2020 06:19 Willian Hope Victoria Laura R.N. ;Oxygen titrate to 06:13 12/07/2020 06:19 Jayy,92% Jessica Dorsey R.N. ;Pulse oximeter 06:13 12/07/2020 06:19 Jayy,(Continuous) Jessica Dorsey R.N. ;Saline Lock 06:13 12/07/2020 06:19 Willian Hope Victoria Laura R.N. ;Vitals 06:13 12/07/2020 06:19 Willian Hope Victoria Laura RNateN. ; 3 OrderSheet [facility] Emergency Department [address] [place] [address] Phone #: ext- [phone] 12/07/2020 06:08 Patient: YA COE Sex: M : 1950 Age: 70y[Electronically signed by Jamar Parrish M.D. (08:52 12/07/2020)][Electronically signed by Sabino Augustin RN (12:17 12/07/2020)][Electronically signed by Jessica Dorsey (09:11 12/08/2020)][Electronically locked by Sabino Augustin RN (12:17 12/07/2020)] Name Value Range Interpretation Code Description Data Vicki rce(s) Supporting Document(s) ID Date Data Source [id number] 12/07/2020 06:09:00 AM EDT [facility] 1 Medication Reconciliation Report [facility] Emergency Department [address] [place] [address] Phone #: ext- [phone] 12/07/2020 06:08 Patient: [...] administered: 07:18 12/07/2020 2 Medication Reconciliation Report [facility] Emergency Department [address] [place] [address] Phone #: ext- [phone] 12/07/2020 06:08 Patient: YA COE Sex: M : 1950 Age: 70yTylenol [PO] PO 1000 mg, administered: 07:29 12/07/2020The following Medications were prescribed to the patient:None. Name Value Range Interpretation Code Description Data Vicki rce(s) Supporting Document(s) ID Date Data Source [id number] 12/07/2020 06:09:00 AM EDT [facility] 1 Medication Administration Record [facility] Emergency Department [address] [place] [address] Phone #: ext- [phone] 12/07/2020 06:08 Patient: YA COE Sex: M : 1950 Age: 70yWeight: 111.1 kgHeight/Length: 71 inBMI: 34.2ALLERGIES: Sulfa Antibiotics Date/Time Medication Administered Medication OrderedGiven ASPIRIN CHEWABLE 81 MG [PO] Aspirin PO Chewable 81 mg 55853:41 12/07/2020 Dose: 324 mg PO mg (NOW)Sarika Hope R.N.Given NITROGLYCERIN [TOPICAL OINTMENT] NitroGLYCERIN Vdeiiii94:18 12/07/2020 Dose: 0.5 in. Topical Ointment 1 in.Sarika Hope R.N.Given TYLENOL [PO] (APAP) Tylenol PO 1000 mg (NOW x1)07:29 12/07/2020 Dose: 1000 mg Tablets Iza Augustin RN Name Value Range Interpretation Code Description Data Vicki rce(s) Supporting Document(s) ID Date Data Source [id number] 12/07/2020 06:09:00 AM EDT [facility] 1 General Instructions [facility] Emergency Department [address] [place] [address] Phone #: ext- [phone] 12/07/2020 06:08 Patient: YA COE Sex: M : 1950 Age: 70yUnstable angina.(Electronically [...] tablet 2x a day. 2 General Instructions [facility] Emergency Department [address] [place] [address] Phone #: ext- [phone] 12/07/2020 06:08 Patient: YA COE Sex: M : 1950 Age: 70yIncruse Ellipta [...] I understand that a doctor at this [facility] wants to give me certain medicalcare. The doctor explained that care to me, and I understand what that care is. The doctor also explainedto me what could happen to me if I leave here without having that care, and I understand what he said. Iwant to leave this hospital without receiving the recommended care. I know that I am welcome to return [facility] at any time to receive the recommended care or any other care that I may need at any time,regardless of my ability to pay for such care.No strenuous activity until released.(Electronically signed by Jamar Parrish M.D. 12/07/2020 08:52) 3 General Instructions [facility] Emergency Department [address] [place] [address] Phone #: ext- [phone] 12/07/2020 06:08 Patient: YA COE Sex: M : 1950 Age: 70y Name Value Range Interpretation Code Description Data Vicki rce(s) Supporting Document(s) ID Date Data Source [id number] 12/07/2020 06:09:00 AM EDT [facility] 1 Clinical Report - Nurses [facility] Emergency Department [address] [place] [address] Phone #: ext- [phone] 12/07/2020 06:08 Patient: YA COE Sex: M : 1950 Age: 70yTRIAGE Arrived by private vehicle. Historian: patient. ( pATIENT STATES STARTING LAST NIGHT HE DEVELOPED A HEADACHE, CP AND SOB.). Acuity: LEVEL 3. Chief Complaint: CHEST PAIN and SHORTNESS OF BREATH. Alert. No acute distress. This started last night. The patient has had difficulty breathing and nausea. 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 SEPSIS SCREEN: SIRS SCREEN NEGATIVE. SEPSIS [...] puff, daily. 2 Clinical Report - Nurses [facility] Emergency Department [address] [place] [address] Phone #: ext- [phone] 12/07/2020 06:08 Patient: YA COE Sex: M : 1950 Age: 70y --06:17 12/07/20 Braden LuiLantus Subcutaneous, 2x a day (45units in morning and 37 in evening ). --06:18 12/07/20 Saloni Lui following entry was struck by Braden Lui, 06:20 (12/07/20) Reason - other(duplicates). ProAir HFA Inhalation 1 puff, daily. --06:17 12/07/20 Saloni Lui following entry was struck by Braden Lui, 06:20 (12/07/20) Reason - other(duplicates). Metoprolol Succinate ER Oral (Tablet Extended Release 24 Hour 25 mg) 1 tablet, daily. --06: Saloni Lui following entry was struck by Braden Lui, 06:20 (12/07/20) Reason - other(duplicates). metFORMIN HCl Oral (Tablet 500 mg) 1 tablet, daily. --06:13 12/07/20 Saloni Lui following entry was struck by Braden Lui, 06:20 (12/07/20) Reason - other(duplicates). Mag64 Oral (Tablet Delayed Release 64 mg) 1 tablet, 2x a day. --06:14 12/07/20 Saloni Lui following entry was struck by Braden Lui, [...] 1 tablet, 2x a day. --06:15 12/07/20 Saloni Lui following entry was struck by Braden Lui, 06:19 (12/07/20) Reason - other(duplicates). Centrum Silver Oral 1 tablet, daily. --06:16 12/07/20 Saloni Lui following entry was struck by Bradne Lui, 06:19 (12/07/20) Reason - other(duplicates). Aspirin [...] no deficiencies. 3 Clinical Report - Nurses [facility] Emergency Department [address] [place] [address] Phone #: ext- [phone] 12/07/2020 06:08 Patient: YA COE Sex: M : 1950 Age: 70y FUNCTIONAL [...] care for this patient has been created. engine specialist, NIBP monitor and pulse oximeter placed on patient. EKG was performed by a nurse and shown to the ED physician. Patient gowned. Reassurance given. Call light placed in reach. Side rails up x 1. Bed placed in lowest position. Brakes of bed on. --06:21 12/07/20 Gerjaime Braden 06:41 12/07/2020 ASPIRIN CHEWABLE 81 MG PO [...] Hope R.N. 4 Clinical Report - Nurses [facility] Emergency Department [address] [place] [address] Phone #: ext- [phone] 12/07/2020 06:08 Patient: YA COE Sex: M : 1950 Age: 70y 07:12/07/2020 Tylenol (APAP) PO Tablets 1000 mg given. [...] ambulatory and via private vehicle. --07:59 12/07/20 Sabino Augustin RN 07:49 12/07/20. BP: 139/76. MAP: [...] rce(s) Supporting Document(s) ID Date Data Source [id number] 12/07/2020 06:09:00 AM EDT [facility] 1 Clinical Report - Physicians/Mid Levels [facility] Emergency Department [address] [place] [address] Phone #: ext- [phone] 12/07/2020 06:08 [id number]: [facility] : 1950 Age: 70y Time [...] an RCA sten placed in 2014 in [place]. patient states that he has not seen a roll coating machine operator since then. he has been having intermittent [...] daily. 2 Clinical Report - Physicians/Mid Levels [facility] Emergency Department [address] [place] [address] Phone #: ext- [phone] 12/07/2020 06:08 Patient: YA COE [facility]#: [id number] Sex: M : 1950 Age: 70y Incruse [...] air. Temp: 97.3 F. Pain level now: 610. Have been reviewed. Oxygen saturation normal.Appearance: Alert. [...] inspiration. Breath sounds normal.Abdomen: Soft and nontender. [place] el sounds normal. No organomegaly. No mass. [...] results. 3 Clinical Report - Physicians/Mid Levels [facility] Emergency Department [address] [place] [address] Phone #: ext- [phone] 12/07/2020 06:08 Patient: [...] an RCA stent placed in 2014 in [place]. patient states that he has not seen a roll coating machine operator since then. he has been having intermittent [...] Disease. 4 Clinical Report - Physicians/Mid Levels [facility] Emergency Department [address] [place] [address] Phone #: ext- [phone] 12/07/2020 06:08 Patient: YA COE [facility]#: [id number] Sex: M : 1950 Age: 70y Kidney [...] lower extremity edema. 5 Clinical Report - Physicians/[facility] Emergency Department [address] [place] [address] Phone #: ext- [phone] 12/07/2020 06:08 Patient: YA COE Sex: M [...] NOT INDICATED CMP: (HELENA: 12/07/2020 06:36) ( MsgRcvd 12/07/2020 07:19) Final results Test Result Flag Units (Reference) COMPREHENSIVE METABOLIC PANEL COMPREHENSIVE METABOLIC PANEL SODIUM 134 mEq/L (134 - 153) POTASSIUM 3.9 mEq/L (3.6 - 5.0) CHLORIDE 102 mEq/L (98 - 107) CO2 23 MEQ/L (22 - 30) GLUCOSE 227 H MG/DL (70 - 99) BUN 13 MG/DL (7 - 21) 6 Clinical Report - Physicians/Mid Levels [facility] Emergency Department [address] [place] [address] Phone #: ext- [phone] 12/07/2020 06:08 Patient: [...] mL/min Normal Lipase: (HELENA: 12/07/2020 06:36) ( [facility] 07[facility] Final results Test Result Flag Units (Reference) LIPASE 76 H U/L (13 - 60) PT/PTT: (HELENA: 12/07/2020 06:36) ( MsgRcvd 12/07/2020 07:13) Final results Test Result Flag [...] Prosthetic valve. Troponin-T: (HELENA: 12/07/2020 06:36) ( PagRcvd 12/07/2020 07:13) Final results Test Result Flag Units (Reference) TROPONIN T <0.01 NG/ML (0.00 - 0.10) TROPONIN T0.1 ng/ml Recommended as the clinical threshold value forTroponin T. BNP: (HELENA: 12/07/2020 06:36) ( [facility] 12/07/2020 07:18) Final results Test Result Flag Units (Reference) BNP 28 PG/ML (0 - 125) Chest Portable 1 View: (HELENA: 12/07/2020 06:16) ( PagRcvd 12/07/2020 06:43) In Progress CHEST PORTABLE Reason(s): Chest Pain TRANSPORTATION: P IV? O2? Oxygen?(No) Room: ED. [address] [place] [address] - Physicians/[facility] Emergency Department [address] [place] [address] Phone #: ext- [phone] 12/07/2020 06:08 Patient: YA COE Sex: M : 1950 Age: 70yPROGRESS AND [...] sign paperwork; pt advised to f/u w ADMINISTRATIVE SUPERVISOR in [place] within 2 days and to return to [...] your 8 Clinical Report - Physicians/Mid Levels [facility] Emergency Department [address] [place] [address] Phone #: ext- [phone] 12/07/2020 06:08 [id number] Sex: M : 1950 Age: 70y chest, [...] 12/07/2020 08:52) 9Clinical Report - Physicians/Mid Levels [facility] Emergency Department [address] [place] [address] Phone #: [phone]- [phone] 12/07/2020 06:08 Patient: YA COE Sex: M : 1950 Age: 70y Name Value Range Interpretation Code Description Data Vicki rce(s) Supporting Document(s) ID Date Data Source [id number] 12/07/2020 09:53:00 [place] [address] RESPIRATORY CARE REPORT ==== ---------NAME------- NUMBER SEX AGE ADMIT DISC. XRAY# F/C DAVID Ferreira [id number] M 70 12/07/20 12/07/20 [id number] REECE E/R DATE OF : 1950 M/R# [id number] #: [id number] TR-07 LOCATION: [facility] [address] COMPLETE:12/07/20 0 7:51 ED [address] PHYSICIAN: WILLIAN Name Value Range Interpretation Code Description Data Vicki rce(s) Supporting Document(s) ID Date Data Source [id number] 12/07/2020 07:19:00 AM EDT [facility] Name Value Range Interpretation Code Description Data Vicki rce(s) Supporting Document(s) Lipase [Enzymatic activity/volume] in Serum or Plasma 76 U/L 13 - 60 H [facility] ID Date Data Source [id number] 12/07/2020 07:18:00 AM EDT [facility] Name Value Range Interpretation Code Description Data Vicki rce(s) Supporting Document(s) COMPREHENSIVE METABOLIC PANEL [facility] COMPREHENSIVE METABOLIC PANEL Sodium [Moles/volume] in Serum or Plasma 134 mEq/L 134 - 153 [facility] Potassium [Moles/volume] in Serum or Plasma 3.9 mEq/L 3.6 - 5.0 [facility] Chloride [Moles/volume] in Serum or Plasma 102 mEq/L 98 - 107 [facility] Carbon dioxide, total [Moles/volume] in Serum or Plasma 23 MEQ/L 22 - 30 [facility] Glucose [Mass/volume] in Serum or Plasma 227 MG/DL 70 - 99 H [facility] BUN 13 MG/DL 7 - 21 [facility] al Creatinine [Mass/volume] in Serum or Plasma 0.7 MG/DL 0.7 - 1.5 [facility] BUN/CREAT 19 8 - 27 [facility] al Protein [Mass/volume] in Serum or Plasma 6.5 G/DL 6.3 - 8.2 [facility] Albumin [Mass/volume] in Serum or Plasma 4.0 G/DL 3.9 - 5.0 [facility] Globulin [Mass/volume] in Serum by calculation 2.5 GM/DL 2.4 - 3.2 [facility] A/G RATIO 1.6 0.8 - 2.0 [facility] Calcium [Mass/volume] in Serum or Plasma 10.4 MG/DL 8.4 - 10.2 H [facility] Bilirubin.total [Mass/volume] in Serum or Plasma <0.7 MG/DL 0.2 - 1.3 [facility] Alkaline phosphatase [Enzymatic activity/volume] in Serum or Plasma 118 U/L 38 - 126 [facility] Aspartate aminotransferase [Enzymatic activity/volume] in Serum or Plasma 26 U/L 5 - 40 [facility] Alanine aminotransferase [Enzymatic activity/volume] in Seru m or Plasma 47 U/L 7 - 56 [facility] Anion gap 3 in Serum or Plasma 9.0 mmol/L 8.0 - 16.0 [facility] 70 [facility] >60 mL/min [facility] ital AFR AMER GFR >60 mL/min [facility] Ho spital Male GFR In terprentation 20-49 [...] >32 mL/min Normal ID Date Data Source [id number] 12/07/2020 07:18:00 AM EDT [facility] Name Value Range Interpretation Code Description Data Vicki rce(s) Supporting Document(s) BNP 28 PG/ML 0 - 125 [facility] al ID Date Data Source [id number] 12/07/2020 07:14:00 AM EDT [facility] Name Value Range Interpretation Code Description Data Vicki rce(s) Supporting Document(s) CBC W/AUTOMATED DIFF [facility] COMPLETE BLOOD COUNT Leukocytes [#/volume] in Blood by Automated count 9.1 10^3/uL 4.2 - 1 1.0 [facility] Erythrocytes [#/volume] in Blood by Automated count 4.88 10^6/uL 4. 50 - 6.30 [facility] Hemoglobin [Mass/volume] in Blood 16.0 g/dL 14.0 - 16.0 [facility] Hematocrit [Volume Fraction] of Blood by Automated count 44.9 % 4 1.0 - 51.0 [facility] Erythrocyte mean corpuscular volume [Entitic volume] by Auto mated count 92.0 fL 80.0 - 94.0 [facility] Erythrocyte mean corpuscular hemoglobin [Entitic mass] by Automated count 32.8 pg 27.0 - 34.0 [facility] Erythrocyte mean corpuscular hemoglobin concentration [Mass/volume] by Automated count 35.6 g/dL 31.0 - 36.0 [facility] Erythrocyte distribution width [Ratio] by Automated count 12.1 % 11.5 - 14.8 [facility] Platelets [#/volume] in Blood by Automated count 285 10^3/uL 150 - 45 0 [facility] Platelet mean volume [Entitic volume] in Blood by Automated count 11.0 fL 7.4 - 10.4 H [facility] Neutrophils/100 leukocytes in Blood by Automated count 56.9 % 37. 0 - 80.0 [facility] Lymphocytes/100 leukocytes in Blood by Manual count 26.7 % 25.0 - 40.0 [facility] Monocytes/100 leukocytes in Blood by Automated count 8.2 % 3.0 - 8.0 H [facility] Eosinophils/100 leukocytes in Blood by Automated count 6.4 % 0.0 - 7.0 [facility] Basophils/100 leukocytes in Blood by Automated count 1.1 % 0.0 - 2.0 [facility] %IG 0.7 % 0.0 - 0.0 H [facility] al %NRBC 0.0 % 0.0 - 0.0 [facility] al Neutrophils [#/volume] in Blood by Automated count 5.15 10^3/uL 2.00 - 6.90 [facility] Lymphocytes [#/volume] in Blood by Automated count 2.42 10^3/uL 0.60 - 3.40 [facility] Monocytes [#/volume] in Blood by Automated count 0.74 10^3/uL 0.00 - 0.90 [facility] Eosinophils [#/volume] in Blood by Automated count 0.58 10^3/uL 0.00 - 0.70 [facility] Basophils [#/volume] in Blood by Automated count 0.10 10^3/uL 0.00 - 0.20 [facility] #IG 0.06 10^3/uL 0.00 - 0.10 [facility] ospital #NRBC 0.00 10^3/uL 0.00 - 0.00 [facility] ospital MANUAL DIFF NOT INDICATED [facility] RBC MORPH NOT INDICATED [facility] spital ID Date Data Source [id number] 12/07/2020 07:12:00 AM EDT [facility] Name Value Range Interpretation Code Description Data Vicki rce(s) Supporting Document(s) Prothrombin time (PT) 13.0 SECONDS 11.0 - 15.5 [facility] INR in Platelet poor plasma by Coagulation assay 0.94 0.93 - 1. 23 [facility] aPTT in Blood by Coagulation assay 24.3 SECONDS 24.8 - 36.7 L [facility] \\BLDo\\INR INTERPRETATION\\BLDx\\ Therapeutic range for Coumadin and related oral anticoagulants. - International Normalized Ratio (INR): 2.0 - 3.0 for Venous Thrombosis, Pulmonary Embolus, Tissue heart valves, Acute GA Atrial Fibrillation, Valvular heart disease and recurrent Systemic Embolism. - International Normalized Ratio (INR): 2.5 - 3.5 for Mechanical Prosthetic valve. ID Date Data Source [id number] 12/07/2020 07:12:00 AM EDT [facility] Name Value Range Interpretation Code Description Data Vicki rce(s) Supporting Document(s) TROPONIN T <0.01 NG/ML 0.00 - 0.10 [facility] ospital TROPONIN T0.1 ng/ml Recommended as the c linical threshold value forTroponin T. ID Date Data Source [id number] 07/06/2020 12:00:00 AM EDT [facility]) Name Value Range Interpretation Code Description Data Vicki rce(s) Supporting Document(s) SARS-CoV-2 (COVID-19) RNA [Presence] in Respiratory specimen by CHRISTEN with probe detection negative negative Sars-cov-2 [facility]) ID Date Data Source [id number] 07/06/2020 12:00:00 AM EDT [facility]) Name Value Range Interpretation Code Description Data Vicki rce(s) Supporting Document(s) ID Date Data Source [id number] 07/06/2020 12:00:00 AM EDT [facility]) Name Value Range Interpretation Code Description Data Vicki rce(s) Supporting Document(s) SARS-CoV-2 (COVID-19) RNA [Presence] in Respiratory specimen by CHRISTEN with probe detection negative negative Sars-cov-2 ADAIR ([facility]) ID Date Data Source [id number] 07/06/2020 12:00:00 AM EDT INDI[place] ([facility]) Name Value Range Interpretation Code Description Data Vicki rce(s) Supporting Document(s) ID Date Data Source [id number] 07/06/2020 12:00:00 AM EDT ADAIR ([facility]) Name Value Range Interpretation Code Description Data Vicki rce(s) Supporting Document(s) SARS-CoV-2 (COVID-19) RNA [Presence] in Respiratory specimen by CHRISTEN with probe detection negative negative Sars-cov-2 ADAIR ([facility]) ID Date Data Source [id number] 07/06/2020 12:00:00 AM EDT [place] ([facility]) Name Value Range Interpretation Code Description Data Vicki rce(s) Supporting Document(s) ID Date Data Source [id number] 07/06/2020 12:00:00 AM EDT [place] ([facility]) Name Value Range Interpretation Code Description Data Vicki rce(s) Supporting Document(s) SARS-CoV-2 (COVID-19) RNA [Presence] in Respiratory specimen by CHRISTEN with probe detection negative negative Sars-cov-2 ADAIR ([facility]) ID Date Data Source [id number] 07/06/2020 12:00:00 AM EDT INDIANOLA ([facility]) Name Value Range Interpretation Code Description Data Vicki rce(s) Supporting Document(s) ID Date Data Source [id number] 07/06/2020 12:00[facility] Name Value Range Interpretation Code Description Data Vicki rce(s) Supporting Document(s) SARS coronavirus 2 RNA [Presence] in Res piratory specimen by CHRISTEN with probe detection negative negative Sars-cov-2 ADAIR ([facility]) ID Date Data Source [id number] 07/06/2020 12:00:00 AM EDT ADAIR ([facility]) Name Value Range Interpretation Code Description Data Vicki rce(s) Supporting Document(s) ID Date Data Source [id number] 07/06/2020 12:00:00 AM EDT [facility] Name Value Range Interpretation Code Description Data Vicki rce(s) Supporting Document(s) SARS-CoV-2 [facility] This lab was ordered by [facility]-COVID19 and reported by [employer]. ID Date Data Source [id number] 06/22/2020 12:00:00 AM EDT ADAIR ([facility]) Name Value Range Interpretation Code Description Data Vicki rce(s) Supporting Document(s) SARS-CoV-2 (COVID-19) RNA [Presence] in Respiratory specimen by CHRISTEN with probe detection negative negative Sars-cov-2 ADAIR ([facility]) ID Date Data Source [id number] 06/22/2020 12:00:00 AM EDT ADAIR ([facility]) Name Value Range Interpretation Code Description Data Vicki rce(s) Supporting Document(s) ID Date Data Source [id number] 06/22/2020 12:00:00 AM EDT ADAIR ([facility]) Name Value Range Interpretation Code Description Data Vicki rce(s) Supporting Document(s) SARS-CoV-2 (COVID-19) RNA [Presence] in Respiratory specimen by CHRISTEN with probe detection negative negative Sars-cov-2 ADAIR ([facility]) ID Date Data Source [id number] 06/22/2020 12:00:00 AM EDT ADAIR ([facility]) Name Value Range Interpretation Code Description Data Vicki rce(s) Supporting Document(s) ID Date Data Source [id number] 06/22/2020 12:00:00 AM EDT ADAIR ([facility]) Name Value Range Interpretation Code Description Data Vicki rce(s) Supporting Document(s) SARS-CoV-2 (COVID-19) RNA [Presence] in Respiratory specimen by CHRISTEN with probe detection negative negative Sars-cov-2 ADAIR ([facility]) ID Date Data Source [id number] 06/22/2020 12:00:00 AM EDT ADAIR ([facility]) Name Value Range Interpretation Code Description Data Vicki rce(s) Supporting Document(s) ID Date Data Source [id number] 06/22/2020 12:00:00 AM EDT ADAIR ([facility]) Name Value Range Interpretation Code Description Data Vicki rce(s) Supporting Document(s) SARS-CoV-2 (COVID-19) RNA [Presence] in Respiratory specimen by CHRISTEN with probe detection negative negative Sars-cov-2 ADAIR ([facility]) ID Date Data Source [id number] 06/22/2020 12:00:00 AM EDT ADAIR ([facility]) Name Value Range Interpretation Code Description Data Vicki rce(s) Supporting Document(s) ID Date Data Source [id number] 06/22/2020 12:00:00 AM EDT ADAIR ([facility]) Name Value Range Interpretation Code Description Data Vicki rce(s) Supporting Document(s) SARS coronavirus 2 RNA [Presence] in Res piratory specimen by CHRISTEN with probe detection negative negative Sars-cov-2 ADAIR ([facility]) ID Date Data Source [id number] 06/22/2020 12:00:00 AM EDT ADAIR ([facility]) Name Value Range Interpretation Code Description Data Vicki rce(s) Supporting Document(s) ID Date Data Source [id number] 06/22/2020 12:00:00 AM EDT ADAIR ([facility]) Name Value Range Interpretation Code Description Data Vicki rce(s) Supporting Document(s) SARS coronavirus 2 RNA [Presence] in Res piratory specimen by CHRISTEN with probe detection negative negative Sars-cov-2 ADAIR ([facility]) ID Date Data Source [id number] 06/22/2020 12:00:00 AM EDT ADAIR ([facility]) Name Value Range Interpretation Code Description Data Vicki rce(s) Supporting Document(s) ID Date Data Source [id number] 06/22/2020 12:00:00 AM EDT [facility] Name Value Range Interpretation Code Description Data Vicki rce(s) Supporting Document(s) SARS-CoV-2 [facility] This lab was ordered by [facility]-COVID[facility] and reported by [employer]. ID Date Data Source [id number] 06/22/2020 12:00:00 AM EDT ADAIR ([facility]) Name Value Range Interpretation Code Description Data Vicki rce(s) Supporting Document(s) SARS coronavirus 2 RNA [Presence] in Res piratory specimen by CHRISTEN with probe detection negative negative Sars-cov-2 ADAIR ([facility]) Procedure Social History Code Duration Value Status Description Data Source(s ) Smoking 07/16/2021 12:00:00 AM EDT Former Smoker completed Former Smoker eCW1 ([facility]) Smoking 07/16/2021 12:00:00 AM EDT Former Smoker completed Former Smoker eCW1 ([facility]) Smoking 07/16/2021 12:00:00 AM EDT Former Smoker completed Former Smoker eCW1 ([facility]) Smoking 07/16/2021 12:00:00 AM EDT Former Smoker completed Former Smoker eCW1 ([facility]) Smoking 07/16/2021 12:00:00 AM EDT Former Smoker completed Former Smoker eCW1 ([facility]) Smoking 05/31/2021 12:00:00 AM EDT Former Smoker completed Former Smoker eCW1 ([facility]) Smoking 04/13/2021 12:00:00 AM EDT Former Smoker completed Former Smoker eCW1 ([facility]) Smoking 04/13/2021 12:00:00 AM EDT Former Smoker completed Former Smoker eCW1 ([facility]) Smoking 04/13/2021 12:00:00 AM EDT Former Smoker completed Former Smoker eCW1 ([facility]) Smoking 04/13/2021 12:00:00 AM EDT Former Smoker completed Former Smoker eCW1 ([facility]) Smoking 02/05/2021 12:00:00 AM EDT Former Smoker completed Former Smoker eCW1 ([facility]) Smoking 02/05/2021 12:00:00 AM EDT Former Smoker completed Former Smoker eCW1 ([facility]) Vital Signs ID Date Data Source [id number] Name Value Range Interpretation Code Description Data Source(s) Diastolic blood pressure 84 mm[Hg] 84 mm[Hg] ADAIR ([facility]) Body height 71 [in_i] 71 [in_i] ADAIR ([facility]) Body mass index (BMI) [Ratio] 34.9 kg/m2 34.9 k g/m2 ADAIR ([facility]) Systolic blood pressure 138 mm[Hg] 138 mm[Hg] A THENA ([facility]) Body weight 250 [lb_av] 250 [lb_av] ADAIR ([facility]) Diastolic blood pressure 72 mm[Hg] 72 mm[Hg] ADAIR ([facility]) Diastolic blood pressure 72 mm[Hg] 72 mm[Hg] ADAIR ([facility]) Systolic blood pressure 144 mm[Hg] 144 mm[Hg] A THENA ([facility]) Diastolic blood pressure 72 mm[Hg] 72 mm[Hg] ADAIR ([facility]) Systolic blood pressure 144 mm[Hg] 144 mm[Hg] A THENA ([facility]) Diastolic blood pressure 72 mm[Hg] 72 mm[Hg] ADAIR ([facility]) Systolic blood pressure 144 mm[Hg] 144 mm[Hg] A THENA ([facility]) Systolic blood pressure 144 mm[Hg] 144 mm[Hg] A THENA ([facility]) Patient Treatment Plan of Care Planned Activity Planned Date Details Description Data Source (s) Clonazepam 1 MG Oral Tablet 07/23/2021 12:00:00 AM EST eCW1 ([facility]) Clonazepam 1 MG Oral Tablet 07/23/2021 12:00:00 AM EST eCW1 ([facility]) Clonazepam 1 MG Oral Tablet 07/23/2021 12:00:00 AM EST eCW1 ([facility]) Clonazepam 1 MG Oral Tablet 07/23/2021 12:00:00 AM EST eCW1 ([facility]) One Touch Delica 33 gauge 07/21/2021 12:00:00 AM EST eCW1 ([facility]) Glucose strip (Verio IQ) 07/21/2021 12:00:00 AM EST eCW1 ([facility]) Glucose strip (Verio IQ) 07/21/2021 12:00:00 AM EST eCW1 ([facility]) One Touch Delica 33 gauge 07/21/2021 12:00:00 AM EST eCW1 ([facility]) Glucose strip (Verio IQ) 07/21/2021 12:00:00 AM EST eCW1 ([facility]) One Touch Delica 33 gauge 07/21/2021 12:00:00 AM EST eCW1 ([facility]) Glucose strip (Verio IQ) 07/21/2021 12:00:00 AM EST eCW1 ([facility]) One Touch Delica 33 gauge 07/21/2021 12:00:00 AM EST eCW1 ([facility]) One Touch Delica 33 gauge 07/21/2021 12:00:00 AM EST eCW1 ([facility]) Glucose strip (Verio IQ) 07/21/2021 12:00:00 AM EST eCW1 ([facility]) Insulin Lispro 100 UNT/ML Injectable Solution 07/19/2021 12:00:00 A M EST eCW1 ([facility]) Insulin Lispro 100 UNT/ML Injectable Solution 07/19/2021 12:00:00 A M EST eCW1 ([facility]) Insulin Lispro 100 UNT/ML Injectable Solution 07/19/2021 12:00:00 A M EST eCW1 ([facility]) Insulin Lispro 100 UNT/ML Injectable Solution 07/19/2021 12:00:00 A M EST eCW1 ([facility]) Insulin Lispro 100 UNT/ML Injectable Solution 07/19/2021 12:00:00 A M EST eCW1 ([facility]) atorvastatin 40 MG Oral Tablet 07/16/2021 12:00:00 AM EDT eCW1 ([facility]) empagliflozin 10 MG Oral Tablet [Jardiance] 07/16/2021 12:00:00 AM EDT eCW1 ([facility]) atorvastatin 40 MG Oral Tablet 07/16/2021 12:00:00 AM EDT eCW1 ([facility]) empagliflozin 10 MG Oral Tablet [Jardiance] 07/16/2021 12:00:00 AM EDT eCW1 ([facility]) atorvastatin 40 MG Oral Tablet 07/16/2021 12:00:00 AM EDT eCW1 ([facility]) empagliflozin 10 MG Oral Tablet [Jardiance] 07/16/2021 12:00:00 AM EDT eCW1 ([facility]) atorvastatin 40 MG Oral Tablet 07/16/2021 12:00:00 AM EDT eCW1 ([facility]) empagliflozin 10 MG Oral Tablet [Jardiance] 07/16/2021 12:00:00 AM EDT eCW1 ([facility]) atorvastatin 40 MG Oral Tablet 07/16/2021 12:00:00 AM EDT eCW1 ([facility]) empagliflozin 10 MG Oral Tablet [Jardiance] 07/16/2021 12:00:00 AM EDT eCW1 ([facility]) Clonazepam 1 MG Oral Tablet 06/22/2021 12:00:00 AM EDT eCW1 ([facility]) Clonazepam 1 MG Oral Tablet 05/28/2021 12:00:00 AM EDT eCW1 ([facility]) Clonazepam 1 MG Oral Tablet 04/26/2021 12:00:00 AM EDT eCW1 ([facility]) Clonazepam 1 MG Oral Tablet 04/26/2021 12:00:00 AM EDT eCW1 ([facility]) Clonazepam 1 MG Oral Tablet 04/26/2021 12:00:00 AM EDT eCW1 ([facility]) Lisinopril 10 MG Oral Tablet 04/13/2021 12:00:00 AM EDT eCW1 ([facility]) Lisinopril 10 MG Oral Tablet 04/13/2021 12:00:00 AM EDT eCW1 ([facility]) Lisinopril 10 MG Oral Tablet 04/13/2021 12:00:00 AM EDT eCW1 ([facility]) Lisinopril 10 MG Oral Tablet 04/13/2021 12:00:00 AM EDT eCW1 ([facility]) Lisinopril 10 MG Oral Tablet 04/13/2021 12:00:00 AM EDT eCW1 ([facility]) Clonazepam 1 MG Oral Tablet 06/10/2020 12:00:00 AM EDT eCW1 ([facility]) Clonazepam 1 MG Oral Tablet 06/10/2020 12:00:00 AM EDT eCW1 ([facility]) Clonazepam 1 MG Oral Tablet 06/10/2020 12:00:00 AM EDT eCW1 ([facility]) Clonazepam 1 MG Oral Tablet 06/10/2020 12:00:00 AM EDT eCW1 ([facility]) Clonazepam 1 MG Oral Tablet 06/10/2020 12:00:00 AM EDT eCW1 ([facility]) Clonazepam 1 MG Oral Tablet 06/10/2020 12:00:00 AM EDT eCW1 ([facility]) Clonazepam 1 MG Oral Tablet 06/10/2020 12:00:00 AM EDT eCW1 ([facility]) Clonazepam 1 MG Oral Tablet 06/10/2020 12:00:00 AM EDT eCW1 ([facility]) Clonazepam 1 MG Oral Tablet 06/10/2020 12:00:00 AM EDT eCW1 ([facility]) Clonazepam 1 MG Oral Tablet 06/10/2020 12:00:00 AM EDT eCW1 ([facility]) Clonazepam 1 MG Oral Tablet 06/10/2020 12:00:00 AM EDT eCW1 ([facility]) Clonazepam 1 MG Oral Tablet 06/10/2020 12:00:00 AM EDT eCW1 ([facility]) Clonazepam 1 MG Oral Tablet 06/10/2020 12:00:00 AM EDT eCW1 ([facility]) Clonazepam 1 MG Oral Tablet 06/10/2020 12:00:00 AM EDT eCW1 ([facility]) Clonazepam 1 MG Oral Tablet 06/10/2020 12:00:00 AM EDT eCW1 ([facility]) Clonazepam 1 MG Oral Tablet 06/10/2020 12:00:00 AM EDT eCW1 ([facility]) 0.5 ML dulaglutide 3 MG/ML Auto-Injector [Trulicity] ADAIR ([facility]) 0.5 ML dulaglutide 1.5 MG/ML Auto-Injector [Trulicity] ADAIR ([facility]) quetiapine 25 MG Oral Tablet ADAIR ([facility]) Metformin hydrochloride 500 MG Oral Tablet ADAIR ([facility]) empagliflozin 25 MG Oral Tablet [Jardiance] ADAIR ([facility]) Hydroxyzine Hydrochloride 50 MG Oral Tablet ADAIR ([facility]) Clonazepam 0.5 MG Oral Tablet ADAIR ([facility]) Amoxicillin 500 MG Oral Capsule ADAIR ([facility]) empagliflozin 25 MG Oral Tablet [Jardiance] ADAIR ([facility]) Hydroxyzine Hydrochloride 50 MG Oral Tablet ADAIR ([facility]) Clonazepam 0.5 MG Oral Tablet ADAIR ([facility]) Amoxicillin 500 MG Oral Capsule ADAIR ([facility]) 0.5 ML dulaglutide 3 MG/ML Auto-Injector [Trulicity] ADAIR ([facility]) 0.5 ML dulaglutide 1.5 MG/ML Auto-Injector [Trulicity] ADAIR ([facility]) quetiapine 25 MG Oral Tablet ADAIR ([facility]) Metformin hydrochloride 500 MG Oral Tablet ADAIR ([facility]) empagliflozin 25 MG Oral Tablet [Jardiance] ADAIR ([facility]) Hydroxyzine Hydrochloride 50 MG Oral Tablet ADAIR ([facility]) Clonazepam 0.5 MG Oral Tablet ADIAR ([facility]) Amoxicillin 500 MG Oral Capsule ADAIR ([facility]) 0.5 ML dulaglutide 3 MG/ML Auto-Injector [Trulicity] ADAIR ([facility]) 0.5 ML dulaglutide 1.5 MG/ML Auto-Injector [Trulicity] ADAIR ([facility]) quetiapine 25 MG Oral Tablet ADAIR ([facility]) Metformin hydrochloride 500 MG Oral Tablet ADAIR ([facility]) empagliflozin 25 MG Oral Tablet [Jardiance] ADAIR ([facility]) Hydroxyzine Hydrochloride 50 MG Oral Tablet ADAIR ([facility]) Clonazepam 0.5 MG Oral Tablet ADAIR ([facility]) Amoxicillin 500 MG Oral Capsule ADAIR ([facility]) 0.5 ML dulaglutide 3 MG/ML Auto-Injector [Trulicity] ADAIR ([facility]) 0.5 ML dulaglutide 1.5 MG/ML Auto-Injector [Trulicity] ADAIR ([facility]) quetiapine 25 MG Oral Tablet ADAIR ([facility]) Metformin hydrochloride 500 MG Oral Tablet ADAIR ([facility]) Metformin hydrochloride 500 MG Oral Tablet ADAIR ([facility]) Hydroxyzine Hydrochloride 50 MG Oral Tablet ADAIR ([facility]) Clonazepam 0.5 MG Oral Tablet ADAIR ([facility]) Amoxicillin 500 MG Oral Capsule ADAIR ([facility]) Metformin hydrochloride 500 MG Oral Tablet ADAIR ([facility]) Hydroxyzine Hydrochloride 50 MG Oral Tablet ADAIR ([facility]) Clonazepam 0.5 MG Oral Tablet ADAIR ([facility]) Amoxicillin 500 MG Oral Capsule ADAIR ([facility]) Metformin hydrochloride 500 MG Oral Tablet ADAIR ([facility]) Hydroxyzine Hydrochloride 50 MG Oral Tablet ADAIR ([facility]) Clonazepam 0.5 MG Oral Tablet ADAIR ([facility]) Amoxicillin 500 MG Oral Capsule ADAIR ([facility])
[2021-08-01 06:36] LABS: APPEARANCE, URINE CLEAR (CLEAR); BACTERIA, URINE AUTO NEGATIVE (NEGATIVE); BILIRUBIN, URINE AUTO NEGATIVE (NEGATIVE); BLOOD, URINE BLOOD NEGATIVE (NEGATIVE); COLOR, URINE STRAW (YELLOW); GLUCOSE, URINE (UA) AUTO 3+ mg/dL (NEGATIVE); KETONE, URINE AUTO TRACE mg/dL (NEGATIVE); LEUKOCYTE ESTERASE, URINE AUTO NEGATIVE (NEGATIVE); NITRITE, URINE AUTO NEGATIVE (NEGATIVE); PROTEIN, URINE AUTO NEGATIVE (NEGATIVE); RBC, URINE AUTO 2 /HPF (0-3); SPECIFIC GRAVITY URINE AUTO 1.044 (1.002-1.035); SQUAMOUS EPITHELIAL CELL UR AU 0 /HPF (0-6); UROBILINOGEN, URINE AUTO 0.2 mg/dL (0.0-2.0); WBC, URINE AUTO 2 /HPF (0-3)
[2021-08-01] MEDS ORDERED: CYCL5TAB PO (06:48)
[2021-08-01] MEDS ORDERED: CEFP200T PO (06:48)
--- NOTE | 2021-08-01 09:02 | ECGEPIP ---
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
== END 2021-08-01 07:08 | disposition home or self-care (01) ==
LOC: M ED 02:51
DX: J18.9 Pneumonia, unspecified organism (principal); M54.2 Cervicalgia; E11.9 Type 2 diabetes mellitus without complications; I10 Essential (primary) hypertension; E78.5 Hyperlipidemia, unspecified; F17.200 Nicotine dependence, unspecified, uncomplicated; Z79.4 Long term (current) use of insulin; Z88.2 Allergy status to sulfonamides; Z88.8 Allergy status to other drugs, medicaments and biological substances; Z79.51 Long term (current) use of inhaled steroids; Z79.899 Other long term (current) drug therapy; Z79.82 Long term (current) use of aspirin
CPT/HCPCS: 70491; 71045; 80047; 80076; 81001; 82550; 82553; 83690; 84484; 85025; 85610; 85652; 86140; 87631; 93005; 93041; 94760; 96374; 99284; J1885; Q9967

== ENCOUNTER 2022-01-25 02:55 | Emergency (ER) | payer MEDICARE, MEDICAID ==
[~2022-01-25] VITALS: Ht 180.3 cm; Wt 109.8 kg
[2022-01-25 02:55] VITALS: BP 162/81
[~2022-01-25 02:55] MED LIST changes: +ASPI81TA26 PO; +ATOR40TA75 PO; +CEFP200T PO; +CYCL5TAB PO; +INSUHUMDS; +INSULANT; +JARD1TAB PO
[2022-01-25] MEDS ORDERED: clonazePAM 1 MG TAB PO ONE (03:50)
== END 2022-01-25 06:17 | disposition left against medical advice (07) ==
LOC: M ED 02:55
DX: F13.939 Sedative, hypnotic or anxiolytic use, unspecified with withdrawal, unspecified (principal); E11.9 Type 2 diabetes mellitus without complications; I10 Essential (primary) hypertension; E78.5 Hyperlipidemia, unspecified; Z79.82 Long term (current) use of aspirin; Z79.899 Other long term (current) drug therapy; Z79.4 Long term (current) use of insulin; Z90.49 Acquired absence of other specified parts of digestive tract; Z98.890 Other specified postprocedural states; Z88.1 Allergy status to other antibiotic agents; Z88.2 Allergy status to sulfonamides; Z88.8 Allergy status to other drugs, medicaments and biological substances

== ENCOUNTER → 2022-01-31 | Outpatient (REF) | payer MEDICARE, MEDICAID | LOC: M SFHCPLAZ 13:59 | PROVIDERS: ATTEND Family Medicine | DX: E11.40 Type 2 diabetes mellitus with diabetic neuropathy, unspecified (principal); I10 Essential (primary) hypertension; Z95.1 Presence of aortocoronary bypass graft ==

== ENCOUNTER → 2022-02-24 | Outpatient (CLI) | payer MEDICARE, MEDICAID ==
[2022-02-24 11:25] LABS: BASO # 0.1 10^3/uL (0.0-0.2); BASO % 0.8 % (0.0-1.0); EOS # 0.3 10^3/uL (0.0-0.5); EOS % 3.2 % (0.0-3.0); HEMATOCRIT 41.6 % (42.0-52.0); HEMOGLOBIN 13.6 g/dl (13.5-17.5); LYMPH # 2.2 10^3/uL (1.5-5.0); LYMPH % 22.2 % (24.0-44.0); MEAN CORPUSCULAR HEMOGLOBIN 31.9 pg (27.0-33.0); MEAN CORPUSCULAR HGB CONC 32.7 g/dl (32.0-36.5); MEAN CORPUSCULAR VOLUME 97.7 fl (80.0-96.0); MONO # 0.8 10^3/uL (0.0-0.8); MONO % 7.9 % (2.0-8.0); NEUTROPHILS # 6.4 10^3/uL (1.5-8.5); NEUTROPHILS % 65.3 % (36.0-66.0); PLATELET COUNT, AUTOMATED 442 10^3/uL (150-450); RED BLOOD COUNT 4.26 10^6/uL (4.30-6.10); WHITE BLOOD COUNT 9.8 10^3/uL (4.0-10.0)
[2022-02-24 11:44] LABS: HEMOGLOBIN A1c 6.9 %
[2022-02-24 11:54] LABS: BLOOD UREA NITROGEN 13 MG/DL (7-18); CALCIUM LEVEL 11.8 MG/DL (8.8-10.2); CARBON DIOXIDE LEVEL 25 MEQ/L (21-32); CHLORIDE LEVEL 107 MEQ/L (98-107); GLOMERULAR FILTRATION RATE > 60.0 (>42); GLUCOSE, FASTING 94 MG/DL (70-100); POTASSIUM SERUM 4.2 MEQ/L (3.5-5.1); SODIUM LEVEL 139 MEQ/L (136-145)
== END ==
LOC: M LAB 10:41
PROVIDERS: ATTEND Student in an Organized Health Care Education/Training Program
DX: Z95.1 Presence of aortocoronary bypass graft (principal); I10 Essential (primary) hypertension; E11.40 Type 2 diabetes mellitus with diabetic neuropathy, unspecified; E78.5 Hyperlipidemia, unspecified

== ENCOUNTER → 2022-02-24 | Outpatient (CLI) | payer MEDICARE, MEDICAID ==
[2022-02-24 11:56] LABS: CHOLESTEROL RISK RATIO 1.8 (<5)
== END ==
LOC: M LAB 10:36
PROVIDERS: ATTEND Nurse Practitioner Family
DX: E78.5 Hyperlipidemia, unspecified (principal)

== ENCOUNTER → 2022-02-28 | Outpatient (REF) | payer MEDICARE, MEDICAID | LOC: M SFHCPLAZ 12:10 | PROVIDERS: ATTEND Family Medicine | DX: E83.52 Hypercalcemia (principal) ==

== ENCOUNTER → 2022-03-21 | Outpatient (CLI) | payer MEDICARE, MEDICAID ==
[2022-03-21 17:35] LABS: BLOOD UREA NITROGEN 12 MG/DL (7-18); CALCIUM LEVEL 11.3 MG/DL (8.8-10.2); CARBON DIOXIDE LEVEL 30 MEQ/L (21-32); CHLORIDE LEVEL 107 MEQ/L (98-107); CREATININE FOR GFR 0.74 MG/DL (0.70-1.30); GLOMERULAR FILTRATION RATE > 60.0 (>42); GLUCOSE, FASTING 84 MG/DL (70-100); PHOSPHORUS LEVEL 2.6 MG/DL (2.5-4.9); POTASSIUM SERUM 4.7 MEQ/L (3.5-5.1); SODIUM LEVEL 140 MEQ/L (136-145); TOTAL PROTEIN 7.6 GM/DL (6.4-8.2)
[2022-03-22 12:35] LABS: ALBUMIN 3.94 GM/DL (3.29-5.55); ALBUMIN % 51.8 % (55.8-66.1); ALPHA-1-GLOBULIN % 5.5 % (2.9-4.9); ALPHA-1-GLOBULINS 0.42 GM/DL (0.17-0.41); ALPHA-2-GLOBULINS 1.13 GM/DL (0.42-0.99); ALPHA-2-GLOBULINS % 14.9 % (7.1-11.8); BETA-1-GLOBULINS 0.52 GM/DL (0.28-0.60); BETA-1-GLOBULINS % 6.8 % (4.7-7.2); BETA-2-GLOBULINS 0.47 GM/DL (0.19-0.55); BETA-2-GLOBULINS % 6.2 % (3.2-6.5); GAMMA GLOBULIN % 14.8 % (11.1-18.8); GAMMA GLOBULINS 1.12 GM/DL (0.65-1.58)
[2022-03-23 00:34] LABS: PTH INTACT 49.5 PG/ML (18.5-88.0)
== END ==
LOC: M LAB 13:04
PROVIDERS: ATTEND Student in an Organized Health Care Education/Training Program
DX: E83.52 Hypercalcemia (principal)

== ENCOUNTER → 2022-06-22 | Outpatient (CLI) | payer MEDICARE | LOC: M PLAIMG 09:54 | PROVIDERS: ATTEND Student in an Organized Health Care Education/Training Program | DX: M25.552 Pain in left hip (principal); E83.52 Hypercalcemia ==

== ENCOUNTER → 2024-09-27 | Outpatient (REF) | payer MEDICARE, MEDICAID ==
[~2024-09-27] MED LIST changes: -CYCL5TAB PO; +CYCL5TAB4 PO; -KLON0.5T PO; +KLON0.5T8 PO
== END ==
LOC: M SFHCPLAZ 18:16
DX: Z53.9 Procedure and treatment not carried out, unspecified reason (principal)

== ENCOUNTER → 2025-05-19 | Outpatient (CLI) | payer MEDICARE, MEDICAID | LOC: M PLAIMG 10:46 | DX: I25.810 Atherosclerosis of coronary artery bypass graft(s) without angina pectoris (principal) ==

== ENCOUNTER → 2025-05-23 | Outpatient (CLI) | payer MEDICARE, MEDICAID ==
[2025-05-23 11:49] LABS: PLATELET COUNT, AUTOMATED 335 10^3/uL (150-450)
[2025-05-23 12:12] LABS: ALT/SGPT 29 U/L (7.0-40); AST/SGOT 19 U/L (<34); CALCIUM LEVEL 11.8 MG/DL (8.3-10.6); CARBON DIOXIDE LEVEL 25 MMOL/L (20-31); CHLORIDE LEVEL 103 MMOL/L (98-107); CHOLESTEROL LEVEL 109 MG/DL (<200); CHOLESTEROL RISK RATIO 2.51 (<5); CREATININE FOR GFR 0.52 MG/DL (0.70-1.30); GLOMERULAR FILTRATION RATE > 90.0 (>42); LDL CHOLESTEROL 35.0 MG/DL (<100); MAGNESIUM LEVEL 2.0 MG/DL (1.8-2.4); NON-HDL-C 65.6 MG/DL; POTASSIUM SERUM 4.5 MMOL/L (3.5-5.1); SODIUM LEVEL 139 MMOL/L (136-145); TRIGLYCERIDES LEVEL 153 MG/DL (<150)
[2025-05-23 12:27] LABS: ESTIMATED AVERAGE GLUCOSE 217.0 MG/DL (60-110)
== END ==
LOC: M LAB 09:35
DX: E83.52 Hypercalcemia (principal); E11.40 Type 2 diabetes mellitus with diabetic neuropathy, unspecified; E78.5 Hyperlipidemia, unspecified; E11.65 Type 2 diabetes mellitus with hyperglycemia; E83.42 Hypomagnesemia